=== PATIENT | female | born 1940 | race Caucasian/White ===

== ENCOUNTER 2022-04-12 12:00 | Outpatient (CLI) | payer MEDICARE, OTHER, SELFPAY ==
--- OUTSIDE RECORDS SUMMARY | 2022-04-12 08:11 | XMS_ITS | Encounter Summary ---
:1940 Author Care Team Providers Name Role Phone [facility] Primary Care Provider [phone] Reason for Visit None recorded. Assessment and Plan 1. Chronic interstitial cystitis Follow up on nurse schedule for pessary check and elmiron installations. Needs annual appt with MD ? urinalysis, dipstick Discussion Note: None recorded.Patient educational handouts: No information available. Plan of Care Reminders Provider Appointments Established 30 05/09/2022 9:30AM [facility] Lab Urinalysis, Dipstick 04/11/2022 [facility] Referral None recorded. ? ? Procedures None recorded. ? ? Surgeries None recorded. ? ? Imaging None recorded. ? ? Medications Name Start Date ? ? Advair Diskus 100 mcg-50 mcg/dose powder for inhalatio n ? Advair Diskus 250 mcg-50 mcg/dose powder for inhalatio n ? INHALE ONE PUFF BY MOUTH TWICE DAILY Advair Diskus 500 mcg-50 mcg/dose powder for inhalatio n ? INHALE ONE PUFF BY MOUTH TWICE DAILY albuterol sulfate HFA 90 mcg/actuation aerosol inhaler ? INHALE 2 PUFFS BY MOUTH EVERY 6 HOURS NEEDED FOR W HEEZING alendronate 70 mg tablet ? amoxicillin 875 mg tablet ? TAKE 1 TABLET BY MOUTH TWICE DAILY FOR 10 DAYS azelastine 0.05 % eye drops ? azelastine 137 mcg (0.1 %) nasal spray aerosol ? inhale 2 sprays into the nostril(s) twice daily celecoxib 100 mg capsule ? clotrimazole 10 mg devin ? TAKE 1 TABLET BY MOUTH 5 TIMES DAILY. coenzyme q10 100 mg cap mcke ? TAKE ONE CAPSULE BY MOUTH DAILY coenzyme Q10 100 mg capsule ? TAKE ONE CAPSULE BY MOUTH DAILY Elmiron 100 mg capsule ? Take 1 capsule 3 times a day by oral route. epinephrine 0.3 mg/0.3 mL injection, auto-injector ? INJECT 0.3 MILLILITERS INTRAMUSCULARLY NEEDED FOR ANAPHYLACTIC REACTION. escitalopram 10 mg tablet ? TAKE ONE TABLET BY MOUTH DAILY famotidine 20 mg tablet ? take 1 tablet by mouth daily Flowflex COVID-19 Antigen Home Test kit ? TEST gabapentin 100 mg capsule ? take 1-3 tablets by mouth at bedtime. Incruse Ellipta 62.5 mcg/actuation powder for inhalati on ? INHALE 1 PUFF BY MOUTH EVERY 24 HOURS lidocaine HCl 20 mg/mL (2 %) injection solution ? methylprednisolone 4 mg tablets in a dose pack ? follow package directions metoclopramide 10 mg tablet ? TAKE 1 TABLET BY MOUTH 3 TIMES DAILY NEEDED montelukast 10 mg tablet ? TAKE ONE TABLET BY MOUTH IN THE EVENING mupirocin 2 % topical ointment ? APPLY TO AFFECTED AREA(S) topically 3 times daily as needed nitroglycerin 0.4 mg sublingual tablet ? TAKE 1 TABLET SUBLINGUALLY EVERY 5 MINUTES NEEDED FOR CHEST PAIN. omeprazole 40 mg capsule,delayed release ? TAKE ONE CAPSULE BY MOUTH TWICE DAILY BEFORE MEALS pramipexole 0.125 mg tablet ? take 1-4 tablets by mouth at bedtime. s tart at 1 tablet and increase every 4 days by 0.125mg as needed up to max dose of 0.5mg pramipexole 0.25 mg tablet ? TAKE 2-3 TABLETS BY MOUTH EVERY NIGHT AT BEDTIME. pramipexole 0.5 mg tablet ? TAKE ONE TABLET BY MOUTH AT BEDTIME prednisone 20 mg tablet ? TAKE ONE TABLET BY MOUTH TWICE DAILY Prolia 60 mg/mL subcutaneous syringe ? INJECT 60 MG SUBCUTANEOUSLY EVERY 6 MONTHS. raloxifene 60 mg tablet ? TAKE ONE TABLET BY MOUTH DAILY Restasis 0.05 % eye drops in a dropperette ? Place 1 drop in both eyes twice a day rosuvastatin 5 mg tablet ? TAKE ONE TABLET BY MOUTH AT BEDTIME sodium bicarbonate 1 mEq/mL (8.4 %) intravenous soluti on ? sore throat 5-7.5mg xavier equa ? DISSOLVE 2 LOZENGES BY MOUTH EVERY 6 HOURS sucralfate 1 gram tablet ? Symbicort 80 mcg-4.5 mcg/actuation HFA aerosol inhaler ? terbinafine HCl 250 mg tablet ? TAKE ONE TABLET BY MOUTH DAILY trazodone 50 mg tablet ? TAKE 1/2 TABLET TO 1 TABLET BY MOUTH EVERY NIGHT AT B EDTIME NEEDED. Trelegy Ellipta 100 mcg-62.5 mcg-25 mcg powder for inh alation ? INHALE ONE PUFF BY MOUTH DAILY triamcinolone acetonide 0.1 % topical ointment ? verapamil ER (SR) 120 mg tablet,extended release ? TAKE 1 TABLET BY MOUTH DAILY Medications Administered None recorded. Vitals None recorded. Results Lab Results Date Name Specimen Result Interpretation Description Value Range Status Address ? 04/11/2022 Urinalysis, ? Color-Status Yellow ? ? [facility]: [address], [place] ? ? ? Clarity-Status Clear ? ? [facility]: [address], [place] ? ? ? Nitrates-Status negative ? ? [facility]: [address], [place] ? ? ? Blood-Status Negative ? ? [facility]: [address], [place] ? ? ? Leuko-Status Trace ? ? [facility]: [address], [place] Allergies Code Code System Name Reaction Severity Onset 92826 RxNorm Vancomycin ? ? 10/02/2011 Sulfa (Sulfonamide Antibiotics) ? ? ? Notes: Sulfa Antibiotics Problems Name Status Onset Date Source ? 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 Procedures Date Name Performed by ? ? Appendectomy Information not avai lable ? Insertion of Prosthesis for Breast Infor mation not available ? Laparoscopy Information not avai lable ? Discectomy of Spine Information not avai lable Vaccine List Vaccine Type pneumococcal polysaccharide PPV23 08/22/2015 Notes: Voided: PCV (Pneumovax 23) Social History Tobacco Smoking Status Former Smoker What was the date of your most recent tobacco screening? Marital status Unknown Family History Relation Problem Onset Age of Age Notes Mother Family history of cardiac (No Information) N/A (No Notes) disorder Father Family history of diabetes (No Information) N/A (No Notes) mellitus Father Malignant melanoma (No Information) N/A (No N otes) Functional Status Unknown. Past Encounters 04/11/2022 Chronic Interstitial Cystitis Lisandra Greer MD: [address], [place] [address], Ph. History of Present Illness Note: <p> Patient presents to clinic today for nurse visit. Today she received elmiron instillationand pessary cleaning</p><div>
</div><p>Followed for IC: S/p cysto and hydrodistention 08/2018 that helped a lot with her urgency/dysuria and frequency. She also did elmiron bladder installations once a month; been successful. </p><div>
</div><p>Her cysto was normal on 10/2020</p><div>
</div><div>Size 3 pessary was cleaned and replaced</div><div>
</div><div>Patient has noted increasing stress incontinence- now needs daily pads- RN advised that she will discuss with Dr Greer about treatment options</div> Review of Systems ? Comprehensive General Adult ROS Reported By: Patient Constitutional: Constitutional: no fever, no chills Eyes: Eyes: no dry eyes, no vision change, no irritation Endocrine: Endocrine: no fatigue, no in creased thirst Cardiovascular: Cardiovascular: no chest jose david n, no palpitations Integumentary: Skin: no rashes, no change i n skin color Respiratory: Respiratory: no wheezing, no cough, no shortness of breath Gastrointestinal: Gastrointestinal: no abdomin al pain, no nausea, no vomiting, no constipation, no GERD Musculoskeletal: Musculoskeletal: no neck jose david n, no back pain Neurologic: Neurologic: no tremor, no di zziness, no numbness, no headaches Genitourinary: Genitourinary: no difficulty urinating, urinary loss of control; stress incontinence ENMT: Ears: no ear pain. Mouth/Thr oat: no sore throat Allergic/Immunologic: Allergy/Immunologic: no itch ing, no hives Hematologic/Lymphatic: Hematologic/Lymphatic no swo llen glands, no excessive bleeding Psychiatric: Psych: no hallucinations, (n ormal) sleep disturbances: mismatch of sleep / wake christian edule with lifestyle needs Physical Exam None recorded.
--- OUTSIDE RECORDS SUMMARY | 2022-04-12 08:11 | XMS_ITS | Encounter Summary ---
:1940 Author Care Team Providers Name Role Phone [facility] [place] Primary Care Provider [phone] Reason for Visit Chronic interstitial cystitis; Prolapse of female genital organs Assessment and Plan 1. Chronic interstitial cystitis Follow up on nurse schedule for pessary check and elmiron installations. Needs annual appt with MD 2. Prolapse of female genital organs Return to clinic every 4-8 weeks for pe ssary cleaning with RN. Needs annual appointment with MD Discussion Note: None recorded.Patient educational handouts: No information available. Plan of Care Reminders Provider Appointments Established 30 05/09/2022 9:30AM [facility] Lab None recorded. ? ? Referral None recorded. ? ? Procedures None [...] recorded. Vitals None recorded. Results Lab Results None recorded. Allergies Code Code System Name Reaction Severity Onset 43669 RxNorm Vancomycin ? ? 10/02/2011 Sulfa (Sulfonamide [...] N otes) Functional Status Unknown. Past Encounters 03/07/2022 Chronic Interstitial Cystitis; Prolapse of Female Genital Organs Lisandra Greer MD: [address] [place] [address], Ph. 02/07/2022 Prolapse of Female Genital Organs Lisandra Greer MD: [address] [place] [address], Ph. History of Present Illness Note: <p> [...]
--- OUTSIDE RECORDS SUMMARY | 2022-04-12 08:11 | XMS_ITS ---
:1940 Author Care Team Providers Name Role Phone [facility] Primary Care Provider [phone] Allergies Code Code System Name Reaction Severity Status Onset 64360 RxNorm Vancomycin ? ? Active 2 Sulfa (Sulfonamide ? ? Active ? Antibiotics) Notes: Sulfa Antibiotics Medications Name Status Start Date Stop Date ? ? Advair Diskus 100 mcg-50 mcg/dose powder for inhalation Active ? Not available Advair Diskus 250 mcg-50 mcg/dose powder for inhalation Active ? Not available INHALE ONE PUFF BY MOUTH TWICE DAILY Advair Diskus 500 mcg-50 mcg/dose powder for inhalation Active ? Not available INHALE ONE PUFF BY MOUTH TWICE DAILY albuterol sulfate HFA 90 mcg/actuation aerosol inhaler Active ? Not available INHALE 2 PUFFS BY MOUTH EVERY 6 HOURS NEEDED FOR WHEEZING alendronate 70 mg tablet Active ? Not wily ilable amoxicillin 875 mg tablet Active ? Not av ailable TAKE 1 TABLET BY MOUTH TWICE DAILY FOR 10 DAYS azelastine 0.05 % eye drops Active ? Not available azelastine 137 mcg (0.1 %) nasal spray aerosol Active ? Not available inhale 2 sprays into the nostril(s) twice daily azithromycin 250 mg tablet Completed ? 09/26 TAKE 2 TABLETS BY MOUTH ON DAY 1, THEN TAKE 1 TABLET ONCE DAILY ON DAYS 2 THROUGH 5 celecoxib 100 mg capsule Active ? Not wily ilable cephalexin 500 mg capsule Completed ? 2021 TAKE ONE CAPSULE BY MOUTH THREE TIMES DAILY Cipro 500 mg tablet Completed ? 09/26/2021 Take 1 tablet every day by oral route for 1 day. clotrimazole 10 mg devin Active ? Not av ailable coenzyme q10 100 mg cap mcke Active ? Not available TAKE ONE CAPSULE BY MOUTH DAILY coenzyme Q10 100 mg capsule Active ? Not available TAKE ONE CAPSULE BY MOUTH DAILY Elmiron 100 mg capsule Active ? Not avail able Take 1 capsule 3 times a day by oral route. epinephrine 0.3 mg/0.3 mL injection, auto-injector Active ? Not available INJECT 0.3 MILLILITERS INTRAMUSCULARLY NEEDED FOR ANAPHYLACT IC REACTION. escitalopram 10 mg tablet Active ? Not av ailable TAKE ONE TABLET BY MOUTH DAILY famotidine 20 mg tablet Active ? Not avai lable take 1 tablet by mouth daily Flowflex COVID-19 Antigen Home Test kit Active ? Not available TEST gabapentin 100 mg capsule Active ? Not av ailable take 1-3 tablets by mouth at bedtime. Incruse Ellipta 62.5 mcg/actuation powder for inhalation Active ? Not available INHALE 1 PUFF BY MOUTH EVERY 24 HOURS lidocaine HCl 20 mg/mL (2 %) injection solution Active ? Not available methylprednisolone 4 mg tablets in a dose pack Active ? Not available follow package directions metoclopramide 10 mg tablet Active ? Not available TAKE 1 TABLET BY MOUTH 3 TIMES DAILY NEEDED montelukast 10 mg tablet Active ? Not wily ilable TAKE ONE TABLET BY MOUTH IN THE EVENING mupirocin 2 % topical ointment Active ? N ot available APPLY TO AFFECTED AREA(S) topically 3 times daily as needed nitroglycerin 0.4 mg sublingual tablet Active ? Not available TAKE 1 TABLET SUBLINGUALLY EVERY 5 MINUTES NEEDED FOR CHEST PAIN. omeprazole 20 mg capsule,delayed release Completed ? 09/26/2021 TAKE 1-2 CAPSULES BY MOUTH DAILY omeprazole 40 mg capsule,delayed release Active ? Not available TAKE ONE CAPSULE BY MOUTH TWICE DAILY BEFORE MEALS pramipexole 0.125 mg tablet Active ? Not available take 1-4 tablets by mouth at bedtime. s tart at 1 tablet and increase every 4 days by 0.125mg as needed up to max dose of 0.5mg pramipexole 0.25 mg tablet Active ? Not a vailable TAKE 2-3 TABLETS BY MOUTH EVERY NIGHT AT BEDTIME. pramipexole 0.5 mg tablet Active ? Not av ailable TAKE ONE TABLET BY MOUTH AT BEDTIME prednisone 20 mg tablet Active ? Not avai lable TAKE ONE TABLET BY MOUTH TWICE DAILY Prolia 60 mg/mL subcutaneous syringe Active ? Not available INJECT 60 MG SUBCUTANEOUSLY EVERY 6 MONTHS. raloxifene 60 mg tablet Active ? Not avai lable TAKE ONE TABLET BY MOUTH DAILY Restasis 0.05 % eye drops in a dropperette Active ? Not available Place 1 drop in both eyes twice a day rosuvastatin 5 mg tablet Active ? Not wily ilable TAKE ONE TABLET BY MOUTH AT BEDTIME sodium bicarbonate 1 mEq/mL (8.4 %) intravenous solution Active ? Not available sore throat 5-7.5mg xavier equa Active ? Not available DISSOLVE 2 LOZENGES BY MOUTH EVERY 6 HOURS sucralfate 1 gram tablet Active ? Not wily ilable Symbicort 80 mcg-4.5 mcg/actuation HFA aerosol inhaler Active ? Not available terbinafine HCl 250 mg tablet Active ? No t available TAKE ONE TABLET BY MOUTH DAILY trazodone 50 mg tablet Active ? Not avail able TAKE 1/2 TABLET TO 1 TABLET BY MOUTH EVERY NIGHT AT BEDTIME NEEDED. Trelegy Ellipta 100 mcg-62.5 mcg-25 mcg powder for inhalation Ac tive ? Not available INHALE ONE PUFF BY MOUTH DAILY triamcinolone acetonide 0.1 % topical ointment Active ? Not available verapamil ER (SR) 120 mg tablet,extended release Active ? Not available TAKE 1 TABLET BY MOUTH DAILY Problems Name Status Onset Date Source ? 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 Procedures Date Name Performed by ? ? Appendectomy Information not avai lable ? Insertion of Prosthesis for Breast Infor mation not available ? Laparoscopy Information not avai lable ? Discectomy of Spine Information not avai lable Results Lab Results Date Name Specimen Result Interpretation Description Value Range Status Address ? 04/11/2022 Urinalysis, ? Color-Status Yellow ? ? [facility] [address] ? ? ? Clarity-Status Clear ? ? [facility]: [address], [place] ? ? ? Nitrates-Statu negative ? ? [facility]: [address], [place] ? ? ? Blood-Status Negative ? ? [facility]: [address], [place] ? ? ? Leuko-Status Trace ? ? [facility] [address], [place] 04/11/2022 Urinalysis, ? No observation ? ? ? Dipstick recorded. 03/07/2022 Urinalysis, ? No observation ? ? ? Dipstick recorded. 02/07/2022 Urinalysis, ? Color-Status Yellow ? ? Dipstick ? ? ? Clarity-Status Clear ? Glucose-Status Negative ? Bilirubin-Stat Negative ? ? us ? ? ? Ketones-Status Negative ? Nitrates-Statu negative ? ? s ? ? ? Blood-Status Trace ? Leuko-Status Small ? Specimen Type Voided ? Performed by Yamilet ? ? Puneet ORELLANA ? ? ? Total Urine 20cc ? ? Volume 01/03/2022 Urinalysis, ? Color-Status Yellow ? ? Dipstick ? ? ? Clarity-Status Clear ? Glucose-Status Negative ? Bilirubin-Stat Negative ? ? us ? ? ? Ketones-Status Negative ? Sp 1.015 ? ? [place]-Status ? ? ? pH-Status 8.0 ? Urobilinogen-S 0.2 ? ? tatus ? ? ? Nitrates-Statu negative ? ? s ? ? ? Blood-Status Negative ? Leuko-Status Negative ? Specimen Type Voided ? Performed by yamilet ? ? puneet ORELLANA ? ? ? Total Urine 20cc ? ? Volume 01/03/2022 Urinalysis, ? No observation ? ? ? Dipstick recorded. 11/29/2021 Urinalysis, ? Color-Status Yellow ? ? Dipstick ? ? ? Clarity-Status Clear ? Glucose-Status Negative ? Bilirubin-Stat Negative ? ? us ? ? ? Ketones-Status Negative ? Sp 1.010 ? ? [place]-Status ? ? ? pH-Status 7.0 ? Urobilinogen-S 0.2 ? ? tatus ? ? ? Nitrates-Statu negative ? ? s ? ? ? Blood-Status Trace ? Leuko-Status Negative ? Specimen Type Voided ? Performed by yamilet ? ? puneet ORELLANA ? ? ? Total Urine 20cc ? ? Volume 11/01/2021 Urinalysis, Urine ? No observation ? ? ? Dipstick recorded. 11/01/2021 Urinalysis, ? Color-Status Yellow ? ? Dipstick ? ? ? Clarity-Status Clear ? Glucose-Status Negative ? Bilirubin-Stat Negative ? ? us ? ? ? Ketones-Status Negative ? Sp 1.010 ? ? [place]-Status ? ? ? pH-Status 7.0 ? Urobilinogen-S 0.2 ? ? tatus ? ? ? Nitrates-Statu negative ? ? s ? ? ? Blood-Status Negative ? Leuko-Status Trace ? Specimen Type Voided ? ? 10/04/2021 Urinalysis, ? Nitrates-Statu negative ? ? Dipstick s ? ? ? Blood-Status Negative ? Leuko-Status Negative ? ? 10/04/2021 Urinalysis, ? No observation ? ? ? Dipstick recorded. 09/26/2021 Bladder Scan ? Volume (in mL) 0ml ? ? (PROC) 09/26/2021 Urinalysis, ? pH-Status 5.5 ? ? Dipstick 09/26/2021 Urinalysis, ? No observation ? ? ? Dipstick recorded. 08/31/2021 Urinalysis, ? pH-Status 7.5 ? ? Dipstick ? ? ? Nitrates-Statu negative ? ? s ? ? ? Blood-Status Negative ? Leuko-Status Negative ? Specimen Type Voided ? ? 08/31/2021 Urinalysis, ? No observation ? ? ? Dipstick recorded. 08/03/2021 Urinalysis, ? Color-Status Yellow ? ? Dipstick ? ? ? Clarity-Status Clear ? Glucose-Status Negative ? Bilirubin-Stat Negative ? ? us ? ? ? Ketones-Status Negative ? Sp 1.015 ? ? [place]-Status ? ? ? pH-Status 7.5 ? Urobilinogen-S 0.2 ? ? tatus ? ? ? Nitrates-Statu negative ? ? s ? ? ? Blood-Status Negative ? Leuko-Status Negative ? Specimen Type Voided ? Performed by Yamilet ? ? Puneet RN ? ? ? Total Urine 20cc ? ? Volume 08/03/2021 Urinalysis, ? No observation ? ? ? Dipstick recorded. 07/03/2021 Urinalysis, ? Nitrates-Statu negative ? ? Dipstick s ? ? ? Blood-Status Negative ? Leuko-Status Negative ? ? 07/03/2021 Urinalysis, ? No observation ? ? ? Dipstick recorded. 05/31/2021 Urinalysis, ? No observation ? ? ? Dipstick recorded. 05/03/2021 Urinalysis, ? No observation ? ? ? Dipstick recorded. 04/05/2021 Urinalysis, ? No observation ? ? ? Dipstick recorded. 03/01/2021 Urinalysis, ? No observation ? ? ? Dipstick recorded. 02/02/2021 Urinalysis, ? pH-Status 8.5 ? ? Dipstick 02/02/2021 Urinalysis, ? No observation ? ? ? Dipstick recorded. 12/07/2020 Urinalysis, ? Color-Status Yellow ? ? Dipstick ? ? ? Clarity-Status Clear ? Nitrates-Statu negative ? ? s ? ? ? Specimen Type Voided ? Performed by Yamilet ORELLANA ? Total Urine 30CC ? ? Volume 12/07/2020 Urinalysis, Urine ? No observation ? ? ? Dipstick recorded. 11/09/2020 Urinalysis, Urine ? No observation ? ? ? Dipstick recorded. 10/26/2020 Urinalysis, Urine ? No observation ? ? ? Dipstick recorded. 10/04/2020 Urinalysis, Urine ? No observation ? ? ? Dipstick recorded. 08/25/2020 Urinalysis, Urine ? No observation ? ? ? Dipstick recorded. 07/27/2020 Urinalysis, ? No observation ? ? ? Dipstick recorded. 06/22/2020 Urinalysis, Urine ? No observation ? ? ? Dipstick recorded. 03/21/2020 Urinalysis, ? No observation ? ? ? Dipstick recorded. 02/22/2020 Urinalysis, ? Color-Status Yellow ? ? Dipstick ? ? ? Clarity-Status Clear ? pH-Status 8.5 ? Nitrates-Statu negative ? ? s ? ? ? Specimen Type Voided ? ? 02/22/2020 Urinalysis, Urine ? No observation ? ? ? Dipstick recorded. ? Urinalysis, ? pH-Status 7.5 ? ? Dipstick ? ? ? Nitrates-Statu negative ? ? s ? ? ? Blood-Status Negative ? Leuko-Status Negative ? ? ? Urinalysis, ? pH-Status 7.5 ? ? Dipstick ? ? ? Nitrates-Statu negative ? ? s ? ? ? Blood-Status Trace ? Leuko-Status Negative ? ? ? Urinalysis, ? pH-Status 7.0 ? ? Dipstick ? ? ? Nitrates-Statu negative ? ? s ? ? ? Blood-Status Negative ? Leuko-Status Negative ? ? ? Urinalysis, ? pH-Status 7.0 ? ? Dipstick ? Urinalysis, ? pH-Status 7.0 ? ? Dipstick ? Urinalysis, ? Color-Status Yellow ? ? Dipstick ? ? ? Clarity-Status Clear ? Nitrates-Statu negative ? ? s ? ? ? Specimen Type Voided ? Performed by yamilet ? ? puneet ? ? ? Total Urine 30cc ? ? Volume ? Urinalysis, ? Color-Status Yellow ? ? Dipstick ? ? ? Clarity-Status Clear ? Nitrates-Statu negative ? ? s ? ? ? Specimen Type Voided ? Performed by Yamilet ORELLANA ? Total Urine 30cc ? ? Volume ? Urinalysis, ? Color-Status Yellow ? ? Dipstick ? ? ? Clarity-Status Clear ? Nitrates-Statu negative ? ? s ? ? ? Specimen Type Voided ? Performed by Yamilet ORELLANA ? Total Urine 40cc ? ? Volume ? Urinalysis, ? Color-Status Yellow ? ? Dipstick ? ? ? Clarity-Status Clear ? Nitrates-Statu negative ? ? s ? Urinalysis, ? Color-Status Yellow ? ? Dipstick ? ? ? Clarity-Status Clear ? Nitrates-Statu negative ? ? s ? ? ? Specimen Type Voided ? Performed by yamilet REYNA ? Total Urine 30cc ? ? Volume ? Urinalysis, ? Color-Status Yellow ? ? Dipstick ? ? ? Clarity-Status Clear ? Nitrates-Statu negative ? ? s ? ? ? Blood-Status Negative ? Specimen Type Voided ? Performed by Yamilet ORELLANA ? Total Urine 50cc ? ? Volume ? Urinalysis, ? No observation ? ? ? Dipstick recorded. ? Urinalysis, ? pH-Status 8.5 ? ? Dipstick ? ? ? Nitrates-Statu negative ? ? s ? Urinalysis, ? Color-Status Yellow ? ? Dipstick ? ? ? Clarity-Status Clear ? Glucose-Status Negative ? Bilirubin-Stat Negative ? ? us ? ? ? Ketones-Status Negative ? Sp 1.015 ? ? [place]-Status ? ? ? pH-Status 8.5 ? Nitrates-Statu negative ? ? s ? ? ? Blood-Status Negative ? Leuko-Status Negative ? Specimen Type Voided ? Performed by donato ORELLANA ? ? ? Urinalysis, ? Color-Status Yellow ? ? Dipstick ? ? ? Clarity-Status Clear ? Glucose-Status Negative ? Bilirubin-Stat Negative ? ? us ? ? ? Ketones-Status Negative ? Sp 1.015 ? ? [place]-Status ? ? ? pH-Status 8.5 ? Urobilinogen-S 0.2 ? ? tatus ? ? ? Nitrates-Statu negative ? ? s ? ? ? Blood-Status Negative ? Leuko-Status Negative ? Specimen Type Voided ? Performed by Cruz Hitchcock ? ? RN Past Encounters 04/11/2022 Chronic Interstitial Cystitis Lisandra Greer MD: [address] [place] [address], Ph. 03/07/2022 Chronic Interstitial Cystitis; Prolapse of Female Genital Organs Lisandra Greer MD: [address], [place] [address], Ph. 02/07/2022 Prolapse of Female Genital Organs Lisandra Greer MD: [address], [place] [address], Ph. 01/03/2022 Prolapse of Female Genital Organs; Chron ic Interstitial Cystitis Lisandra Greer MD: [address], [place] [address], Ph. 11/29/2021 Chronic Interstitial Cystitis Lisandra Greer MD: [address], [place] [address], Ph. 11/01/2021 Chronic Interstitial Cystitis Lisandra Greer MD: [address], [place] [address], Ph. 10/04/2021 Chronic Interstitial Cystitis; Prolapse of Female Genital Organs Lisandra Greer MD: [address], [place] [address], Ph. 09/26/2021 Chronic Interstitial Cystitis; Prolapse of Female Genital Organs Lisandra Greer MD: [address], [place] [address], Ph. 08/31/2021 Chronic Interstitial Cystitis Lisandra Greer MD: [address], [place] [address], Ph. 08/03/2021 Chronic Interstitial Cystitis Lisandra Greer MD: [address], [place] [address], Ph. 07/03/2021 Overactive Bladder Lisandra Greer MD: [address], [place] [address], Ph. 05/31/2021 Chronic Interstitial Cystitis Lisandra Greer MD: [address], [place] [address], Ph. 05/03/2021 Chronic Interstitial Cystharry Greer MD: [address], [place] [address], Ph. 04/05/2021 Chronic Interstitial Cystitis Lisandra Greer MD: [address], [place] [address], Ph. 03/01/2021 Chronic Interstitial Cystitis Lisandra Greer MD: [address], [place] [address], Ph. 02/02/2021 Chronic Interstitial Cystitis Lisandra Greer MD: [address], [place] [address], Ph. 01/02/2021 Chronic Interstitial Cystitis Lisandra Greer MD: [address], [place] [address], Ph. 12/07/2020 Chronic Interstitial Cystitis Lisandra Greer MD: [address], [place] [address], Ph. 11/09/2020 Chronic Cystitis; Chronic Interstitial C ystitis Lisandra Greer MD: [address], [place] [address], Ph. 10/26/2020 Chronic Interstitial Cystitis Lisandra Greer MD: [address], [place] [address], Ph. Social History Tobacco Smoking Status Former Smoker Vaccine List Vaccine Type pneumococcal polysaccharide PPV23 08/22/2015 Notes: Voided: PCV (Pneumovax 23) Plan of Care Patient Instructions RTC in one month for next instillation, as well as a pessary check. RTC in one month for next instillation. RTC in one month for next instillation. RTC in one month for next bladder insti llation. RTC in one month for next instillation. Follow up with provider Last OV was over a year ago needs appoi ntment with physician before her next or during her next instillation. December,MA Reminders Provider Appointments None recorded. ? ? Lab None recorded. ? ? Referral None recorded. ? ? Procedures None recorded. ? ? Surgeries None recorded. ? ? Imaging None recorded. ? ? Vitals 02/07/2022 09:30AM ESTABLISHED 30 Height Weight BMI 5 ft 7 in 163 lbs 25.5 kg/m2 09/26/2021 04:00PM PROLAPSE CONSULT 30 Height Weight BMI 5 ft 7 in 163 lbs 25.5 kg/m2 02/02/2021 09:30AM ESTABLISHED 10 Height Weight BMI 5 ft 7 in 163 lbs 25.5 kg/m2 05/18/2020 11:00AM PROCEDURE 30 Height 5 ft 7 in 04/20/2020 11:00AM PROCEDURE 30 Height 5 ft 7 in 02/22/2020 10:00AM PROCEDURE 30 Height Weight BMI 5 ft 7 in 163 lbs 25.5 kg/m2
--- OUTSIDE RECORDS SUMMARY | 2022-04-12 08:11 | XMS_ITS | Encounter Summary ---
:1940 Author Care Team Providers Name Role Phone [facility] Primary Care Provider [phone] Reason for Visit Prolapse of female genital organs Assessment and Plan 1. Prolapse of female genital organs ? urinalysis, dipstick Discussion Note: None recorded.Patient educational handouts: No information available. Plan of Care Reminders Provider Appointments Established 05/09/2022 9:30AM [facility]nurse_clin ic Lab Urinalysis, Dipstick 02/07/2022 ? Referral None recorded. ? ? Procedures [...] MOUTH DAILY Medications Administered None recorded. Vitals Height Weight BMI 5 ft 7 in 163 lbs 25.5 kg/m2 Results Lab Results Date Name Specimen Result Interpretation Description Value Range Status Address ? 03/07/2022 Urinalysis, Dipstick ? No observation ? ? ? recorded. 02/07/2022 Urinalysis, Dipstick ? Color-Status Yellow ? Clarity-Status Clear ? Glucose-Status Negative ? Bilirubin-Status Negative ? Ketones-Status Negative ? Nitrates-Status negative ? Blood-Status Trace ? Leuko-Status Small ? Specimen Type Voided ? Performed by Sapna Teixeira RN ? Total Urine Volume 20cc ? ? Allergies Code Code System Name Reaction Severity Onset 94406 RxNorm Vancomycin ? ? 10/02/2011 Sulfa (Sulfonamide [...] N otes) Functional Status Unknown. Past Encounters 02/07/2022 Prolapse of Female Genital Organs Lisandra Greer MD: [address] [facility] [place] [address], Ph. History of Present Illness Note: <p> [...]
--- OUTSIDE RECORDS SUMMARY | 2022-04-12 08:11 | XMS_ITS | Continuity of Care Document ---
:1940 Author Organization [facility] Address [address] [address] [place] [address] Phone Care Team Providers Name Role Phone Forrest DAY, Arslan Unavailable Unavailable Allergies, Adverse Reactions, Alerts Substance Reaction Status Criticality vancomycin hives Active No Information Sulfa (Sulfonamide Antibiotics) hives Active No Information WARNIN allergy(ies) could not be collected because the type is not supported. [facility] further details. Medications Medication Instructions Dosage Effective Dates Status Comment s (start - stop) Zyrtec 10 mg capsule - Active Restasis 0.05 % eye instill 1 drop by 1.00 drop - Active drops in a ophthalmic route dropperette every 12 hours into affected eye(s) Flonase Allergy spray 1 - 2 spray by 50-100 MCG - Active Relief 50 intranasal route mcg/actuation nasal every day in each spray,suspension nostril as needed triamcinolone apply by topical Not Available - Active acetonide 0.1 % route every day a topical cream thin layer to the affected area(s) famotidine 20 mg take 1 tablet by 20 MG - Active tablet oral route 2 times every day mupirocin 2 % apply by topical 0.00 - Active topical ointment route 3 times every day a small amount to the affected area Motrin IB 200 mg take 2 tablet by 400 MG - Active tablet oral route every 6 hours as needed with food Sudafed PE 10 mg take 1 tablet by 1 tablet - Active tablet oral route every day omeprazole 40 mg take 1 capsule by 40 MG - Active capsule,delayed oral route 2 times release every day before a meal prednisone 20 mg take 2 by Oral route 2 - Active tablet 24, 12 and 1 hour before Remicade Co Q-10 100 mg take 1 tablet by 1 tablet - Active capsule oral route every day rosuvastatin 5 mg take 1 tablet by 5 MG - Active tablet oral route every day EpiPen 0.3 mg/0.3 mL inject 0.3 0.3 MG - Active injection, milliliter by auto-injector intramuscular route once as needed for anaphylaxis verapamil 120 mg take 1 tablet by 120 MG - Active tablet oral route 3 times every day albuterol sulfate inhale 2 puff by 2 puff - Active HFA 90 mcg/actuation inhalation route aerosol inhaler every 6 hours as needed Incruse Ellipta 62.5 inhale 1 puff by 62.5 MCG - Active mcg/actuation powder inhalation route for inhalation every day at the same time each day magnesium 400 mg (as take 1 tablet by 1 tablet - Active magnesium oxide) oral route 2 times capsule every day Multivitamin unknown - Active Oral azelastine 137 mcg spray 1 spray by 1 spray - Active (0.1 %) nasal spray intranasal route aerosol every 2 days in each nostril raloxifene 60 mg take 1 tablet by 60 MG - Active tablet oral route every day ADVAIR DISKUS inhale 1 puff by Not Available - Active (unknown strength) inhalation route 2 times every day in the morning and evening approximately 12 hours apart escitalopram 10 mg take 1 tablet by 10 MG - Active tablet oral route every day Vitamin D3 1,000 take 1 Tablet by 1 Tablet - Active unit tablet Oral route once Calcium 500 500 mg wash 1 capsule by 1 capsule - Active calcium (1,250 mg) oral route every day tablet trazodone 50 mg take 1 tablet by 50 MG - Active tablet oral route every day after meals ProAir HFA 90 inhale 2 puff by 2 puff - Active mcg/actuation inhalation route aerosol inhaler every 6 hours as needed Procedures Procedure Date Telephone E&M III 21-30 Min MD SHADI Ugi Endo; W/bx 1/mx Level Iv-surg Path Gross/micro Telephone E&M III 21-30 Min MD SHADI Colonoscopy Flex; W/bx 1/mx Level Iv-surg Path Gross/micro Offic/outpt E&m Estab Low-mod Stool Kits Given FilmArray GI Panel Offic/outpt E&m Estab Mod-hi 2 Routine Serum Collection Gg; Iga, Igd, Igg, Igm, Ea Colonoscopy Flex; W/remov Les- Ugi Endo; Dx W/wo Collec Specm Level Iv-surg Path Gross/micro Offic/outpt E&m Estab Low-mod Routine Serum Collection Iron Iron Binding Capacity Ferritin Cyanocobalamin Folic Acid; Serum Bld Ct; Hg & Platelet Ct Autom Colonoscopy Flex; W/remov Les- Level Iv-surg Path Gross/micro Offic/outpt E&m Estab Low-mod 1036F G8420 Ugi Endo; W/bx 1/mx Level Iv-surg Path Gross/micro Level Iv-surg Path Gross/micro Level Iv-surg Path Gross/micro Level Iv-surg Path Gross/micro Offic/outpt E&m New Mod-hi Routine Serum Collection 1036F G8420 G8553 Hepatitis C Antibody; Ag-immunoassay; Hep B Surface Hepatic Function Panel Creatinine; Bld Urea Nitro; Dain Advance Directives Directive Yes / No Effective Date File Name No Information Encounters Encounter Practice Location Reason(s) Diagnoses Date Provider Provide rs Description For Visit Copied on Encounter [facility] No Information Forrest DAY Digestive Ahmed. [address] [facility], [address] [place], [address], [address], [place], [place], [place], [place], [id number], [id number], [place]. tel: tel:[phone] Telephone [facility] GI CoughHeartburn Forrest DAY Referring E&M III Digestive Symptoms Upper Ahmed. 3001 Provider: 21-30 Min Health [facility], or abdominal 1 [place] Refer ral SHADI [address] [place]. [address], (chief nstipation, [address], [place] complaint) unspecified [place], [place], [place], constipation [place], [id number], type [id number], [place]. tel: tel:[phone] [facility] No Information Forrest DAY Digestive Ahmed. [address] [facility], [address] [place], [address], [address], [place], [place], [place], [place], [id number], [id number], [place]. tel: tel:[phone] [facility] Hiatal Forrest DAY Referring Digestive Endoscopy herniaGastropa - Ahmed. 3001 P rovider: Health [facility], Center thyUpper 1 [address] Referral [place]. [address], pain, [address], [place] unspecifiedHea [place], [place], [place], rtburnDiaphrag [place], [id number], matic hernia [id number], [place] without [place]. tel: obstruction or tel: [phone] gangrene [phone] Telephone [facility] GI HeartburnUpper Forrest DAY Referring E&M III Digestive Symptoms abdominal Ahmed. 3001 Provide r: 21-30 Min MD Sherri HILLS, or painBelching 1 [place] Ja ck SHADI [address], [place] [address], (chief [address] Cruz MD, [address] [place] complaint) [place], [address], [place], [place], [place], [id number], [id number], [place], [address]. tel: tel: tel: [phone] [facility] No Information Forrest DAY R eferring Digestive Ahmed. 3001 Provider: Health [facility], [address] [place] [address] [place]. [address], [address], [place], [place], [place], [place], [id number], [id number], [place]. tel: tel: [phone] [facility] No Information Rosalina DAY [facility] [place]. [employer] [facility], 0 [address] [address], [place] [address], [place], [place], [place], [id number], [place], [place] [id number], tel: [place]. [phone] tel: [phone] [facility] Colorectal Forrest ADY Referri ng Digestive Endoscopy polyp detected Ahmed. 3001 P rovider: [employer] [facility], Center on 0 [address] Referral [place] [address], britany history [address], [place] of colonic [place], , [place], [place]Di[place], [id number], ulosis of [id number], [place] colonInternal [place]. tel: hemorrhoidsEnc tel: [phone] [place] [phone] screening for malignant neoplasm of colonBenign neoplasm of ascending colonEncounter for screening for malignant neoplasm of colonDvrtclos of lg int w/o perforation or abscess w/o bleedingBenign neoplasm of ascending colonPersonal history of colonic polyps [facility] No Information Rosalina DAY Digestive [facility], Endoscopy [address] [address], [address], [place] [address], [place], [place], [place], [id number], [place], [place] [id number], tel: [place]. [phone] tel: [phone] Offic/outpt [facility] GI Diarrhea, Lathe [facility] PAC R eferring E&m Estab Digestive Symptoms unspecified Kalyani. 3001 Pr ovider: Low-mod Health [facility], or 9 [place] Referral [address] [place]. [address], (chief [address], [place] complaint) [place], [place], [place], [place], [id number], [id number], [place]. tel: tel: [phone] [facility] Diarrhea, Sep-0 Forrest DAY Referr ing Digestive unspecified Ahmed. 3001 Provid er: Health [facility], 9 [place]. [address], [address], [place], [place], [place], [id number], [id number], [place]. tel: tel: [phone] Offic/outpt [facility] GI Diarrhea, Sep-0 Forrest DAY Re ferring E&m Estab Digestive Symptoms unspecified Ahmed. 3001 Pro vider: Mod-hi 2 Health [facility], or typeNauseaDecr 9 [place] Ganesh PO [address], [place] [address], (chief appetiteAbdomi [address] Cruz MD, [address] [place] complaint) nal [place], [address] [place], [place], crampingGastro [place], [place], [id number], esophageal [id number], [place], [address] . tel: without tel: tel: [phone] esophagitis [phone] [facility] Hiatal Forrest DAY Referring Digestive Endoscopy herniaColorect Ahmed. 3001 P rovider: Health ID, Center al 9 [place] Jennie PO Box poly[address], [facility], [address], ulosis of [address], [address] [address] [place] colonInternal [place], [facility], , [place], hemorrhoidsMel [place], [place] , [id number], enaBenign [id number], [place], [address]. [place] neoplasm of [place]. tel:+ tel:+ cecumBenign tel: [phone] [place] [address] transverse colonDiaphragm atic hernia without obstruction or gangreneBenign neoplasm of transverse colonBenign neoplasm of cecum Offic/outpt [facility] GI Change in No Refer ring E&m Estab Digestive Symptoms stoolFatigue, Information P rovider: [facility], or unspecified 6 [address] Concerns type [facility], [address], (chief [address] [place] complaint) [facility], [place], [place], [id number], [place], [address]. [place] tel: tel:[phone] [facility] Landon [facility] Polyp-intes/re Nov- Forrest DAY Ref erring Digestive Endoscopy ct/stom-unc Ahmed. 3001 Prov ider: [facility], [place] BehHemorrhoids 4 [address] Rhond a [address], [facility], [address], Cancer [address], [address] [address] [place] ScreeningProct [facility], [place], osigmoiditis/m [facility] , [id number], [place]anosis [id number], [place], [address] . [place] ColiColon [place]. tel: tel:+ Cancer tel:[phone] ScreeningHemor [address] rhoids NosProctosigmo iditis/melanos is Coli Offic/outpt [facility] Flatul/eructat No Referring E&m Estab Digestive /gas Information Provider : Low[facility], PainFlatul/eru 4 [address] Box ctat/gas Pain Tomas [address] [place] [place], [address], [address] [place], [place], [place], [id number], [place], [address]. [place] tel: tel:[phone] [facility] Hiatal Forrest DAY Referring Digestive Endoscopy HerniaDysphagi 6-201 Ahmed. 3001 P rovider: Health [facility], Center a, [address]ie [address], Tomas [place] [place], [address], ominal Pain, [address], [address] [address] [facility] [place], [place], [place], [place], [place], [id number], UnspecifiedHia [id number], [place], [address]. [place] [facility] [place]. tel: tel: HerniaFlatul/e tel: [phone] ructat/gas 33[address] PainAbdominal Pain, Unspecified Offic/outpt [facility] Flatul/eructat Forrest DAY Referring E&m New Digestive /gas 0-201 Ahmed. 3001 Provider: [facility], PainEpigastric 3 [address] Rhond a [address], [place], [address], [address], [address] [address] [facility], , [place], [place], [place], [id number], [id number], [place], [address]. [place]. tel: tel: tel: [phone] Family History Family Member Type Diagnosis Age At Onset Brother Problem (finding) malignant neoplasm of skin Brother Problem (finding) alcoholism father Problem (finding) malignant melanoma Mother Problem (finding) Cancer, basal cell Daughter Problem (finding) Alive and well Son Problem (finding) Alive and well Immunizations Vaccine Date Status Comments SARS-COV-2 (COVID-19) vaccine, administered N ote: [facility] bi-directional mRNA, spike protein, LNP, interf néstor ; Source: Other preservative free, 30 mcg/0.3mL Registry dose SARS-COV-2 (COVID-19) vaccine, administered N ote: [facility] bi-directional mRNA, spike protein, LNP, interf néstor ; Source: Other preservative free, 30 mcg/0.3mL Registry dose influenza, high-dose seasonal, administered N ote: [facility]IC bi-directional quadrivalent, .7mL dose, interfa ce ; Source: Other preservative free Registry Seasonal, quadrivalent, administered Note: MS IC bi-directional recombinant, injectable interfac e ; Source: Other influenza vaccine, preservative Registry free Fluzone Quad 6mo or older administered Source : Other Provider zoster vaccine recombinant administered Sourc e: Other Provider influenza, high dose seasonal, administered N ote: [facility] bi-directional preservative-free interface ; So urce: Other Registry influenza, high dose seasonal, administered N ote: [facility] bi-directional preservative-free interface ; So urce: Other Registry Influenza, injectable, administered Source: O ther Provider quadrivalent, preservative free, 3 yrs or older influenza, high dose seasonal, administered N ote: [facility] bi-directional preservative-free interface ; So urce: Other Registry Prevnar administered Note: [facility] bi-di rectional interface ; Sour ce: Other Registry Pneumococcal conjugate PCV administered So urce: Other Provider influenza virus vaccine, administered Note: M IIC bi-directional unspecified formulation interfac e ; Source: Other Registry influenza, high dose seasonal, administered N ote: [facility] bi-directional preservative-free interface ; So urce: Other Registry Influenza, seasonal, injectable, administered Note: [facility]IC bi-directional preservative free interface ; So urce: Other Registry Influenza, seasonal, injectable, administered Note: MIIC bi-directional preservative free interface ; So urce: Other Registry tetanus toxoid, reduced administered Note: MS IC bi-directional diphtheria toxoid, and acellular interface ; Source: Other pertussis vaccine, adsorbed Melissa stry zoster vaccine, live administered Note: [facility] bi-directional interface ; Sour ce: Other Registry Zoster administered Source: Other Pr ovider Pneumovax 23 administered Note: [facility] bi-di rectional interface ; Sour ce: Other Registry Pneumo (2 yrs or older)(PPV) administered Adelita rce: Other Provider Payers Payer name Insurance type Covered green party ID Authorization(s ) Medicare RYANNE BOWER [id number] [employer] [id number] Social History Type Description Quantity Date Captured Comments Alcohol Use Details Unknown Caffeine Use Details Unknown Tobacco Use Status No Information Smoking Status No Information Sex Female Chief Complaint And Reason For Visit No Information Reason For Referral Reason For Referral No Information Plan Of Treatment Date Type Action Status Referral Ordered: ordered Video And Clinical Swallow With Speech Pathologist, Treatment As Indicated Appointment date/timeframe: 02/13/2021 Referral Ordered: ordered Hepatic Function Panel Appointment date/timeframe: 09/12/2020 Referral Ordered: ordered EGD Appointment date/timeframe: 09/07/2020 Referral Ordered: ordered CT Abdomen And Pelvis WITH Contr ast Appointment date/timeframe: 09/12/2020 Referral Ordered: ordered Lipase Appointment date/timeframe: 09/12/2020 Referral Ordered: ordered CT Enterography WITH Contrast Appointment date/timeframe: 05/15/2019 History Of Present Illness Encounter Date Complaint History Of Present I llness GI Symptoms or Concerns The patient is a 80-year-old female [facility] upper abdominal p ain and heartburn and belching. She was la st seen via a GI visit in August 2020. At her last ER visit, I increased her omepra zole to 40 mg twice daily. We also performed an upper endoscopy in August 2020 that sh owed a 2 cm hiatal hernia as well as some mild antral erythema. Gastric and duodenal biopsie s were unrevealing. She had a CT scan of the abdomen and pelvis in August 2020 as well . This was significant mainly for constipat ion. The patient reports that since increasin g her omeprazole to 40 mg twice daily, her upp er abdominal pain and heartburn are essent ially resolved. She reports some occasio nal gas pains, but she has not tried using Gas- X as I had recommended previously. She repo rts she uses MiraLax once every 3 days at a sm aller dose because any more MiraLax will ac tually cause more diarrhea. The patien t does report a new symptom of a cough, usually with m GI Symptoms or Concerns The patient is a 79-year-old female who [facility] of chest pain and he artburn, and upper abdominal pain. The patient was supposed to have a virtual visit , but due to some technical difficulti es this was switched to a telephone visit. Dex davis saw the patient in April 2019. She was subsequently seen by Kalyani Nelson in 2018. The patient reports that she was seen in the ER in March 2020 for chest pain and heartburn, upper abdominal pain. She had extensive evaluation at that time. Dex lockhart ewed the ER records from that ER visit. She h ad negative troponins and also a negative stre ss echocardiogram. She had a CBC and a BMP that were remarkable only for mildly low platelets . The patient reports that she has continued to have heartburn despite omeprazole 40 mg ronaldo ly as well in addition to Pepcid 20 mg daily. She also continues to have intermittent stabbin g upper abdominal pain across her entire up per abdomen as well as sometimes kate GI Symptoms or Concerns This patient is a 78-year-old female who presents in clinic f or followup of irregular bowel habits.She was last seen in clinic [address] Myles jorge for evaluation of abdominal cramping, bloating, and decreased appetite. Prior to t hat visit, she had experienced an episo de of fecal incontinence. She felt as though s he was passing gas, but actually passed very large amount of dark brown/green stool. S wayne then, there have been no recurrent episode s. CT scan was performed, which revealed a mod erate amount of stool in the colon, but was o therwise normal. Previous EGD in August 2018 revealed small hiatal hernia, but was othe rwise unrevealing. Colonoscopy that renetta e revealed 6 tubular adenomas that were r emoved, hemorrhoids, and diverticulosis. Lissa use she had a fair prep, she was advised to r epeat the procedure in August 2019.As ment mieshaed, there have been no repeat episodes of f ecal incontinence. The abdominal pain and b loating have significantly improved. She moves GI Symptoms or Concerns The patient is a 78-year-old female who was sent here in consult ation by Dr. Ganesh Sifuentes for evaluation of di arrhea and nausea and decreased appetite a nd abdominal cramping. The patient was last see n in GI Clinic in 2012 for gas and bloating and upper abdominal pain and constipation, which she had had for approximately 40 yea rs. The patient last had an upper endoscopy a nd colonoscopy in August 2018. The upper endo scopy revealed a small hiatal hernia. It wa s otherwise unrevealing. The colonoscopy reve aled 6 tubular adenomas that were removed, i nternal hemorrhoids, and sigmoid diverticulos is. She had a fair prep during the procedure and was told to repeat the colonoscopy in J an2019. The patient reports that she con tinues to have chronic intermittent abdomin al cramping. She also reports starting saman und April 02, she developed some low-g rade nausea and some bloating and some de creased appetite. She has had some intentional weight loss. She reports that she also then aaron lao GI Symptoms or Concerns Ms. Pollard is a very pleasant 75-year-old female who presents regarding a change in bowel habits.She rep orts that a few months ago, she noticed her stools becoming darker. She reports that the y are not black, but they are definitely a radha y dark brown. She denies any tarry, sticky, o r foul smelling stools. She was seen by her primary care provider recently and reports having further testing done, which sounds l kristy possibly infectious stool studies, which the patient reports were normal as well as oc cult blood testing in the stool and states enedina t that was positive. She does report that she started taking an iron supplement due to alford ving fatigue a few months ago. She last had en doscopic evaluation in 2013 when she underw ent a colonoscopy and EGD. The colonoscopy show ed one polyp, melanosis coli, and small exte rnal hemorrhoids. The pathology from the c olonoscopy polyp showed a lymphoid aggregate, but otherwise normal. The EGD in August 2013 showed a small hiatal hernia with Functional Status Date Functional Assessment No Information Instructions Date Instruction Additional Informati on -Continue miralax every 3 days for Relat ed to Constipation, unspecified treatment of constipation-Patient alliei pation type will follow-up with [facility] as needed -Gas-x as needed for gas pains Related t o Bloating -Video swallow with speech and Related t o Cough swallow therapist to check for oropharyngeal dysphagia and aspiration as possible cause of her coughing with meals -Continue omeprazole 40 mg twice Related to Heartburn daily as this seems to have resolved her upper abdominal pain and heartburn Hiatal Hernia Related to Hiatal he rnia -Increase omeprazole to 40 mg twice Rela alethea to Heartburn daily-Hold pepcid for now, but if nighttime heartburn persists, then can add pecid 20-40 mg at bedtime-Labs as ordered-EGD with gastric and duodenal biopsies-CT abdomen/pelvis-If above testing is unrevealing and if intermittent upper abdominal pain persists, then can consider a HIDAscan with GB EF to check for biliary dyskinesia/chronic meeszfvathkbc-Omc-j as needed for fyglpxhm-Apmuuw-zj with SHADI in 3 months Diverticulosis/Diverticulitis Related to Personal history of colonic polyps Colon Polyps Related to Personal history of colonic polyps Hemorrhoids Related to Personal history of colonic polyps High Fiber Diet Related to Personal history of colonic polyps -Continue omeprazole 40 mg daily - Relat ed to Gastroesophageal reflux take 30 minutes before breakfast on dise ase without esophagitis an empty stomach -TSH, celiac labs-Stool infectious Relat ed to Diarrhea, unspecified type studies-CT enterography to check for bowel inflammation, evidence of constipation-If above tests are unrevealing, and if diarrhea persists, then can consider moving up colonoscopy that is due in 08/2019 (due to fair prep in 08/2018) to take random colon biopsies to check for microscopic colitis-If above tests are unrevealing, and if chronic intermittent abdominal cramping persists, then can consider Levsin as needed for treatment of a possible functional bowel puqoybak-Apautf-ga in 6 weeks Diverticulosis/Diverticulitis Related to Colorectal polyps Colon Polyps Related to Colorecta l polyps Hemorrhoids Related to Colorecta l polyps High Fiber Diet Related to Colorecta l polyps Colon Cancer Prevention Related to Color ectal polyps Assessments Type Assessment Date No Information Patient Care Teams Name Effective Dates (start - stop) Status M embers No Information
[2022-04-12 13:33] LABS: Albumin* 3.9 g/dL (3.3-5.0); Chloride* 105 mmol/L (96-114)
[2022-04-12 13:34] LABS: Potassium* 4.3 mmol/L (3.6-5.1); Sodium* 140 mmol/L (135-149)
[2022-04-12 13:36] LABS: Alkaline Phosphatase* 57 U/L (40-150); Aspartate Amino Transferase* 28 U/L (12-35); Bilirubin Total* 0.6 mg/dL (0.1-1.5); Blood Urea Nitrogen* 12 mg/dL (7-30); Carbon Dioxide* 31 mmol/L (20-32); Cholesterol* 166 mg/dL (90-199); Creatinine* 0.8 mg/dL (0.5-1.5); Estimated Glomerular Filt Rate 74 ml/min; Glucose* 97 mg/dL (60-115); Total Protein* 6.2 g/dL (6.0-8.3); Triglycerides* 48 mg/dL (40-149)
[2022-04-12 13:37] LABS: Alanine Aminotransferase* 25 U/L (4-35); Calcium* 9.6 mg/dL (8.4-10.6); HDL Cholesterol* 80 mg/dL (>=50); LDL Cholesterol Calculated 76 mg/dL (<100)
== END 2022-04-12 12:01 | disposition home or self-care (01) ==
PROVIDERS: PCP Family Medicine; Visit Provider Family Medicine
DX: Z00.00 Encounter for general adult medical examination without abnormal findings (principal); B35.1 Tinea unguium; E78.5 Hyperlipidemia, unspecified; J44.9 Chronic obstructive pulmonary disease, unspecified
CPT/HCPCS: 80053; 80061

== ENCOUNTER 2022-05-08 08:34 | Outpatient (CLI) | payer MEDICARE, OTHER, SELFPAY ==
--- OUTSIDE RECORDS SUMMARY | 2022-05-08 08:38 | XMS_ITS | Clinical Summary ---
:1940 Author Organization [facility] [place] [address] Care Team Providers Name Role Phone TomasNayanJennie DECORATING CONSULTANT Primary Care Provider Allergies Active Allergy Reactions Severity Noted Date Comments Sulfa (Sulfonamide Hives 10/28/2010 Antibiotics) Vancomycin Hives 10/28/2010 Venom-Yellow Jacket Other - Describe In 07/04/2015 T hroat felt like it Comment Field was going to c lose Medications Medication Sig Dispensed Refills Start Date End Date Status omeprazole (PRILOSEC) Take 1 capsule by 0 10/28/2010 Active 40 mg capsule mouth once daily. alendronate (FOSAMAX) Take 1 tablet by 0 10/28/2010 Active 70 mg tablet mouth once a week in the morning. Take on empty stomach with full glass of water. Do not lie down for 1 hr. fluticasone, 50 mcg Inhale 1 Keystone into 1 Bottle 0 10/28/2010 Active per actuation, nasal both nostrils once (FLONASE) 50 daily. mcg/Actuation nasal spray fluticasone (FLOVENT Inhale 1 Puff by 0 10/28/2010 Active HFA) 110 mouth 2 times mcg/Actuation inhaler daily. benzonatate Take 200 mg by 0 04/16/2015 Ac tive (TESSALON) 200 mg mouth 3 times daily capsule if needed. SYMBICORT 80-4.5 Inhale 80 mcg by 0 05/29/2015 Active mcg/actuation (80-4.5 mouth 2 times mcg each actuation) daily. 2 puffs inhaler traZODone (DESYREL) Take 50 mg by mouth 0 05/29/2015 Active 50 mg tablet at bedtime. albuterol HFA Inhale 2 Puffs by 0 07/04/2015 Active (PRO-AIR,VENTOLIN,PRO mouth 4 times daily VENTIL) 90 if needed. mcg/actuation inhaler simvastatin (ZOCOR) 5 Take 5 mg by mouth 0 5 Active mg tablet at bedtime. multivitamin capsule Take 1 capsule by 0 07/04/2015 Active mouth once daily. azelastine 137 Keystone 1 spray each 1 Bottle 0 07/04/2015 Active mcg/actuation nostril daily (ASTELIN) nasal spray cholecalciferol Take 1 tablet by 0 07/04/2015 Active (VITAMIN D) 1,000 mouth once daily. unit tablet Calcium carbonate Takes 2 tablets 0 07/04/2015 Active (OYSTERSHELL CALCIUM) daily 500 mg tablet cetirizine (ZYRTEC) Take 1 tablet by 0 01/02/2016 Active 10 mg tablet mouth once daily. escitalopram oxalate Take 1 tablet by 0 12/24/2016 Active (LEXAPRO) 5 mg tablet mouth once daily. pentosan polysulfate Take 1 capsule by 0 12/24/2016 Active (ELMIRON) 100 mg mouth twice daily. capsule EPINEPHrine (EPIPEN) Inject 0.3 mg 2 Each 2 12/24/2016 Active 0.3 mg/0.3 mL intramuscular one injectionIndications: time if needed for Bee allergy status Allergic Reaction for up to 1 dose. EPINEPHrine (EPIPEN) Use as directed 2 Each 1 01/16/2018 Active 0.3 mg/0.3 mL injectionIndications: Bee sting allergy verapamil SR (CALAN Take 1 tablet by 0 01/16/2018 Active SR) 120 mg mouth once daily Sustained-Release with a meal. tablet Active Problems Not on file Social History Tobacco Use Types Packs/Day Years Used Date Former Smoker Cigarettes 0.1 10 Quit: 1971 Smokeless Tobacco: Never Used Tobacco Cessation: Counseling Given: Yes Sex Assigned at Date Recorded Not on file Obstetrics History Last Filed Vital Signs Vital Sign Reading Time Taken Comments Blood Pressure 115/70 12/23/2017 9:47 AM CDT tower Pulse 68 12/23/2017 9:47 AM CDT Temperature 36.7 ??C (98 ??F) 12/24/2016 11:29 AM CDT Respiratory Rate - - Oxygen Saturation 95% 12/23/2017 9:47 AM CDT Inhaled Oxygen Concentration - - Weight 74.2 kg (163 lb 8 oz) 12/23/2017 9:47 AM CDT Height 169.8 cm (5' 6.85) 12/24/2016 11:29 AM CDT Body Mass Index 25.72 12/24/2016 11:29 AM CDT Plan of Treatment Health Maintenance Due Date Last Done Comments Tdap 1952 Depression screening for age 12+ 1953 Tetanus booster 1961 Zoster (shingles) series for age 50+ 12/23/1991 (1 of 2) DEXA/DXA scan for age 65+ 2006 Pneumococcal series for age 65+ (1 - 2006 PCV) BMI (ht and wt on same day) for age 0512/24/2017 12/24/2016, 01/02/2016 18+ COVID-19 vaccine series (4 - Booster 09/19/2021 05/19/2021, 10/15/2020, for Pfizer series) 09/24/2020 Influenza for age 65+ 04/19/2022 Results Not on filefrom Last 3 Months Insurance Payer Benefit Plan / Subscriber ID Effective Phone Address T ype Group Dates MEDICARE PART A MEDICARE PART A [id number] 2006-Prese ATTN: CLAIMS - HB USE ONLY HB ONLY nt [address] [place] [address] MEDICARE PART B MEDICARE PART B [id number] 2007-Prese ATTN: CLAIMS - HB USE ONLY HB ONLY nt [address] [facility] [place] [address] MEDICARE - PB MEDICARE PB [id number] 2007-Prese ATTN: CLAIMS USE ONLY ONLY nt [address] [facility] [place] [address] COMMERCIAL COMMERCIAL [id number] 2007-Prese [phone] [address] [place] [address] Care Teams Skin Diver Relationship Specialty Start Date End Date Jennie Tomas NP PCP - General Nurse Practitioner 02/17/16
--- OUTSIDE RECORDS SUMMARY | 2022-05-08 08:39 | XMS_ITS ---
:1940 Author Care Team Providers Name Role Phone [facility] Primary Care Provider [phone] Allergies Code Code System Name Reaction Severity Status Onset 60408 RxNorm Vancomycin ? ? Active 2 Sulfa [...] Ketones-Status Negative ? Sp 1.015 ? ? [place]-Status ? ? ? pH-Status 8.0 ? Urobilinogen-S [...] Ketones-Status Negative ? Sp 1.010 ? ? [place]-Status ? ? ? pH-Status 7.0 ? Urobilinogen-S [...] Ketones-Status Negative ? Sp 1.010 ? ? [place]-Status ? ? ? pH-Status 7.0 ? Urobilinogen-S [...] Ketones-Status Negative ? Sp 1.015 ? ? [place]-Status ? ? ? pH-Status 7.5 ? Urobilinogen-S [...] ? Specimen Type Voided ? Performed by yaimlet REYNA ? Total Urine 30cc ? ? [...] Ketones-Status Negative ? Sp 1.015 ? ? [place]-Status ? ? ? pH-Status 8.5 ? Nitrates-Statu negative ? ? s ? ? ? Blood-Status Negative ? Leuko-Status Negative ? Specimen Type Voided ? Performed by donato ORELLANA ? ? ? Urinalysis, ? Color-Status Yellow ? ? Dipstick ? ? ? Clarity-Status Clear ? Glucose-Status Negative ? Bilirubin-Stat Negative ? ? us ? ? ? Ketones-Status Negative ? Sp 1.015 ? ? [place]-Status ? ? ? pH-Status 8.5 ? Urobilinogen-S 0.2 ? ? tatus ? ? ? Nitrates-Statu negative ? ? s ? ? ? Blood-Status Negative ? Leuko-Status Negative ? Specimen Type Voided ? Performed by Cruz Hitchcock ? ? RN Past Encounters 04/11/2022 Chronic Interstitial Cystitis Lisandra Greer MD: [address] [place] [address], Ph. 03/07/2022 Chronic Interstitial Cystitis; Prolapse of Female Genital Organs Lisandra Greer MD: [address], [place] [address], Ph. 02/07/2022 Prolapse of Female Genital Organs Lisandra Greer MD: [address], [place] [address], Ph. 01/03/2022 Prolapse of Female Genital Organs; Chron ic Interstitial Cystitis Lisandra Greer MD: [address], [place] [address], Ph. 11/29/2021 Chronic Interstitial Cystitis Lisandra Greer MD: [address], [place] [address], Ph. 11/01/2021 Chronic Interstitial Cystitis Lisandra Greer MD: [address], [place] [address], Ph. 10/04/2021 Chronic Interstitial Cystitis; Prolapse of Female Genital Organs Lisandra Greer MD: [address], [place] [address], Ph. 09/26/2021 Chronic Interstitial Cystitis; Prolapse of Female Genital Organs Lisandra Greer MD: [address], [place] [address], Ph. 08/31/2021 Chronic Interstitial Cystitis Lisandra Greer MD: [address], [place] [address], Ph. 08/03/2021 Chronic Interstitial Cystitis Lisandra Greer MD: [address], [place] [address], Ph. 07/03/2021 Overactive Bladder Lisandra Greer MD: [address], [place] [address], Ph. 05/31/2021 Chronic Interstitial Cystitis Lisandra Greer MD: [address], [place] [address], Ph. 05/03/2021 Chronic Interstitial Cystharry Greer MD: [address], [place] [address], Ph. 04/05/2021 Chronic Interstitial Cystitis Lisandra Greer MD: [address], [place] [address], Ph. 03/01/2021 Chronic Interstitial Cystitis Lisandra Greer MD: [address], [place] [address], Ph. 02/02/2021 Chronic Interstitial Cystitis Lisandra Greer MD: [address], [place] [address], Ph. 01/02/2021 Chronic Interstitial Cystitis Lisandra Greer MD: [address], [place] [address], Ph. 12/07/2020 Chronic Interstitial Cystitis Lisandra Greer MD: [address], [place] [address], Ph. 11/09/2020 Chronic Cystitis; Chronic Interstitial C ystitis Lisandra Greer MD: [address], [place] [address], Ph. Social History Tobacco Smoking Status Former [...]
--- OUTSIDE RECORDS SUMMARY | 2022-05-08 08:40 | XMS_ITS | Encounter Summary ---
:1940 Author Organization [facility] Address [address] [place] [address] Care Team Providers Name Role Phone Ganesh Sifuentes Primary Care Provider Reason for Referral Rehab Therapy Integrated Services (Routine) - Closed Specialty Diagnoses / Procedures Referred By Contact Refer red To Contact Diagnoses Cough Heartburn Upper abdominal pain Bloating Constipation, unspecified constipation type [facility] [address] [place], [place] [address] Phone: Fax: Referral ID Status Reason Start Date Expiration Date Visits Requ ested Visits Authorized [id number] Closed 02/15/2021 08/18/2021 365 365 Encounter Details Date Type Department Care Team Description 01/31/2021 Transcribe Orders GENERIC EXTERNAL Arslan Clayton (Primary Dx); DATA DEPARTMENT MD Ondina Heartburn; [place] Upper abdominal pain; GASTROENTEROLOG Bloating; Y Constipation, unspecified constipation t ype [address] [facility] [place] [address] Social History Tobacco Use Types Packs/Day Years Used Date Former Smoker Quit: 08/19/18 74 Smokeless Tobacco: Never Used Alcohol Use Standard Drinks/Week Comments Yes 0 (1 standard drink = 0.6 oz pure alcoho l) occasionally Alcohol Habits Answer Date Recorded How often do you have a drink containing alcohol? Not asked How many drinks containing alcohol do you have on a Not aske d typical day when you are drinking? How often do you have six or more drinks on one occasion? No t asked Comment: occasionally 06/20/2016 Sex Assigned at Date Recorded Not on file documented as of this encounter Plan of Treatment Scheduled Referrals Name Type Priority Associated Diagnoses Order S chedule SPEECH THERAPY Referral Routine Cough Ordered: 01/31/2021 REFERRAL Heartburn Upper abdominal pain Bloating Constipation, unspecified constipation type documented as of this encounter Visit Diagnoses Diagnosis Cough - Primary Heartburn Upper abdominal pain Abdominal pain, other specified site Bloating Flatulence, eructation, and gas pain Constipation, unspecified constipation t ype documented in this encounter Care Teams Punch Press Feeder Relationship Specialty Start Date End Date Ganesh Sifuentes PCP - General Family Practice 05/15/19 [facility] [address], [place] [address] documented as of this encounter
--- OUTSIDE RECORDS SUMMARY | 2022-05-08 08:40 | XMS_ITS | Encounter Summary ---
:1940 Author Organization [place] Address [facility] [address] Care Team Providers Name Role Phone Jennie Tomas Primary Care Provider Reason for Visit Rehab Therapy Integrated Services - Closed Specialty Diagnoses / Procedures Referred By Contact Refer red To Contact Diagnoses Cough R05 [facility] Procedures VIDEOSTROBOSCOPY [place] [id number] [facility] [place] [address] Phone: Fax: Referral ID Status Reason Start Date Expiration Date Visits Requ ested Visits Authorized [id number] Closed 11/26/2018 08/18/2019 365 365 Encounter Details Date Type Department Care Team Description 11/27/2018 [facility] Yu Castle MD ALLERGY AND ASTHMA SPEC [address] [facility] [address] [place], [place] [phone] Canceled (Weather) Encounter Rehabilitation Sulma Gudino, LCAC OPERATOR [facility] [address] [facility] [address] [place], [place] [address] [address] [place] [address] Social History Tobacco Use Types Packs/Day Years [...] on file documented as of this encounter Medications at Time of Discharge Medication Sig Dispensed Refills Start Date End Date albuterol (PROAIR Inhale 2 puffs into 0 HFA/PROVENTIL the lungs every 6 HFA/VENTOLIN HFA) 108 hours as needed (90 Base) MCG/ACT inhaler Calcium Citrate-Vitamin Take 2 tablets by 0 D (CALCIUM + D PO) mouth daily EPINEPHrine 0.3 Inject 0.3 mg into the 0 MG/0.3ML injection muscle as needed for 2-pack anaphylaxis escitalopram (LEXAPRO) Take 10 mg by mouth 0 10 MG tablet daily fluticasone (VERAMYST) [place] 2 sprays into 0 27.5 MCG/SPRAY nasal both nostrils daily. spray Multiple Take 1 tablet by mouth 0 Vitamins-Minerals daily (MULTIVITAMIN ADULT PO) omeprazole (PRILOSEC) Take 40 mg by mouth [address] capsule every morning traZODone (DESYREL) 50 Take 50 mg by mouth At 0 MG tablet Bedtime Vitamin D Take 1,000 Units by 0 (Cholecalciferol) 25 mouth daily MCG (1000 UT) TABS ALENDRONATE SODIUM PO Take 70 mg by mouth 0 04/08/2020 once a week ATORVASTATIN CALCIUM PO Take 5 mg by mouth At 0 04/08/2020 Bedtime azelastine (ASTELIN) [place] 1 spray into 0 04/08/2020 0.1 % nasal spray both nostrils daily budesonide-formoterol Inhale 2 puffs into 0 04/08/2020 (SYMBICORT) 80-4.5 the lungs daily MCG/ACT Inhaler pentosan polysulfate Take 100 mg by mouth 2 0 04/08/2020 (ELMIRON) 100 MG times daily capsule VERAPAMIL HCL PO Take 120 mg by mouth 0 04/08/2020 daily documented as of this encounter Plan of Treatment Not on filedocumented as of this encounter Visit Diagnoses Not on filedocumented in this encounter Care Teams Dance Director Relationship Specialty Start Date End Date Jennie Tomas PCP - General 09/01/12 05/14/19 [facility] [address] [place] [address] documented as of this encounter
--- OUTSIDE RECORDS SUMMARY | 2022-05-08 08:40 | XMS_ITS | Encounter Summary ---
:1940 Author Organization [facility] Address [address] [place] [address] Care Team Providers Name Role Phone Ganesh Sifuentes Primary Care Provider Encounter Details Date Type Department Care Team Description 05/15/2019 Travel Social History Tobacco Use Types Packs/Day Years [...] on filedocumented in this encounter Care Teams Pasting Machine Offbearer Relationship Specialty Start Date End Date Ganesh Sifuentes PCP - General Family Practice 05/15/19 [facility] [address] [place] [address] documented as of this encounter
--- OUTSIDE RECORDS SUMMARY | 2022-05-08 08:40 | XMS_ITS | Encounter Summary ---
:1940 Author Organization [facility] Address [address] [place] [address] Care Team Providers Name Role Phone Ganesh Sifuentes Primary Care Provider Reason for Visit Rehab Therapy Integrated Services (Routine) - Closed Specialty Diagnoses / Procedures Referred By Contact Refer red To Contact Diagnoses Cough Heartburn Upper abdominal pain Bloating Constipation, unspecified constipation type [facility] [address] [place], [place] [address] Phone: Fax: Referral ID Status Reason Start Date Expiration Date Visits Requ ested Visits Authorized [id number] Closed 02/15/2021 08/18/2021 365 365 Encounter Details Date Type Department Care Team Description 02/16/2021 Hospital Encounter [facility] Jhonatan Clayton MD [place] [facility] [address] [place] [address] Rehabilitation Services Lotus Romero, CIRCLE SHEAR OPERATOR [facility] [address] [place] [address] Social History Tobacco Use Types Packs/Day Years [...] Assigned at Date Recorded Not on file COVID-19 Exposure Response Date Recorded In the last month, have you been in contact with No / Unsure 02/16/2021 2:27 PM CDT someone who was confirmed or suspected to have Coronavirus / COVID-19? documented as of this encounter Medications at Time of Discharge Medication Sig Dispensed Refills Start Date End Date ADVAIR DISKUS 250-50 Inhale 1 puff into 0 020 MCG/DOSE inhaler the lungs 2 times daily albuterol (PROAIR Inhale 2 puffs into 0 HFA/PROVENTIL HFA/VENTOLIN the lungs every 6 HFA) 108 (90 Base) MCG/ACT hours as needed inhaler Calcium Citrate-Vitamin D Take 2 tablets by 0 (CALCIUM + D PO) mouth daily EPINEPHrine 0.3 MG/0.3ML Inject 0.3 mg into 0 injection 2-pack the muscle as needed for anaphylaxis escitalopram (LEXAPRO) 10 Take 10 mg by mouth 0 MG tablet daily famotidine (PEPCID) 20 MG Take 1 tablet (20 mg) 30 tablet 0 04/09/2020 tabletIndications: by mouth every Gastroesophageal reflux morning disease without esophagitis fluticasone (VERAMYST) [place] 2 sprays into 0 27.5 MCG/SPRAY nasal spray both nostrils daily. INCRUSE ELLIPTA 62.5 Inhale 1 puff into 0 020 MCG/INH Inhaler the lungs daily lidocaine 2 % injection Draw up 10mL of 0 020 LidoCANE 2% AND mix with 3mL of Sodium Bicarb. Put in sterile cup for bladder instillation. Multiple Vitamins-Minerals Take 1 tablet by 0 (MULTIVITAMIN ADULT PO) mouth daily omeprazole (PRILOSEC) 40 Take 40 mg by mouth [address] capsule every morning raloxifene (EVISTA) 60 MG Take 1 tablet by 0 08/2019 tablet mouth daily RESTASIS 0.05 % ophthalmic Place 1 drop into 0 emulsion both eyes 2 times daily rosuvastatin (CRESTOR) 5 Take 5 mg by mouth At 0 03/12/2020 MG tablet Bedtime sodium bicarbonate 8.4 % DRAW UP 3 ML, FOR USE 0 11/14/2019 injection IN HOME BLADDER INSTILLATIONS. sucralfate (CARAFATE) 1 GM Take 1 tablet (1 g) 60 tablet 0 04/09/2020 tabletIndications: by mouth 3 times Gastroesophageal reflux daily as needed for disease without nausea (reflux) esophagitis traZODone (DESYREL) 50 MG Take 50 mg by mouth 0 tablet At Bedtime verapamil ER (CALAN-SR) Take 120 mg by mouth 0 120 MG CR tablet daily Vitamin D Take 1,000 Units by 0 (Cholecalciferol) 25 MCG mouth daily (1000 UT) TABS documented as of this encounter Progress Notes Lotus Romero, CIRCLE SHEAR OPERATOR - 02/16/2021 3:09 PM CDT Video Fluoroscopic Swallow Study (VFSS) 02/16/21 5248 General Information Type Of Visit Initial Start Of Care Date 02/16/21 Referring Physician Arslan Clayton MD Orders Evaluate And Treat Medical Diagnosis dysphagia, unspecified type (R13.10) Onset Of Illness/injury Or Date Of Surgery 01/25/21 (date evaluation was ordered by provider) Pertinent History of Current Problem/OT: Additional Occupational Profile Info Referral from pt's GI MD for video fluoroscopic swallow study to assess oropharyngeal swallow function in the setting of chronic cough, which pt reports sometimes happens with eating/drinking. Her PMHxincludes COPD, sleep apnia, allergic rhinitis, asthma, GERD, hiatal hernia; she uses 3 different inhalers per her report. Pt was seen by CIRCLE SHEAR OPERATOR services for voice evaluation and tx in 11/2018 - at that time pt reported chroniccough for 20+ years, videostroboscopy revealed vocal fold bowing, supgraglottic hyperfunction and laryngeal irritation which resulted tight laryngeal musculature, poor respiratory and phonation coordination and mild-mod dysphonia (characterized by strained, rough, breathy vocal quality with low pitch and reduced pitch range). Abuse Screen (yes response referral indicated) Feels Unsafe at Home or Work/School no Feels Threatened by Someone no Does Anyone Try to Keep You From Having Contact with Others or Doing Things Outside Your Home? no Physical Signs of Abuse Present no VFSS Evaluation VFSS Additional Documentation Yes VFSS Eval: Radiology Radiologist Dr. Ko Views Taken left lateral;A/P Physical Location of Procedure [facility], Radiology Dept, Fluoroscopy Suite VFSS Eval: Thin Liquid Texture Trial Mode of Presentation, Thin Liquid cup;straw;self-fed Order of Presentation 1, 2, 3, 7 Preparatory Phase WFL Oral Phase, Thin Liquid Premature pharyngeal entry (to pyriform sinuses without significant delay) Pharyngeal Phase, Thin Liquid WFL Rosenbek's Penetration Aspiration Scale: Thin Liquid Trial Results 2 - contrast enters airway, remains above the vocal cords, no residue remains (penetration) VFSS Eval: Puree Solid Texture Trial Mode of Presentation, Puree spoon;self-fed Order of Presentation 4 Preparatory Phase WFL Oral Phase, Puree Premature pharyngeal entry (just over tip of epiglottis) Pharyngeal Phase, Puree WFL Rosenbek's Penetration Aspiration Scale: Puree Food Trial Results 1 - no aspiration, contrast does not enter airway VFSS Eval: Solid Food Texture Trial Mode of Presentation, Solid self-fed Order of Presentation 5. 6 Preparatory Phase WFL Oral Phase, Solid Premature pharyngeal entry (just over tip of epiglottis) Pharyngeal Phase, Solid WFL Rosenbek's Penetration Aspiration Scale: Solid Food Trial Results 1 - no aspiration, contrast does not enter airway Esophageal Phase of Swallow Patient reports or presents with symptoms of esophageal dysphagia Yes Esophageal sweep performed during today???s vidofluoroscopic exam Yes;Please refer to radiologist's report for details Esophageal comments Globus sensation at mid-pharyngeal level (with no pharyngeal residuals observed)with solids per pt report therefore A/P view with upper-mid esophageal sweep completed, with no overt deficits. Swallow Eval: Clinical Impressions Skilled Criteria for Therapy Intervention No problems identified which require skilled intervention Functional Assessment Scale (FAS) 6 Dysphagia Outcome Severity Scale (OLE) Level 6 - OLE Treatment Diagnosis functional oropharyngeal swallow Diet texture recommendations Regular diet;Thin liquids Anticipated Discharge Disposition home Clinical Impression Comments Pt presents with a functional oropharyngeal swallow on video fluoroscopic swallow study. Good oral control and manipulation, complete mastication and oral clearance, good base of tongue retraction, mild premature bolus spillage into the pharynx though without significant delay, functional hyolaryngeal elevation/excursion, complete epiglottic inversion, and functional upper esophageal sphincter relaxation during the swallow. Flash penetration with cued consecutive sips of thin (functional), no other laryngeal penertaion or aspiration noted. Of note, periodic throat clears and cough x1 noted across evaluation - seen to not be r/t aspiration. No significant oropharyngeal bolus retention. Globus sensation at mid-pharyngeal level with solids per pt report therefore A/P view with upper-mid esophageal sweep completed, with no overt deficits. Recommendations: continue regular solids, thin liquids with general safe swallow strategies. Total Session Time CIRCLE SHEAR OPERATOR Eval: VideoFluoroscopic Swallow function Minutes (58874) 15 Total Evaluation Time 15 documented in this encounter Plan of Treatment Scheduled Referrals Name Type Priority Associated Diagnoses Order S chedule SPEECH THERAPY Referral Routine Cough Ordered: 01/31/2021 REFERRAL Heartburn Upper abdominal pain Bloating Constipation, unspecified constipation type documented as of this encounter Visit Diagnoses Not on filedocumented in this encounter Care Teams Train Conductor Relationship Specialty Start Date End Date Ganesh Sifuentes PCP - General Family Practice 05/15/19 [facility] [address] [place] [address] documented as of this encounter
--- OUTSIDE RECORDS SUMMARY | 2022-05-08 08:40 | XMS_ITS | Encounter Summary ---
:1940 Author Care Team Providers Name Role Phone [facility] Primary Care Provider [phone] Reason for Visit Prolapse of female genital [...] Code Code System Name Reaction Severity Onset 40137 RxNorm Vancomycin ? ? 10/02/2011 Sulfa (Sulfonamide [...] Female Genital Organs Lisandra Greer MD: [address] [facility] [place] [address], Ph. History of Present Illness Note: <p> [...]
--- OUTSIDE RECORDS SUMMARY | 2022-05-08 08:40 | XMS_ITS | Encounter Summary ---
:1940 Author Organization [facility] Address [address] [place] [address]. [place] [address] Care Team Providers Name Role Phone Jennie Tomas Primary Care Provider Reason for Visit Rehab Therapy Integrated Services - Closed Specialty Diagnoses / Procedures Referred By Contact Refer red To Contact Diagnoses Cough R05 [facility] Procedures VIDEOSTROBOSCOPY [facility] [address] [place] [address] Phone: Fax: Referral ID Status Reason Start Date Expiration Date Visits Requ ested Visits Authorized [id number] Closed 11/26/2018 08/18/[phone] Encounter Details Date Type Department Care Team Description 01/14/2019 Hospital Encounter [facility] Yu Castle MD ALLERGY AND ASTHMA SPEC [address] [facility] [address] [place] [address] Rehabilitation Sulma Gudino, DIRECTOR REGULATORY AFFAIRS [address] [place], [place] [id number] [address] [place] [address] [address] [place] [address] Social History Tobacco Use Types Packs/Day [...] on file documented as of this encounter Discharge Instructions Discharge InstructionsSulma Whiting, DIRECTOR REGULATORY AFFAIRS - 01/14/2019 3:01 PM CDT Voice Therapy 01/14/2019 ??? Relaxed breathing o Three main patterns: - Even in and even out, slowing the rate of breathing - Prolonged exhalation, e.g. 2:5 (in on a count of 2, out on a count of 5) - Box breathing ??? Work on slowing your rate of breathing by doing box breathing ??? Breathe on equal count for all sides of the box (e.g. count of 4) documented in this encounter Medications at Time of Discharge [...] 0 10 MG tablet daily fluticasone (VERAMYST) Ismay 2 sprays into 0 27.5 MCG/SPRAY nasal [...] mouth At 0 04/08/2020 Bedtime azelastine (ASTELIN) Ismay 1 spray into 0 04/08/2020 0.1 % nasal spray both nostrils daily budesonide-formoterol Inhale 2 puffs into 0 04/08/2020 (SYMBICORT) 80-4.5 the lungs daily MCG/ACT Inhaler pentosan polysulfate Take 100 mg by mouth 2 0 04/08/2020 (ELMIRON) 100 MG times daily capsule VERAPAMIL HCL PO Take 120 mg by mouth 0 04/08/2020 daily documented as of this encounter Miscellaneous Notes Addendum Note - Sulma Whiting SLP - 01/14/2019 11:59 PM CDT Encounter addended by: Sulma Boo SLP on: 11/11/2019 2:23 PM Actions taken: Episode resolved documented in this encounter Plan of Treatment Not on filedocumented as of this encounter Visit Diagnoses Not on filedocumented in this encounter Care Teams Therapy Tech Relationship Specialty Start Date End Date Jennie Tomas PCP - General 09/01/12 05/14/19 [facility] [address] [place] [address] documented as of this encounter
--- OUTSIDE RECORDS SUMMARY | 2022-05-08 08:40 | XMS_ITS | Encounter Summary ---
:1940 Author Organization [facility] Address [address] [place] [address]. [place] [address] Care Team Providers Name Role Phone Jennie Tomas Primary Care Provider Reason for Visit Rehab Therapy Integrated Services - Closed Specialty Diagnoses / Procedures Referred By Contact Refer red To Contact Diagnoses Cough R05 [facility] Procedures VIDEOSTROBOSCOPY [facility] [address] [facility] [place] [address] Phone: Fax: Referral ID Status Reason Start Date Expiration Date Visits Requ ested Visits Authorized [id number] Closed 11/26/2018 08/18/[phone] Encounter Details Date Type Department Care Team Description 12/09/2018 Hospital Encounter [facility] Yu Castle MD ALLERGY AND ASTHMA SPEC [address] [facility] [address] [place] [address] Rehabilitation Sulma Gudino, LEASING COORDINATOR [address] [place], [place] [address] [address] [place] [address] [address] [place] [address] Social History Tobacco Use Types [...] 0 10 MG tablet daily fluticasone (VERAMYST) [place] 2 sprays into 0 27.5 MCG/SPRAY nasal [...] mouth At 0 04/08/2020 Bedtime azelastine (ASTELIN) [place] 1 spray into 0 04/08/2020 0.1 % nasal spray both nostrils daily budesonide-formoterol Inhale 2 puffs into 0 04/08/2020 (SYMBICORT) 80-4.5 the lungs daily MCG/ACT Inhaler pentosan polysulfate Take 100 mg by mouth 2 0 04/08/2020 (ELMIRON) 100 MG times daily capsule VERAPAMIL HCL PO Take 120 mg by mouth 0 04/08/2020 daily documented as of this encounter Progress Notes Sulma Whiting, LEASING COORDINATOR - 12/09/2018 11:59 PM CDT Images from the original note were not included. [facility] LEASING COORDINATOR Cough and Voice Evaluation with Videostroboscopy 12/09/18 9040 General Information Type Of Visit Initial Start Of Care Date 12/09/18 Referring Physician Yu Castle MD (Asthma/Allergy) Orders Evaluate And Treat;Other (Videostroboscopy) Medical Diagnosis Chronic cough Onset Of Illness/injury Or Date Of Surgery 11/05/18 (order date) Precautions/Limitations no known precautions/limitations Hearing WFL for 1:1 conversation in session Surgical/Medical history reviewed Yes Pertinent History Of Current Problem 77yo female with 20+year history of chronic cough. Pt reports that the cough has progressively worsened over time, and that it is currently as bad as it has ever been. Pt reports that she has allergic asthma, mild COPD, and GERD. She uses inhalers and reflux medications, but still has a significant cough. She also reports that her providers feel that the severity of her lung problems does not account for the severity of her cough. Snow mold and cold air are triggers for the cough. She notes that the cough is mostly productive, but is occasionally dry. Cough was at its worst in September 2018, with pt noting that while she is still coughing frequently, she has not had a violent coughing fit for the past few weeks. Pt does have some dysphonia, reporting mild hoarseness with voice use. Her throat has been sore and painful recently, especially with talking and singing. She is unable to sing because of her pain, and her voice is lower in pitch as well. She denies difficulties with breathing and swallowing. Please see chart for additional PMH. Prior Level of Functioning Same problem relapsing/remitting. Prior Level Of Function Comment Pt reports that she would always get a cough with illness prior to the onset of the chronic cough. 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 Patient/family Goals To reduce the cough as much as possible Evaluation Results Voice Observations COUGH/THROAT CLEAR: frequent coughing observed throughout the session, as well assome intermittent throat clearing. Cough is sometimes productive in sound. Locus of cough sounds consistent with a combination of upper and lower airway. Voice Profile during conversation, 1 min monologue and paragraph reading Voice Quality Raspy;Airy Voice quality comments SPEECH: Consistent mild-moderate strain, consistent mild breathiness, and frequent intermittent mild roughness. SINGING: Consistent mild- moderate breathiness and minimal roughness with strain that increases with pitch increase. Voice quality severity rating continuum (1=Severe, 7=WNL) 5 Breath control Tight Breath Control comments Excessive thoracic muscle use pattern on inspiration for speech. Inspirations are inadequate for speech in volume and frequency. Talks to past end of breath stream with poor respiratory/phonatory coordination. Breath control severity rating continuum (1=Severe, 7=WNL) 5 Voice Use / Effort Pinched / squeezed larynx;Throat push Voice use / Effort severity rating continuum (1=Severe, 7=WNL) 5 Fundamental frequency (Hz) (Centered around Eb3) Pitch /Frequency Description Too low Pitch / Frequency comments Low habitual pitch with reduced pitch range. Pitch / Frequency severity rating continuum (1=Severe, 7=WNL) 5 Comments Moderate chronic cough with mild-moderate dysphonia characterized by strain, roughness, breathiness, low habitual pitch with reduced pitch range, poor respiratory/phonatory coordination, and tight laryngeal musculature during phonation. Function of Lengtheners / Shorteners (CT and TA Muscles) Pitch glides Limited range;Upper pitches more dysphonic (Lowest: C3; Highest: B4) Videostroboscopy / Endoscopy Scope Serial Number Pentax [id number] Tissue description Red medial aspect of arytenoid cartilages;White vocal fold tissues;Other (Minimal clear secretions) Laryngeal movements Adduction / abduction full range of motion (ROM);Lengthening / shortening of true vocal folds (TFV) full ROM Vibratory characteristics Reduced vibrations right;Reduced vibrations left (Open phase predominant with some asymmetry) Vocal fold edges Smooth Glottal closure characteristics Spindle gap (Mild bowing, improves with probes) Supraglottic activity Medial-lateral compression;Anterior-posterior compression (Mild-moderate, improves with probes) Other observations Flexible laryngoscopy with videostroboscopy completed following application of topical anesthetic (3% Lidocaine HCL, 0.25% Phenylephrine HCL) and after obtaining informed verbal consent. Scope was inserted via the left nostril. Pt tolerated the procedure well. General Therapy Interventions Planned Therapy Interventions Voice Voice Throat clearing elimination plan;Relaxed breath sequence techniques;Breath flow to sound flow;Voice quality/pitch or volume tasks;Resonant voice techniques;No larynx effort practice Impressions and Recommendations Communication Diagnosis Chronic cough, Dysphonia Summary Ms. Pollard presents with moderate chronic cough with mild-moderate dysphonia characterized by strain, roughness, breathiness, low habitual pitch with reduced pitch range, poor respiratory/phonatory coordination, and tight laryngeal musculature during phonation. Based on today's evaluation and videostroboscopy, there is likely a component of irritable larynx syndrome contributing to her chronic cough. Dysphonia is accounted for by a combination of vocal fold bowing, supraglottic hyperfunction, and laryngeal irritation, and the supraglottic hyperfunction and laryngeal irritation are also likely contributing to the cough. Recommendations A course of skilled speech therapy is recommended in order to train strategies to reduce the cough, optimize vocal technique, improve voice quality, and promote reduced laryngeal discomfort, fatigue, and irritation in order to improve patient's overall quality of life. Frequency and Duration 1x/week for 6 weeks with 2-3 monthly follow-ups Prognosis Good with intervention Risks and Benefits of Treatment have been explained. Yes Patient & /or Caregiver in agreement with plan of care Yes Patient Education LEASING COORDINATOR provided education regarding videostroboscopy and evaluation findings, as wellas irritable larynx syndrome and vocal fold bowing causes, symptoms, and treatment options. Pt verbalized understanding. Educational Assessment Barriers to Learning No barriers Preferred Learning Style Listening;Reading;Demonstration;Pictures / Video Voice Goals Voice Goals 1;2;3 Voice Goal 1 Goal Identifier Cough Goal Description Patient will learn, demonstrate, and implement at least 3 cough/throat clear reduction strategies (i.e. alternative cough/throat clear techniques, breathing techniques to arrest cough,management of triggers) in order to report a week of typical activities in which the cough does not exceed a level of 3 out of 10, 80% of the time. Target Date 03/10/19 Voice Goal 2 Goal Identifier Hygiene Goal Description Patient will learn, demonstrate, and implement use of 2-3 vocal hygiene strategies (e.g. hydration, saline gargling, nasal lavage), to promote reduced laryngeal irritation. Target Date 03/10/19 Voice Goal 3 Goal Identifier Voice/Throat relaxation Goal Description Patient will learn, demonstrate, and implement use of 2-3 voice exercises (Semi-occluded vocal tract, resonant voice, circumlaryngeal massage), given min cues from LEASING COORDINATOR to promote reduced laryngeal tension and irritation. Target Date 03/10/19 Total Session Time Voice Minutes (60452) 30 Laryngoscopy W/Stroboscopy Minutes (84378) 30 Total Evaluation Time 60 Therapy Certification Certification date from 12/09/18 Certification date to 03/10/19 Medical Diagnosis Chronic cough, Dysphonia Thank you for the referral of this patient. Sulma Boo B.A., M.A. (music), [facility]-LEASING COORDINATOR Speech-Language Pathologist Certificate of Vocology [facility] [phone] Sulma Whiting SLP - 12/09/2018 11:59 PM CDT Images from the original note were not included. [facility] OUTPATIENT SPEECH LANGUAGE PATHOLOGY VOICE EVALUATION PLAN OF TREATMENT FOR OUTPATIENT REHABILITATION (COMPLETE FOR INITIAL CLAIMS ONLY) Patient's Last Name, First Name, M.I. Date of : 1940 Milla Pollard Provider???s Name: [facility] Onset Date: 11/05/2018 (order date) Start of Care Date: 12/09/2018 Type: ___PT __OT _X_SLP Medical Diagnosis: Chronic cough, Dysphonia Speech Language Pathology Diagnosis: Chronic cough, Dysphonia Visits from SOC: 1 _ Plan of Treatment/Functional Goals: Voice Goals 1. Goal Identifier: Cough Goal Description: Patient will learn, demonstrate, and implement at least 3 cough/throat clear reduction strategies (i.e. alternative cough/throat clear techniques, breathing techniques to arrest cough, management of triggers) in order to report a week of typical activities in which the cough does not exceed a level of 3 out of 10, 80% of the time. Target Date: 03/10/19 2. Goal Identifier: Hygiene Goal Description: Patient will learn, demonstrate, and implement use of 2-3 vocal hygiene strategies (e.g. hydration, saline gargling, nasal lavage), to promote reduced laryngeal irritation. Target Date: 03/10/19 3. Goal Identifier: Voice/Throat relaxation Goal Description: Patient will learn, demonstrate, and implement use of 2-3 voice exercises (Semi-occluded vocal tract, resonant voice, circumlaryngeal massage), given min cues from LEASING COORDINATOR to promote reduced laryngeal tension and irritation. Target Date: 03/10/19 Frequency and Duration: 1x/week for 6 weeks with 2-3 monthly follow-ups GUERLIEN Thomas I CERTIFY THE NEED FOR THESE SERVICES FURNISHED UNDER THIS PLAN OF TREATMENT AND WHILE UNDER MY CARE . Physician Signature Date X Certification Date From: 12/09/18 Certification Date To: 03/10/19 Referring Provider: Yu Castle MD Initial Assessment See Epic Evaluation Start of Care documented in this encounter Miscellaneous Notes Addendum Note - Sulma Whiting SLP - 12/09/2018 11:59 PM CDT Encounter addended by: Sulma Boo SLP on: 12/18/2018 9:14 AM Actions taken: Flowsheet accepted Addendum Note - Sulma Whiting SLP - 12/09/2018 11:59 PM CDT Encounter addended by: Sulma Boo SLP on: 2018 9:45 AM Actions taken: Jessy accepted, Sign clinical note documented in this encounter Plan of Treatment Not on filedocumented as of this encounter Visit Diagnoses Not on filedocumented in this encounter Care Teams Fire Dispatcher Relationship Specialty Start Date End Date Jennie Tomas PCP - General 09/01/12 05/14/19 [facility] [address] [place] [address] documented as of this encounter
--- OUTSIDE RECORDS SUMMARY | 2022-05-08 08:40 | XMS_ITS | Encounter Summary ---
:1940 Author Care Team Providers Name Role Phone [facility] Primary Care Provider [phone] Reason for Visit Chronic interstitial cystitis; Prolapse [...] Code Code System Name Reaction Severity Onset 96451 RxNorm Vancomycin ? ? 10/02/2011 Sulfa (Sulfonamide [...] Genital Organs Lisandra Greer MD: [address] [place] [address], Ph. 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 History of Present Illness Note: <p> [...]
--- OUTSIDE RECORDS SUMMARY | 2022-05-08 08:40 | XMS_ITS | Encounter Summary ---
:1940 Author Organization [facility] Address [address] [place] [address] Care Team Providers Name Role Phone Ganesh Sifuentes Primary Care Provider Reason for Referral Diagnostic Imaging XR (Routine) - Closed Specialty Diagnoses / Procedures Referred By Contact Refer red To Contact Diagnoses Cough Heartburn Upper abdominal pain Bloating Constipation, unspecified constipation type Arslan Clayton MD Procedures XR Video Swallow with CHECKERING MACHINE OPERATOR or OT [facility] [address] [place] [address] [place] [address] Referral ID Status Reason Start Date Expiration Date Visits Requ ested Visits Authorized [id number] Closed 01/30/2021 01/30/2022 1 1 Reason for Visit Diagnostic Imaging XR (Routine) - Closed Specialty Diagnoses / Procedures Referred By Contact Refer red To Contact Diagnoses Cough Heartburn Upper abdominal pain Bloating Constipation, unspecified constipation type Arslan Clayton MD Procedures XR Video Swallow with CHECKERING MACHINE OPERATOR or OT [facility] [address] [place] [address] [place] [address] Referral ID Status Reason Start Date Expiration Date Visits Requ ested Visits Authorized [id number] Closed 01/30/2021 01/30/2022 1 1 Encounter Details Date Type Department Care Team Description 02/16/2021 Hospital Encounter [facility] Arslan Clayton [facility]; [facility] Javier Nj MD Heartburn; [address] [facility] Upper abdomin al pain; [address] GASTROENTER[facility] Bloating; [place], [place] Constipation, unspecified constipation t [facility] [address] [place] [address] [facility] [place] [address] Social History Tobacco Use Types Packs/Day Years [...] in contact with No / Unsure 02/16/2021 2:24 PM CDT someone who was confirmed or suspected to have Coronavirus / COVID-19? 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 INCRUSE ELLIPTA 62.5 Inhale 1 puff into 0 02/02/ 020 MCG/INH Inhaler the lungs daily lidocaine [...] 60 MG Take 1 tablet by 0 07/08/2019 tablet mouth daily RESTASIS 0.05 % ophthalmic [...] UT) TABS documented as of this encounter Plan of Treatment Not on filedocumented as of this encounter Procedures Procedure Name Priority Date/Time Associated Diagnosis Comme nts XR VIDEO SWALLOW Routine 02/16/2021 2:56 PM Cough Results for this WITH CHECKERING MACHINE OPERATOR OR OT CDT Heartburn procedure are in Upper abdominal pain the results Bloating section. Constipation, unspecified constipation type documented in this encounter Results XR Video Swallow with CHECKERING MACHINE OPERATOR or OT (02/16/2021 2:56 PM CDT) Anatomical Region Laterality Modality Radio Fluoroscopy Specimen (Source) Anatomical Location Collection Method / Collectio n Time Received Time / Laterality Volume Impressions 02/16/2021 6:32 PM CDT IMPRESSION: 1. No penetration or aspiration with any consistency of barium. 2. Please refer to the speech pathology report for further details. This study includes only the cervical es ophagus. JOHANA BENOIT MD SYSTEM ID: ??[id number] Narrative 02/16/2021 6:32 PM CDT VIDEO SWALLOW WITH CHECKERING MACHINE OPERATOR OR OT ?? 02/16/2021 2:56 PM HISTORY: Video and clinical swallow with speech pathologist, treatment as indicated. Cough. Heartburn. Upper ab dominal pain. Bloating. Constipation, unspecified constipation t ype. COMPARISON: None available FINDINGS: ??A swallow study was performe d in coordination with a member from the speech pathology service. Total fluoroscopy time was 1 minutes. 7 spot fluoroscopic images, and /or cine clips were obtained. 1 view in lateral projection. Various co nsistencies of barium were given to the patient to swallow, and the swallowing mechanism was observed using fluoroscopy. No penetration or aspiration with any co nsistency of barium. Procedure Note Johana Benoit MD - 02/16/2021Forma tting of this note might be different from the original. VIDEO SWALLOW WITH CHECKERING MACHINE OPERATOR OR OT 02/16/2021 2: 56 PM HISTORY: Video and clinical swallow with speech pathologist, treatment as indicated. Cough. Heartburn. Upper ab dominal pain. Bloating. Constipation, unspecified constipation t ype. COMPARISON: None available FINDINGS: A swallow study was performed in coordination with a member from the speech pathology service. Total fluoroscopy time was 1 minutes. 7 spot fluoroscopic images, and /or cine clips were obtained. 1 view in lateral projection. Various co nsistencies of barium were given to the patient to swallow, and the swallowing mechanism was observed using fluoroscopy. No penetration or aspiration with any co nsistency of barium. IMPRESSION: 1. No penetration or aspiration with any consistency of barium. 2. Please refer to the speech pathology report for further details. This study includes only the cervical es ophagus. JOHANA BENOIT MD SYSTEM ID: [id number] Arslan Clayton MD IMG DIAGNOSTIC IMAGING ORDER TAMI documented in this encounter Visit Diagnoses Diagnosis Cough Heartburn Upper abdominal pain Abdominal pain, other specified site Bloating Flatulence, eructation, and gas pain Constipation, unspecified constipation t ype documented in this encounter Administered Medications Inactive Administered Medications - up to 3 most recent administrations Medication Order MAR Action Action Date Dose Rate Site barium sulfate (VARIBAR THIN Given by Other 02/16/2021 2:34 PM CDT 40 mLs Liquid) 40 % oral suspension 56 g 56 g (140 mL), Oral, ONCE, On Viola 02/16/21 at 1500, For 1 dose barium sulfate (VARIBAR) 40 % pudding/paste Given 02/16/2021 2:44 PM CDT 40 mLs 140 mL 140 mL, Oral, ONCE, On Viola 02/16/21 at 1500, For 1 dose documented in this encounter Care Teams Parts Department Supervisor Relationship Specialty Start Date End Date Ganesh Sifuentes PCP - General Family Practice 05/15/19 [facility] [address] [place] [address] documented as of this encounter
--- OUTSIDE RECORDS SUMMARY | 2022-05-08 08:40 | XMS_ITS | Encounter Summary ---
:1940 Author Organization [facility] Address [address] [place] [address] Care Team Providers Name Role Phone Jennie Tomas Primary Care Provider Encounter Details Date Type Department Care Team Description 09/17/2018 Travel Social History Tobacco Use Types Packs/Day [...] on filedocumented in this encounter Care Teams Photographic Printer Relationship Specialty Start Date End Date Jennie Tomas PCP - General 09/01/12 05/14/19 [facility] [address] [place] [address] documented as of this encounter
--- OUTSIDE RECORDS SUMMARY | 2022-05-08 08:40 | XMS_ITS | Clinical Summary ---
:1940 Author Organization [facility] Address [address] [place] [id number] Care Team Providers Name Role Phone Osmanbernardo Ganesh Primary Care Provider Allergies Active Allergy Reactions Severity Noted Date Comments Sulfa Drugs Hives 09/10/2012 Vancomycin Hives 09/11/2012 Venomil Honey Bee Anaphylaxis High 06/16/2016 Medications Medication Sig Dispensed Refills Start Date End Date Status fluticasone (VERAMYST) [place] 2 sprays 0 Active 27.5 MCG/SPRAY nasal into both spray nostrils daily. omeprazole (PRILOSEC) Take 40 mg by [address] capsule mouth every morning EPINEPHrine 0.3 Inject 0.3 mg 0 Active MG/0.3ML injection into the muscle 2-pack as needed for anaphylaxis traZODone (DESYREL) 50 Take 50 mg by 0 Active MG tablet mouth At Bedtime Calcium Citrate-Vitamin Take 2 tablets by 0 Active D (CALCIUM + D PO) mouth daily Vitamin D Take 1,000 Units 0 [place] (Cholecalciferol) 25 by mouth daily MCG (1000 UT) TABS Multiple Take 1 tablet by 0 Act [place] Vitamins-Minerals mouth daily (MULTIVITAMIN ADULT PO) albuterol (PROAIR Inhale 2 puffs 0 Active HFA/PROVENTIL into the lungs HFA/VENTOLIN HFA) 108 every 6 hours as (90 Base) MCG/ACT needed inhaler escitalopram (LEXAPRO) Take 10 mg by 0 Active 10 MG tablet mouth daily RESTASIS 0.05 % Place 1 drop into 0 01/26/2020 Active ophthalmic emulsion both eyes 2 times daily ADVAIR DISKUS 250-50 Inhale 1 puff 0 02/28/2020 Active MCG/DOSE inhaler into the lungs 2 times daily raloxifene (EVISTA) 60 Take 1 tablet by 0 02/17/2020 Active MG tablet mouth daily rosuvastatin (CRESTOR) Take 5 mg by 0 03/12/2020 Active 5 MG tablet mouth At Bedtime INCRUSE ELLIPTA 62.5 Inhale 1 puff 0 02/03/2020 Active MCG/INH Inhaler into the lungs daily verapamil ER (CALAN-SR) Take 120 mg by 0 01/08/2020 Active 120 MG CR tablet mouth daily sodium bicarbonate 8.4 DRAW UP 3 ML, FOR 0 0 Active % injection USE IN HOME BLADDER INSTILLATIONS. lidocaine 2 % injection Draw up 10mL of 0 01/26/2020 Active LidoCANE 2% AND mix with 3mL of Sodium Bicarb. Put in sterile cup for bladder instillation. famotidine (PEPCID) 20 Take 1 tablet (20 30 tablet 0 0 Active MG tabletIndications: mg) by mouth Gastroesophageal reflux every morning disease without esophagitis sucralfate (CARAFATE) 1 Take 1 tablet (1 60 tablet 0 0 Active GM tabletIndications: g) by mouth 3 Gastroesophageal reflux times daily as disease without needed for nausea esophagitis (reflux) Resolved Problems Problem Noted Date Resolved Date Advance care planning 09/18/2016 04/22/2020 Overview: Advance Care Planning 09/18/2016: Receipt of ACP document: Received: invalid HCD document dated 10/30/13. Document not previously scanned. Validation form completed indicating invalid document. Copy sent to client with information and facilitat ion resources. Validation form sent to be scanned as notation of invalid document received. Confirmed/documented designated decision maker(s). Added by Nia Murray Advance Care Planning Liaison Social History Tobacco Use Types Packs/Day Years [...] Assigned at Date Recorded Not on file Last Filed Vital Signs Vital Sign Reading Time Taken Comments Blood Pressure 122/53 04/09/2020 10:32 AM CDT Pulse 76 04/09/2020 10:32 AM CDT Temperature 36.2 ??C (97.1 ??F) 04/09/2020 10:32 AM CDT Respiratory Rate 18 04/09/2020 10:32 AM CDT Oxygen Saturation 94% 04/09/2020 10:32 AM CDT Inhaled Oxygen Concentration - - Weight 69.2 kg (152 lb 9.6 oz) 04/08/2020 3:40 PM CDT Height 170.2 cm (5' 7) 04/08/2020 3:40 PM CDT Body Mass Index 23.9 04/08/2020 3:40 PM CDT Plan of Treatment Health Maintenance Due Date Last Done Comments ANNUAL REVIEW OF HM ORDERS 1940 DEXA 1940 FALL RISK ASSESSMENT 2006 MEDICARE ANNUAL WELLNESS 2006 VISIT ZOSTER IMMUNIZATION (3 of 03/18/2019 01/21/2019, 05/19/2010 3) COVID-19 Vaccine (3 - 03/14/2021 10/15/2020, 09/24/2020 Booster for Pfizer series) DTAP/TDAP/TD IMMUNIZATION 05/19/2021 05/19/2011 (2 - Td or Tdap) PHQ-2 (once per calendar 08/19/2021 year) INFLUENZA VACCINE (#1) 2022 06/10/2020, 05/22/2019, 05/29/2018, Additional history exists LIPID 04/09/2025 04/09/2020 ADVANCE CARE PLANNING 04/22/2025 04/22/2020, 04/22/2020, 07/23/2018, Additional history exists Pneumococcal Vaccine: 65+ Completed 09/01/2015, 08/22/2015 , Years 05/19/2007 HEPATITIS B IMMUNIZATION Aged Out No long er eligible based on patient 's age to complete this topic IPV IMMUNIZATION Aged Out No longer eligi ble based on patient 's age to complete this topic MENINGITIS IMMUNIZATION Aged Out No longe r eligible based on patient 's age to complete this topic Insurance Payer Benefit Plan / Subscriber ID Effective Phone Address T ype Group Dates MEDICARE MEDICARE [id number] 2006-Pre [phone] ATTN CLAIMS Medicare sent [id number] [place] [address] COMMERCIAL [employer] AUT[employer] [id number] 2007-Pre [employer] sent [address] [place] [address] Advance Directives For more information, please contact: [phone] Documents on File Type Date 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 Advance Directives and 04/22/2020 2:29 PM Health C are Directive Living Will 10/18/2019 Latest Code Status on File Code Status Date Activated Date Inactivated Comments No CPR- Do NOT Intubate 04/09/2020 10:20 AM Advan nehemias Directive obtained and gyroscope repairer ies made Code status determined by: Discussion with patient/ legal de cision maker No CPR- Do NOT Intubate 04/08/2020 5:39 PM 04/09/2020 10:20 NO bas ic or advanced AM life-sustaining interventions ar e performed Code status determined by: Discussion with patient/ legal de cision maker Full Code 04/08/2020 3:40 PM 04/08/2020 5:39 PM All basic an d advanced life-sustaining interventions ar e performed as appropriate Code status determined by: Discussion with patient/ legal de cision maker Healthcare Agents on File Name Relationship Healthcare Agent Communication Relationship Tao Pollard Spouse Health Care Agent Concepción Barber Daughter First Alternate Health Care Agent Care Teams Crimper Operator Relationship Specialty Start Date End Date Ganesh Sifuentes PCP - General Family Practice 05/15/19 [facility] [address] [place] [address]
--- OUTSIDE RECORDS SUMMARY | 2022-05-08 08:40 | XMS_ITS | Encounter Summary ---
:1940 Author Organization [facility] Address [address] [place] [address] Care Team Providers Name Role Phone Ganesh Sifuentes Primary Care Provider Encounter Details Date Type Department Care Team Description 04/08/2020 Travel Social History Tobacco Use Types Packs/Day [...] been in contact with No / Unsure 04/08/2020 12:03 PM CDT someone who was confirmed or suspected to have Coronavirus / COVID-19? documented as of this encounter Plan of Treatment Not on filedocumented as of this encounter Visit Diagnoses Not on filedocumented in this encounter Care Teams Reset Merchandiser Relationship Specialty Start Date End Date Ganesh Sifuentes PCP - General Family Practice 05/15/19 [facility] [address] [place] [address] documented as of this encounter
--- OUTSIDE RECORDS SUMMARY | 2022-05-08 08:40 | XMS_ITS | Encounter Summary ---
:1940 Author Organization [facility] Address [address] [place] [id number] Care Team Providers Name Role Phone Gaviota Sifuentes Primary Care Provider Reason for Visit Reason Comments Chest Pain Encounter Details Date Type Department Care Team Description 04/08/2020 - Emergency [facility] Aydee Miguel PA-C [facility] [address] [place], [place] [id number] Gastroesophageal reflux disease without esophagitis (Primary Dx); 04/09/2020 [facility] Juaquin Veronica MD [address] [place] [address] Chest pain Dept [address] [place] [address] Social History Tobacco Use Types Packs/Day Years [...] / COVID-19? documented as of this encounter Last Filed Vital Signs Vital Sign Reading [...] Mass Index 23.9 04/08/2020 3:40 PM CDT documented in this encounter Discharge Summaries Alisha Rock PA-C - 04/09/2020 10:25 AM CDT [facility] Outpatient / Observation Unit Discharge Summary Bar Carrera Date of : 1940 Age: [age] year old Date of Admission: 04/08/2020 Date of Discharge: 04/09/2020 Admitting Physician: Juaquin Veronica MD Discharge Physician: Alisha Rock PA-C, LIZBET Discharging Service: Hospitalist Primary Provider: Gaviota Sifuentes Primary Care Physician Primary Discharge Diagnoses: Bar Carrera is a 79 year old female with a PMH significant for h/o SVT, asthma, COPD, interstitial cystitis, fibromyalgia, GERD, previous tobacco abuse, and HLD who was admitted to observation for chest pain on 04/08/20. ?? Work up in ED revealed: VSS, BMP unremarkable, negative troponin, glucose 112, platelet count of 116otherwise CBC WNL, chest x-ray shows no suspicious focal pulmonary opacities, pleural effusion, or pneumothorax, bilateral calcified breast implants, and EKG shows rate of 70 bpm and NSR with nonspecific ST abnormality. ?? Patient was registered to observation for further evaluation and to rule out possible ACS. ?? #Acute chest pain: serial troponins were negative. Telemetry overnight showed NSR with VR in the 70-80s. A stress ECHO was then done that was negative for inducible ischemia. - symptoms are most c/w GERD. - patient already takes Prilosec 40mg at night. Will add in Pepcid in the AM and Carafate 3-4 times a day as needed. ?? #h/o SVT: diagnosed in 1997, originally on beta joey but this was stopped in 2016 after receivingallergy shots following a severe allergic reaction to a yellow jacket sting. Previously evaluated byDr. Mitchell of cardiology at [facility] in [place]. - continue COUNTERINTELLIGENCE SPECIALIST Verapamil ?? #HLD: continue COUNTERINTELLIGENCE SPECIALIST Rosuvastatin, repeat lipid panel this AM looks good ?? #Asthma #COPD: no recent or current exacerbations but reports increased cough due to seasonal allergies thisseason. - continue COUNTERINTELLIGENCE SPECIALIST Advair and Incruse Ellipta inhalers ?? #Interstitial cystitis: follows with Dr. Greer of Urology for management ?? #Anxiety: resume COUNTERINTELLIGENCE SPECIALIST Lexapro and Trazodone for sleep ?? #Previous tobacco abuse: smoked about 3 cigarettes per day for 13 years, quit in 1972 Secondary Discharge Diagnoses: Past Medical History: Diagnosis Date ??? Allergic rhinitis due to allergen Dust, Ragweed ??? Arrhythmia tachyarrythmia ??? Arthritis ??? Asthma states coughs alot and has been told at one time had asthma and used inhaler ??? Bladder dysfunction ??? Bladder pain ??? Chronic interstitial cystitis ??? Colon polyps ??? COPD (chronic obstructive pulmonary disease) (H) mild ??? External hemorrhoids ??? Fibromyalgia ??? Gastro-oesophageal reflux disease ??? GERD (gastroesophageal reflux disease) ??? Hiatal hernia ??? Hiatal hernia ??? Lumbar radiculopathy, right ??? Multiple pulmonary nodules ??? Osteopenia ??? Pain ??? PONV (postoperative nausea and vomiting) ??? Ptosis ??? Pulmonary nodules ??? Sleep apnea ??? Tachycardia ??? Urticaria Code Status: DNR / DNI Brief Hospital Summary: Reason for your hospital stay You were registered to the observation unit for chest pain. Your initial evaluation, including labs and imaging, were normal. You were monitored on telemetry overnight (which showed sinus rhythm) and your heart enzymes were negative. A stress ECHO was also done which was negative. Your symptoms were thought to be related to GERD. Please refer to initial admission history and physical for further details. Briefly, Bar Carrera was admitted on 04/08/2020 for concerns of acute chest pain. Initial work up in the ED did not reveal evidence of STEMI or findings consistent with unstable angina or acute coronary ischemia. Pt was registered to the Observation Unit for further evaluation. Pt ruled out with serial troponins, underwent Stress Echo that did not show evidence of significant coronary ischemia. Labs were reviewed and significant results addressed. On the day of discharge, pt was pain free, with no complaints of pain. Medications were reviewed and adjustments made as necessary. Pt is instructed to follow up as below. Significant Lab During Hospitalization: No results for input(s): PH, PHV, PO2, PO2V, SAT, PCO2, PCO2V, HCO3, HCO3V in the last 168 hours. Recent Labs Lab 04/08/20 1230 WBC 5.8 HGB 13.1 HCT 40.2 MCV 100 PLT 116* Lab Results Component Value Date NA 140 04/08/2020 NA 138 03/09/2015 Lab Results Component Value Date CHLORIDE 109 04/08/2020 CHLORIDE 104 03/09/2015 Lab Results Component Value Date BUN 14 04/08/2020 BUN 8 03/09/2015 Lab Results Component Value Date POTASSIUM 3.8 04/08/2020 POTASSIUM 3.9 03/09/2015 Lab Results Component Value Date CO2 26 04/08/2020 CO2 28 03/09/2015 Lab Results Component Value Date CR 0.66 04/08/2020 CR 0.64 03/09/2015 No results for input(s): CULT in the last 168 hours. Recent Labs Lab 04/08/20 1230 NA 140 POTASSIUM 3.8 CHLORIDE 109 CO2 26 ANIONGAP 5 GLC 112* BUN 14 CR 0.66 GFRESTIMATED 84 GFRESTBLACK >90 CRISTINA 9.3 No results for input(s): SED, CRP in the last 168 hours. No results for input(s): INR in the last 168 hours. No results for input(s): LACT in the last 168 hours. No results for input(s): LIPASE in the last 168 hours. Recent Labs Lab 04/09/20 0521 CHOL 160 HDL 81 LDL 67 TRIG 59 No results for input(s): TSH in the last 168 hours. Recent Labs Lab 04/08/20 2358 04/08/20 1838 04/08/20 1230 TROPI <0.015 <0.015 <0.015 No results for input(s): COLOR, APPEARANCE, URINEGLC, URINEBILI, URINEKETONE, SG, UBLD, URINEPH, PROTEIN, UROBILINOGEN, NITRITE, LEUKEST, RBCU, WBCU in the last 168 hours. Significant Imaging During Hospitalization: Recent Results (from the past 48 hour(s)) Chest XR, PA & LAT Narrative CHEST TWO VIEWS 04/08/2020 1:07 PM HISTORY: Chest pain. COMPARISON: None available. Impression IMPRESSION: PA and lateral views of the chest were obtained. Cardiomediastinal silhouette is within normal limits. No suspicious focal pulmonary opacities. No significant pleural effusion or pneumothorax. Bilateral calcified breast implants. JOHANA GARDINER MD Echo Stress Echocardiogram Narrative [id number]^KRUPA^NIA^FABIEN [facility] Echocardiography Laboratory [address] [place] [id number] Name: BAR CARRERA : 1940 Study Date: 04/09/2020 07:27 AM Age: 79 yrs Gender: Female Patient Location: [facility] Reason For Study: Chest Pain History: HTN,High cholesterol Ordering Physician: NIA GENTILE Referring Physician: GAVIOTA SIFUENTES Performed By: Yoli Ruvalcaba BSA: 1.8 m2 Height: 67 in Weight: 152 lb HR: 72 BP: 110/60 mmHg Medications: Verapamil,Crestor __ Procedure Stress Echo Complete. __ Interpretation Summary The patient exercised 9:01 according to modified evin protocol. Patient had 1/10 chest pain that did not change with exercise. The stress EKG is non-diagnostic due to pre-existing EKG abnomalities. Left ventricular cavity size decreases with exercise. Global LV systolic function augments with exercise. Normal resting wall motion and no stress-induced wall motion abnormality. This was a normal stress echocardiogram with no evidence of stress-induced ischemia. __ Stress Pt had 1/10 chest discomfort at rest that did not resolve or worsen with exercise. RPP [id number]. There was a normal BP response to exercise. Exercise was stopped due to fatigue. A moderate workload was achieved. The patient exercised 9:01. Target Heart Rate was achieved. Arrhythmia noted in recovery: occasional PVC's. The stress EKG is non-diagnostic due to pre-existing EKG abnomalities. The visual ejection fraction is estimated at >70%. Left ventricular cavity size decreases with exercise. Global LV systolic function augments with exercise. Normal resting wall motion and no stress-induced wall motion abnormality. This was a normal stress echocardiogram with no evidence of stress-induced ischemia. Baseline sinus rhyth, with non specific ST-t changes. No regional wall motion abnormalities noted. The visual ejection fraction is estimated at 55-60%. Stress Results Protocol: MODIFIED EVIN Maximum Predicted HR: 142 bpm Target HR: 121 bpm % Maximum Predicted HR: 94 % Stage DurationHeart Rate BP Comment (mm:ss) (bpm) Stage 0 3:00 109 120/60 Stage 1 3:00 116 128/60 Stage 2 3:01 134 134/60RPP: [id number] RecoveryR 6:00 96 108/60 Stress Duration: 9:01 mm:ss * Recovery Time: 6:00 mm:ss Maximum Stress HR: 134 bpm * METS: 7 Left Ventricle Proximal septal thickening is noted. Left ventricular systolic function is normal. The visual ejection fraction is estimated at 55-60%. No regional wall motion abnormalities noted. Mitral Valve There is trace mitral regurgitation. Tricuspid Valve There is trace tricuspid regurgitation. Aortic Valve The aortic valve is trileaflet. There is trace aortic regurgitation. No aortic stenosis is present. Pulmonic Valve There is trace pulmonic valvular regurgitation. Vessels The ascending aorta is Mildly dilated. __ MMode/2D Measurements & Calculations asc Aorta Diam: 3.7 cm __ Report approved by: Apoorva Hansen 04/09/2020 09:04 AM Pending Results: Unresulted Labs Ordered in the Past 30 Days of this Admission Date and Time Order Name Status Description 04/08/2020 1438 Asymptomatic COVID-19 Virus (Coronavirus) by PCR In process Consultations This Hospital Stay: No consultations were requested during this admission Discharge Instructions and Follow-Up: Follow-up Appointments Follow-up and recommended labs and tests 1. Start taking Pepcid 20mg every morning on an empty stomach. - Continue taking Prilosec at night - Add in Carfate suspension 3-4 times a day if the above two medications do not control your GERD symptoms within the next 2 weeks. 2. Follow up with your family doctor within the next 2-4 weeks for recheck. Discharge Disposition: Discharged to home Discharge Medications: Current Discharge Medication List START taking these medications Details famotidine (PEPCID) 20 MG tablet Take 1 tablet (20 mg) by mouth every morning Qty: 30 tablet, Refills: 0 Associated Diagnoses: Gastroesophageal reflux disease without esophagitis sucralfate (CARAFATE) 1 GM/10ML suspension Take 10 mLs (1 g) by mouth 4 times daily (before meals and nightly) Qty: 420 mL, Refills: 0 Associated Diagnoses: Gastroesophageal reflux disease without esophagitis CONTINUE these medications which have NOT CHANGED Details ADVAIR DISKUS 250-50 MCG/DOSE inhaler Inhale 1 puff into the lungs 2 times daily albuterol (PROAIR HFA/PROVENTIL HFA/VENTOLIN HFA) 108 (90 Base) MCG/ACT inhaler Inhale 2 puffs into the lungs every 6 hours as needed Calcium Citrate-Vitamin D (CALCIUM + D PO) Take 2 tablets by mouth daily EPINEPHrine 0.3 MG/0.3ML injection 2-pack Inject 0.3 mg into the muscle as needed for anaphylaxis escitalopram (LEXAPRO) 10 MG tablet Take 10 mg by mouth daily fluticasone (VERAMYST) 27.5 MCG/SPRAY nasal spray [place] 2 sprays into both nostrils daily. INCRUSE ELLIPTA 62.5 MCG/INH Inhaler Inhale 1 puff into the lungs daily Multiple Vitamins-Minerals (MULTIVITAMIN ADULT PO) Take 1 tablet by mouth daily omeprazole (PRILOSEC) [address] capsule Take 40 mg by mouth every morning raloxifene (EVISTA) 60 MG tablet Take 1 tablet by mouth daily RESTASIS 0.05 % ophthalmic emulsion Place 1 drop into both eyes 2 times daily rosuvastatin (CRESTOR) 5 MG tablet Take 5 mg by mouth At Bedtime traZODone (DESYREL) 50 MG tablet Take 50 mg by mouth At Bedtime verapamil ER (CALAN-SR) 120 MG CR tablet Take 120 mg by mouth daily Vitamin D (Cholecalciferol) 25 MCG (1000 UT) TABS Take 1,000 Units by mouth daily lidocaine 2 % injection Draw up 10mL of LidoCANE 2% AND mix with 3mL of Sodium Bicarb. Put in sterile cup for bladder instillation. sodium bicarbonate 8.4 % injection DRAW UP 3 ML, FOR USE IN HOME BLADDER INSTILLATIONS. Allergies: Allergies Allergen Reactions ??? Yellow Jacket Venom [Venomil Honey Bee] Anaphylaxis ??? Sulfa Drugs Hives ??? Vancomycin Hives Condition and Physical on Discharge: Discharge condition: Stable Vitals: Blood pressure 122/64, pulse 81, temperature 96.8 ??F (36 ??C), temperature source Oral, resp. rate 18, height 1.702 m (5' 7), weight 69.2 kg (152 lb 9.6 oz), SpO2 95 %. 152 lbs 9.6 oz GENERAL: Comfortable. PSYCH: pleasant, oriented, No acute distress. HEENT: PERRLA. Normal conjunctiva, normal hearing, nasal mucosa and Oropharynx are normal. NECK: Supple, no neck vein distention, adenopathy or bruits, normal thyroid. HEART: Normal S1, S2 with no murmur, no pericardial rub, gallops or S3 or S4. LUNGS: Clear to auscultation, normal Respiratory effort. No wheezing, rales or ronchi. ABDOMEN: Soft, no hepatosplenomegaly, normal bowel sounds. Non-tender, non distended. EXTREMITIES: No pedal edema, +2 pulses bilateral and equal. SKIN: Dry to touch, No rash, wound or ulcerations. NEUROLOGIC: CN 2-12 intact, BL 5/5 symmetric upper and lower extremity strength, sensation is intactwith no focal deficits. Associated attestation - Juaquin Veronica MD - 04/09/2020 10:37 AM CDT Physician Attestation I, Juaquin Veronica MD,did not participate in a shared visit by interviewing or examining the patient and this should be billed as an advanced practice provider only discharge. Juaquin Veronica Date of Service (when I saw the patient): I did not personally see this patient . documented in this encounter Medications at Time [...] reflux morning disease without esophagitis fluticasone (VERAMYST) [place] 2 sprays into 0 27.5 MCG/SPRAY nasal [...] 60 MG Take 1 tablet by 0 /08/2019 tablet mouth daily RESTASIS 0.05 % ophthalmic [...] documented as of this encounter Progress Notes Rosemary Yoo RN - 04/09/2020 8:40 AM CDT PRIMARY DIAGNOSIS: CHEST PAIN OUTPATIENT/OBSERVATION GOALS TO BE MET BEFORE DISCHARGE: 1. Ruled out acute coronary syndrome (negative or stable Troponin): Yes 2. Pain Status: Pain free. 3. Appropriate provocative testing performed: Yes - Stress Test Procedure: Stress Echo - Interpretation of cardiac rhythm per chemical technician: SR HR 70's ?? 4. Cleared by Consultants (if applicable):No 5. Return to near baseline physical activity: Yes ?? Front Desk Coordinator Nurse Safe discharge environment identified: Yes Barriers to discharge: Yes Entered by: Rosemary Yoo 04/09/2020 0840 ?? Please review provider order for any additional goals. Nurse to notify provider when observation goals have been met and patient is ready for discharge. Patient is alert and oriented x4. VS WNL and documented on the FS. Lung sounds clear in all lobes and patient is on RA. Denies SOB. Active bowel sounds. Patient denies any pain, urgency, and frequency when voiding. Denies chest pain. SL. Regular diet. Tele in place and SR. Independent in room. Plan: Stress echo completed and plan to discharge today. BP 122/53 (BP Location: Right arm) Pulse 76 Temp 97.1 ??F (36.2 ??C) (Oral) Resp 18 Ht 1.702m (5' 7) Wt 69.2 kg (152 lb 9.6 oz) SpO2 94% BMI 23.90 kg/m? Bruna Bangura - 04/09/2020 7:55 AM CDT Stress echo completed. Rosemary Yoo RN - 04/08/2020 4:31 PM CDT PRIMARY DIAGNOSIS: CHEST PAIN OUTPATIENT/OBSERVATION GOALS TO BE MET BEFORE DISCHARGE: 1. Ruled out acute coronary syndrome (negative or stable Troponin): Yes 2. Pain Status: Pain free. 3. Appropriate provocative testing performed: Yes - Stress Test Procedure: Stress Echo - Interpretation of cardiac rhythm per chemical technician: SR HR 73 4. Cleared by Consultants (if applicable):No 5. Return to near baseline physical activity: Yes Front Desk Coordinator Nurse Safe discharge environment identified: Yes Barriers to discharge: Yes Entered by: Rosemary Yoo 04/08/2020 4:32 PM Please review provider order for any additional goals. Nurse to notify provider when observation goals have been met and patient is ready for discharge. Patient is alert and oriented x4. VS WNL and documented on the FS. Lung sounds clear in all lobes and patient is on RA. Denies SOB. Active bowel sounds. Patient denies any pain, urgency, and frequency when voiding. Denies chest pain. SL. Regular diet. Tele in place and SR. Patients brought hermedications in and patient was taking them without this technical proposal writer knowing. Patient refused Carafate andstated she all ready took her omeprazole. Educated patient that she can not take her own medicationsd/t policy. Patient then agreed to give this technical proposal writer her medications and took home. Independent in room. Plan: Tele, trops, stress echo, Morphine and nitroglycerin PRN. Regular diet with no caffe ine this even and then clears 4 hrs prior to stress test. BP 138/69 (BP Location: Right arm) Pulse 82 Temp 97.9 ??F (36.6 ??C) (Oral) Resp 18 Ht 1.702m (5' 7) Wt 69.2 kg (152 lb 9.6 oz) SpO2 97% BMI 23.90 kg/m?? documented in this encounter H&P Notes Nia Gentile PA-C - 04/08/2020 2:52 PM CDT [facility] Outpatient / Observation Unit History and Physical Exam Bar Carrera Date of : 1940 Age: [age] year old Date of Admission: 04/08/2020 Primary care provider: Gaviota Sifuentes Assessment: Bar Carrera is a 79 year old female with a PMH significant for h/o SVT, asthma, COPD, interstitial cystitis, fibromyalgia, GERD, previous tobacco abuse, and HLD who presents with chest pain. Work up in ED reveals: VSS, BMP unremarkable, negative troponin, glucose 112, platelet count of 116 otherwise CBC WNL, chest x-ray shows no suspicious focal pulmonary opacities, pleural effusion, or pneumothorax, bilateral calcified breast implants, and EKG shows rate of 70 bpm and NSR with nonspecific ST abnormality. Patient is being registered to observation for further evaluation and to rule out possible ACS. #Acute chest pain: suspect noncardiac etiology. Onset of central and left sided chest pain at rest with intermittent radiation into left neck and left lower shoulder blade without associated shortness of breath. Pain described as a dull ache and mild pressure. No increased pain with exertion. Pain improved with sublingual nitroglycerin at home and again in ED with return of mild discomfort. Pain seems different from GERD pain patient has previously experienced. Previous echocardiogram in 2018 showedEF of 60-65% and no significant valvular disease. She had a stress test many years ago but none recently. Risk factors include family history, previous tobacco abuse, and recently diagnosed HLD that she is on statin therapy for. Initial troponin negative and EKG with nonspecific ST changes but no ischemic changes. Plan for serial troponins and exercise stress test in AM, patient believes she would beable to walk on a treadmill. #h/o SVT: diagnosed in 1997, originally on beta joey but this was stopped in 2016 after receivingallergy shots following a severe allergic reaction to a yellow jacket sting. Previously evaluated byDr. Mitchell of cardiology at [facility] in [place]. - continue COUNTERINTELLIGENCE SPECIALIST Verapamil #HLD: continue COUNTERINTELLIGENCE SPECIALIST Rosuvastatin, no recent lipid panel in chart #GERD: severe per patient reports, could be having esophageal spasms as cause for presenting chest pain - continue COUNTERINTELLIGENCE SPECIALIST Omeprazole - trial Carafate with meals and at bedtime #Asthma #COPD: no recent or current exacerbations but reports increased cough due to seasonal allergies thisseason. - continue COUNTERINTELLIGENCE SPECIALIST Advair and Incruse Ellipta inhalers if brought in by patient - PRN albuterol neb #Interstitial cystitis: follows with Dr. Greer of Urology for management #Anxiety: resume COUNTERINTELLIGENCE SPECIALIST Lexapro and Trazodone for sleep #Previous tobacco abuse: smoked about 3 cigarettes per day for 13 years, quit in 1972 Plan: 1. [place] to Observation 2. Continue telemetry 3. Follow serial troponins, check fasting lipids 4. Stress testing with Stress Echo 5. Cont Aspirin EC 81 mg po daily 6. Blood pressure control 7. Morphine and nitroglycerine PRN for pain 8. Regular diet with no caffeine this evening, clear liquids four hours prior to stress test DVT prophylaxis: pt at low risk, encourage ambulation Code Status: DNI, confirmed with patient, she plans to have her bring in her advance care directive from home Dispo: likely discharge in 24-48 hours, will admit to observation unit Chief Complaint: Chest Pain History of Present Illness: Bar, a 79 year old female, presents to the ED with complaint of chest pain. The patient states that last night after 8 PM she had onset of central and left- sided chest pain she describes as a dull ache with mild pressure with intermittent radiation into her left neck and bottom of her left shoulderblade. This occurred while at rest while the patient was watching TV. Denies associated shortness ofbreath, diaphoresis, nausea, vomiting, palpitations, lightheadedness, or dizziness. The pain was mild enough that she was able to go to bed but when she woke up this morning she still had pain. The patient had previous supply of sublingual nitroglycerin, which she believes was for her acid reflux, andshe took one sublingual tablet this morning which improved her pain for a couple of hours. Patient was able to take her dog on a walk for half a mile this morning as she usually does without increased pain. She received a second sublingual nitroglycerin in the emergency room which improved her pain but she is now having recurrent mild chest pain without radiation. Denies associated burning sensation or abdominal pain. Denies any recent fever, chills, cough, or congestion. Denies any prior episodes similar to this. Denies any recent strenuous lifting or increased stress. The patient has had issues with severe acid reflux which is caused her significant discomfort but that her pain is different thantoday. Cardiac risk factors: positive for abnormal lipids, family history with mother having a ND at an older age, and previous tobacco abuse Past Medical History: Past Medical History: Diagnosis Date ??? Allergic rhinitis due to allergen Dust, Ragweed ??? Arrhythmia tachyarrythmia ??? Arthritis ??? Asthma states coughs alot and has been told at one time had asthma and used inhaler ??? Bladder dysfunction ??? Bladder pain ??? Chronic interstitial cystitis ??? Colon polyps ??? COPD (chronic obstructive pulmonary disease) (H) mild ??? External hemorrhoids ??? Fibromyalgia ??? Gastro-oesophageal reflux disease ??? GERD (gastroesophageal reflux disease) ??? Hiatal hernia ??? Hiatal hernia ??? Lumbar radiculopathy, right ??? Multiple pulmonary nodules ??? Osteopenia ??? Pain ??? PONV (postoperative nausea and vomiting) ??? Ptosis ??? Pulmonary nodules ??? Sleep apnea ??? Tachycardia ??? Urticaria Past Surgical History: Past Surgical History: Procedure Laterality Date ??? APPENDECTOMY ??? BACK SURGERY cervical discetomy ??? BREAST SURGERY ??? C DIAG IMP MAMMO DIG BILAT, INCL CAD WHEN PERF ??? COLONOSCOPY ??? COSMETIC SURGERY 1975 breast implants ??? CYSTOSCOPY ??? CYSTOSCOPY, BIOPSY BLADDER, COMBINED 09/11/2012 Procedure: COMBINED CYSTOSCOPY, BIOPSY BLADDER; cystoscopy, bladder biopsy and fulgaration; Surgeon: Lisandra Greer MD; Location: [facility] ??? CYSTOSCOPY, FULGURATE BLADDER TUMOR, COMBINED N/A 06/20/2016 Procedure: COMBINED CYSTOSCOPY, FULGURATE BLADDER TUMOR; Surgeon: Lisandra Greer MD; Location: [facility] ??? CYSTOSCOPY, FULGURATE BLADDER TUMOR, COMBINED N/A 09/17/2018 Procedure: COMBINED CYSTOSCOPY, BLADDER HYSRODISTENTION FULGURATION OF BLADDER ULCERS , BLADDER WAASHING, BLADDER BIOPSY; Surgeon: Lisandra Greer MD; Location: [facility] ??? CYSTOSCOPY, RETROGRADES, COMBINED 09/11/2012 Procedure: COMBINED CYSTOSCOPY, RETROGRADES; CYSTOSCOPY, BILATERAL RETROGRADES, BLADDER BIOPSY, FULGURATION ; Surgeon: Lisandra Greer MD; Location: [facility] ??? EYE SURGERY ??? REPAIR PTOSIS BILATERAL Bilateral 06/06/2018 Procedure: BILATERAL UPPER LID PTOSIS AND MECHANICAL PTOSIS REPAIRS; Surgeon: Jesus Hsu MD; Location: [facility] ? ? TONSILLECTOMY & ADENOIDECTOMY ??? TUBAL LIGATION Social History: Social History Socioeconomic History ??? Marital status: Spouse name: Not on file ??? Number of children: Not on file ??? Years of education: Not on file ??? Highest education level: Not on file Occupational History ??? Not on file Social Needs ??? Financial resource strain: Not on file ??? Food insecurity Worry: Not on file Inability: Not on file ??? Transportation needs Medical: Not on file Non-medical: Not on file Tobacco Use ??? Smoking status: Former Smoker Last attempt to quit: 08/19/1972 Years since quittin.6 ??? Smokeless tobacco: Never Used Substance and Sexual Activity ??? Alcohol use: Yes Comment: occasionally ??? Drug use: No ??? Sexual activity: Not on file Lifestyle ??? Physical activity Days per week: Not on file Minutes per session: Not on file ??? Stress: Not on file Relationships ??? Social connections Talks on phone: Not on file Gets together: Not on file Attends latter-day service: Not on file Active member of club or organization: Not on file Attends meetings of clubs or organizations: Not on file Relationship status: Not on file ??? Intimate partner violence Fear of current or ex partner: Not on file Emotionally abused: Not on file Physically abused: Not on file Forced sexual activity: Not on file Other Topics Concern ??? Parent/sibling w/ CABG, ND or angioplasty before 65F 55M? Not Asked Social History Narrative ??? Not on file Family History: Family history reviewed with patient and significant for mother with ND at older age. Allergies: Allergies Allergen Reactions ??? Yellow Jacket Venom [Venomil Honey Bee] Anaphylaxis ??? Sulfa Drugs Hives ??? Vancomycin Hives Medications: Prior to Admission medications Medication Sig Last Dose Taking? Auth Provider ADVAIR DISKUS 250-50 MCG/DOSE inhaler Inhale 1 puff into the lungs 2 times daily Unknown, Entered ByHistory albuterol (PROAIR HFA/PROVENTIL HFA/VENTOLIN HFA) 108 (90 Base) MCG/ACT inhaler Inhale 2 puffs into the lungs every 6 hours Reported, Patient azelastine (OPTIVAR) 0.05 % ophthalmic solution Place 1 drop into both eyes 2 times daily Unknown, Entered By History Calcium Citrate-Vitamin D (CALCIUM + D PO) Take 1 tablet by mouth daily Reported, Patient EPINEPHrine 0.3 MG/0.3ML injection 2-pack Inject 0.3 mg into the muscle as needed for anaphylaxis Reported, Patient escitalopram (LEXAPRO) 10 MG tablet Take 10 mg by mouth daily Reported, Patient fluticasone (VERAMYST) 27.5 MCG/SPRAY nasal spray [place] 2 sprays into both nostrils daily. Reported,Patient INCRUSE ELLIPTA 62.5 MCG/INH Inhaler Inhale 1 puff into the lungs daily Unknown, Entered By History lidocaine 2 % injection Draw up 10mL of LidoCANE 2% AND mix with 3mL of Sodium Bicarb. Put in sterile cup for bladder instillation. Unknown, Entered By History Multiple Vitamins-Minerals (MULTIVITAMIN ADULT PO) Take 1 tablet by mouth daily Reported, Patient omeprazole (PRILOSEC) [address] capsule Take 40 mg by mouth every morning Reported, Patient pentosan polysulfate (ELMIRON) 100 MG capsule Take 100 mg by mouth 2 times daily Reported, Patient raloxifene (EVISTA) 60 MG tablet Take 1 tablet by mouth daily Unknown, Entered By History RESTASIS 0.05 % ophthalmic emulsion Place 1 drop into both eyes 2 times daily Unknown, Entered By History rosuvastatin (CRESTOR) 5 MG tablet Take 5 mg by mouth At Bedtime Unknown, Entered By History sodium bicarbonate 8.4 % injection DRAW UP 3 ML, FOR USE IN HOME BLADDER INSTILLATIONS. Unknown, Entered By History traZODone (DESYREL) 50 MG tablet Take 50 mg by mouth At Bedtime Reported, Patient verapamil ER (CALAN-SR) 120 MG CR tablet Take 120 mg by mouth daily Unknown, Entered By History Vitamin D (Cholecalciferol) 25 MCG (1000 UT) TABS Take 1,000 Units by mouth daily Reported, Patient Review of Systems: A Comprehensive greater than 10 system review of systems was carried out. Pertinent positives and negatives are noted above. Otherwise negative for contributory information. Physical Exam: Blood pressure 121/65, pulse 77, temperature 98 ??F (36.7 ??C), temperature source Oral, resp. rate 19, height 1.702 m (5' 7), weight 71.7 kg (158 lb), SpO2 96 %. GENERAL: healthy, alert and no distress EYES: Eyes grossly normal to inspection, extraocular movements - intact, and PERRL HENT: ear canals- normal; TMs- normal; Nose- normal; Mouth- no ulcers, no lesions NECK: no tenderness, no adenopathy, no asymmetry, no masses, no stiffness; thyroid- normal to palpation RESP: lungs clear to auscultation - no rales, no rhonchi, no wheezes CV: regular rates and rhythm, normal S1 S2, no S3 or S4, no murmur, click or rub and peripheral pulses strong ABDOMEN: soft, no tenderness, no hepatosplenomegaly, no masses, normal bowel sounds MS: extremities- no gross deformities noted, no edema SKIN: no suspicious lesions, no rashes NEURO: strength and tone- normal, sensory exam- grossly normal, mentation- intact, speech- normal, reflexes- symmetric PSYCH: Alert and oriented times 3; coherent speech. Affect is normal. Data: EKG demonstrates: rate of 70 bpm and NSR with nonspecific ST abnormality. Results for orders placed or performed during the hospital encounter of 04/08/20 Chest XR, PA & LAT Status: None Narrative CHEST TWO VIEWS 04/08/2020 1:07 PM HISTORY: Chest pain. COMPARISON: None available. Impression IMPRESSION: PA and lateral views of the chest were obtained. Cardiomediastinal silhouette is within normal limits. No suspicious focal pulmonary opacities. No significant pleural effusion or pneumothorax. Bilateral calcified breast implants. JOHANA GARDINER MD CBC with platelets differential Status: Abnormal Result Value Ref Range WBC 5.8 4.0 - 11.0 10e9/L RBC Count 4.02 3.8 - 5.2 10e12/L Hemoglobin 13.1 11.7 - 15.7 g/dL Hematocrit 40.2 35.0 - 47.0 % MCV 100 78 - 100 fl MCH 32.6 26.5 - 33.0 pg MCHC 32.6 31.5 - 36.5 g/dL RDW 14.5 10.0 - 15.0 % Platelet Count 116 (L) 150 - 450 10e9/L Diff Method Automated Method % Neutrophils 65.9 % % Lymphocytes 26.0 % % Monocytes 5.9 % % Eosinophils 1.4 % % Basophils 0.3 % % Immature Granulocytes 0.5 % Nucleated RBCs 0 0 /100 Absolute Neutrophil 3.8 1.6 - 8.3 10e9/L Absolute Lymphocytes 1.5 0.8 - 5.3 10e9/L Absolute Monocytes 0.3 0.0 - 1.3 10e9/L Absolute Eosinophils 0.1 0.0 - 0.7 10e9/L Absolute Basophils 0.0 0.0 - 0.2 10e9/L Abs Immature Granulocytes 0.0 0 - 0.4 10e9/L Absolute Nucleated RBC 0.0 Basic metabolic panel Status: Abnormal Result Value Ref Range Sodium 140 133 - 144 mmol/L Potassium 3.8 3.4 - 5.3 mmol/L Chloride 109 94 - 109 mmol/L Carbon Dioxide 26 20 - 32 mmol/L Anion Gap 5 3 - 14 mmol/L Glucose 112 (H) 70 - 99 mg/dL Urea Nitrogen 14 7 - 30 mg/dL Creatinine 0.66 0.52 - 1.04 mg/dL GFR Estimate 84 >60 mL/min/[1.73_m2] GFR Estimate If Black >90 >60 mL/min/[1.73_m2] Calcium 9.3 8.5 - 10.1 mg/dL Troponin I (now) Status: None Result Value Ref Range Troponin I ES <0.015 0.000 - 0.045 ug/L Nia Gentile PA-C Associated attestation - Juaquin Veronica MD - 04/08/2020 6:04 PM CDT Physician Attestation I, Juaquin Veronica, not participate in a shared visit by interviewing or examining the patient and this should be billed as an advanced practice provider only visit. Juaquin Veronica Date of Service (when I saw the patient): I did not personally see this patient . documented in this encounter ED Notes Rosemary Yoo RN - 04/08/2020 2:33 PM CDT [facility] ED Nurse Handoff Report Bar Carrera is a 79 year old female ED Chief complaint: Chest Pain . ED Diagnosis: Final diagnoses: Chest pain Allergies: Allergies Allergen Reactions ??? Yellow Jacket Venom [Venomil Honey Bee] Anaphylaxis ??? Sulfa Drugs Hives ??? Vancomycin Hives Code Status: Full Code Activity level - Baseline/Home: Independent. Activity Level - Current: Independent. Lift room needed: No. Bariatric: No Environmental Compliance Inspector Needed: No Isolation: No. Infection: Not Applicable. Vital Signs: Vitals: 04/08/20 1205 04/08/20 1215 04/08/20 1230 04/08/20 1400 BP: 139/79 136/82 121/65 Pulse: 84 81 92 77 Resp: 16 12 13 19 Temp: 98 ??F (36.7 ??C) TempSrc: Oral SpO2: 96% 95% 96% 96% Weight: 71.7 kg (158 lb) Height: 1.702 m (5' 7) Cardiac Rhythm: , Cardiac Cardiac Rhythm: Normal sinus rhythm Pain level: 0-10 Pain Scale: 2(pain was 4/10 at initiation of nitro, 2/10 at present) Patient confused: No. Patient Falls Risk: No. Elimination Status: Has voided Patient Report - Initial Complaint: Pt having substernal chest pain since last night. Pt states thatit feels different than her heart burn. Pt reports taking 1 nitroglycerine at 730am with some reliefof pain. . Focused Assessment: chest pain Tests Performed: 04/08/2020 Labs Ordered and Resulted from Time of ED Arrival Up to the Time of Departure from the ED CBC WITH PLATELETS DIFFERENTIAL - Abnormal; Notable for the following components: Result Value Platelet Count 116 (*) All other components within normal limits BASIC METABOLIC PANEL - Abnormal; Notable for the following components: Glucose 112 (*) All other components within normal limits TROPONIN I . Abnormal Results: as noted. Treatments provided: nitroglycerin x1, aspirin Family Comments: n/a OBS brochure/video discussed/provided to patient: Yes ED Medications: Medications nitroGLYcerin (NITROSTAT) sublingual tablet 0.4 mg (0.4 mg Sublingual Given 04/08/20 1228) aspirin (ASA) chewable tablet 324 mg (324 mg Oral Given 04/08/20 1432) Drips infusing: No For the majority of the shift, the patient's behavior Green. Interventions performed were n/a. Sepsis treatment initiated: No ED Nurse Name/Phone Number: Leena Kumar RN, 2:33 PM RECEIVING UNIT ED HANDOFF REVIEW Above ED Nurse Handoff Report was reviewed: Yes Reviewed by: Rosemary Yoo, RN on April 08, 2020 at 3:11 PM Roxy Jesnen RN - 04/08/2020 12:04 PM CDT Pt having substernal chest pain since last night. Pt states that it feels different than her heart burn. Pt reports taking 1 nitroglycerine at 730am with some relief of pain. Li Laguna PA-C - 04/08/2020 11:58 AM CDT History Chief Complaint: Chest Pain HPI Bar Carrera is a 79 year old female who presents with chest pain. The patient developed mid chestpain last night while she was watching TV. She states that the chest pain radiated up to her neck and back. She denies having any sweating, nausea, or vomiting with the chest pain. The chest pain is not constant but returned this morning when she woke up. She took 1 nitroglycerin at 0730 which made her chest pain better but she would still like to be evaluated. She denies any shortness of breath. Shenotes having severe GERD but states that her chest pain feels different from her GERD. Cardiac/PE/DVT Risk Factors: History of hypertension - no History of hyperlipidemia - no History of diabetes - no History of smoking - yes Personal history of PE/DVT - no Family history of PE/DVT - no Family history of heart complications - no Recent travel - no Recent surgery - no Other immobilizations - no Cancer - no Allergies: Yellow Jacket Venom [Venomil Honey Bee] Sulfa Drugs Vancomycin Medications: Atorvastatin Alendronate escitalopram oxalate Omeprazole elmiron Trazodone Verapamil Past Medical History: Allergic rhinitis due to allergen Arrhythmia Arthritis Asthma Bladder dysfunction Bladder pain Chronic interstitial cystitis Colon polyps COPD (chronic obstructive pulmonary disease) (H) External hemorrhoids Fibromyalgia GERD (gastroesophageal reflux disease) Hiatal hernia Lumbar radiculopathy, right Multiple pulmonary nodules Osteopenia Ptosis Sleep apnea Tachycardia Urticaria Past Surgical History: Appendectomy Cervical discectomy Breast surgery Breast implants Ptosis repair bilateral T&A Tubal ligation Eye surgery Family History: Family history reviewed. No pertinent family history. Social History: Smoking Status: former Smokeless Tobacco: Never Used Alcohol Use: Yes Drug Use: No PCP: Gaviota Sifuentes Review of Systems Constitutional: Negative for diaphoresis. Respiratory: Negative for shortness of breath. Cardiovascular: Positive for chest pain. Gastrointestinal: Negative for nausea and vomiting. All other systems reviewed and are negative. Physical Exam Patient Vitals for the past 24 hrs: BP Temp Temp src Pulse Resp SpO2 Height Weight 04/08/20 1230 -- -- -- 92 13 96 % -- -- 04/08/20 1215 136/82 -- -- 81 12 95 % -- -- 04/08/20 1205 139/79 98 ??F (36.7 ??C) Oral 84 16 96 % 1.702 m (5' 7) 71.7 kg (158 lb) Physical Exam General: Well-nourished Speaking in full sentences Eyes: Conjunctiva without injection or scleral icterus PERRL ENT: Moist mucous membranes Posterior oropharynx clear without erythema or exudate Nares patent Pinnae normal Neck: Full ROM No stiffness appreciated Resp: Lungs CTAB No crackles, wheezing or audible rubs Good air movement CV: Normal rate, regular rhythm S1 and S2 present No murmur, gallop or rub GI: BS present Abdomen soft without distention Non-tender to light and deep palpation No guarding or rebound tenderness Skin: Warm, dry, well perfused No rashes or open wounds on exposed skin MSK: Moves all extremities No focal deformities or swelling Neuro: Alert Answers questions appropriately Moves all extremities equally Gait stable Psych: Normal affect, normal mood Emergency Department Course ECG: ECG taken at 1212 Normal sinus rhythm Nonspecific ST abnormality Abnormal ECG Rate 78 bpm. VA interval 188 ms. QRS duration 78 ms. QT/QTc 388/442 ms. P-R-T axes 66 46 62. Imaging: Radiology findings were communicated with the patient who voiced understanding of the findings. Chest XR, PA & LAT Preliminary Result IMPRESSION: PA and lateral views of the chest were obtained. Cardiomediastinal silhouette is within normal limits. No suspicious focal pulmonary opacities. No significant pleural effusion or pneumothorax. Bilateral calcified breast implants. Reading per radiology Laboratory: Laboratory findings were communicated with the patient who voiced understanding of the findings. CBC: WBC 5.8, HGB 13.1, PLT 116 (L), o/w WNL BMP: Glucose 112 (H), o/w WNL (Creatinine: 0.66) Troponin(1230): <0.015 Asymptomatic COVID-19 Virus (Coronavirus) by PCR Nasopharyngeal swab: pending Interventions: 1228 Nitrostat 0.4 mg sublingual Emergency Department Course: Past medical records, nursing notes, and vitals reviewed. 1212 I performed an exam of the patient as documented above. IV was inserted and blood was drawn for laboratory testing, results above. The patient was sent for imaging while in the emergency department, results above. 1311 Patient reports that the chest pain has completely resolved. 1350 Patient rechecked and updated. Discussed patient with Dr. Lopez who agreed to share service on the patient. He agrees with plan for admission. 1437 I spoke with Anita HILLS for Dr. Veronica of the Hospitalist service from [facility] regarding patient's presentation, findings, and plan of care. Findings and plan explained to the Patient who consents to admission. Discussed the patient with nAita HILLS for Dr. Veronica, who will admit the patient to a observation unit bed for further monitoring, evaluation, and treatment. Impression & Plan Covid-19 Bar Carrera was evaluated during a global COVID-19 pandemic, which necessitated consideration that the patient might be at risk for infection with the SARS-CoV-2 virus that causes COVID-19. Applicable protocols for evaluation were followed during the patient's care. COVID-19 was considered as part of the patient's evaluation. The plan for testing is: a test was obtained during this visit. Medical Decision Making: Bar Carrera is a 79 year old female with medical history including GERD who presents with chest pain. Vitals normal besides slight tachycardia. Patient well appearing. Differential of chest pain is broad and includes ACS, aortic dissection, PE, pneumonia, pleural effusion, pericarditis, pleuritis, anxiety, GERD, etc. There is no clinical, laboratory, or radiographic evidence of pulmonary embolism,AAA, aortic dissection, pneumonia or pneumothorax. EKG reveals nonspecific ST changed without evidence of acute ischemia. Initial troponin negative. Concern for anginal equivalent and plan for admission for further monitoring, serial troponins and provacative testing. The patient is pain free after nitroglycerin and aspirin. I will admit the patient to medicine service for further workup. Discussed plan with Anita HILLS who graciously accepted care of the patient. Patient agrees with the plan andall questions/concerns addressed prior to admission. Discharge Diagnosis: ICD-10-CM 1. Chest pain R07.9 Disposition: Admitted. Scribe Disclosure: Eligio Kowalski, am serving as a scribe at 12:12 PM on 04/08/2020 to document services personally performed by Li Laguna PA-C based on my observations and the provider's statements to me. 04/08/2020 Li Laguna PA-C Luell, Amy Jolene, PA-C 04/08/20 1640 Hu Lpoez MD - 04/08/2020 11:58 AM CDT Emergency Department Attending Supervision Note 04/08/2020 1:38 PM I evaluated this patient in conjunction with Li Laguna PA-C Briefly, the patient presented with left-sided chest pressure. She does have a history of GERD causing chest pain before this felt different. The pain was more intense and radiated up into her neck last night she said it reoccurred this morning and therefore she presented to the ER. Patient denies shortness of breath diaphoresis or palpitations. On my exam General: The patient is alert, in no respiratory distress. HENT: No neck tenderness Cardiovascular: Regular rate and rhythm. Good pulses in all four extremities. Normal capillary refill and skin turgor. Respiratory: Lungs are clear. No nasal flaring. No retractions. No wheezing, no crackles. Gastrointestinal: Abdomen soft. No guarding, no rebound. No palpable hernias. Musculoskeletal: No gross deformity. Skin: No rashes or petechiae. Neurologic: The patient is alert and intact Lymphatic: No cervical adenopathy. No lower extremity swelling. Psychiatric: The patient is non-tearful. Results: Chest XR, PA & LAT Preliminary Result IMPRESSION: PA and lateral views of the chest were obtained. Cardiomediastinal silhouette is within normal limits. No suspicious focal pulmonary opacities. No significant pleural effusion or pneumothorax. Bilateral calcified breast implants. Labs Ordered and Resulted from Time of ED Arrival Up to the Time of Departure from the ED CBC WITH PLATELETS DIFFERENTIAL - Abnormal; Notable for the following components: Result Value Platelet Count 116 (*) All other components within normal limits BASIC METABOLIC PANEL - Abnormal; Notable for the following components: Glucose 112 (*) All other components within normal limits TROPONIN I Troponin less than 0.[address] segment in V3 new compared from previous ED course: Patient is pain improved with nitroglycerin My impression is chest pain concerning for ACS. There is no current signs of STEMI. It is worrisome that she responded to nitroglycerin however esophageal spasm could improve with this as well. She will require admission for further work-up and risk stratification. There is no ongoing signs of ischemia. Diagnosis 1. Chest pain Hu Lopez MD Farnan, Christopher M, MD 04/08/20 1434 documented in this encounter Miscellaneous Notes Plan of Care - Rosemary Yoo RN - 04/09/2020 10:57 AM CDT Patient's After Visit Summary was reviewed with patient and/or spouse. Patient verbalized understanding of After Visit Summary, recommended follow up and was given an opportunity to ask questions. Discharge medications sent home with patient/family: Patient will pick scripts up from her pharmacy. Discharged with spouse and nurse with all belongings. Patient medically cleared to discharge. will transport home. Denies pain. BP 122/53 (BP Location: Right arm) Pulse 76 Temp 97.1 ??F (36.2 ??C) (Oral) Resp 18 Ht 1.702m (5' 7) Wt 69.2 kg (152 lb 9.6 oz) SpO2 94% BMI 23.90 kg/m?? OBSERVATION patient END time: 1058 Plan of Care - Orly Garland RN - 04/09/2020 4:58 AM CDT PRIMARY DIAGNOSIS: CHEST PAIN OUTPATIENT/OBSERVATION GOALS TO BE MET BEFORE DISCHARGE: 1. Ruled out acute coronary syndrome (negative or stable Troponin): Yes, trops neg x3 2. Pain Status: Pain free. 3. Appropriate provocative testing performed: Yes - Stress Test Procedure: Stress echo in the morning - Interpretation of cardiac rhythm per chemical technician: SR with hr 74 4. Cleared by Consultants (if applicable):N/A 5. Return to near baseline physical activity: Yes Front Desk Coordinator Nurse Safe discharge environment identified: Yes Barriers to discharge: Yes Entered by: Orly Garland 04/09/2020 4:58 AM Vitals are Temp: 96.2 ??F (35.7 ??C) Temp src: Oral BP: 120/54 Pulse: 74 Resp: 16 SpO2: 94 %. Patient is Alert and Oriented x4. They are independent with no assistive devices . Pt is a clears liquid diet with no caffiene. They are denying pain, chest pain, n/v, and numbness/tingling. Left lowerleg and ankle slightly edematous, baseline per pt statement. Patient is Saline locked. Will continueto monitor and provide cares. Please review provider order for any additional goals. Nurse to notify provider when observation goals have been met and patient is ready for discharge. Plan of Care - Orly Garland RN - 04/09/2020 12:33 AM CDT PRIMARY DIAGNOSIS: CHEST PAIN OUTPATIENT/OBSERVATION GOALS TO BE MET BEFORE DISCHARGE: 1. Ruled out acute coronary syndrome (negative or stable Troponin): Yes, trops neg x3 2. Pain Status: Pain free. 3. Appropriate provocative testing performed: Yes - Stress Test Procedure: Stress echo in the morning - Interpretation of cardiac rhythm per chemical technician: SR with hr 85 4. Cleared by Consultants (if applicable):N/A 5. Return to near baseline physical activity: Yes Front Desk Coordinator Nurse Safe discharge environment identified: Yes Barriers to discharge: Yes Entered by: Orly Garland 04/09/2020 12:33 AM Vitals are Temp: 97.6 ??F (36.4 ??C) Temp src: Oral BP: 105/55 Pulse: 85 Resp: 16 SpO2: 94 %. Patient is Alert and Oriented x4. They are independent with no assistive devices . Pt is a clears liquid diet with no caffiene. They are denying pain, chest pain, n/v, and numbness/tingling. Left lowerleg and ankle slightly edematous, baseline per pt statement. Patient is Saline locked. Will continueto monitor and provide cares. Please review provider order for any additional goals. Nurse to notify provider when observation goals have been met and patient is ready for discharge. Plan of Care - Orly Garland RN - 04/08/2020 8:03 PM CDT PRIMARY DIAGNOSIS: CHEST PAIN OUTPATIENT/OBSERVATION GOALS TO BE MET BEFORE DISCHARGE: 1. Ruled out acute coronary syndrome (negative or stable Troponin): Yes, trops neg x2 2. Pain Status: Pain free. 3. Appropriate provocative testing performed: Yes - Stress Test Procedure: Stress echo in the morning - Interpretation of cardiac rhythm per chemical technician: SR with hr in 70's 4. Cleared by Consultants (if applicable):N/A 5. Return to near baseline physical activity: Yes Front Desk Coordinator Nurse Safe discharge environment identified: Yes Barriers to discharge: Yes Entered by: Orly Garland 04/08/2020 8:03 PM Vitals are Temp: 97.1 ??F (36.2 ??C) Temp src: Oral BP: 119/67 Pulse: 65 Resp: 16 SpO2: 95 %. Patient is Alert and Oriented x4. They are independent with no assistive devices . Pt is a Regular diet with no caffiene. At midnight, pt will be clears with no caffiene. They are denying pain, chest pain, n/v, and numbness/tingling. Left lower leg and ankle slightly edematous, baseline per pt statement. Patient is Saline locked. Will continue to monitor and provide cares. Please review provider order for any additional goals. Nurse to notify provider when observation goals have been met and patient is ready for discharge. Pharmacy-Admission Medication History - Mckinley Carreon RPH - 04/08/2020 4:38 PM CDT Admission medication history interview status for this patient is complete. See [facility] admission navigator for allergy information, prior to admission medications and immunization status. 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 no (Y/N) For patients on insulin therapy: no (Y/N) Sliding scale Novolog: - Do you have a baseline novolog pre-meal dose: __ units with meals or __ units/carb unit with meals Do you eat three meals a day: - How many times do you check your blood glucose per day: - How many episodes of hypoglycemia do you have per week: - Do you have a Continuous glucose monitor (CGM) : - (remind pt that not approved for hospital use) Any specific barriers to therapy? - (cost, comfortable with injections, confident with current diabetes regimen?) Prior to Admission medications Medication Sig Last Dose Taking? Auth Provider ADVAIR DISKUS 250-50 MCG/DOSE inhaler Inhale 1 puff into the lungs 2 times daily 04/08/2020 at x1 YesUnknown, Entered By History albuterol (PROAIR HFA/PROVENTIL HFA/VENTOLIN HFA) 108 (90 Base) MCG/ACT inhaler Inhale 2 puffs into the lungs every 6 hours as needed Yes Reported, Patient Calcium Citrate-Vitamin D (CALCIUM + D PO) Take 2 tablets by mouth daily 04/07/2020 at Unknown time Yes Reported, Patient EPINEPHrine 0.3 MG/0.3ML injection 2-pack Inject 0.3 mg into the muscle as needed for anaphylaxis Yes Reported, Patient escitalopram (LEXAPRO) 10 MG tablet Take 10 mg by mouth daily 04/07/2020 at hs Yes Reported, Patient fluticasone (VERAMYST) 27.5 MCG/SPRAY nasal spray [place] 2 sprays into both nostrils daily. 04/08/2020at Unknown time Yes Reported, Patient INCRUSE ELLIPTA 62.5 MCG/INH Inhaler Inhale 1 puff into the lungs daily 04/08/2020 at Unknown time Yes Unknown, Entered By History Multiple Vitamins-Minerals (MULTIVITAMIN ADULT PO) Take 1 tablet by mouth daily 04/08/2020 at Unknowntime Yes Reported, Patient omeprazole (PRILOSEC) [address] capsule Take 40 mg by mouth every morning 04/08/2020 at Unknown time Yes Reported, Patient raloxifene (EVISTA) 60 MG tablet Take 1 tablet by mouth daily 04/08/2020 at Unknown time Yes Unknown,Entered By History RESTASIS 0.05 % ophthalmic emulsion Place 1 drop into both eyes 2 times daily 04/08/2020 at x1 Yes Unknown, Entered By History rosuvastatin (CRESTOR) 5 MG tablet Take 5 mg by mouth At Bedtime 04/07/2020 at Unknown time Yes Unknown, Entered By History traZODone (DESYREL) 50 MG tablet Take 50 mg by mouth At Bedtime 04/07/2020 at Unknown time Yes Reported, Patient verapamil ER (CALAN-SR) 120 MG CR tablet Take 120 mg by mouth daily 04/08/2020 at Unknown time Yes Unknown, Entered By History Vitamin D (Cholecalciferol) 25 MCG (1000 UT) TABS Take 1,000 Units by mouth daily 04/08/2020 at Unknown time Yes Reported, Patient lidocaine 2 % injection Draw up 10mL of LidoCANE 2% AND mix with 3mL of Sodium Bicarb. Put in sterile cup for bladder instillation. Unknown, Entered By History sodium bicarbonate 8.4 % injection DRAW UP 3 ML, FOR USE IN HOME BLADDER INSTILLATIONS. Unknown, Entered By History Plan of Care - Rosemary Yoo RN - 04/08/2020 4:15 PM CDT ROOM # 226 Living Situation (if not independent, order SW consult): Lives in a house with . Facility name: [employer]: [facility] () [phone] Activity level at baseline: Independent Activity level on admit: Independent Patient registered to observation; given Patient Bill of Rights; given the opportunity to ask questions about observation status and their plan of care. Patient has been oriented to the observation room, bathroom and call light is in place. Discussed discharge goals and expectations with patient/family. documented in this encounter Plan of Treatment Not on filedocumented as of this encounter Procedures Procedure Name Priority Date/Time Associated Comments Diagnosis ECHO EXERCISE STRESS Routine 04/09/2020 8:02 AM R esults for this TEST CDT procedure are i n the results section. LIPID REFLEX TO Routine 04/09/2020 5:21 AM Chest pain Result s for this DIRECT LDL PANEL CDT procedure a re in the results section. TROPONIN I Timed 04/08/2020 11:58 Chest pain Results for this PM CDT procedure are i n the results section. TROPONIN I STAT 04/08/2020 6:38 PM Chest pain Results f or this CDT procedure are i n the results section. COVID-19 VIRUS STAT 04/08/2020 2:52 PM Chest pain Results for this (CORONAVIRUS) BY PCR CDT procedu re are in the results section. XR CHEST 2 VIEWS STAT 04/08/2020 1:07 PM Resul ts for this CDT procedure are i n the results section. CBC WITH PLATELETS & STAT 04/08/2020 12:30 Res ults for this DIFFERENTIAL PM CDT procedure are i n the results section. TROPONIN I STAT 04/08/2020 12:30 Results for this PM CDT procedure are i n the results section. BASIC METABOLIC PANEL STAT 04/08/2020 12:30 Re sults for this PM CDT procedure are i n the results section. EKG 12-LEAD, TRACING STAT 04/08/2020 12:12 Res ults for this ONLY PM CDT procedure are i n the results section. documented in this encounter Results ECHO EXERCISE STRESS TEST (04/09/2020 8:02 AM CDT) Anatomical Region Laterality Modality Echocardiography Specimen (Source) Anatomical Collection Method Collection Time Re ceived Time Location / / Volume Laterality 04/09/2020 7:27 AM CDT Narrative 04/09/2020 9:04 AM CDT [id number]^KRUPA^NIA^FABIEN [facility] Echocardiography Laboratory [address] [place] [id number] Name: BAR CARRERA : 1940 Study Date: 04/09/2020 07:27 AM Age: 79 yrs Gender: Female Patient Location: [facility] Reason For Study: Chest Pain History: HTN,High cholesterol Ordering Physician: NIA GENTILE Referring Physician: GAVIOTA SIFUENTES Performed By: Yoli Ruvalcaba BSA: 1.8 m2 Height: 67 in Weight: 152 lb HR: 72 BP: 110/60 mmHg Medications: Verapamil,Crestor __ Procedure Stress Echo Complete. __ Interpretation Summary The patient exercised 9:01 according to modified evin protocol. Patient had 1/10 chest pain that did not change with exercise. The stress EKG is non-diagnostic due to pre-existing EKG abnomalities. Left ventricular cavity size decreases w ith exercise. Global LV systolic function augments wit h exercise. Normal resting wall motion and no stress -induced wall motion abnormality. This was a normal stress echocardiogram with no evidence of stress-induced ischemia. __ Stress Pt had 1/10 chest discomfort at rest enedina t did not resolve or worsen with exercise. RPP 61823. There was a normal BP response to exerci se. Exercise was stopped due to fatigue. A moderate workload was achieved. The patient exercised 9:01. Target Heart Rate was achieved. Arrhythmia noted in recovery: occasional PVC's. The stress EKG is non-diagnostic due to pre-existing EKG abnomalities. The visual ejection fraction is estimate d at >70%. Left ventricular cavity size decreases w ith exercise. Global LV systolic function augments wit h exercise. Normal resting wall motion and no stress -induced wall motion abnormality. This was a normal stress echocardiogram with no evidence of stress-induced ischemia. Baseline sinus rhyth, with non specific ST-t tran ges. No regional wall motion abnormalities no alethea. The visual ejection fraction is estimate d at 55-60%. Stress Results ? Protocol: ??MODIFIED EVIN ?Maximum Predicted HR: ?? 142 bpm ? Target HR: 121 bpm ? % Maximum Predicted HR: 94 % ? Stage ??Dura tionHeart Rate ??BP ?Comment ? (mm:ss) ?? (bpm) ?Stage 0 ?? 3: 00 ?109 ?? 120/60 ?Stage 1 ?? 3: 00 ?116 ?? 128/60 ?Stage 2 ?? 3: 01 ?134 ?? 134/60RPP: [id number] ? RecoveryR ??6:0 0 ?96 ?108/60 ? Stress Duration: ?? 9:01 mm:ss * ?Recovery Time: 6:00 mm:ss ? Maximum Stress HR: 134 bpm * ? METS: ?7 Left Ventricle Proximal septal thickening is noted. Lef t ventricular systolic function is normal. The visual ejection fraction is estimated at 55-60%. No regional wall motion abnormalities noted. Mitral Valve There is trace mitral regurgitation. Tricuspid Valve There is trace tricuspid regurgitation. Aortic Valve The aortic valve is trileaflet. There is trace aortic regurgitation. No aortic stenosis is present. Pulmonic Valve There is trace pulmonic valvular regurgi tation. Vessels The ascending aorta is Mildly dilated. __ MMode/2D Measurements & Calculations asc Aorta Diam: 3.7 cm __ Report approved by: Apoorva Hansen 04/09/2020 09:04 AM Procedure Note Chas George MD - 04/09/2020Formattin g of this note might be different from the original. [id number]^KRUPA^NIA^FABIEN [facility] Echocardiography Laboratory [address] [place] [address] Name: BAR CARRERA : 1940 Study Date: 04/09/2020 07:27 AM Age: 79 yrs Gender: Female Patient Location: [facility] Reason For Study: Chest Pain History: HTN,High cholesterol Ordering Physician: NIA GENTILE Referring Physician: GAVIOTA SIFUENTES Performed By: Yoli Ruvalcaba BSA: 1.8 m2 Height: 67 in Weight: 152 lb HR: 72 BP: 110/60 mmHg Medications: Verapamil,Crestor __ Procedure Stress Echo Complete. __ Interpretation Summary The patient exercised 9:01 according to modified evin protocol. Patient had 1/10 chest pain that did not change with exercise. The stress EKG is non-diagnostic due to pre-existing EKG abnomalities. Left ventricular cavity size decreases w ith exercise. Global LV systolic function augments wit h exercise. Normal resting wall motion and no stress -induced wall motion abnormality. This was a normal stress echocardiogram with no evidence of stress-induced ischemia. __ Stress Pt had 1/10 chest discomfort at rest enedina t did not resolve or worsen with exercise. RPP 28176. There was a normal BP response to exerci se. Exercise was stopped due to fatigue. A moderate workload was achieved. The patient exercised 9:01. Target Heart Rate was achieved. Arrhythmia noted in recovery: occasional PVC's. The stress EKG is non-diagnostic due to pre-existing EKG abnomalities. The visual ejection fraction is estimate d at >70%. Left ventricular cavity size decreases w ith exercise. Global LV systolic function augments wit h exercise. Normal resting wall motion and no stress -induced wall motion abnormality. This was a normal stress echocardiogram with no evidence of stress-induced ischemia. Baseline sinus rhyth, with non specific ST-t tran ges. No regional wall motion abnormalities no alethea. The visual ejection fraction is estimate d at 55-60%. Stress Results Protocol: MODIFIED EVIN Maximum Predic alethea HR: 142 bpm Target HR: 121 bpm % Maximum Predicted HR: 94 % Stage DurationHeart Rate BP Comment (mm:ss) (bpm) Stage 0 3:00 109 120/60 Stage 1 3:00 116 128/60 Stage 2 3:01 134 134/60RPP: [id number] RecoveryR 6:00 96 108/60 Stress Duration: 9:01 mm:ss * Recovery Time: 6:00 mm:ss Maximum Stress HR: 134 bpm * METS: 7 Left Ventricle Proximal septal thickening is noted. Lef t ventricular systolic function is normal. The visual ejection fraction is estimated at 55-60%. No regional wall motion abnormalities noted. Mitral Valve There is trace mitral regurgitation. Tricuspid Valve There is trace tricuspid regurgitation. Aortic Valve The aortic valve is trileaflet. There is trace aortic regurgitation. No aortic stenosis is present. Pulmonic Valve There is trace pulmonic valvular regurgi tation. Vessels The ascending aorta is Mildly dilated. __ MMode/2D Measurements & Calculations asc Aorta Diam: 3.7 cm __ Report approved by: Apoorva Hansen 04/09/2020 09:04 AM Nia Gentile PA-C CV ECHO ORDERABLES Lipid panel reflex to direct LDL (04/09/2020 5:21 AM CDT) Analysis Performed At Patho logist Time Signature Cholesterol 160 <200 mg/dL 04/09/2020 [facility] 5:58 AM [facility] Triglycerides 59 <150 mg/dL 04/09/2020 [facility] 5:58 AM [facility] HDL Cholesterol 81 >49 mg/dL 04/09/2020 [facility] 6:01 AM [facility] LDL Cholesterol 67 <100 mg/dL 04/09/2020 [facility] Calculated 6:01 AM [facility] Comment: Desirable: <100 mg/dl Non HDL Cholesterol 79 <130 mg/dL 04/09/2020 6:01 AM [facility] Specimen Anatomical Collection Method Collection Time Receive d Time (Source) Location / / Volume Laterality Blood specimen 04/09/2020 5:21 AM 020 5:22 (specimen) CDT AM CDT Nia Gentile PA-C LAB - BLOOD ORDERABLES Performing Organization Address City/State/ZIP Code Phon e Number [facility] [address], [place] [address] [facility] [address], [place] [address] [facility] [phone] Troponin I (04/08/2020 11:58 PM CDT) athologist Signature Troponin I ES <0.015 0.000 - 04/09/2020 [place] 0.045 ug/L 12:24 AM CDT [facility] Comment: The 99th percentile for upper reference range is 0.045 ug/L. ??Troponin values in the range of 0.045 - 0.120 ug/L may b e associated with risks of adverse clinical events. Specimen Anatomical Collection Method Collection Time Receive d Time (Source) Location / / Volume Laterality Blood specimen 04/08/2020 11:58 0 (specimen) PM CDT 12:02 AM CDT Nia Gentile PA-C LAB - BLOOD ORDERABLES Performing Organization Address City/State/[facility] Code Phon e Number M [facility] [address], [place] [address] [facility] [address], [place] [address] [facility] [phone] Troponin I (04/08/2020 6:38 PM CDT) athologist Signature Troponin I ES <0.015 0.000 - 04/08/2020 [place] 0.045 ug/L 7:33 PM CDT [facility] Comment: The 99th percentile for upper reference range is 0.045 ug/L. ??Troponin values in the range of 0.045 - 0.120 ug/L may b e associated with risks of adverse clinical events. Specimen Anatomical Collection Method Collection Time Receive d Time (Source) Location / / Volume Laterality Blood specimen 04/08/2020 6:38 PM 020 7:09 (specimen) CDT PM CDT Nia Gentile PA-C LAB - BLOOD ORDERABLES Performing Organization Address City/[facility]/ZIP Code Phon e Number M [facility] [address], [place] [address] [facility] [address] [place], [place] [address], [facility] [phone] Asymptomatic COVID-19 Virus (Coronavirus) by PCR (04/08/2020 2:52 PM CDT) [facility] Method Time Signature COVID-19 Nasopharyngeal 04/08/2020 [place] Virus PCR to 3:21 PM CDT [facility] Source COVID-19 Not Detected 04/09/2020 [facility] Virus PCR to 10:25 PM [facility] Comment: Collection of multiple specimens from th e same patient may be necessary to detect the virus. The possibility of a f alse negative should be considered if the patient's recent exposure or clinica l presentation suggests 2019 nCOV infection and diagnostic tests for other causes of illness are negative. Repeat testing may be considered in this setting. Viral RNA was extracted via a validated method and subsequently underwent single step reverse transcriptase-real t bisi polymerase chain reaction using primers to the CDC specified N1,N2 gene targets of CoV2 and human GLUE MACHINE OPERATOR as an internal control. A negative result does not rule out the presence of real-time PCR inhibitors in the specimen or COVID-19 RNA in poppy ntrations below the limit of detection of the assay. The possibility of a fals e negative should be considered if the patients recent exposure or clinical pr esentation suggests COVID-19. Additional testing or repeat testing req uires consultation with the laboratory. Nasopharyngeal specimen is the preferred choice for swab-based SARS CoV2 testing. When collection of a nasopharyn geal swab is not possible the following are acceptable alternatives: an oropharyngeal (OP) specimen collected by a healthcare professional, or a nasal mid-turbinate (NMT) swab collected by a healthcare professional or by onsite self-collection (using a flocked tapered swab), or an anterior nares specimen collected by a healthcare profe ssional or by onsite self-collection (using a round foam swab). (Centers for Disease Control) Testing performed by [facility], Room 1-210, [address] [place], [place] [id number]. T his test was developed and its performance characteristics determined b y [facility] [place]. It has not been cleared or appr sharyn by the FDA. The laboratory is regulated under the Cl inical Laboratory Improvement Amendments of 1988 (CLIA-88) as qualifie d to perform high-complexity testing. This test is used for clinical purposes. It should not be regarded as investigational or for research. Specimen (Source) Anatomical Collection Method Collection Time Re ceived Time Location / / Volume Laterality Specimen from 04/08/2020 2:52 04/08/2020 nasopharyngeal PM CDT 3:21 PM CDT structure (specimen) Li Miguel PA-C LAB - MICRO GENERAL ORDERAB LES Performing Organization Address City/State/ZIP Code Phon e Number [address] [address] [facility] Room: [address] [phone] Chest XR, PA & LAT (04/08/2020 1:07 PM CDT) Anatomical Region Laterality Modality Chest Digital Radiography Specimen (Source) Anatomical Location Collection Method / Collectio n Time Received Time / Laterality Volume Impressions 04/08/2020 2:21 PM CDT IMPRESSION: PA and lateral views of the chest were obtained. Cardiomediastinal silhouette is within n ormal limits. No suspicious focal pulmonary opacities. No significan t pleural effusion or pneumothorax. Bilateral calcified breast implants. JOHANA GARDINER MD Narrative 04/08/2020 2:21 PM CDT CHEST TWO VIEWS ?? 04/08/2020 1:07 PM HISTORY: Chest pain. COMPARISON: None available. Procedure Note Johana Gardiner MD - 04/08/2020Forma tting of this note might be different from the original. CHEST TWO VIEWS 04/08/2020 1:07 PM HISTORY: Chest pain. COMPARISON: None available. IMPRESSION: PA and lateral views of the chest were obtained. Cardiomediastinal silhouette is within n ormal limits. No suspicious focal pulmonary opacities. No significan t pleural effusion or pneumothorax. Bilateral calcified breast implants. JOHANA GARDINER MD Li Miguel PA-C [facility] Troponin I (now) (04/08/2020 12:30 PM CDT) athologist Signature Troponin I ES <0.015 0.000 - 04/08/2020 [place] 0.045 ug/L 1:26 PM T [facility] Comment: The 99th percentile for upper reference range is 0.045 ug/L. ??Troponin values in the range of 0.045 - 0.120 ug/L may b e associated with risks of adverse clinical events. Specimen Anatomical Collection Method Collection Time Receive d Time (Source) Location / / Volume Laterality Blood specimen 04/08/2020 12:30 0 (specimen) PM CDT 12:57 PM CDT Li Miguel PA-C LAB - BLOOD ORDERABLES Performing Organization Address City/State/ZIP Code Phon e Number M [facility] [address] [place] [address] [facility] [address] [address], [place] [phone] (ABNORMAL) Basic metabolic panel (04/08/2020 12:30 PM CDT) [facility] Sodium 140 133 - 144 04/08/2020 [place] mmol/L 1:15 PM [facility] Potassium 3.8 3.4 - 5.3 04/08/2020 [place] mmol/L 1:15 PM [facility] Chloride 109 94 - 109 04/08/2020 [place] mmol/L 1:15 PM [facility] Carbon Dioxide 26 20 - 32 04/08/2020 [place] mmol/L 1:26 PM [facility] Anion Gap 5 3 - 14 04/08/2020 [place] mmol/L 1:26 PM [facility] Glucose 112 (H) 70 - 99 04/08/2020 [place] mg/dL 1:26 PM [facility] Urea Nitrogen 14 7 - 30 04/08/2020 [place] mg/dL 1:26 PM [facility] Creatinine 0.66 0.52 - 04/08/2020 [facility] 1.04 mg/dL 1:26 PM [facility] GFR Estimate 84 >60 04/08/2020 [place] mL/min/{1. 1:26 PM [facility] 73_m2} HOSPITAL Comment: Non GFR Calc Starting 08/05/2018, serum creatinine ba sed estimated GFR (eGFR) will be calculated using the [facility] Kid[facility] Epidemiology Collaboration (CKD-EPI) equation. GFR Estimate If >90 >60 mL/min/{1.73_m2} 04/08/2020 1: 26 PM [facility] Comment: GFR Calc Starting 08/05/2018, serum creatinine ba sed estimated GFR (eGFR) will be calculated using the [facility] Kidney Dise [facility] Epidemiology Collaboration (CKD-EPI) equation. Calcium 9.3 8.5 - 10.1 mg/dL 04/08/2020 1:26 PM [facility] Specimen Anatomical Collection Method Collection Time Receive d Time (Source) Location / / Volume Laterality Blood specimen 04/08/2020 12:30 0 (specimen) PM CDT 12:57 PM CDT Li Miguel PA-C LAB - BLOOD ORDERABLES Performing Organization Address City/State/ZIP Code Phon e Number M [address] [address] [facility] [address] [place] [id number] [facility] [phone] [address], [facility] (ABNORMAL) CBC with platelets differential (04/08/2020 12:30 PM CDT) [facility] Method Time Signature WBC 5.8 4.0 - 04/08/2020 [facility] 11.0 1:12 PM [facility] 10e9/L HOSPITAL RBC Count 4.02 3.8 - 5.2 04/08/2020 [facility] 10e12/L 1:12 PM [facility] Hemoglobin 13.1 11.7 - 04/08/2020 [facility] 15.7 g/dL 1:12 PM [facility] Hematocrit 40.2 35.0 - 04/08/2020 [facility] 47.0 % 1:12 PM [facility] MCV 100 78 - 100 04/08/2020 [place] fl 1:12 PM [facility] MCH 32.6 26.5 - 04/08/2020 [facility] 33.0 pg 1:12 PM [facility] MCHC 32.6 31.5 - 04/08/2020 [facility] 36.5 g/dL 1:12 PM [facility] RDW 14.5 10.0 - 04/08/2020 [facility] 15.0 % 1:12 PM [facility] Platelet Count 116 (L) 150 - 450 04/08/2020 [facility] 10e9/L 1:12 PM [facility] Diff Method Automated 04/08/2020 [facility] Method 1:12 PM [facility] % Neutrophils 65.9 % 04/08/2020 [facility] 1:12 PM [facility] % Lymphocytes 26.0 % 04/08/2020 [facility] 1:12 PM [facility] % Monocytes 5.9 % 04/08/2020 [facility] 1:12 PM [facility] % Eosinophils 1.4 % 04/08/2020 [facility] 1:12 PM [facility] % Basophils 0.3 % 04/08/2020 [facility] 1:12 PM [facility] % Immature 0.5 % 04/08/2020 [facility] Granulocytes 1:12 PM [facility] Nucleated RBCs 0 0 /100 04/08/2020 [facility] 1:12 PM [facility] Absolute 3.8 1.6 - 8.3 04/08/2020 [facility] Neutrophil 10e9/L 1:12 [facility] Absolute 1.5 0.8 - 5.3 04/08/2020 [facility] Lymphocytes 10e9/L 1:12 PM [facility] Absolute 0.3 0.0 - 1.3 04/08/2020 [facility] Monocytes 10e9/L 1:12 PM [facility] Absolute 0.1 0.0 - 0.7 04/08/2020 [facility] Eosinophils 10e9/L 1:12 PM [facility] Absolute 0.0 0.0 - 0.2 04/08/2020 [facility] Basophils 10e9/L 1:12 PM [facility] Abs Immature 0.0 0 - 0.4 04/08/2020 [facility] Granulocytes 10e9/L 1:12 PM [facility] Absolute 0.0 04/08/2020 [facility] Nucleated RBC 1:12 PM CDT [facility] Specimen Anatomical Collection Method Collection Time Receive d Time (Source) Location / / Volume Laterality Blood specimen 04/08/2020 12:30 0 (specimen) PM CDT 12:57 PM CDT Li Miguel PA-C LAB - BLOOD ORDERABLES Performing Organization Address City/[facility]/ZIP Code Phon e Number [facility] [address], [place] [address] [facility] [address], [place] [address] [facility] [phone] EKG 12 lead (04/08/2020 12:12 PM CDT) [facility] gist Method Time Signature Interpretation ECG Click View RADIOLOGY Image link RESULTS to view waveform and result Specimen (Source) Anatomical Collection Method Collection Time Re ceived Time Location / / Volume Laterality 04/08/2020 12:12 PM CDT Hu Lopez MD ECG ORDERABLES Performing Organization Address City/State/ZIP Code Phon e Number RADIOLOGY RESULTS documented in this encounter Visit Diagnoses Diagnosis Gastroesophageal reflux disease without esophagitis - Primary Esophageal reflux Chest pain Chest pain, unspecified documented in this encounter Administered Medications Inactive Administered Medications - up to 3 most recent administrations Medication Order MAR Action Action Date Dose Rate Site albuterol (PROAIR HFA/PROVENTIL Given 04/09/2020 8:38 AM CDT 2 p uffs HFA/VENTOLIN HFA) 108 (90 Base) MCG/ACT inhaler 2 puff 2 puff, Inhalation, EVERY 6 HOURS PRN, shortness of breath / dyspnea, Starting on Sat04/08/20 at 1835, Use if patient has home inhaler aspirin (ASA) chewable tablet 324 mg Given 04/08/2020 2:32 PM CDT 324 mg 324 mg, Oral, ONCE, On Sat04/08/20 at 1345, For 1 dose aspirin EC tablet 81 mg Given 04/09/2020 8:36 AM CDT 81 mg 81 mg, Oral, DAILY, First dose on Sat04/09/20 at 0800, DO NOT CRUSH., Procedure Scheduling Request escitalopram (LEXAPRO) tablet 10 mg Given 04/08/2020 8:00 PM CDT 10 mg 10 mg, Oral, AT BEDTIME, First dose on Sat04/08/20 at 2000 fluticasone-salmeterol (ADVAIR) 250-50 Given 04/09/2020 8:38 AM CDT 1 puff MCG/DOSE diskus inhaler 1 puff 1 puff, Inhalation, 2 TIMES DAILY, First dose on Sat04/08/20 at 2000, *Do not use more frequently than twice daily.* Rinse mouth after use. Only give if patient has home inhaler Given 04/08/2020 7:51 PM CDT 1 puff nitroGLYcerin (NITROSTAT) 0.4 MG subling ual tablet Starting on Sat04/08/20 at 1219, For 1 d José robledo Sandra: cabinet override nitroGLYcerin (NITROSTAT) sublingual tablet Given 03/20 12:28 PM CDT 0.4 mg 0.4 mg 0.4 mg, Sublingual, EVERY 5 MIN PRN, chest pain, Starting on Sat04/08/20 at 1219, For 3 doses omeprazole (priLOSEC) CR capsule 40 mg Given 04/09/2020 8:36 AM CDT 40 mg 40 mg, Oral, EVERY MORNING, First dose on Sat04/09/20 at 0800 sodium chloride (PF) 0.9% PF flush 3 mL Given 04/09/2020 8:40 AM CDT 3 mLs 3 mL, Intracatheter, EVERY 8 HOURS, First dose on Sat04/08/20 at 1600, And Q1H PRN, to lock peripheral IV dormant line., Procedure Scheduling Request Given 04/09/2020 12:12 AM CDT 3 mLs Given 04/08/2020 4:28 PM CDT 3 mLs sucralfate (CARAFATE) suspension 1 g Given 04/09/2020 8:36 AM CDT 1 g 1 g, Oral, 4 TIMES DAILY BEFORE MEALS & NIGHTLY, First dose (after last modification) on Sat04/08/20 at 1800, Shake well. Recommended to take before meals. Positive 04/08/2020 8:00 PM CDT 1 g traZODone (DESYREL) tablet 50 mg Given 04/08/2020 8:00 PM CDT 50 mg 50 mg, Oral, AT BEDTIME, First dose on Sat04/08/20 at 1999 verapamil ER (CALAN-SR) CR tablet 120 mg Given 04/08/2020 8:00 PM CDT 120 mg 120 mg, Oral, DAILY, First dose on Sat04/08/20 at 1999, DO NOT CRUSH. documented in this encounter Active and Recently Administered Medications Times are shown in CDT. Scheduled Medication Order 04/07/2020 04/08/2020 04/09/2020 aspirin (ASA) chewable tablet 324 mg (COMPLETED) 1432 (Given - Provider: Leena Kumar, REYNA) 324 mg, Oral, ONCE, Sat04/08/20 at 1345, For 1 dose aspirin EC tablet 81 mg 08 (Gi el - Provider: Rosemary Yoo, REYNA) 81 mg, Oral, DAILY, First dose on Sat at 0800, DO NOT CRUSH., Procedure Scheduling Request escitalopram (LEXAPRO) tablet 10 mg 1999 (Given - Provider: Orly Garland, REYNA) 10 mg, Oral, AT BEDTIME, First dose on Sat04/08/20 at 1999 fluticasone-salmeterol (ADVAIR) 250-50 MCG/DOSE diskus inhal er 1 puff 1950 (Given - Provider: Orly Garland, REYNA) 0838 (Given - Provider: Rosemary Yoo, REYNA) 1 puff, Inhalation, 2 TIMES DAILY, First dose on Sat04/08/20 at 1999, *Do not use more frequently than twice daily.* Rinse mouth after use. Only give if patient has home inhaler omeprazole (priLOSEC) CR capsule 40 mg 835 (Given - Provider: Rosemary Yoo RN) 40 mg, Oral, EVERY MORNING, First dose on 04/09/20 at 0800 rosuvastatin (CRESTOR) tablet 5 mg 1951 (Not Given - Provider: Orly Garland, REYNA - Reason: Other - Comment: Pt stated she took it in the morning) 5 mg, Oral, AT BEDTIME, First dose on Sat04/08/20 at 1999 sodium chloride (PF) 0.9% PF flush 3 mL 1628 (Given - Provider: Rosemary Yoo, REYNA) 0012 (Given - Provider: Orly Garland, REYNA)08 40 (Given - Provider: Rosemary Yoo, REYNA) 3 mL, Intracatheter, EVERY 8 HOURS, Firs t dose on Sat04/08/20 at 1600, And Q1H PRN, to lock peripheral IV dormant line., Procedure Scheduling Request sucralfate (CARAFATE) suspension 1 g 181 4 (Not Given - Provider: Rosemary Yoo RN - Reason: Patient/family refused)1999 (Positive - Provider: Orly Garland RN - Comment: pt prefers to take at this time)2200 (Canceled Entry - Provider: Orly Garland RN) 0836 (Given - Provider: Rosemary Yoo RN)1 130 (Canceled Entry - Provider: Orders Generic Provider - Comment: Automatically canceled at discontinue of medication order) 1 g, Oral, 4 TIMES DAILY BEFORE MEALS & NIGHTLY, First dose (after last modification) on Sat04/08/20 at 1800, Shake well. Recommended to take before meals. traZODone (DESYREL) tablet 50 mg 1999 (Given - P rovider: Orly Garland RN) 50 mg, Oral, AT BEDTIME, First dose on Sat04/08/20 at 2000 umeclidinium (INCRUSE ELLIPTA) 62.5 MCG/INH inhaler 1 puff 0841 (Canceled Entry - Provider: Rosemary Yoo RN) 1 puff, Inhalation, DAILY, First dose on Sat04/09/20 at 0800, Only give if patient has home inhaler verapamil ER (CALAN-SR) CR tablet 120 mg 1999 (Given - Provider: Orly Garland RN) 120 mg, Oral, DAILY, First dose on Sat04/08/20 at 2000, DO NOT C SHOOK. PRN Medication Order 04/07/2020 04/08/2020 04/09/2020 acetaminophen (TYLENOL) Suppository 650 mg 650 mg, Rectal, EVERY 4 HOURS PRN, mild pain, Starting Sat04/08/20 at 1540, Alternate ibuprofen (if ordered) with acetaminophen. Maximum acetaminophen dose from all sources = 75 mg/kg/day not to exceed 4 grams/day., Procedure Scheduling Request acetaminophen (TYLENOL) tablet 650 mg 650 mg, Oral, EVERY 4 HOURS PRN, mild pa in, Starting Sat04/08/20 at 1540, Alternate ibuprofen (if ordered) with acetaminophen Maximum acetaminophen dose from all sources = 75 mg/kg/day not to exceed 4 grams/day., Procedure Scheduling Request albuterol (PROAIR HFA/PROVENTIL HFA/VENT JESSICA HFA) 108 (90 Base) MCG/ACT inhaler 2 puff 0838 (Given - Provid er: Rosemary Yoo RN) 2 puff, Inhalation, EVERY 6 HOURS PRN, s hortness of breath / dyspnea, Starting Sat04/08/20 at 1835, Use if patient has home inhaler alum & mag hydroxide-simethicone (MAALOX ES) suspension 30 mL 30 mL, Oral, EVERY 4 HOURS PRN, indigest ion, heartburn, Starting Sat04/08/20 at 1540, Shake well., Procedure Scheduling Request HOLD: Beta Blockers The evening before and the morning of proced ure Medication(s) to hold: Beta Blockers - A cebutolol, Atenolol, Betaxolol, Bisoprolol, Carteolol, Carvedilol, Esmolol, Labetalol, Metoprolol, Nadolol, Nebivolol, Penbutolol, Pindolol, Propranolol, Sotalol, Parameter for hold (doses,days,conditio ns) : Hold before Procedure or Test, Hours or days to hold med before/after procedure/surgery: The evening before and morning of procedure as directed by ordering physician, HOLD, Starting Sat04/08/20 a t 1540, Until 04/09/20 at 1320, For Exercise Stress Echocardiogram, Procedure Scheduling Request lidocaine (LMX4) cream Topical, EVERY 1 HOUR PRN, pain, with VA D insertion or accessing implanted port., Starting Sat04/08/20 at 1540, Do NOT give if patient has a history of allergy to any local anesthetic or any clara pro duct. Apply at least 30 minutes prior to VAD insertion or port access. In divided doses as needed for size of site for insertion with MAX Dose: 2.5 g (?? of 5 g tube), Procedure Scheduling Request lidocaine 1 % 0.1-1 mL 0.1-1 mL, Other, EVERY 1 HOUR PRN, mild pain with VAD insertion., Starting Sat04/08/20 at 1540, Do NOT give if patient has a history of allergy to any local anesthetic or any clara product. MAX dose 1 mL subcutaneous OR intradermal in divid ed doses as needed for VAD insertion., Procedure Scheduling Request morphine (PF) injection 1 mg 1 mg, Intravenous, EVERY 2 HOURS PRN, se asiya pain, breakthrough pain, IF unable to take PO.??, Starting Sat04/08/20 at 1540, If needing IV pain meds for 2 or more doses call provider to have oral medica tions adjusted to get pain controlled on oral regimen prior to discharge. For ordered IV doses 0.1-15 mg give IV Push undiluted over 4-5 minutes., Procedure Scheduling Request naloxone (NARCAN) injection 0.1-0.4 mg 0.1-0.4 mg, Intravenous, EVERY 2 MIN PRN , opioid reversal, Starting Sat04/08/20 at 1540, For respiratory rate LESS than or EQUAL to 8. Partial reversal dose: 0.1 mg titrated q 2 minutes for Analgesia Si de Effects Monitoring Sedation Level of 3 (frequently drowsy, arousable, drifts to sleep during conversation).Full reversal dose: 0.4 mg bolus for Analgesia Side Effects Monitoring Sedation Level of 4 ( somnolent, minimal or no response to sti mulation). For ordered IV doses 0.1-2mg give IVP. Give each 0.4mg over 15 seconds in emergency situations. For non- emergent situations further dilute in 9mL of NS to facilitate titration of response., Procedure Scheduling Requ est nitroGLYcerin (NITROSTAT) sublingual tablet 0.4 mg (CANCELED ) 1228 (Given - Provider: Leena Kumar, RN) 0.4 mg, Sublingual, EVERY 5 MIN PRN, alexandro st pain, Starting Sat04/08/20 at 1219, For 3 doses nitroGLYcerin (NITROSTAT) sublingual tablet 0.4 mg 0.4 mg, Sublingual, EVERY 5 MIN PRN, alexandro st pain, Starting Sat04/08/20 at 1540, Maximum 3 doses in 15 minutes. Notify provider if no relief after 3 doses. Do NOT give nitroGLYcerin SL if the patient has received sildenafil (VIAGRA/REVATIO), av anafil (STENDRA) or vardenafil (LEVITRA/STAXYN) within the last 24 hours, OR tadalafil (CIALIS/ADCIRCA) within the last 48 hours. Inform provider if patient has t aken one of those medications., Procedure Scheduling Request sodium chloride (PF) 0.9% PF flush 3 mL 3 mL, Intracatheter, EVERY 1 MIN PRN, radha acevedo flush, for peripheral IV flush post IV meds, Starting Sat04/08/20 at 1540, Procedure Scheduling Request documented in this encounter Care Teams Remelt Furnace Expediter Relationship Specialty Start Date End Date Gaviota Sifuentes PCP - General [facility] Practice 05/15/19 [facility] [address], [place] [address] documented as of this encounter
--- OUTSIDE RECORDS SUMMARY | 2022-05-08 08:40 | XMS_ITS | Encounter Summary ---
:1940 Author Organization [place] Address [address] [place] [address] Care Team Providers Name Role Phone Jennie Tomas Primary Care Provider Reason for Visit Auth/Cert Specialty Diagnoses / Procedures Referred By Contact Refer red To Contact Surgery Diagnoses CHRONIC ITERSTICHAL CYSTITIIS Sh Periop Services Procedures COMBINED CYSTOSCOPY, FULGURATE BLADDER TUMOR [address], [address] [place] [address] Phone: Referral ID Status Reason Start Date Expiration Date Visits Requ ested Visits Authorized [id number] 1 1 Encounter Details Date Type Department Care Team Description 09/17/2018 Anesthesia Event [facility] Myles Nye MD [facility] [id number] [place] PeriOP Michelle Darling, WAREHOUSE ADMINISTRATIVE ASSISTANT FOOD AND NUTRITION TEACHER [address] [id number] Services [address], [address] [place] [address] Anesthesia Record Procedure Summary Procedure Name Responsible Anesthesia Start Anesthesia Stop Anesthesiologist Time Time COMBINED ARI, Myles Nye MD 09/17/18 1024 0 09/17/18 1124 BLADDER HYSRODISTENTION FULGURATION OF BLADDER ULCERS , BLADDER WAASHING, BLADDER BIOPSY (N/A Urethra) Events Date Time Event Comment 09/17/2018 0949 1024 An Start 1024 An Start Data 1026 MD Present 1028 An Induction 1028 MD Present 1029 An Intubation 1039 AN INCISION 1105 MD Present 1108 MD Present 1115 AN Extubation 1115 an stop data 1124 An Stop Electronically s igned by Charisma Burton on September 17, 2018 11:24 AM Name Total ciprofloxacin (CIPRO) infusion 400 mg 400 mg dexamethasone 4mg/mL 4 mg lidocaine 2% 100 mg ondansetron 2mg/mL 4 mg phenylephrine (RANDA-SYNEPHRINE) injection 200 mcg propofol (DIPRIVAN) injection 10 mg/mL vial 300 mg propofol infusion (mcg/kg/min) 90.24 mg succinylcholine 20 mg/mL 80 mg fentaNYL (PF) (SUBLIMAZE) injection 50-100 mcg 100 mcg midazolam (VERSED) injection 1-2 mg 2 mg dexmedetomidine (PRECEDEX) 4 mcg/mL bolus 8 mcg LR 550 mL Agents Name NO HELIOX O2 N2O Air Exp Sevoflurane Exp Isoflurane Exp Desflurane Exp N2O Ins Sevoflurane Ins Isoflurane Ins Desflurane O2 Auxiliary Blood No blood administrations on file. Lines, Drains, and Airways Type Details Placement Removal Incision/Surgical 06/06/18; 1142; Face; 06/06/18 1142 by Site bilateral upper eyelids Raven Wing, RN RETIRED ETT Mask Ventilation: Easy; 09/17/18 1040 by 9 1115 by Ease of Intubation: Wes Darling Easy; Airway Size: 7; Marine Roth APRN Cuffed; Oral; Blade FOOD AND NUTRITION TEACHER Type: [place]; Blade Size: 2; Place by: ; Insertion Attempts: 1; Secured at (cm)to lip: 21 cm; Breath Sounds: Equal, clear and bilateral; End Tidal CO2: Present; Dentition: Intact; Grade View of Cords: 1 Peripheral IV 09/17/18; 0923; 20 G; 09/17/18 0923 by 09/17/18 1359 by Left; Hand; Kaylin Singh RN Kolstad, Leesa, RN Chlorhexidine documented in this encounter Social History Tobacco Use Types Packs/Day Years [...] on file documented as of this encounter OR Notes Anesthesia Postprocedure Evaluation - Myles Nye MD - 09/17/2018 2:17 PM CST Patient: Milla Pollard Procedure(s): COMBINED CYSTOSCOPY, BLADDER HYSRODISTENTION FULGURATION OF BLADDER ULCERS , BLADDER WAASHING, BLADDER BIOPSY Diagnosis:CHRONIC ITERSTICHAL CYSTITIIS Diagnosis Additional Information: No value filed. Anesthesia Type: General, ETT Note: Anesthesia Post Evaluation Patient location during evaluation: PACU Patient participation: Able to fully participate in evaluation Level of consciousness: awake and alert Pain management: adequate Airway patency: patent Cardiovascular status: acceptable Respiratory status: acceptable Hydration status: acceptable PONV: none Anesthetic complications: None Last vitals: Vitals: 09/17/18 1230 09/17/18 1245 09/17/18 1405 BP: 100/58 99/61 103/62 Pulse: 61 76 Resp: 10 19 14 Temp: 36.5 ??C (97.7 ??F) 36.6 ??C (97.9 ??F) SpO2: 94% 93% 97% Electronically Signed By: Myles Nye MD September 17, 2018 2:17 PM LITATIVE INTERVENTIONIST Anesthesia Preprocedure Evaluation - Myles Nye MD - 09/17/2018 9:17 AM CST Anesthesia Pre-Procedure Evaluation Patient: Milla Pollard : 1940 Preoperative Diagnosis: CHRONIC ITERSTICHAL CYSTITIIS Procedure(s): COMBINED CYSTOSCOPY, BLADDER HYSRODISTENTION FULGURATION OF BLADDER ULCERS Past Medical History: Diagnosis Date ??? Allergic [...] ??? Tachycardia ??? Urticaria Past Surgical History: Procedure Laterality Date ??? [...] ? TONSILLECTOMY & ADENOIDECTOMY ??? TUBAL LIGATION Anesthesia Evaluation . Pt has had prior anesthetic. History of anesthetic complications - PONV ROS/MED HX ENT/Pulmonary: (+)sleep apnea, Intermittent asthma Treatment: Inhaler prn, mild COPD, uses CPAP , . . (-) tobacco use Neurologic: Comment: Lumbar radiculopathy (-) seizures, CVA, TIA and migraines Cardiovascular: (-) hypertension and CAD METS/Exercise Tolerance: Hematologic: (+) Other Hematologic Disorder-thrombocytopenia Musculoskeletal: GI/Hepatic: (+) GERD Symptomatic, hiatal hernia, (-) liver disease Renal/Genitourinary: (+) Other Renal/ Genitourinary, interstitial cystitis and bladder ulcers (-) renal disease Endo: (-) Type I DM and Type II DM Psychiatric: Infectious Disease: Malignancy: Other: Physical Exam Normal systems: cardiovascular and pulmonary Airway Mallampati: I TM distance: >3 FB Neck ROM: full Dental (+) chipped Comment: Many cracked teeth, one capped Cardiovascular Pulmonary Lab Results Component Value Date WBC 4.8 03/09/2015 HGB 12.5 03/09/2015 HCT 37.0 03/09/2015 PLT 124 (L) 03/09/2015 NA 138 03/09/2015 POTASSIUM 3.9 03/09/2015 CHLORIDE 104 03/09/2015 CO2 28 03/09/2015 BUN 8 03/09/2015 CR 0.64 03/09/2015 GLC 102 (H) 03/09/2015 CRISTINA 9.3 03/09/2015 Preop Vitals BP Readings from Last 3 Encounters: 09/17/18 120/56 06/06/18 113/58 06/20/16 108/61 Pulse Readings from Last 3 Encounters: 03/09/15 66 Resp Readings from Last 3 Encounters: 09/17/18 16 06/06/18 16 06/20/16 12 SpO2 Readings from Last 3 Encounters: 09/17/18 94% 06/06/18 94% 06/20/16 96% Temp Readings from Last 1 Encounters: 09/17/18 35.8 ??C (96.4 ??F) (Oral) Ht Readings from Last 1 Encounters: 09/17/18 1.702 m (5' 7) Wt Readings from Last 1 Encounters: 09/17/18 75.2 kg (165 lb 11.2 oz) Estimated body mass index is 25.95 kg/m?? as calculated from the following: Height as of this encounter: 1.702 m (5' 7). Weight as of this encounter: 75.2 kg (165 lb 11.2 oz). Anesthesia Plan History & Physical Review History and physical reviewed and following examination; no interval change. ASA Status: 3 . NPO Status: > 8 hours Plan for General and ETT with Intravenous induction. Maintenance will be Balanced. PONV prophylaxis: Ondansetron (or other 5HT-3) and Dexamethasone or Solumedrol Postoperative Care Postoperative pain management: IV analgesics. Consents Anesthetic plan, risks, benefits and alternatives discussed with: Patient.. Myles Nye MD LITATIVE INTERVENTIONIST documented in this encounter Miscellaneous Notes Anesthesia Care Transfer Note - Charisma Burton APRN CRNA - 09/17/2018 11:23 AM CST Images from the original note were not included. Patient: Milla Pollard Procedure(s): COMBINED CYSTOSCOPY, BLADDER HYSRODISTENTION FULGURATION OF BLADDER ULCERS , BLADDER WAASHING, BLADDER BIOPSY Diagnosis: CHRONIC ITERSTICHAL CYSTITIIS Diagnosis Additional Information: No value filed. Anesthesia Type: General, ETT Note: Airway :Face Mask Patient transferred to:PACU Handoff Report: Identifed the Patient, Identified the Reponsible Provider, Reviewed the pertinent medical history, Discussed the surgical course, Reviewed Intra-OP anesthesia mangement and issues during anesthesia, Set expectations for post-procedure period and Allowed opportunity for questions and acknowledgement of understanding Vitals: (Last set prior to Anesthesia Care Transfer) LUZ VITALS 09/17/2018 1045 - 09/17/2018 1123 09/17/2018 NIBP: 139/75 Pulse: 94 NIBP Mean: 98 Ht Rate: 93 SpO2: 96 % Resp Rate (observed): 4 (Abnormal) Electronically Signed By: Charisma Burton APRN CRNA September 17, 2018 11:23 AM LITATIVE INTERVENTIONIST documented in this encounter Plan of Treatment Not on filedocumented as of this encounter Visit Diagnoses Not on filedocumented in this encounter Administered Medications Inactive Administered Medications - up to 3 most recent administrations Medication Order MAR Action Action Date Dose Rate Site ciprofloxacin (CIPRO) infusion Given 09/17/2018 10:32 AM HABILITATIVE INTERVENTIONIST 400 mg 400 mg Routine, 400 mg, Intravenous, PRE-OP/PRE-PROCEDURE, Starting on Sat09/17/18 at 0845, For 1 dose, Irritant., Indications: Perioperative Pharmacoprophylaxis, Pre-procedure dexamethasone (DECADRON) injection Given 09/17/2018 10:37 AM HABILITATIVE INTERVENTIONIST 4 mg PRN, Administer over 1 Minutes, Starting on Sat09/17/18 at 1037, Anesthesia Intra-op dexmedetomidine (PRECEDEX) 4 mcg/mL bolu s New Bag 09/17/2018 10:42 AM HABILITATIVE INTERVENTIONIST 8 mcg CONTINUOUS PRN, Starting on Sat09/17/18 at 1042, Anesthesia Intra-op fentaNYL (PF) (SUBLIMAZE) injection 50-100 Given 09/17 10:28 AM HABILITATIVE INTERVENTIONIST 100 mcg mcg 50-100 mcg, Intravenous, EVERY 1 MIN PRN, moderate to severe pain, pre regional anesthesia, Starting on Sat09/17/18 at 0920, For 2 doses, Give in pre-op, maximum 150 mcg For ordered IV doses 1-100 mcg give IV Push undiluted over a minimum of 3-5 minutes., Pre-procedure lactated ringers infusion New Bag 09/17/2018 10:26 AM HABILITATIVE INTERVENTIONIST Intravenous, CONTINUOUS PRN, Anesthesia Intra-op, Starting on Sat09/17/18 at 1026, Until Sat09/17/18 at 1124 lidocaine 2% injection (MDV) Given 09/17/2018 10:28 AM HABILITATIVE INTERVENTIONIST 100 mg PRN, Starting on Sat09/17/18 at 1028, Anesthesia Intra-op midazolam (VERSED) injection 1-2 mg Given 09/17/2018 10:28 AM HABILITATIVE INTERVENTIONIST 2 mg 1-2 mg, Intravenous, EVERY 1 MIN PRN, sedation, regional anesthesia, Starting on Sat09/17/18 at 0920, For 2 doses, In Pre Op for anxiety/sedation. IF patient receives midazolam (VERSED) place patient on continuous pulse oximetry PRE OP. For ordered IV doses 0.1-2.5 mg give IV Push slowly titrated over a minimum of 2 minutes. Dilute each 1mg in 4mL of NS., Pre-procedure ondansetron (ZOFRAN) injection Given 09/17/2018 10:37 AM HABILITATIVE INTERVENTIONIST 4 mg PRN, Administer over 2-5 Minutes, Starting on Sat09/17/18 at 1037, Anesthesia Intra-op phenylephrine (RANDA-SYNEPHRINE) injection Bolus 09/17/2018 10:59 AM HABILITATIVE INTERVENTIONIST 100 mcg CONTINUOUS PRN, Starting on Sat09/17/18 at 1052, Anesthesia Intra-op New Bag 09/17/2018 10:52 AM HABILITATIVE INTERVENTIONIST 100 mcg propofol (DIPRIVAN) infusion New Bag 09/17/2018 10:32 AM 50 mcg/kg/min 22.6 mL/hr Intravenous, CONTINUOUS PRN, HABILITATIVE INTERVENTIONIST Starting on Sat09/17/18 at 1032, Anesthesia Intra-op propofol (DIPRIVAN) injection 10 mg/mL v ial Given 09/17/2018 10:41 AM HABILITATIVE INTERVENTIONIST 60 mg PRN, Starting on Sat09/17/18 at 1028, Anesthesia Intra-op Given 09/17/2018 10:36 AM HABILITATIVE INTERVENTIONIST 40 mg Given 09/17/2018 10:35 AM HABILITATIVE INTERVENTIONIST 50 mg succinylcholine (ANECTINE) injection Given 09/17/2018 10:28 AM HABILITATIVE INTERVENTIONIST 80 mg PRN, Starting on Sat09/17/18 at 1028, Anesthesia Intra-op documented in this encounter Care Teams Plug Making Operator Relationship Specialty Start Date End Date Jennie Tomas PCP - General 09/01/12 05/14/19 [facility] [address] [address], [place] [address] documented as of this encounter
--- OUTSIDE RECORDS SUMMARY | 2022-05-08 08:40 | XMS_ITS | Encounter Summary ---
:1940 Author Organization [place] Address [address] [place] [address] Care Team Providers Name Role Phone Ganesh Sifuentes Primary Care Provider Encounter Details Date Type Department Care Team Description 02/16/2021 Travel Social History Tobacco Use Types Packs/Day [...] on filedocumented in this encounter Care Teams Workplace Relations Adviser Relationship Specialty Start Date End Date Ganesh Sifuentes PCP - General Family Practice 05/15/19 [facility] [address] [place] [address] documented as of this encounter
--- OUTSIDE RECORDS SUMMARY | 2022-05-08 08:40 | XMS_ITS | Encounter Summary ---
:1940 Author Care Team Providers Name Role Phone [facility] Primary Care Provider [phone] Reason for Visit None recorded. Assessment and [...] Code Code System Name Reaction Severity Onset 15928 RxNorm Vancomycin ? ? 10/02/2011 Sulfa (Sulfonamide [...] Greer MD: [address], [place] [address], Ph. History of Present Illness Note: <p> [...]
--- OUTSIDE RECORDS SUMMARY | 2022-05-08 08:40 | XMS_ITS | Encounter Summary ---
:1940 Author Organization [place] Address [address] [place] [address]. [place] [address] Care Team Providers Name Role Phone Jennie Tomsa Primary Care Provider Reason for Visit Rehab Therapy Integrated Services - Closed Specialty Diagnoses / Procedures Referred By Contact Refer red To Contact Diagnoses Cough R05 [facility] Procedures VIDEOSTROBOSCOPY [facility] [address] [facility] [place] [address] Phone: Fax: Referral ID Status Reason Start Date Expiration Date Visits Requ ested Visits Authorized [id number] Closed 11/26/2018 08/18/2019 365 365 Encounter Details Date Type Department Care Team Description 01/05/2019 Hospital Encounter [facility] Yu Castle MD ALLERGY AND ASTHMA SPEC [address] [facility] [address] [place] [address] Rehabilitation Sulma Gudino, BORING INSPECTOR [address] [place], [place] [address] [address] [place] [address] [address] [place] [address] Social History Tobacco Use Types [...] this encounter Discharge Instructions Discharge InstructionsSulma Whiting, GUERLINE - 01/05/2019 2:12 PM CDT Images from the original note were not included. Voice Therapy 01/05/2019 ??? Relaxed, belly/diaphragmatic breathing o Abdomen should inflate when you breathe in and deflate when you breathe out ??? Cup and bubbles exercise (tissue mobilization) o Put 1 in. of water in a cup o Start just blowing bubbles through the straw WITHOUT voice - It should feel easy in your throat o Add voice at a comfortable pitch, making sure that the bubbles stay continuous and your throat is still relaxed o Toggle between two pitches o Do gentle glides up and down in pitch o Do repeated accents, like you???re revving the engine of a car o Sing the tune of Happy Birthday or other songs o Changes in loudness on a single note - Pick a comfortable pitch - Start soft, gradually get louder, then get soft again - Repeat at a different pitch Practice these exercises several times every day, for 2-5 minutes at a time documented in this encounter Medications at Time [...] 0 10 MG tablet daily fluticasone (VERAMYST) Gy[place] 2 sprays into 0 27.5 MCG/SPRAY nasal [...] mouth At 0 04/08/2020 Bedtime azelastine (ASTELIN) Gypsum 1 spray into 0 04/08/2020 0.1 % [...] on filedocumented in this encounter Care Teams Progress Worker Relationship Specialty Start Date End Date Jennie Tomas PCP - General 09/01/12 05/14/19 [place] [address] [place] [address] documented as of this encounter
--- OUTSIDE RECORDS SUMMARY | 2022-05-08 08:40 | XMS_ITS | Encounter Summary ---
:1940 Author Organization [facility] Address [address] [place] [address]. [place] [address] Care Team Providers Name Role Phone Jennie Tomas Primary Care Provider Reason for Visit Rehab Therapy Integrated Services - Closed Specialty Diagnoses / Procedures Referred By Contact Refer red To Contact Diagnoses Cough R05 [facility] Procedures VIDEOSTROBOSCOPY [facility] [address] [facility] [place] [address] Phone: Fax: Referral ID Status Reason Start Date Expiration Date Visits Requ ested Visits Authorized [id number] Closed 11/26/2018 08/18/2019 365 365 Encounter Details Date Type Department Care Team Description 12/29/2018 Hospital Encounter [facility] Yu Castle MD ALLERGY AND ASTHMA SPEC [address] [facility] [address] [place] [address] Rehabilitation Sulma Gudino, ORCHID HAND [address] [place] [address] [address] [place] [address] [address] [place] [address] Social History Tobacco Use Types [...] 0 10 MG tablet daily fluticasone (VERAMYST) [place] 2 sprays into 0 27.5 MCG/SPRAY nasal [...] mouth At 0 04/08/2020 Bedtime azelastine (ASTELIN) [place] 1 spray into 0 04/08/2020 0.1 % [...] on filedocumented in this encounter Care Teams Employee Relations Manager Relationship Specialty Start Date End Date Jennie Tomas PCP - General 09/01/12 05/14/19 [facility] [address] [place] [address] documented as of this encounter
--- OUTSIDE RECORDS SUMMARY | 2022-05-08 08:40 | XMS_ITS | Encounter Summary ---
:1940 Author Organization [place] Address [address] [place] [address] Care Team Providers Name Role Phone Ganesh Sifuentes Primary Care Provider Reason for Referral Diagnostic Imaging CT Scan (Routine) - Closed Specialty Diagnoses / Procedures Referred By Contact Refer red To Contact Radiology. Diagnoses Diarrhea, unspecified Nausea Decreased appetite Abdominal cramping Arslan Clayton MD Ct Scan [facility] Procedures CT Enterography with Contrast MD GASTROENTEROLOGY [address] [place] [address] [address] [address] Phone: Fax: Referral ID Status Reason Start Date Expiration Date Visits Requ ested Visits Authorized [id number] Closed 04/24/2019 04/23/2020 1 1 Reason for Visit Diagnostic Imaging CT Scan (Routine) - Closed Specialty Diagnoses / Procedures Referred By Contact Refer red To Contact Radiology. Diagnoses Diarrhea, unspecified Nausea Decreased appetite Abdominal cramping Arslan Clayton MD Ct Scan [facility] Procedures CT Enterography with Contrast MD GASTROENTEROLOGY [address] [place] [address] [address] Phone: Fax: Referral ID Status Reason Start Date Expiration Date Visits Requ ested Visits Authorized [id number] Closed 04/24/2019 04/23/2020 1 1 Encounter Details Date Type Department Care Team Description 05/15/2019 Hospital Encounter [facility] MylesaniaJhonataneris Kim, unspecified; Keshav Nj MD Nausea; [id number] [facility] Decreas ed appetite; [address] GASTROENTEROLOG Abdominal cramping [facility] [id number] [place] [address] [place] [id number] Social History Tobacco Use Types Packs/Day Years [...] 0 10 MG tablet daily fluticasone (VERAMYST) [place] 2 sprays into 0 27.5 MCG/SPRAY nasal [...] mouth At 0 04/08/2020 Bedtime azelastine (ASTELIN) [place] 1 spray into 0 04/08/2020 0.1 % [...] Name Priority Date/Time Associated Diagnosis Comme nts CT ENTEROGRAPHY WITH Routine 05/15/2019 10:23 Diarrhea, Res ults for this CONTRAST AM CDT unspecified procedure are in Nausea the results Decreased appeti te section. Abdominal cramping ISTAT CREATININE POCT Routine 05/15/2019 9:25 AM Diarrhea, Results for this CDT unspecified procedure are i n the results section. documented in this encounter Results CT Enterography with Contrast (05/15/2019 10:23 AM CDT) Anatomical Region Laterality Modality Abdomen/Pelvis, SUBRAD CT BODY, UMP CT ABDOMEN PELVIS, Computed Tomography RAD CT Specimen (Source) Anatomical Location Collection Method / Collectio n Time Received Time / Laterality Volume Impressions 05/15/2019 11:14 AM CDT IMPRESSION: No acute process demonstrated within the abdomen and pelvis. PAM KNOX MD Narrative 05/15/2019 11:[address] ABDOMEN AND PELVIS WITH CONTRAST 05/15/2019 10:23 AM HISTORY: Diarrhea, unspecified. Nausea. Decreased appetite. Abdominal cramping. COMPARISON: None. TECHNIQUE: Volumetric helical acquisitio n of CT images from the lung bases through the symphysis pubis after the administration of 83mL Isovue-370 intravenous and negative oral contrast. Radiation dose for this scan was reduced using automated ex posure control, adjustment of the mA and/or kV according to patient si ze, or iterative reconstruction technique. FINDINGS: There are no dilated loops of small bowel or colon. No bowel wall thickening. No inflammation. ??No m ucosal hyperemia. Visualized fold pattern unremarkable. The liver, bi lateral kidneys and adrenal glands, pancreas, and spleen demonstrate no worrisome focal lesion. There are minimal atherosclerotic change s of the visualized aorta and its branches. There is no evidence of ao rtic dissection or aneurysm. No hydronephrosis. Moderate stool. Appen nevin not seen. Gallbladder unremarkable. There is no free fluid in the abdomen or pelvis. No free air in the abdomen. Bone windows reveal no suspicious lesions. There are no abdominal or pelvic lymph nodes t hat are abnormal by size criteria. The visualized lung bases are unremarkable. Procedure Note Pam Knox MD - 05/15/2019Fo rmatting of this note might be different from the original. CT ABDOMEN AND PELVIS WITH CONTRAST 05/15 10:23 AM HISTORY: Diarrhea, unspecified. Nausea. Decreased appetite. Abdominal cramping. COMPARISON: None. TECHNIQUE: Volumetric helical acquisitio n of CT images from the lung bases through the symphysis pubis after the administration of 83mL Isovue-370 intravenous and negative oral contrast. Radiation dose for this scan was reduced using automated ex posure control, adjustment of the mA and/or kV according to patient si ze, or iterative reconstruction technique. FINDINGS: There are no dilated loops of small bowel or colon. No bowel wall thickening. No inflammation. No muc osal hyperemia. Visualized fold pattern unremarkable. The liver, bi lateral kidneys and adrenal glands, pancreas, and spleen demonstrate no worrisome focal lesion. There are minimal atherosclerotic change s of the visualized aorta and its branches. There is no evidence of ao rtic dissection or aneurysm. No hydronephrosis. Moderate stool. Appen nevin not seen. Gallbladder unremarkable. There is no free fluid in the abdomen or pelvis. No free air in the abdomen. Bone windows reveal no suspicious lesions. There are no abdominal or pelvic lymph nodes t hat are abnormal by size criteria. The visualized lung bases are unremarkable. IMPRESSION: No acute process demonstrate d within the abdomen and pelvis. PAM KNOX MD Arslan Clayton MD IMG CT ORDERABLES Creatinine POCT (05/15/2019 9:25 AM CDT) P athologist Signature Creatinine 0.7 0.52 - 05/15/2019 POINT OF CARE 1.04 mg/dL 9:34 AM CDT TEST, HANDHELD METER GFR Estimate 81 >60 05/15/2019 POINT OF CARE mL/min/{1. 9:34 AM CDT TEST, HANDHELD 73_m2} METER GFR Estimate If >90 >60 05/15/2019 POINT OF CARE Black mL/min/{1. 9:34 AM CDT TEST, HANDHELD 73_m2} METER Specimen Anatomical Collection Method Collection Time Receive d Time (Source) Location / / Volume Laterality 05/15/2019 9:25 AM 9 9:34 CDT AM CDT Provider Unknown LAB - BEAKER POCT Performing Organization Address City/State/ZIP Code Phon e Number [facility] POINT OF CARE TEST, HANDHELD METER POINT OF CARE TEST, HANDHELD METER documented in this encounter Visit Diagnoses Diagnosis Diarrhea, unspecified Nausea Nausea alone Decreased appetite Anorexia Abdominal cramping Abdominal pain, unspecified site documented in this encounter Administered Medications Inactive Administered Medications - up to 3 most recent administrations Medication Order MAR Action Action Date Dose Rate Site CT Scan Flush Given 05/15/2019 10:19 AM CDT 51 mLs Intravenous, 100 mL, ONCE, On Sat05/15/19 at 1030, For 1 dose, This entry is for use by Radiology to intermittently used as a flush in patients receiving a CT scan. iopamidol (ISOVUE-370) solution 500 mL Given 05/15/2019 10:19 AM CDT 83 mLs 500 mL, Intravenous, ONCE, On Sat05/15/19 at 1030, For 1 dose documented in this encounter Care Teams Pants Cutter Relationship Specialty Start Date End Date Ganesh Sifuentes PCP - General Family Practice 05/15/19 [facility] [address] [place] [address] documented as of this encounter
--- OUTSIDE RECORDS SUMMARY | 2022-05-08 08:40 | XMS_ITS | Encounter Summary ---
:1940 Author Organization [facility] Address [address] [place] [address] Care Team Providers Name Role Phone Ganesh Sifuentes Primary Care Provider Reason for Visit Reason Comments acp Encounter Details Date Type Department Care Team Description 04/22/2020 Documentation Only [place] [facility] [address] [facility] [address] [place] [address] Social History Tobacco Use Types Packs/Day Years [...] on filedocumented in this encounter Care Teams Compliance Paralegal Relationship Specialty Start Date End Date Ganesh Sifuentes PCP - General Family Practice 05/15/19 [facility] [address] [place] [address] documented as of this encounter
--- OUTSIDE RECORDS SUMMARY | 2022-05-08 08:41 | XMS_ITS | Encounter Summary ---
:1940 Author Organization [place] Address [facility] [place] [address] Care Team Providers Name Role Phone TomasJennie Luzma Primary Care Provider Reason for Visit Auth/Cert Specialty Diagnoses / Procedures Referred By Contact Refer red To Contact Surgery Diagnoses CHRONIC ITERSTICHAL CYSTITIIS Sh Periop Services Procedures COMBINED CYSTOSCOPY, FULGURATE BLADDER TUMOR [address] [place] [address] Phone: Referral ID Status Reason Start Date Expiration Date Visits Requ ested Visits Authorized [id number] 1 1 Encounter Details Date Type Department Care Team Description 09/17/2018 Hospital Encounter [facility] Maxim Cannon miconstantino care Corina Fry MD planning (Primary PreOP/Phase II [place] Dx) [address] [place] [address] [facility] [phone] [place] [address] Social History Tobacco Use Types Packs/Day Years [...] on file documented as of this encounter Last Filed Vital Signs Vital Sign Reading Time Taken Comments Blood Pressure 103/62 09/17/2018 2:05 PM [facility] Pulse 76 09/17/2018 12:45 PM [facility] Temperature 36.6 ??C (97.9 ??F) 09/17/2018 12:45 PM [facility] Respiratory Rate 14 09/17/2018 2:05 PM [facility] Oxygen Saturation 97% 09/17/2018 2:05 PM [facility] Inhaled Oxygen Concentration - - Weight 75.2 kg (165 lb 11.2 oz) 09/17/2018 8:57 AM [facility] Height 170.2 cm (5' 7) 09/17/2018 8:57 AM [facility] Body Mass Index 25.95 09/17/2018 8:57 AM [facility] documented in this encounter Discharge Instructions Discharge InstructionsMarily Onofre RN - 09/17/2018 2:07 PM CST Same Day Surgery Discharge Instructions for Sedation and General Anesthesia ?? It's not unusual to feel dizzy, light-headed or faint for up to 24 hours after surgery or while taking pain medication. If you have these symptoms: sit for a few minutes before standing and have someone assist you when you get up to walk or use the bathroom. ?? You should rest and relax for the next 24 hours. We recommend you make arrangements to have an adult stay with you for at least 24 hours after your discharge. Avoid hazardous and strenuous activity. ?? DO NOT DRIVE any vehicle or operate mechanical equipment for 24 hours following the end of your surgery. Even though you may feel normal, your reactions may be affected by the medication you have received. ?? Do not drink alcoholic beverages for 24 hours following surgery. ?? Slowly progress to your regular diet as you feel able. It's not unusual to feel nauseated and/or vomit after receiving anesthesia. If you develop these symptoms, drink clear liquids (apple juice, nabila sol, broth, 7-up, etc. ) until you feel better. If your nausea and vomiting persists for 24 hours, please notify your surgeon. ?? All narcotic pain medications, along with inactivity and anesthesia, can cause constipation. Drinking plenty of liquids and increasing fiber intake will help. ?? For any questions of a medical nature, call your surgeon. ?? Do not make important decisions for 24 hours. ?? If you had general anesthesia, you may have a sore throat for a couple of days related to the breathing tube used during surgery. You may use Cepacol lozenges to help with this discomfort. If it worsens or if you develop a fever, contact your surgeon. ?? If you feel your pain is not well managed with the pain medications prescribed by your surgeon, please contact your surgeon's office to let them know so they can address your concerns. If you have questions or concerns about your procedure, call Dr. Cannon at [phone] Cystoscopy Discharge Instructions Diet: ??? Return to the diet that you were on before the procedure, unless you are given specific diet instructions. ??? It is important to drink 6-8 glasses of fluids per day at home - at least 3- 4 glasses should be water. Activity: ??? Walk short distances and increase as your strength allows. ??? You may climb stairs. ??? Do not do strenuous exercise or heavy lifting until approved by surgeon. ??? Do not drive while taking narcotic pain medications. Bathing: ??? You may take a shower. Call your physician if these signs/symptoms are present: ??? Pain that is not relieved by a short rest or ordered pain medications. ??? Temperature at or above 101.0??F or chills. ??? Inability or difficulty urinating. Excessive blood in urine. ??? Any questions or concerns. [facility] documented in this encounter Medications at Time [...] muscle as needed for anaphylaxis escitalopram (LEXAPRO) Take 10 mg by mouth 0 10 MG tablet daily fluticasone (VERAMYST) [place] 2 sprays into 0 27.5 MCG/SPRAY nasal both nostrils daily. spray Multiple Take 1 tablet by 0 Vitamins-Minerals mouth daily (MULTIVITAMIN ADULT PO) omeprazole (PRILOSEC) 40 Take 40 mg by mouth [address] capsule every morning traZODone (DESYREL) 50 Take 50 mg by mouth 0 MG tablet At Bedtime Vitamin D Take 1,000 Units by 0 (Cholecalciferol) 25 MCG mouth daily (1000 UT) TABS aspirin 81 MG EC Take 1 tablet (81 mg) 30 tablet 0 09/22/19 19 10/22/2018 tabletIndications: by mouth daily Advance care planning ciprofloxacin (CIPRO) Take 1 tablet (500 6 tablet 0 201809/20/2018 500 MG mg) by mouth 2 times tabletIndications: daily for 6 doses Advance care planning HYDROcodone-acetaminophe Take 1 tablet by 18 tablet 0 09/1710/05/2018 n (NORCO) 5-325 MG mouth every 6 hours tabletIndications: as needed for pain Advance care planning ALENDRONATE SODIUM PO Take 70 mg by mouth 0 04/08/2020 once a week ATORVASTATIN CALCIUM PO Take 5 mg by mouth At 0 04/08/2020 Bedtime azelastine (ASTELIN) 0.1 [place] 1 spray into 0 04/08/2020 % nasal spray both nostrils daily budesonide-formoterol Inhale 2 puffs into 0 04/08/2020 (SYMBICORT) 80-4.5 the lungs daily MCG/ACT Inhaler pentosan polysulfate Take 100 mg by mouth 0 04/08/2020 (ELMIRON) 100 MG capsule 2 times daily VERAPAMIL HCL PO Take 120 mg by mouth 0 04/08/2020 daily documented as of this encounter Miscellaneous Notes Op Note - Lisandra Cannon MD - 09/17/2018 11:47 AM CST Procedure Date: 09/17/2018 PREOPERATIVE DIAGNOSIS: History of interstitial cystitis, poorly controlled with medical management. POSTOPERATIVE DIAGNOSIS: History of interstitial cystitis, poorly controlled with medical management. PROCEDURE: Cystoscopy, hydrodistention, and fulguration of the bladder with biopsy of the bladder. SPECIMENS: Bladder biopsy and urine for cytology. ESTIMATED BLOOD LOSS: Minimal. COMPLICATIONS: None. INDICATIONS FOR PROCEDURE: Ada is a 77-year-old female with worsening of interstitial cystitis symptoms who also underwent fulguration of the ulcer a couple of years ago. At this time, she presents with worsening of her IC and poor control with medical management. She would like to proceed with hydro distention of her bladder and fulguration as needed. She understands the risks of the procedure including bleeding, infection, worsening of her symptoms, especially initially, bleeding, infection, needfor additional procedures. She would like to proceed. DETAILS OF THE PROCEDURE: Bar was brought to the operating room, placed in supine position. Afterexcellent induction of general anesthesia, her perineum was prepped and draped in the regular fashion. A 22-Moldovan cystoscope was placed per urethra. Evaluation of the bladder did demonstrate 1 cm ulcer at the posterior dome of the bladder. I gently hydrodistended the patient's bladder with the pressure 120 cm above the bladder. She was able to accommodate 700 mL as of the largest bladder capacity. She developed terminal hematuria with bleeding primarily around the ulcer site. I took a cold cut biopsy of that ulcer and thoroughly fulgurated the edges of the biopsy. That achieved excellent hemostasis. The bladder was drained and the patient was transferred to the recovery area in stable condition. Of note, I also performed a bladder washings prior to the biopsy, and the urine from that was sent for cytology. The plan as of now is to see Bar in a 1 or 2 month interval to check on her symptoms and follow up on her pathology results in 1-week interval. LISANDRA CANNON MD MT: WT Name: BAR POLLARD MRN: [id number] Account: [id number] : 1940 Procedure Date: 09/17/2018 Document: [id number] cc: Lisandra Cannon MD [facility] Brief Op Note - Lisandra Cannon MD - 09/17/2018 11:08 AM CST [facility] Brief Operative Note Pre-operative diagnosis: CHRONIC ITERSTICHAL CYSTITIIS Post-operative diagnosis Same Procedure: Procedure(s): COMBINED CYSTOSCOPY, BLADDER HYSRODISTENTION FULGURATION OF BLADDER ULCERS , BLADDER WAASHING, BLADDER BIOPSY Surgeon: Lisandra Cannon MD Assistants(s): none Estimated blood loss: Minimal Specimens: 1. Bladder washings 2. Bladder biopsy Findings: 1 cm ulcer at the posterior bladder dome; 700 ml bladder capacity [facility] documented in this encounter Plan of Treatment Not on filedocumented as of this encounter Procedures Procedure Name Priority Date/Time Associated Diagnosis Comme nts SURGICAL PATHOLOGY Routine 09/17/2018 10:40 Resul ts for this EXAM AM [facility] procedure are i n the results section. CYTOLOGY NON PIANO PROFESSOR Routine 09/17/2018 10:40 Results for this AM [facility] procedure are i n the results section. CYSTOSCOPY, WITH 09/17/2018 10:14 CHRONIC ITERSTICHAL BLADDER NEOPLASM AM [facility] CYSTITIIS FULGURATION LAB RESULT - HIM 08/21/2018 12:00 SCAN AM [facility] EKG CARDIAC - HIM 08/21/2018 12:00 SCAN AM [facility] documented in this encounter Results Surgical pathology exam (09/17/2018 10:40 AM [facility]) Component Value Ref Test Analysis Performed At [facility] Range Method Time Signature Copath Report Patient Name: BAR POLLARD MR#: [id number] Specimen #: [id number] Collected: 09/17/2018 Received: 09/17/2018 Reported: 09/18/2018 13:44 Ordering Phy(s): LISANDRA CANNON For improved result formatting, select 'View Enhanced Report Format' under Linked Documents section. SPECIMEN(S): Bladder, biopsy FINAL DIAGNOSIS: Urinary bladder, biopsy: 1. Negative for malignancy. 2. Chronic inflammation. 3. Muscularis propria is present. Electronically signed out by: Cody Godinez M.D. GROSS: The specimen is received in formalin with proper patient zandra ntification labeled bladder biopsy. ??The specimen consists of red rubbery tissue fragment measuring up to 0.5 cm. ?? The specimen is entirely submitted in one cassette. (Dictated by: Sandip Alaniz 09/17/2018 02:0 5 PM) MICROSCOPIC: Noted is the previous bladder biopsy (date collected, 1/24/2 013; ) which reported chronic cystitis with no evidence of dysplasia or malignancy. Deeper levels are obtained for additional visualization. ??S ections demonstrate predominantly submucosal tissue with areas of chronic inflammation and prominent vessels. ?? The overlying urothelium is largely denuded. ??There is no malignancy. ??Muscularis propria is present. The technical component of this testing was completed at the [facility], with the professional compo nent performed at the [facility], [address] [place] [address] ??[phone] ([phone]) CPT Codes: A: 07175-AE2 COLLECTION SITE: Client: [facility] Location: SHOR (S) Specimen (Source) Anatomical Collection Method Collection Time Re ceived Time Location / / Volume Laterality Tissue specimen URINARY BLADDER 09/17/2018 10:47 (specimen) STRUCTURE / AM [facility] Unknown Lisandra MENDOZA Performing Organization Address City/State/ZIP Code Phon e Number ISABEL Cytology non special education associate (09/17/2018 10:40 AM [facility]) Component Value Ref Test Analysis Performed At [facility] gist Range Method Time Signature Copath Report Patient Name: BAR POLLARD MR#: [id number] Specimen #: [id number] Collected: 09/17/2018 Received: 09/18/2018 Reported: 09/19/2018 08:18 Ordering Phy(s): LISANDRA CANNON For improved result formatting, select 'View Enhanced Report Format' under Linked Documents section. SPECIMEN/STAIN PROCESS: Urinary tract, bladder washing ? Pap-Cyto x 1 ---- CYTOLOGIC INTERPRETATION: Urinary tract, bladder washing: ?? Negative for High-Grade Urothelial Carcinoma Specimen Adequacy: Satisfactory for evaluation. I have personally reviewed all specimens and/or slides, incl uding the listed special stains, and used them with my medical judgement to determine or confirm the final diagnosis. Electronically signed out by: Cody Godinez M.D. Processed and screened at [facility] CLINICAL HISTORY: Chronic interstitial cystitis , GROSS: Urinary tract, bladder washing: ??Received 90 ml of clear, y ellow fluid, processed as 1 Pap stained Autocyte.. MICROSCOPIC: A microscopic examination is performed. CPT Codes: A: 20425-[id number] TESTING LAB LOCATION: [facility] [phone] COLLECTION SITE: Client: ??[facility] Location: ??SHOR (S) Specimen (Source) Anatomical Collection Method Collection Time Re ceived Time Location / / Volume Laterality Specimen obtained URINARY BLADDER 09/17/2018 10:40 by lavage STRUCTURE / AM [facility] (specimen) Unknown Lisandra Cannon MD LAB - OPTIME CLINICAL SPECIM EN Performing Organization Address City/State/ZIP Code Phon e Number COPATH LAB RESULT - HIM SCAN (08/21/2018 12:00 AM [facility]) Specimen (Source) Anatomical Location Collection Method / Collectio n Time Received Time / Laterality Volume 08/21/2018 Narrative This result has an attachment that is no t available. Provider Outside NON-BEAKER LAB TESTING EKG CARDIAC - HIM SCAN (08/21/2018 12:00 AM [facility]) Specimen (Source) Anatomical Location Collection Method / Collectio n Time Received Time / Laterality Volume 08/21/2018 Narrative This result has an attachment that is no t available. Provider Outside ECG ORDERABLES documented in this encounter Visit Diagnoses Diagnosis Advance care planning - Primary Other specified counseling documented in this encounter Administered Medications Inactive Administered Medications - up to 3 most recent administrations Medication Order MAR Action Action Date Dose Rate Site HYDROcodone-acetaminophen Given 09/17/2018 12:45 PM [facility] 1 tablet (NORCO) 5-325 MG per tablet 1 tablet 1 tablet, Oral, ONCE, On Sat09/17/18 at 1245, For 1 dose, Maximum acetaminophen dose from all sources= 75 mg/kg/day not to exceed 4 grams, PACU lactated ringers infusion New Bag 09/17/2018 12:13 PM [facility] 100 mL/hr at 100 mL/hr, Intravenous, CONTINUOUS, Continue until IV catheter is weaned, PACU/Phase II, Starting on Sat09/17/18 at 1145, Until Sat09/17/18 at 1301 documented in this encounter Active and Recently Administered Medications Times are shown in [facility]. Scheduled Medication Order 09/15/2018 09/16/2018 09/17/2018 ciprofloxacin (CIPRO) infusion 400 mg (COMPLETED) 1032 (Given - Provider: Michelle Darling APRN CRNA) 400 mg, Intravenous, PRE-OP/PRE-PROCEDUR E, Starting Sat09/17/18 at 0845, For 1 dose, Irritant., Indications: Perioperative Pharmacoprophylaxis, Pre-procedure HYDROcodone-acetaminophen (NORCO) 5-325 MG per tablet 1 tablet ( COMPLETED) 1245 (Given - Provider: Destiney Jim, REYNA) 1 tablet, Oral, ONCE, Sat09/17/18 at 124 5, For 1 dose, Maximum acetaminophen dose from all sources= 75 mg/kg/day not to exceed 4 grams, PACU HYDROcodone-acetaminophen (NORCO) 5-325 MG per tablet 2 tablet 1145 (Canceled Entry - Provider: Orders Generic Provider - Comment: Automatically canceled at discontinue of medication order) 2 tablet, Oral, ONCE, Sat09/17/18 at 114 5, For 1 dose, May administer ONCE as needed for pain control or improvement in physical function.??Notify provider to assess for uncontrolled pain or?? analgesic side effects. Maximum acetaminophen dos e from all sources= 75 mg/kg/day not to exceed 4 grams, Post-procedure Continuous Medication Order 09/15/2018 09/16/2018 09/17/2018 lactated ringers infusion (CANCELED) 1213 (New Bag - Provider: Destiney Jim RN) at 100 mL/hr, Intravenous, CONTINUOUS, C ontinue until IV catheter is weaned, PACU/Phase II, Starting Sat09/17/18 at 1145, Until Sat09/17/18 at 1301 PRN Medication Order 09/15/2018 09/16/2018 09/17/2018 fentaNYL (PF) (SUBLIMAZE) injection 50-100 mcg (CANCELED) 1028 (Given - Provider: Myles Nye MD) 50-100 mcg, Intravenous, EVERY 1 MIN PRN , Starting Sat09/17/18 at 0920, For 2 doses, moderate to severe pain, pre regional anesthesia, Give in pre-op, maximum 150 mcg For ordered IV doses 1-100 mcg give IV Push undiluted over a minimum of 3-5 minutes., Pre-procedure midazolam (VERSED) injection 1-2 mg (CANCELED) 1028 (Given - Provider: Myles Nye MD) 1-2 mg, Intravenous, EVERY 1 MIN PRN, St arting 09/17/18 at 0920, For 2 doses, sedation, regional anesthesia, In Pre Op for anxiety/sedation. IF patient receives midazolam (VERSED) place patient on co ntinuous pulse oximetry PRE OP. For orde red IV doses 0.1-2.5 mg give IV Push slowly titrated over a minimum of 2 minutes. Dilute each 1mg in 4mL of NS., Pre-procedure opium-belladonna (B&O SUPPRETTES) 30-16.2 MG per suppository (CA NCELED) 1056 (Given - Provider: Lisandra Cannon MD - Comment: RECTAL) PRN, Starting Sat09/17/18 at 1056, Intra-procedure sterile water (bottle) irrigation (CANCELED) 1043 (Given - Provider: Lisandra Cannon MD)1054 (Given - Provider: Lisandra Cannon MD) PRN, Intra-procedure, Starting Sat09/17/18 at 1043, Until Sat at 1301 documented in this encounter Care Teams Machine Rug Cleaner Relationship Specialty Start Date End Date Jennie Tomas PCP - General 09/01/12 05/14/19 [facility] [address] [place] [address] documented as of this encounter
--- OUTSIDE RECORDS SUMMARY | 2022-05-08 08:41 | XMS_ITS | Encounter Summary ---
:1940 Author Organization [facility] Address [address] [place] [address] Care Team Providers Name Role Phone Jennie Tomas Luzma Primary Care Provider Reason for Visit Auth/Cert Specialty Diagnoses / Procedures Referred By Contact Refer red To Contact Surgery Diagnoses INTERSTITIAL CYSTITIS Sh Periop Services Procedures COMBINED CYSTOSCOPY, BIOPSY BLADDER [address] [place] [address] Phone: Referral ID Status Reason Start Date Expiration Date Visits Requ ested Visits Authorized [id number] 1 1 Encounter Details Date Type Department Care Team Description 06/20/2016 Surgery [facility] CYSTOSCOPY , FULGURATION, [place] PeriOP MD [place] HYDRODISTENTION Services [facility] [address] [place] [address] [place] [address] [phone] Surgery Details Date/Time Status Location OR Service Patient Case Class Case Tr auma Class Type Case? 06/20/16 1:45 Posted OR OR [facility] Urology Same Day PM Surgery Panel 1 Procedure LRB Anes Op Region Wound Class Commen ts CYSTOSCOPY, N/A General Urethra II-Clean CYSTOSCOPY, FULGURATION, Contaminated FULGURATIO N, HYDRODISTENTION HYDRODIST ENTION Surgeon Surgeon Role Service Panel Lico Cannon MD Primary Urology 1 documented in this encounter Social History Tobacco Use Types Packs/Day Years Used Date Former Smoker Quit: 08/19/18 74 Alcohol Use Standard Drinks/Week Comments Yes 0 [...] Sign Reading Time Taken Comments Blood Pressure 113/59 06/20/2016 2:30 PM CDT Pulse - - Temperature 36.6 ??C (97.8 ??F) 06/20/2016 2:30 PM CDT Respiratory Rate 16 06/20/2016 2:30 PM CDT Oxygen Saturation 100% 06/20/2016 2:30 PM CDT Inhaled Oxygen Concentration - - Weight 69.9 kg (154 lb 3.2 oz) 06/20/2016 12:15 PM CDT Height 168.5 cm (5' 6.34) 06/20/2016 12:15 PM CDT Body Mass Index 24.63 06/20/2016 12:15 PM CDT documented in this encounter Discharge Instructions Discharge InstructionsKarolina Urrutia RN - 06/20/2016 2:55 PM CDT Same Day Surgery Discharge Instructions for Sedation [...] know so they can address your concerns. Cystoscopy Discharge Instructions Diet: ??? Return to [...] in urine. ??? Any questions or concerns. documented in this encounter Medications at Time of Discharge Medication Sig Dispensed Refills Start Date End Date Calcium Citrate-Vitamin Take 2 tablets by 0 D (CALCIUM + D PO) mouth daily EPINEPHrine 0.3 MG/0.3ML Inject 0.3 mg into 0 injection 2-pack the muscle as needed for anaphylaxis fluticasone (VERAMYST) [place] 2 sprays into 0 27.5 MCG/SPRAY nasal [...] 25 MCG mouth daily (1000 UT) TABS ciprofloxacin (CIPRO) Take 1 tablet (500 6 tablet 0 201506/23/2016 500 MG tablet mg) by mouth 2 times daily for 3 days ALENDRONATE SODIUM PO Take 70 mg by mouth 0 04/08/2020 once a week AMITRIPTYLINE HCL PO Take 10 mg by mouth 0 06/05/2018 At Bedtime budesonide-formoterol Inhale 2 puffs into 0 06/05/2018 (SYMBICORT) 80-4.5 the lungs daily MCG/ACT inhaler estradiol (VAGIFEM) 10 Place 10 mcg 0 06/05/2018 MCG TABS vaginally twice a week HYDROcodone-acetaminophe Take 1 tablet by 25 tablet 0 06/2006/05/2018 n (NORCO) 5-325 MG per mouth every 6 hours tablet as needed pentosan polysulfate Take 100 mg by mouth 0 04/08/2020 (ELMIRON) 100 MG capsule 2 times daily documented as of this encounter Progress Notes Roosevelt Tristan RN - 06/20/2016 4:25 PM CDT Printed and verbal instructions given to patient and assigned rn patient care. Patient and synthetic department supervisor verbalized understanding instructions. No knowledge deficit noted. Prescribed medications ( including narcotic medication [place]) given to the rn patient care. Belongings returned to patient and rn patient care. Patient assisted to wheel chair, wheeled to the hospital entrance door accompanied by volunteer service, and was discharged to home. documented in this encounter Nursing Notes Karolina Urrutia RN - 06/20/2016 3:51 PM CDT PNDS met, po per I&O sheet. Pt dressed, up in recliner and transported to Phase 2. documented in this encounter Miscellaneous Notes Op Note - Lico Cannon MD - 06/20/2016 2:48 PM CDT DATE OF PROCEDURE: 06/20/2016 PREOPERATIVE DIAGNOSIS: Interstitial cystitis, pelvic pain syndrome. POSTOPERATIVE DIAGNOSIS: Interstitial cystitis, pelvic pain syndrome. PROCEDURE: 1. Cystoscopy. 2. Bladder hydrodistention and fulguration of the Hunner's ulcers. ESTIMATED BLOOD LOSS: Minimal. COMPLICATIONS: None. ANTIBIOTICS: Preoperatively she received antibiotics. FINDINGS: 1. Initial bladder capacity under 200 with hydrodistention capacity improved to 650. 2. Glomerulations and Hunner's ulcers x3 over the dome of the bladder upon hydrodistention. INDICATIONS FOR THE PROCEDURE: Bar Pollard is a 75-year-old female with a longstanding history ofinterstitial cystitis who has been managed medically in the past 4 years. She underwent bladder distention hydrodistention 4 years ago that significantly improved her symptoms and this time since her symptoms got worse in spite of the medical management she would like to proceed with the hydrodistention and fulguration of ulcers again. She understands risks of the procedure including bleeding, infection, injury to the surrounding organs, worsening of her pain, bladder perforation additional surgery.She would like to proceed. DETAILS OF THE PROCEDURE: The patient was brought to the operating room, placed in supine position. After excellent induction of general anesthesia via LMA, her perineum was prepped and draped in the regular fashion. A 22-Ukrainian cystoscope was placed per urethra. Evaluation of the bladder did demonstrate no bladder pathology initially with a couple of scars at the dome of the bladder. Initially her bladder capacity was only 200 mL, however, once I started stretching her bladder with a pressure of 60cm above the bladder I was able to stretch it out to the 650 mL bladder capacity. At the completion of the stretcher she did experience terminal hematuria as well she developed active bleeding ulcers x3 at the dome of the bladder. I used a Bugbee and fulgurated those ulcers to achieve excellent hemostasis. The rest of her bladder appeared to be quite normal. I drained her bladder. 2% lidocaine jelly was applied for postoperative pain control and she was wakened up transferred to the stretcher to therecovery room in stable condition. The plan as of now is to continue on the medical management for her interstitial cystitis and see meback as needed on an annual basis. LICO CANNON MD MT: [id number] Name: BAR POLLARD MRN: [id number] Account: [id number] : 1940 Procedure Date: 06/20/2016 Document: [id number] cc: Lico Cannon MD TANK TENDER Brief Op Note - Lico Cannon MD - 06/20/2016 2:42 PM CDT [facility] Brief Operative Note Pre-operative diagnosis: IC Post-operative diagnosis: Same Procedure: Procedure(s): CYSTOSCOPY, FULGURATION, HYDRODISTENTION - Wound Class: II-Clean Contaminated Surgeon: Surgeon(s): Lico Cannon MD Sld Educational Aide(s): None Anesthesia: General mask Estimated blood loss: None Drains: None Specimens: None Implants: None Findings: A couple of ulcers (hunner's ulcers) started to bleed upon distention; bladder capacity =650 cc Complications: None Condition: Stable documented in this encounter Plan of Treatment Not on filedocumented as of this encounter Procedures Procedure Name Priority Date/Time Associated Diagnosis Comme nts CYSTOSCOPY, WITH 06/20/2016 1:51 PM INTERSTITIAL CYSTITIS BLADDER NEOPLASM CDT FULGURATION LAB RESULT - HIM SCAN 05/22/2016 12:00 AM CDT EKG CARDIAC - HIM SCAN 02/21/2016 12:00 AM CDT documented in this encounter Results LAB RESULT - HIM SCAN (05/22/2016 12:00 AM CDT) Specimen (Source) Anatomical Location Collection Method / Collectio n Time Received Time / Laterality Volume 05/22/2016 Narrative This result has an attachment that is no t available. Provider Outside NON-BEAKER LAB TESTING EKG CARDIAC - HIM SCAN (02/21/2016 12:00 AM CDT) Specimen (Source) Anatomical Location Collection Method / Collectio n Time Received Time / Laterality Volume 02/21/2016 Narrative This result has an attachment that is no t available. Provider Outside ECG ORDERABLES documented in this encounter Visit Diagnoses Not on filedocumented in this encounter Administered Medications Inactive Administered Medications - up to 3 most recent administrations Medication Order MAR Action Action Date Dose Rate Site fentaNYL Citrate (PF) (SUBLIMAZE) Given 06/20/2016 2:52 PM CDT 5 0 mcg injection 25-50 mcg 25-50 mcg, Intravenous, EVERY 2 MIN PRN, other, acute pain while in PACU., Starting on Sat06/20/16 at 1449, MAX cumulative dose = 250 mcg. Use Fentanyl initially, as a short acting agent for acute pain control. If insufficient, or a longer acting agent is needed, begin Morphine or Hydromorphone if ordered., PACU HYDROcodone-acetaminophen (NORCO) 5-325 MG Given 06/20 3:25 PM CDT 1 tablet per tablet 1 tablet 1 tablet, Oral, ONCE, On Sat06/20/16 at 1530, For 1 dose, Maximum acetaminophen dose from all sources= 75 mg/kg/day not to exceed 4 grams, PACU sterile water (bottle) Given 06/20/2016 1:59 PM 1,000 mLs Operative irrigation CDT Site/Surgical S ite PRN, Intra-procedure, Starting on Sat06/20/16 at 1359, Until Sat06/20/16 at 1552 sterile water irrigation Given 06/20/2016 1:59 PM 3,000 mLs Operative (bag) CDT Site/Surgical S ite PRN, Intra-procedure, Starting on Sat06/20/16 at 1359, Until Sat06/20/16 at 1552 documented in this encounter Active and Recently Administered Medications Times are shown in CDT. Scheduled Medication Order 06/18/2016 06/19/2016 06/20/2016 ciprofloxacin (CIPRO) intermittent infusion 400 mg (COMPLETED) 1404 (Given - Provider: Kalyani Coffey APRN [employer]) 400 mg, Intravenous, PRE-OP/PRE-PROCEDUR E, Starting Sat06/20/16 at 1400, For 1 dose, Indications: Surgical Prophylaxis, Pre-procedure HYDROcodone-acetaminophen (NORCO) 5-325 MG per tablet 1 tablet ( COMPLETED) 1525 (Given - Provider: Karolina Urrutia, RN) 1 tablet, Oral, ONCE, On Sat06/20/16 at 1530, For 1 dose, Maximum acetaminophen dose from all sources= 75 mg/kg/day not to exceed 4 grams, PACU PRN Medication Order 06/18/2016 06/19/2016 06/20/2016 fentaNYL Citrate (PF) (SUBLIMAZE) injection 25-50 mcg (CANCELED) 1452 (Given - Provider: Karolina Urrutia, RN) 25-50 mcg, Intravenous, EVERY 2 MIN PRN, Starting Sat06/20/16 at 1449, other, acute pain while in PACU., MAX cumulative dose = 250 mcg. Use Fentanyl initially, as a short acting agent for acute pain con trol. If insufficient, or a longer actin g agent is needed, begin Morphine or Hydromorphone if ordered., PACU sterile water (bottle) irrigation (CANCELED) 1359 (Given - Provider: Lico Cannon MD - Comment: PRN) PRN, Intra-procedure, Starting Sat06/20/16 at 1359, Until Sat at 1552 sterile water irrigation (bag) (CANCELED) 1359 (Given - Provider: Lico Cannon MD - Comment: PRN) PRN, Intra-procedure, Starting Sat06/20/16 at 1359, Until Sat at 1552 documented in this encounter Care Teams Principal Biostatistician Relationship Specialty Start Date End Date Jennie Tomas PCP - General 09/01/12 05/14/19 [facility] [address] [place] [address] documented as of this encounter
--- OUTSIDE RECORDS SUMMARY | 2022-05-08 08:41 | XMS_ITS | Encounter Summary ---
:1940 Author Organization [place] Address [facility] [facility] [place] [address] Care Team Providers Name Role Phone Jennie Tomas Primary Care Provider Reason for Visit Auth/Cert Specialty Diagnoses / Procedures Referred By Contact Refer red To Contact Surgery Diagnoses INTERSTITIAL CYSTITIS Sh Periop Services Procedures COMBINED CYSTOSCOPY, BIOPSY BLADDER [address] [place] [address] Phone: Referral ID Status Reason Start Date Expiration Date Visits Requ ested Visits Authorized [id number] 1 1 Encounter Details Date Type Department Care Team Description 06/20/2016 Anesthesia Event [facility] Caridad Marrero MD [facility] PeriOP Ser [facility] [address] ANESTHES IOLOGY [address] [place] [address] [place] [address] [phone] (Wo rk) Anesthesia Record Procedure Summary Procedure Name Responsible Anesthesia Start Anesthesia Stop Anesthesiologist Time Time CYSTOSCOPY, FULGURATION, Amanda Marrero MD 06/20/16 1351 1441 HYDRODISTENTION (N/A Urethra) Events Date Time Event Comment 06/20/2016 1349 1351 An Start 1351 An Start Data 1351 MD Present 1357 An Induction 1358 An LMA 1412 AN INCISION 1433 Present 1435 LMA Removed 1436 an stop data 1441 An Stop Electronically s igned by Aldair Mcgill on June 20, 2016 2:41 PM Name Total dexamethasone 4mg/mL 4 mg fentaNYL (SUBLIMAZE) injection 100 mcg lidocaine 2% 60 mg midazolam 1mg/mL 2 mg ondansetron 2mg/mL 4 mg propofol (DIPRIVAN) injection 10 mg/mL vial 250 mg propofol infusion (mcg/kg/min) 373.27 mg ciprofloxacin (CIPRO) intermittent infusion 400 mg 400 mg LR 800 mL Agents Name O2 N2O O2 Delivery Device O2 Auxiliary Blood No blood administrations on file. Lines, Drains, and Airways Type Details Placement Removal Peripheral IV 03/09/15; 1214; 18 G; 03/09/15 1214 by 09/17/18 0000 by Left; Median cubital Gullickson, Thierno G, Hodgkin s, Michelle vein (antecubital RN Marine Roth, AP RN fossa) VEHICLE SERVICE AGENT Retired Non-Surgical 06/20/16; 1358; 06/20/16 1358 by 06/20/16 1 435 by Airway laryngeal mask airway; Aldair Mcgill Hruby, J odine M, center of mouth; VEHICLE SERVICE AGENT; COIN MACHINE SUPERVISOR VEHICLE SERVICE AGENT COIN MACHINE SUPERVISOR VEHICLE SERVICE AGENT ai; Spontaneous ventilation, Adequate tidal volume, Head lift adequate, Supervisor Multifocal Lens strength adequate, Follows commands, Transported with oxygen, Purposeful movement documented in this encounter Social History Tobacco [...] encounter OR Notes Anesthesia Postprocedure Evaluation - Amanda Marrero MD - 06/20/2016 3:53 PM CDT Patient: Milla Pollard COMBINED CYSTOSCOPY, FULGURATE BLADDER TUMOR (N/A Urethra) Additional InformationProcedure(s): CYSTOSCOPY, FULGURATION, HYDRODISTENTION - Wound Class: II-Clean Contaminated Diagnosis:INTERSTITIAL CYSTITIS Diagnosis Additional Information: No value filed. Anesthesia Type: General, LMA Note: Anesthesia Post Evaluation Patient location during evaluation: PACU Patient participation: Able to fully participate in evaluation Level of consciousness: awake and alert Pain management: adequate Airway patency: patent Cardiovascular status: acceptable and hemodynamically stable Respiratory status: acceptable Hydration status: acceptable PONV: none Anesthetic complications: None Last vitals: Filed Vitals: 06/20/16 1515 06/20/16 1530 06/20/16 1545 BP: 99/53 112/63 105/55 Temp: 36.6 ??C (97.8 ??F) Resp: 05 28 11 SpO2: 96% 96% 96% Electronically Signed By: Amanda Marrero MD June 20, 2016 3:53 PM Anesthesia Preprocedure Evaluation - Amanda Marrero MD - 06/20/2016 12:47 PM CDT Procedure: Procedure(s): COMBINED CYSTOSCOPY, BIOPSY BLADDER COMBINED CYSTOSCOPY, FULGURATE BLADDER TUMOR Preop diagnosis: INTERSTITIAL CYSTITIS Allergies Allergen Reactions ??? [place] Venom [Venomil Honey Bee] Anaphylaxis ??? Sulfa Drugs Hives ??? Vancomycin Hives Past Medical History Diagnosis Date ??? PONV (postoperative nausea and vomiting) ??? Allergic rhinitis due to allergen ??? Asthma states coughs alot and has been told at one time had asthma and used inhaler ??? Gastro-oesophageal reflux disease ??? Arthritis ??? Fibromyalgia ??? Hiatal hernia ??? Bladder dysfunction ??? Bladder pain ??? Osteopenia ??? Urticaria ??? External hemorrhoids ??? Pulmonary nodules ??? Arrhythmia tachyarrythmia ??? Hiatal hernia ??? Lumbar radiculopathy, right ??? Multiple pulmonary nodules ??? Pain ??? Urticaria ??? COPD (chronic obstructive pulmonary disease) (H) mild Past Surgical History Procedure Laterality Date ? ? Tonsillectomy & adenoidectomy ??? Tubal ligation ??? C diag imp mammo dig bilat ??? Cystoscopy ??? Colonoscopy ??? Appendectomy ??? Cystoscopy, retrogrades, combined 09/11/2012 Procedure: COMBINED CYSTOSCOPY, RETROGRADES; CYSTOSCOPY, BILATERAL RETROGRADES, BLADDER BIOPSY, FULGURATION ; Surgeon: Lisandra Greer MD; Location: OR ??? Cystoscopy, biopsy bladder, combined 09/11/2012 Procedure: COMBINED CYSTOSCOPY, BIOPSY BLADDER; cystoscopy, bladder biopsy and fulgaration; Surgeon: Lisandra Greer MD; Location: OR ??? Breast surgery ??? Cosmetic surgery 1975 breast implants ??? Back surgery cervical discetomy Prior to Admission medications Medication Sig Start Date End Date Taking? Authorizing Provider ALENDRONATE SODIUM PO Take 70 mg by mouth once a week Yes Reported, Patient AMITRIPTYLINE HCL PO Take 10 mg by mouth At Bedtime Yes Reported, Patient EPINEPHrine 0.3 MG/0.3ML injection 2-pack Inject 0.3 mg into the muscle as needed for anaphylaxis Yes Reported, Patient estradiol (VAGIFEM) [address] 10 mcg vaginally twice a week Yes Reported, Patient TRAZODONE HCL PO Take 50 mg by mouth At Bedtime Yes Reported, Patient budesonide-formoterol (SYMBICORT) 80-4.5 MCG/ACT inhaler Inhale 2 puffs into the lungs daily Yes Reported, Patient Calcium Citrate-Vitamin D (CALCIUM + D PO) Take 1 tablet by mouth daily Yes Reported, Patient VITAMIN D, CHOLECALCIFEROL, PO Take 1,000 Units by mouth daily Yes Reported, Patient Multiple Vitamins-Minerals (MULTIVITAMIN ADULT PO) Take 1 tablet by mouth daily Yes Reported, Patient fluticasone (VERAMYST) 27.5 MCG/SPRAY nasal spray Rush 2 sprays into both nostrils daily. Yes Reported, Patient OMEPRAZOLE PO Take 20 mg by mouth every morning. Yes Reported, Patient pentosan polysulfate (ELMIRON) 100 MG capsule Take 100 mg by mouth 2 times daily Yes Reported, Patient Current Facility-Administered Medications Ordered in [facility] Medication Dose Route Frequency Last Rate Last Dose ??? No Pre Procedure Antibiotic Needed 1 each As instructed Continuous ??? ciprofloxacin (CIPRO) intermittent infusion 400 mg 400 mg Intravenous Pre-Op/Pre-procedure x 1 dose No current [facility]-ordered outpatient prescriptions on file. Wt Readings from Last 1 Encounters: 06/20/16 69.945 kg (154 lb 3.2 oz) Temp Readings from Last 1 Encounters: 06/20/16 36.2 ??C (97.2 ??F) Oral BP Readings from Last 6 Encounters: 06/20/16 127/57 03/09/15 119/71 09/11/12 91/54 Pulse Readings from Last 4 Encounters: 03/09/15 66 Resp Readings from Last 1 Encounters: 06/20/16 16 SpO2 Readings from Last 1 Encounters: 06/20/16 95% Recent Labs Lab Test 03/09/15 1250 NA 138 POTASSIUM 3.9 CHLORIDE 104 CO2 28 ANIONGAP 6 GLC 102* BUN 8 CR 0.64 CRISTINA 9.3 Recent Labs Lab Test 03/09/15 1250 WBC 4.8 HGB 12.5 PLT 124* RECENT LABS: ECG: ECHO: CXR: Anesthesia Evaluation . ROS/MED HX ENT/Pulmonary: (+)asthma Treatment: Inhaler daily and Inhaled steroids, COPD, , . . (-) tobacco use and sleep apnea Neurologic: (-) seizures, CVA and migraines Cardiovascular: (+) Dyslipidemia, ----. : . . . :. . (-) hypertension, arrhythmias and stent METS/Exercise Tolerance: Hematologic: (-) history of blood clots and anemia Musculoskeletal: (-) arthritis GI/Hepatic: (+) GERD Asymptomatic on medication, hiatal hernia, Renal/Genitourinary: (+) Other Renal/ Genitourinary, bladder pain (-) renal disease Endo: (-) Type I DM, Type II DM and thyroid disease Psychiatric: Infectious Disease: (-) Recent Fever Malignancy: Other: Physical Exam Normal systems: cardiovascular and pulmonary Airway Mallampati: II TM distance: >3 FB Neck ROM: full Dental Comment: Denies loose, damaged or chipped teeth Cardiovascular Rhythm and rate: regular and normal Pulmonary Anesthesia Plan History & Physical Review ASA Status: 2 . NPO Status: > 8 hours Plan for General and LMA with Propofol induction. Maintenance will be Balanced. PONV prophylaxis: Ondansetron and Dexamethasone Postoperative Care Postoperative pain management: IV analgesics and Oral pain medications. Consents Anesthetic plan, risks, benefits and alternatives discussed with: Patient.. . documented in this encounter Miscellaneous Notes Anesthesia Care Transfer Note - Hruby, Jodine M, COIN MACHINE SUPERVISOR VEHICLE SERVICE AGENT - 06/20/2016 2:40 PM CDT Patient: Milla Pollard COMBINED CYSTOSCOPY, FULGURATE BLADDER TUMOR (N/A Urethra) Additional InformationProcedure(s): CYSTOSCOPY, FULGURATION, HYDRODISTENTION - Wound Class: II-Clean Contaminated Diagnosis: INTERSTITIAL CYSTITIS Diagnosis Additional Information: No value filed. Anesthesia Type: General, LMA Note: Airway :Face Mask Patient transferred to:PACU Vitals: (Last set prior to Anesthesia Care Transfer) Electronically Signed By: Aldair Mcgill APRN CRNA June 20, 2016 2:40 PM documented in this encounter Plan of Treatment Not on filedocumented as of this encounter Visit Diagnoses Not on filedocumented in this encounter Administered Medications Inactive Administered Medications - up to 3 most recent administrations Medication Order MAR Action Action Date Dose Rate Site ciprofloxacin (CIPRO) intermittent Given 06/20/2016 2:04 PM CDT 400 mg infusion 400 mg Routine, 400 mg, Intravenous, PRE-OP/PRE-PROCEDURE, Starting on Sat06/20/16 at 1400, For 1 dose, Indications: Perioperative Pharmacoprophylaxis, Pre-procedure dexamethasone (DECADRON) injection Given 06/20/2016 2:09 PM CDT 4 mg PRN, Administer over 1-4 Minutes, Starting on Sat06/20/16 at 1409, Anesthesia Intra-op fentaNYL Citrate (PF) (SUBLIMAZE) inject ion Given 06/20/2016 2:18 PM CDT 50 mcg PRN, moderate to severe pain, Starting on Sat06/20/16 at 1357, Anesthesia Intra-op Given 06/20/2016 1:57 PM CDT 50 mcg lactated ringers infusion New Bag 06/20/2016 1:51 PM CDT Intravenous, CONTINUOUS PRN, Anesthesia Intra-op, Starting on Sat06/20/16 at 1351, Until Sat06/20/16 at 1441 lidocaine injection 2% (MDV) Given 06/20/2016 1:57 PM CDT 60 mg PRN, Starting on Sat06/20/16 at 1357, Anesthesia Intra-op midazolam (VERSED) injection Given 06/20/2016 2:18 PM CDT 1 mg PRN, anxiety, Starting on Sat06/20/16 at 1357, Anesthesia Intra-op Given 06/20/2016 1:57 PM CDT 1 mg ondansetron (ZOFRAN) injection Given 06/20/2016 2:09 PM CDT 4 mg PRN, nausea, vomiting, Administer over 2-5 Minutes, Starting on Sat06/20/16 at 1409, Anesthesia Intra-op propofol (DIPRIVAN) infusion Rate/Dose 06/20/2016 2:22 180 mcg/kg/min 75.5 mL/hr Intravenous, CONTINUOUS PRN, Change PM CDT Starting on Sat06/20/16 at 1358, Anesthesia Intra-op New Bag 06/20/2016 1:58 PM CDT 200 mcg/kg/min 83.9 mL/hr propofol (DIPRIVAN) injection 10 mg/mL v ial Given 06/20/2016 2:09 PM CDT 50 mg PRN, Starting on Sat06/20/16 at 1357, Anesthesia Intra-op Given 06/20/2016 2:06 PM CDT 80 mg Given 06/20/2016 1:57 PM CDT 120 mg documented in this encounter Care Teams [employer] Relationship Specialty Start Date End Date Jennie Tomas PCP - General 09/01/12 05/14/19 [facility] [address] [place] [address] documented as of this encounter
--- OUTSIDE RECORDS SUMMARY | 2022-05-08 08:41 | XMS_ITS | Encounter Summary ---
:1940 Author Organization [place] Address [address] [place] [address] Care Team Providers Name Role Phone Jennie Tomas Primary Care Provider Reason for Visit Auth/Cert Specialty Diagnoses / Procedures Referred By Contact Refer red To Contact Surgery Diagnoses BILATERAL UPPER LID HERMATOCHALASIS AND MECHANICAL PTOSIS REPAIR Periop Services Procedures REPAIR PTOSIS BILATERAL [address] [place] [address] Phone: Referral ID Status Reason Start Date Expiration Date Visits Requ ested Visits Authorized [id number] 1 1 Encounter Details Date Type Department Care Team Description 06/06/2018 Anesthesia Event [facility] Sandip Maza MD [facility] [address] [place] [address] [place] [address] [phone] Anesthesia Record Procedure Summary Procedure Name Responsible Anesthesia Start Anesthesia Stop Anesthesiologist Time Time BILATERAL UPPER LID Sandip Maza, 06/06/18 1043 1207 PTOSIS AND MD MECHANICAL PTOSIS REPAIRS (Bilateral Eye) Events Date Time Event Comment 06/06/2018 0907 1041 Quick Note Patient self adm inistered 1 puff of albuterol (home prescription) 1043 An Start 1043 An Start Data 1058 AN INCISION 1102 Quick Note O2 off for caute ry 1203 an stop data 1207 An Stop Electronically s igned by Anum Hitchcock CRNA on June 06, 2018 12:07 PM Name Total fentaNYL (SUBLIMAZE) injection 75 mcg lidocaine 2% 80 mg midazolam 1mg/mL 2 mg ondansetron 2mg/mL 4 mg propofol (DIPRIVAN) injection 10 mg/mL vial 60 mg dexmedetomidine (PRECEDEX) 4 mcg/mL bolus 16 mcg lactated ringers infusion 400 mL Agents Name NO HELIOX O2 N2O Air Exp Sevoflurane Exp Isoflurane Exp Desflurane Exp N2O O2 Delivery Device Ins Sevoflurane Ins Isoflurane Ins Desflurane O2 Auxiliary Blood No blood administrations on file. Lines, Drains, and Airways Type Details Placement Removal Incision/Surgical Site 06/06/18; 1142; Face; 06/06/18 1142 by bilateral upper MeccaRaven reinoso, RN eyelids Peripheral IV 03/09/15; 1214; 18 G; 03/09/15 1214 by 09/17/18 0000 by Left; Median cubital GullThierno baker, Alvina sMichelle vein (antecubital RN Marine Roth, AP RN fossa) COMPANY CONTROLLER Peripheral IV 06/06/18; 0938; 20 G; 06/06/18 0938 by 09/17/18 0000 by Left; Lower forearm; Jaja Hitchcock, RN Alvinas Michelle Chlorhexidine; aMrine Roth APRN Injectable COMPANY CONTROLLER documented in this encounter Social History Tobacco [...] encounter OR Notes Anesthesia Postprocedure Evaluation - Sandip Maza MD - 06/06/2018 12:15 PM CDT Patient: Milla Pollard Procedure(s): BILATERAL UPPER LID PTOSIS AND MECHANICAL PTOSIS REPAIRS Diagnosis:BILATERAL UPPER LID HERMATOCHALASIS AND MECHANICAL PTOSIS REPAIR Diagnosis Additional Information: No value filed. Anesthesia Type: MAC Note: Anesthesia Post Evaluation Patient location during evaluation: PACU Patient participation: Able to fully participate in evaluation Level of consciousness: awake Pain management: adequate Airway patency: patent Cardiovascular status: acceptable Respiratory status: acceptable Hydration status: acceptable PONV: none Last vitals: Vitals: 06/06/18 0839 06/06/18 0840 06/06/18 1206 BP: 110/54 93/49 Resp: 16 16 Temp: 36.1 ??C (97 ??F) SpO2: 95% 93% Electronically Signed By: Sandip Maza MD June 06, 2018 12:15 PM Anesthesia Preprocedure Evaluation - Sandip Maza MD - 06/06/2018 8:47 AM CDT Procedure: Procedure(s): BILATERAL UPPER LID PTOSIS AND MECHANICAL PTOSIS REPAIRS Preop diagnosis: BILATERAL UPPER LID HERMATOCHALASIS AND MECHANICAL PTOSIS REPAIR Allergies Allergen Reactions ??? [place] Venom [Venomil Honey Bee] Anaphylaxis ??? Sulfa Drugs Hives ??? Vancomycin Hives Past Medical History: Diagnosis Date ??? Allergic rhinitis due to allergen ??? Arrhythmia tachyarrythmia ??? Arthritis ??? Asthma states coughs alot and has been told at one time had asthma and used inhaler ??? Bladder dysfunction ??? Bladder pain ??? COPD (chronic obstructive pulmonary disease) (H) mild ??? External hemorrhoids ??? Fibromyalgia ??? Gastro-oesophageal reflux disease ??? Hiatal hernia ??? Hiatal hernia ??? Lumbar radiculopathy, right ??? Multiple pulmonary nodules ??? Osteopenia ??? Pain ??? PONV (postoperative nausea and vomiting) ??? Ptosis ??? Pulmonary nodules ??? Urticaria ??? Urticaria Past Surgical History: Procedure Laterality [...] MD; Location: [facility] OR ??? EYE SURGERY ? ? TONSILLECTOMY & ADENOIDECTOMY ??? TUBAL LIGATION Social History Substance Use Topics ??? Smoking status: Former Smoker Quit date: 08/19/1972 ??? Smokeless tobacco: Never Used ??? Alcohol use Yes Comment: occasionally Prior to Admission medications Medication Sig Start Date End Date Taking? Authorizing Provider albuterol (PROAIR HFA/PROVENTIL HFA/VENTOLIN HFA) 108 (90 Base) MCG/ACT inhaler Inhale 2 puffs into the lungs every 6 hours Yes Reported, Patient ASPIRIN PO Take 81 mg by mouth daily Yes Reported, Patient ATORVASTATIN CALCIUM PO Take 5 mg by mouth At Bedtime Yes Reported, Patient budesonide-formoterol (SYMBICORT) 80-4.5 MCG/ACT Inhaler Inhale 2 puffs into the lungs daily Yes Reported, Patient ESCITALOPRAM OXALATE PO Take 10 mg by mouth daily Yes Reported, Patient VERAPAMIL HCL PO Take 120 mg by mouth daily Yes Reported, Patient ALENDRONATE SODIUM PO Take 70 mg by mouth once a week Reported, Patient Calcium Citrate-Vitamin D (CALCIUM + D PO) Take 1 tablet by mouth daily Reported, Patient EPINEPHrine 0.3 MG/0.3ML injection 2-pack Inject 0.3 mg into the muscle as needed for anaphylaxis Reported, Patient fluticasone (VERAMYST) 27.5 MCG/SPRAY nasal spray [place] 2 sprays into both nostrils daily. Reported,Patient Multiple Vitamins-Minerals (MULTIVITAMIN ADULT PO) Take 1 tablet by mouth daily Reported, Patient OMEPRAZOLE PO Take 20 mg by mouth every morning. Reported, Patient pentosan polysulfate (ELMIRON) 100 MG capsule Take 100 mg by mouth 2 times daily Reported, Patient TRAZODONE HCL PO Take 50 mg by mouth At Bedtime Reported, Patient VITAMIN D, CHOLECALCIFEROL, PO Take 1,000 Units by mouth daily Reported, Patient No current [facility]-ordered facility-administered medications on file. No current [facility]-ordered outpatient prescriptions on file. Wt Readings from Last 1 Encounters: 06/06/18 74.4 kg (164 lb) Temp Readings from Last 1 Encounters: 06/06/18 36.1 ??C (97 ??F) (Oral) BP Readings from Last 6 Encounters: 06/06/18 110/54 06/20/16 108/61 03/09/15 119/71 09/11/12 91/54 Pulse Readings from Last 4 Encounters: 03/09/15 66 Resp Readings from Last 1 Encounters: 06/06/18 16 SpO2 Readings from Last 1 Encounters: 06/06/18 95% Recent Labs Lab Test 03/09/15 1250 NA 138 POTASSIUM 3.9 CHLORIDE 104 CO2 28 ANIONGAP 6 GLC 102* BUN 8 CR 0.64 CRISTINA 9.3 No results for input(s): AST, ALT, ALKPHOS, BILITOTAL, LIPASE in the last 54576 hours. Recent Labs Lab Test 03/09/15 1250 WBC 4.8 HGB 12.5 PLT 124* No results for input(s): ABO, RH in the last 86949 hours. No results for input(s): INR, PTT in the last 68459 hours. No results for input(s): TROPI in the last 01641 hours. No results for input(s): PH, PCO2, PO2, HCO3 in the last 29197 hours. No results for input(s): HCG in the last 47398 hours. No results found for this or any previous visit (from the past 744 hour(s)). Anesthesia Evaluation . Pt has had prior anesthetic. History of anesthetic complications - PONV ROS/MED HX ENT/Pulmonary: (+)allergic rhinitis, tobacco use, Past use asthma Treatment: Inhaler daily and Inhaled steroids, COPD, , . . (-) sleep apnea Neurologic: (-) seizures, CVA and migraines Cardiovascular: (+) Dyslipidemia, ----. : . . . :. Irregular Heartbeat/Palpitations (Paroxysmal SVT vs a-fib per pt description; episodes of tachy to the 160's; happens approx 1x per year; controlled with verapamil), . (-) hypertension and stent METS/Exercise Tolerance: >4 METS Hematologic: (-) history of blood clots and anemia Musculoskeletal: (-) arthritis GI/Hepatic: (+) GERD Asymptomatic on medication, hiatal hernia, hepatitis (In early adulthood; resolved with no issues) type Other, Renal/Genitourinary: (+) Other Renal/ Genitourinary, bladder pain [...] Pulmonary Anesthesia Plan History & Physical Review History and physical reviewed and following examination; no interval change. ASA Status: 2 . NPO Status: > 8 hours Plan for MAC Reason for MAC: Deep or markedly invasive procedure (G8) PONV prophylaxis: Ondansetron (or other 5HT-3) Postoperative Care Postoperative pain management: IV analgesics and Oral pain medications. Consents Anesthetic plan, risks, benefits and alternatives discussed with: Patient.. . documented in this encounter Miscellaneous Notes Anesthesia Care Transfer Note - Anum Hitchcock APRN CRNA - 06/06/2018 12:07 PM CDT Patient: Milla Pollard Procedure(s): BILATERAL UPPER LID PTOSIS AND MECHANICAL PTOSIS REPAIRS Diagnosis: BILATERAL UPPER LID HERMATOCHALASIS AND MECHANICAL PTOSIS REPAIR Diagnosis Additional Information: No value filed. Anesthesia Type: MAC Note: Airway :Room Air Patient transferred to:PACU Comments: Pt to PACU. VSS. Report complete to RNHandoff Report: Identifed the Patient, Identified the Reponsible Provider, Reviewed the pertinent medical history, Discussed the surgical course, Reviewed Intra-OP anesthesia mangement and issues during anesthesia, Set expectations for post-procedure period and Allowed opportunity for questions and acknowledgement of understanding Vitals: (Last set prior to Anesthesia Care Transfer) COMPANY CONTROLLER VITALS 06/06/2018 1133 - 06/06/2018 1207 06/06/2018 Resp Rate (set): 10 Electronically Signed By: Anum Hitchcock CRNA, APRN COMPANY CONTROLLER June 06, 2018 12:07 PM documented in this encounter Plan of Treatment Not on filedocumented as of this encounter Visit Diagnoses Not on filedocumented in this encounter Administered Medications Inactive Administered Medications - up to 3 most recent administrations Medication Order MAR Action Action Date Dose Rate Site dexmedetomidine (PRECEDEX) 4 Bolus 06/06/2018 11:08 AM CDT 8 mcg mcg/mL bolus 200 mcg, CONTINUOUS PRN, Starting on Sat06/06/18 at 1058, Anesthesia Intra-op New Bag 06/06/2018 10:58 AM CDT 8 mcg fentaNYL (PF) (SUBLIMAZE) injection Given 06/06/2018 11:41 AM CDT 25 mcg PRN, moderate to severe pain, Administer over 3-5 Minutes, Starting on Sat06/06/18 at 1046, Anesthesia Intra-op Given 06/06/2018 10:46 AM CDT 50 mcg lactated ringers infusion New Bag 06/06/2018 10:45 AM CDT at 25 mL/hr, Intravenous, CONTINUOUS, IF patient NOT on dialysis., Pre-procedure, Starting on Sat06/06/18 at 0945, Until Sat06/06/18 at 1205 lidocaine 2% injection (MDV) Given 06/06/2018 10:48 AM CDT 80 mg PRN, Starting on Sat06/06/18 at 1048, Anesthesia Intra-op midazolam (VERSED) injection Given 06/06/2018 10:51 AM CDT 1 mg Administer over 2 Minutes, PRN, anxiety, Starting on Sat06/06/18 at 1045, Anesthesia Intra-op Given 06/06/2018 10:45 AM CDT 1 mg ondansetron (ZOFRAN) injection Given 06/06/2018 10:59 AM CDT 4 mg PRN, nausea, vomiting, Administer over 2-5 Minutes, Starting on Sat06/06/18 at 1059, Anesthesia Intra-op propofol (DIPRIVAN) injection 10 mg/mL v ial Given 06/06/2018 10:51 AM CDT 10 mg PRN, Starting on Sat06/06/18 at 1048, Anesthesia Intra-op Given 06/06/2018 10:50 AM CDT 10 mg Given 06/06/2018 10:49 AM CDT 10 mg documented in this encounter Care Teams Peoplesoft Programmer Relationship Specialty Start Date End Date Jennie Tomas PCP - General 09/01/12 05/14/19 [facility] [address] [place] [address] documented as of this encounter
--- OUTSIDE RECORDS SUMMARY | 2022-05-08 08:41 | XMS_ITS | Encounter Summary ---
:1940 Author Organization [place] Address [address] [place] [address] Care Team Providers Name Role Phone Jennie Tomas Luzma Primary Care Provider Reason for Visit Auth/Cert Specialty Diagnoses / Procedures Referred By Contact Refer red To Contact Surgery Diagnoses INTERSTITIAL CYSTITIS Sh Periop Services Procedures COMBINED CYSTOSCOPY, BIOPSY BLADDER [address], [address] [place] [address] Phone: Referral ID Status Reason Start Date Expiration Date Visits Requ ested Visits Authorized [id number] 1 1 Encounter Details Date Type Department Care Team Description 06/20/2016 Hospital Encounter [facility] Corina Cannon PreOP/Phas e II MD [place] [address], [address] [place] [address] [place] [address] [facility] [phone] [place] [address] (Wo rk) Social History Tobacco Use Types Packs/Day Years [...] Sign Reading Time Taken Comments Blood Pressure 108/61 06/20/2016 4:25 PM CDT Pulse - - Temperature 36.6 ??C (97.8 ??F) 06/20/2016 3:45 PM CDT Respiratory Rate 12 06/20/2016 4:25 PM CDT Oxygen Saturation 96% 06/20/2016 4:25 PM CDT Inhaled Oxygen Concentration - - [...] muscle as needed for anaphylaxis fluticasone (VERAMYST) [place] 2 sprays into 0 27.5 MCG/SPRAY nasal [...] verbal instructions given to patient and assigned manager respiratory care. Patient and manager regional sales verbalized understanding instructions. No knowledge deficit noted. Prescribed medications ( including narcotic medication Lucan) given to the manager respiratory care. Belongings returned to patient and manager respiratory care. Patient assisted to wheel chair, wheeled [...] and draped in the regular fashion. A 22-Divehi cystoscope was placed per urethra. Evaluation of [...] EM#[id number] Name: BAR POLLARD MRN: [id number] Account: [id number] : 1940 Procedure Date: 06/20/2016 Document: [id number] cc: Lico Cannon MD SALTER Brief Op Note - Lico Cannon MD - 06/20/2016 2:42 PM CDT [facility] Urology Brief Operative Note Pre-operative diagnosis: IC Post-operative diagnosis: Same Procedure: Procedure(s): CYSTOSCOPY, FULGURATION, HYDRODISTENTION - Wound Class: II-Clean Contaminated Surgeon: Surgeon(s): Lico Cannon MD Crack Off Person(s): None Anesthesia: General mask Estimated blood loss: [...] mg/kg/day not to exceed 4 grams, PACU documented in this encounter Active and Recently Administered Medications Times are shown in CDT. Scheduled Medication Order 06/18/2016 06/19/2016 06/20/2016 ciprofloxacin (CIPRO) intermittent infusion 400 mg (COMPLETED) 1404 (Given - Provider: Kalyani Coffey APRN KIER BOILER) 400 mg, Intravenous, PRE-OP/PRE-PROCEDUR E, Starting Sat06/20/16 [...] 1552 documented in this encounter Care Teams Executive Asst Relationship Specialty Start Date End Date Jennie Tomas PCP - General 09/01/12 05/14/[address] [address] documented as of this encounter
--- OUTSIDE RECORDS SUMMARY | 2022-05-08 08:41 | XMS_ITS | Encounter Summary ---
:1940 Author Organization [place] Address [address] [facility] [place] [address] Care Team Providers Name Role Phone Jennie Tomas Primary Care Provider Reason for Visit Auth/Cert Specialty Diagnoses / Procedures Referred By Contact Refer red To Contact Surgery Diagnoses CHRONIC ITERSTICHAL CYSTITIIS Sh Periop Services Procedures COMBINED CYSTOSCOPY, FULGURATE BLADDER TUMOR [address] [place] [address] Phone: Referral ID Status Reason Start Date Expiration Date Visits Requ ested Visits Authorized [id number] 1 1 Encounter Details Date Type Department Care Team Description 09/17/2018 Surgery [facility], [facility] C YSTOSCOPY, [place] PeriOP MD Lisandra BLADDER HYSRODISTENTION Services [place] [facility] FULGURATION OF BLADDER [address] [place] , [address] [place], [address] [place] [address] [place], [place] [address] Surgery Details Date/Time Status Location OR Service Patient Case Class Case Tr auma Class Type Case? 09/17/18 10:05 Posted OR OR [facility] Urology Same Day AM Surgery Panel 1 Procedure LRB Anes Op Region Wound Class Commen ts COMBINED CYSTOSCOPY, BLADDER N/A General Urethra II-Dee n Contaminated HYSRODISTENTION FULGURATION OF BLADDER ULCERS , BLADDER WAASHING, BLADDER BIOPSY Surgeon Surgeon Role Service Panel Lisandra Cannon MD Primary Urology 1 documented in [...] Sign Reading Time Taken Comments Blood Pressure 120/56 09/17/2018 8:57 AM SENIOR TECHNICAL ANALYST Pulse - - Temperature 35.8 ??C (96.4 ??F) 09/17/2018 8:57 AM SENIOR TECHNICAL ANALYST Respiratory Rate 16 09/17/2018 8:57 AM SENIOR TECHNICAL ANALYST Oxygen Saturation 94% 09/17/2018 8:57 AM SENIOR TECHNICAL ANALYST Inhaled Oxygen Concentration - - Weight 75.2 kg (165 lb 11.2 oz) 09/17/2018 8:57 AM SENIOR TECHNICAL ANALYST Height 170.2 cm (5' 7) 09/17/2018 8:57 AM SENIOR TECHNICAL ANALYST Body Mass Index 25.95 09/17/2018 8:57 AM SENIOR TECHNICAL ANALYST documented in this encounter Discharge Instructions Discharge [...] about your procedure, call Dr. Cannon at [phone] Cystoscopy Discharge Instructions Diet: ??? Return to [...] in urine. ??? Any questions or concerns. OR TECHNICAL ANALYST documented in this encounter Medications at Time [...] 0 10 MG tablet daily fluticasone (VERAMYST) [place] 2 sprays into 0 27.5 MCG/SPRAY nasal [...] At 0 04/08/2020 Bedtime azelastine (ASTELIN) 0.1 [place] 1 spray into 0 04/08/2020 % nasal [...] and draped in the regular fashion. A 22-Lithuanian cystoscope was placed per urethra. Evaluation of [...] WT Name: BAR POLLARD MRN: [id number] Account: [id number] : 1940 Procedure Date: 09/17/2018 Document: [id number] cc: Lisandra Cannon MD OR TECHNICAL ANALYST Brief Op Note - Lisandra Cannon MD - 09/17/2018 11:08 AM C[facility] Brief Operative Note Pre-operative diagnosis: CHRONIC ITERSTICHAL CYSTITIIS Post-operative diagnosis Same Procedure: Procedure(s): COMBINED CYSTOSCOPY, BLADDER HYSRODISTENTION FULGURATION OF BLADDER ULCERS , BLADDER WAASHING, BLADDER BIOPSY Surgeon: Lisandra Cannon MD Assistants(s): none Estimated blood loss: Minimal Specimens: 1. Bladder washings 2. Bladder biopsy Findings: 1 cm ulcer at the posterior bladder dome; 700 ml bladder capacity OR TECHNICAL ANALYST documented in this encounter Plan of Treatment Not on filedocumented as of this encounter Procedures Procedure Name Priority Date/Time Associated Diagnosis Comme nts SURGICAL PATHOLOGY Routine 09/17/2018 10:40 Resul ts for this EXAM AM SENIOR TECHNICAL ANALYST procedure are i n the results section. CYTOLOGY NON VAT PACKER Routine 09/17/2018 10:40 Results for this AM SENIOR TECHNICAL ANALYST procedure are i n the results section. CYSTOSCOPY, WITH 09/17/2018 10:14 CHRONIC ITERSTICHAL BLADDER NEOPLASM AM SENIOR TECHNICAL ANALYST CYSTITIIS FULGURATION LAB RESULT - HIM 08/21/2018 12:00 SCAN AM SENIOR TECHNICAL ANALYST EKG CARDIAC - HIM 08/21/2018 12:00 SCAN AM SENIOR TECHNICAL ANALYST documented in this encounter Results Surgical pathology exam (09/17/2018 10:40 AM SENIOR TECHNICAL ANALYST) Component Value Ref Test Analysis Performed At [facility] Range Method Time Signature Copath Report Patient Name: BAR POLLARD MR#: [id number] Specimen #: [id number] Collected: 09/17/2018 Received: 09/17/2018 Reported: 09/18/2018 13:44 [...] is the previous bladder biopsy (date collected, 013; ) which reported chronic cystitis with no evidence of dysplasia or malignancy. Deeper levels are obtained for additional visualization. ??S ections demonstrate predominantly submucosal tissue with areas of chronic inflammation and prominent vessels. ?? The overlying urothelium is largely denuded. ??There is no malignancy. ??Muscularis propria is present. The technical component of this testing was completed at the [facility], with the professional compo nent performed at the [facility], [address] [place] [address] ??[phone] ([phone]) CPT Codes: A: 76453-VM3 COLLECTION SITE: Client: [facility] Location: [facility] (S) Specimen (Source) Anatomical Collection Method Collection Time Re ceived Time Location / / Volume Laterality Tissue specimen URINARY BLADDER 09/17/2018 10:47 (specimen) STRUCTURE / AM SENIOR TECHNICAL ANALYST Unknown Lisandra LEMUS Performing Organization Address City/State/ZIP Code Phon e Number COPATH Cytology non ob/gyn (09/17/2018 10:40 AM SENIOR TECHNICAL ANALYST) Component Value Ref Test Analysis Performed At [facility] Range Method Time Signature Copath Report Patient Name: BAR POLLARD MR#: [id number] Specimen #: [id number] Collected: 09/17/2018 Received: 09/18/2018 Reported: 09/19/2018 08:18 [...] Cody Godinez M.D. Processed and screened at [facility] CLINICAL HISTORY: Chronic interstitial cystitis , GROSS: Urinary tract, bladder washing: ??Received 90 ml of clear, y ellow fluid, processed as 1 Pap stained Autocyte.. MICROSCOPIC: A microscopic examination is performed. CPT Codes: A: 93363-ZSCQDKR TESTING LAB LOCATION: [facility] [phone] COLLECTION SITE: Client: ??[facility] Location: ??SHOR (S) Specimen (Source) Anatomical Collection Method Collection Time Re ceived Time Location / / Volume Laterality Specimen obtained URINARY BLADDER 09/17/2018 10:40 by lavage STRUCTURE / AM SENIOR TECHNICAL ANALYST (specimen) Unknown Lisandra Cannon MD LAB - [facility] CLINICAL SPECIM EN Performing Organization Address City/State/ZIP Code Phon e Number COPATH LAB RESULT - HIM SCAN (08/21/2018 12:00 AM SENIOR TECHNICAL ANALYST) Specimen (Source) Anatomical Location Collection Method / Collectio n Time Received Time / Laterality Volume 08/21/2018 Narrative This result has an attachment that is no t available. Provider Outside NON-BEAKER LAB TESTING EKG CARDIAC - HIM SCAN (08/21/2018 12:00 AM SENIOR TECHNICAL ANALYST) Specimen (Source) Anatomical Location Collection Method / [...] Rate Site HYDROcodone-acetaminophen Given 09/17/2018 12:45 PM SENIOR TECHNICAL ANALYST 1 tablet (NORCO) 5-325 MG per tablet 1 tablet 1 tablet, Oral, ONCE, On Sat09/17/18 at 1245, For 1 dose, Maximum acetaminophen dose from all sources= 75 mg/kg/day not to exceed 4 grams, PACU lactated ringers infusion New Bag 09/17/2018 12:13 PM SENIOR TECHNICAL ANALYST 100 mL/hr at 100 mL/hr, Intravenous, CONTINUOUS, Continue until IV catheter is weaned, PACU/Phase II, Starting on Sat09/17/18 at 1145, Until Sat09/17/18 at 1301 opium-belladonna (B&O Given 09/17/2018 10:56 AM 30 mg Other (see comments) SUPPRETTES) 30-16.2 MG per SENIOR TECHNICAL ANALYST suppository PRN, Starting on Sat09/17/18 at 1056, Intra-procedure sterile water (bottle) Given 09/17/2018 10:54 AM 3,000 mLs Operative irrigation SENIOR TECHNICAL ANALYST Site/Surgical S ite PRN, Intra-procedure, Starting on Sat09/17/18 at 1043, Until Sat09/17/18 at 1301 Given 09/17/2018 10:43 AM SENIOR TECHNICAL ANALYST 3,000 mLs Oper ative Site/Surgical Site documented in this encounter Active and Recently Administered Medications Times are shown in SENIOR TECHNICAL ANALYST. Scheduled Medication Order 09/15/2018 09/16/2018 09/17/2018 ciprofloxacin (CIPRO) infusion 400 mg (COMPLETED) 1032 (Given - Provider: Michelle Darling APRN BILL BOARD POSTER) 400 mg, Intravenous, PRE-OP/PRE-PROCEDUR E, Starting Sat09/17/18 at 0845, For 1 dose, Irritant., Indications: Perioperative Pharmacoprophylaxis, Pre-procedure HYDROcodone-acetaminophen (NORCO) 5-325 MG per tablet 1 tablet ( COMPLETED) 1245 (Given - Provider: Destiney Jim RN) 1 tablet, Oral, ONCE, Sat09/17/18 at 124 [...] Intravenous, EVERY 1 MIN PRN, St arting Sat09/17/18 at 0920, For 2 doses, sedation, regional [...] Provider: Lisandra Cannon MD) PRN, Intra-procedure, Starting 09/17/18 at 1043, Until Sat at 1301 documented in this encounter Care Teams Computer Numerical Control Grinder Relationship Specialty Start Date End Date Jennie Tomas PCP - General 09/01/12 05/14/[address] [address] documented as of this encounter
--- OUTSIDE RECORDS SUMMARY | 2022-05-08 08:41 | XMS_ITS | Encounter Summary ---
:1940 Author Organization [place] Address [facility] [address] Care Team Providers Name Role Phone Jennie Tomas Primary Care Provider Encounter Details Date Type Department Care Team Description 09/11/2012 Anesthesia Event [facility] Sunil Titus [facility] Peri Eren valverde MD [address] [place] [address] ANESTHESIOLOGY [place] [id number] [phone] [place] [id number] (Wo rk) Anesthesia Record Procedure Summary Procedure Name Responsible Anesthesia Start Anesthesia Stop Anesthesiologist Time Time CYSTOSCOPY, BILATERAL 09/11/12 0722 09/11/12 0 814 RETROGRADES, BLADDER BIOPSY, FULGURATION (Bilateral Urethra) Events Date Time Event Comment 09/11/2012 0633 0722 An Start 0722 Quick Note Patient identifi ed, chart reviewed. Airway assessed. Questions answer ed. To OR. Patient moved self to OR table. PIV started, pat ent. Monitors on, alarms active. Patient positioned to co mfort. Pre O2 via face mask. 07 Quick Note Atraumatic, smoo th IV induction. Smooth LMA 4 placement. Cords open and c lear, dentation unchanged. Bilateral breath sounds ve rified, VSS. 0806 Quick Note Patient exhibiti ng spontaneous respirations, exchanging well through LMA . Follows commands. Suctioned. LMA pulled without incident . Oxygen via face mask at 8 LPM, continues to exchange well . Dentation unchanged. 0814 An Stop Name Total ciprofloxacin (CIPRO) 400 mg in dextrose 5% 200 mL IVP B 400 mg Agents No agents on file. Blood No blood administrations on file. Lines, Drains, and Airways Type Details Placement Removal Peripheral IV 09/11/12; 0723; 20 G; 09/11/12 0723 by 09/11/12 1115 by Left; Hand; Alcohol; Damari Messer, Rachelle K, Injectable; Tolerated RACHELE Hawthorne CRNA RN well Retired Non-Surgical 09/11/12; 0727; 4; 09/11/12 0727 by [id number] by Airway laryngeal mask Damari Messer Miche lle airway; Equal, clear RACHELE Hawthorne CRNA, APR N CRNA and bilateral; M Gui ESCOBAR; End of therapy documented in this encounter Social History Tobacco Use Types Packs/Day Years Used Date Former Smoker Sex Assigned at Date Recorded Not on file documented as of this encounter OR Notes Anesthesia Postprocedure Evaluation - Sunil Titus MD - 09/11/2012 9:55 AM CST Anesthesia Post-Evaluation Note Patient: Milla Pollard Patient location: PACU Procedure(s) Performed: Procedure(s) with comments: COMBINED CYSTOSCOPY, RETROGRADES - CYSTOSCOPY, BILATERAL RETROGRADES, BLADDER BIOPSY, FULGURATION COMBINED CYSTOSCOPY, BIOPSY BLADDER - cystoscopy, bladder biopsy and fulgaration Anesthesia type: General Patient Condition Respiratory Function (RR / SpO2 / Airway Patency): Satisfactory Cardiac Function (HR / Rhythm / BP): Satisfactory Mental Status: Satisfactory Temperature: Satisfactory Pain Control: Satisfactory PONV: None Beta-Zelalem Therapy: None indicated Hydration Status: Satisfactory Last Vitals: Filed Vitals: 09/11/12 0925 09/11/12 0930 09/11/12 0940 BP: 83/51 89/53 86/56 Temp: Resp: 16 16 16 SpO2: 93% 99% 96% Additional Comments: [employer] Anesthesia Preprocedure Evaluation - Sunil Titus MD - 09/11/2012 6:32 AM CST Anesthesia Evaluation . Pt has had prior anesthetic. History of anesthetic complications PONV ROS/MED HX Pulmonary: (+) asthma (-) sleep apnea Neurologic: Cardiovascular: (+) hypertension . . METS/Exercise Tolerance: Hematologic: Musculoskeletal: GI/Hepatic: (+) GERD Asymptomatic on medication, Renal: Endo: Psychiatric: (+) psychiatric history Depression and Anxiety Infectious Disease: Other: Physical Exam Normal systems: cardiovascular, pulmonary and dental Airway Mallampati: II TM distance: >3 FB Neck ROM: full Dental Cardiovascular Pulmonary Anesthesia Plan ASA Score 2 . Plan for General and LMA with Intravenous induction. Maintenance will be TIVA. Routine analgesia and antiemetics to be used for post-operative care. Anesthetic plan, risks, benefits and alternatives discussed with: patient or business process representative. TIVA History & Physical Review History and physical reviewed; no interval change. . [employer] documented in this encounter Miscellaneous Notes Anesthesia Care Transfer Note - Damari Messer APRN CRNA - 09/11/2012 8:09 AM CST Anesthesia Care Transfer Note Patient: Milla Pollard Transferred to: PACU Patient vital signs: stable Airway: none Patient to PACU with oxygen via face mask at 8 LPM. Patient appears comfortable. PACU monitors applied, alarms active. Report to RN, questions answered. Patient stable upon transfer of care to [employer] ADMINISTRATOR. [employer] documented in this encounter Plan of Treatment Not on filedocumented as of this encounter Visit Diagnoses Not on filedocumented in this encounter Administered Medications Inactive Administered Medications - up to 3 most recent administrations Medication Order MAR Action Action Date Dose Rate Site ciprofloxacin (CIPRO) 400 mg in Given 09/11/2012 7:31 AM [employer] 400 mg dextrose 5% 200 mL IVPB Routine, 400 mg, Intravenous, PRE-OP/PRE-PROCEDURE, Starting on Viola 09/11/12 at 0730, For 1 dose, Pre-procedure documented in this encounter Care Teams Delinquent Tax Collector Assistant Relationship Specialty Start Date End Date Jennie Tomas PCP - General 09/01/12 05/14/19 [facility] [address] [place] [address] documented as of this encounter
--- OUTSIDE RECORDS SUMMARY | 2022-05-08 08:41 | XMS_ITS | Encounter Summary ---
:1940 Author Organization [place] Address [address] [facility] 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 REPAIR Sh Periop Services Procedures REPAIR PTOSIS BILATERAL [address] [place] [address] Phone: Referral ID Status Reason Start Date Expiration Date Visits Requ ested Visits Authorized [id number] 1 1 Encounter Details Date Type Department Care Team Description 06/06/2018 Hospital Encounter [facility] Jesus Hsu [place] Phase II [address] [place] OPHTHALMIC PLAST [place] [id number] SURG [phone] [address] [place] [address] (Wo rk) Social History Tobacco Use Types [...] Sign Reading Time Taken Comments Blood Pressure 113/58 06/06/2018 1:40 PM CDT Pulse - - Temperature 36.1 ??C (97 ??F) 06/06/2018 8:39 AM CDT Respiratory Rate 16 06/06/2018 1:40 PM CDT Oxygen Saturation 94% 06/06/2018 1:40 PM CDT Inhaled Oxygen Concentration - - Weight 74.4 kg (164 lb) 06/06/2018 8:39 AM CDT Height 170.2 cm (5' 7) 06/06/2018 8:39 AM CDT Body Mass Index 25.69 06/06/2018 8:39 AM CDT documented in this encounter Discharge Instructions Discharge InstructionsBere Barbosa RN - 06/06/2018 12:37 PM CDT Same Day Surgery Discharge Instructions [...] know so they can address your concerns. [facility] Eyelid/Orbital Surgery Discharge Instructions Jesus Hsu M.D.. ICE COMPRESSES Immediately following surgery, you should begin to apply ice compresses. Apply a cold gel pack or wrap a clean washcloth around a cup of crushed ice in a plastic bag (a bag of frozen peas also works well) and hold the cold compresses directly against the closed eyelid (s).Apply cold pack for a minimumof six times daily for no longer than 15 minutes at a time. Continue cold compresses every day untilthe bruising and swelling begin to subside. This can vary for each patient, but three 3 days may be common. HOT COMPRESSES After your swelling and bruising have begun to subside, hot compresses should be applied. Take a clean washcloth and wring it out in hot water (as warm as you can tolerate comfortably). Hold this warm compress against the closed eyelid(s) at least six times per day for 15 minutes. This should be continued for about two weeks. OINTMENT You may be given some ointment when you leave the hospital. Apply this ointment to the suture line(s) twice a day, 1/4 inch into the eye at bedtime for 7 days. Expect some blurring of vision from the ointment. ACTIVITY Avoid heavy lifting or vigorous exercise for one week after surgery. You may resume regular activities as tolerated. You may shower and wash your hair on the day after surgery; be careful to avoid getting shampoo in your eyes. While your eyes are still swelling, it is recommended you sleep on your back and elevate your head with 2-3 pillows. MEDICATION If the doctor has given you some medications to take after surgery, please take these according to the instructions on the bottle. Pain medications may make you drowsy so do not drive, operate heavy machinery, or use alcohol while taking it. When you feel that you do not need the prescription pain medication, you may substitute Extra Strength Tylenol for mild pain by also following the directions on the bottle. If you were taking Coumadin (warfarin) prior to your surgery, you may resume this medication with your next scheduled dose. WHAT TO EXPECT You should expect some slight oozing of blood from the incision site over the first two to three days after surgery. Swelling and bruising will occur for one to two weeks or longer. You may also experience itching and tearing during the first several weeks after surgery. This is part of the normal healing process QUESTIONS Please feel free to contact the office, should you have any questions that are not answered above. The phone number is . Please call immediately if you are unable to establish vision in the operative eye, you are experiencing heavy bleeding that will not stop with gentle pressure or you have any signs of an infection (greenish/yellow discharge or progressive redness). [facility] [place] [address] [place], [place] [address] Dr. Hsu has prescribed [place]/Vicodin for pain for you. It's a combination medication of Tylenol 325 mg and Hydrocodone 5 mg. There is a limit of 4000 mg of Tylenol per 24 hours. You also were prescribed Erythromycin ointment. Apply per pharmacy label instructions. documented in this encounter Medications at Time [...] 0 10 MG tablet daily fluticasone (VERAMYST) [place] 2 sprays into 0 27.5 MCG/SPRAY nasal [...] mg by mouth At 0 04/08/2020 Bedtime budesonide-formoterol Inhale 2 puffs into 0 04/08/2020 (SYMBICORT) 80-4.5 the lungs daily MCG/ACT Inhaler pentosan polysulfate Take 100 mg by mouth 2 0 04/08/2020 (ELMIRON) 100 MG times daily capsule VERAPAMIL HCL PO Take 120 mg by mouth 0 04/08/2020 daily documented as of this encounter Nursing Notes Bere Barbosa RN - 06/06/2018 12:53 PM CDT PNDS met, po per I&O sheet. Pt dressed, up in recliner and transported to [facility] 2. 1300 Awaiting scripts that were given to Dr. Hsu to fill out for pain meds and EES ointment at home. Patient states she will have them filled at her own pharmacy. 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 Patient also has excessive skin overhanging the upper eyelids contributing the visual obstruction. Procedure: The patient was taken to the operating room and the upper eyelid creases were marked witha marking pen. The upper eyelids were injected with 2% Lidocaine along both upper eyelid creases. The patient was prepped and draped in the usual sterile fashion. The planned skin incision was outlinedwith a fine tipped marking pen. The incision was then made along the previously marked area. A moderate amount of skin was excised taking care to allow adequate closure and avoid lagophthalmos. Lauren scissors were then used to develop a plane over the septum. The septum was opened and a small amount of orbital fat was removed. Lev ator aponeurosis was then disinserted from the tarsus and a plane was developed between th aponeurosis and the underlying tarsus and jernigan's muscle. A 5-0 M[place] suture was then passed through thetarsus in a lamellar fashion and externalized through the levator aponeurosis. This was tied off in a temporary fashion and the patient was asked to sit up and the eyelids height and contour evaluated.This was repeated until a satisfactory height and contour were obtained,and two additional sutures were placed lateral to the initial suture.This resulted in a normal contour and height to the upper eyelids. Attempted overcorrection of 0.5mm was obtained. The redundant levator aponeurosis was then excised and the skin was then closed with running 6-0 fast absorbing suture. The patient left the operating room in stable condition. documented in this encounter Plan of Treatment Not on filedocumented as of this encounter Procedures Procedure Name Priority Date/Time Associated Diagnosis Comme nts REPAIR, PTOSIS, 06/06/2018 10:38 AM BILATERAL UPPER LI D BILATERAL CDT HERMATOCHALASIS AND MECHANICAL PTOSIS REPAIR LAB RESULT - HIM SCAN 05/29/2018 12:00 AM CDT EKG CARDIAC - HIM 05/29/2018 12:00 AM SCAN CDT documented in this encounter Results LAB RESULT - HIM SCAN (05/29/2018 12:00 AM CDT) Specimen (Source) Anatomical Location Collection Method / Collectio n Time Received Time / Laterality Volume 05/29/2018 Narrative This result has an attachment that is no t available. Provider Outside NON-BEAKER LAB TESTING EKG CARDIAC - HIM SCAN (05/29/2018 12:00 AM CDT) Specimen (Source) Anatomical Location Collection Method / Collectio n Time Received Time / Laterality Volume 05/29/2018 Narrative This result has an attachment that is no t available. Provider Outside ECG ORDERABLES documented in this encounter Visit Diagnoses Not on filedocumented in this encounter Administered Medications Inactive Administered Medications - up to 3 most recent administrations Medication Order MAR Action Action Date Dose Rate Site fentaNYL (PF) (SUBLIMAZE) Given 06/06/2018 12:10 PM CDT 50 mcg injection 25-50 mcg 25-50 mcg, Intravenous, EVERY 2 MIN PRN, other, acute pain, Starting on Sat06/06/18 at 1153, MAX cumulative dose = 250 mcg. Use fentaNYL (SUBLIMAZE) initially, as a short acting agent for acute pain control. If insufficient, or a longer acting agent is needed, begin morphine or HYDROmorphone (DILAUDID) if ordered. For ordered IV doses 1-100 mcg give IV Push undiluted over a minimum of 3-5 minutes., PACU HYDROcodone-acetaminophen (NORCO) 5-325 MG Given 06/06 1:51 PM CDT 1 tablet per tablet 1 tablet 1 tablet, Oral, ONCE, On Sat06/06/18 at 1400, For 1 dose, Maximum acetaminophen dose from all sources= 75 mg/kg/day not to exceed 4 grams, PACU HYDROmorphone (PF) (DILAUDID) injection 0.3-0.5 mg 0.3-0.5 mg, Intravenous, EVERY 5 MIN PRN , other, acute pain. ??May administer if Respiratory Rate is greater than 10, Starting on Sat at 1153, Max cumulative dose = 2 mg If fentaNYL (SUBL IMAZE) is also ordered, use HYDROmorphone (DILAUDID) if pain control insufficient with fentaNYL (SUBLIMAZE) or a longer acting agent is needed. For ordered IV doses 0.1-4 mg give IV Push undiluted. Administer each 2mg over 2-5 minutes., PACU lactated ringers infusion at 100 mL/hr, Intravenous, CONTINUOUS, C ontinue until IV catheter is weaned, PACU, Starting on Sat06/06/18 at 1200, Until Sat06/06/18 a t 1553 lidocaine 1 % 1 mL Given 06/06/2018 9:38 AM CDT 1 mL 1 mL, Other, EVERY 1 HOUR PRN, mild pain with VAD insertion or accessing implanted port, Starting on Sat06/06/18 at 0937, Do NOT give if patient has a history of allergy to any local anesthetic or any clara product. MAX dose 1 mL subcutaneous OR intradermal in divided doses., Pre-procedure naloxone (NARCAN) injection 0.1-0.4 mg 0.1-0.4 mg, Intravenous, EVERY 2 MIN PRN , opioid reversal, Starting on Sat06/06/18 at 1153, For 24 hours, For apnea or imminent respirato ry arrest: give 0.4 mg IV undiluted Q 2 minutes PRN until desired degree of reversal is obtained, stop opioid and notify provider. Continue monitoring until dischar ge criteria are met for a minimum of 2 hours. For severe sedation, decrease in respiratory depth, quality or respiratory rate less than 8: give 0.1 m g IV Q 2 minutes x 3 doses, stop opioid and notify provider. Try to minimize reversa l of analgesia especially in end-of-life patients For ordered IV doses 0.1-2mg gi ve IVP. Give each 0.4mg over 15 seconds in emergency situations. For non-emergent s ituations further dilute in 9mL of NS to facilitate titration of response., Post-procedure ondansetron (ZOFRAN) injection 4 mg 4 mg, Intravenous, EVERY 30 MIN PRN, oswald sea, Administer over 2-5 Minutes, Starting on Sat06/06/18 at 1153, For 2 doses, MA X total dose = 8 mg, including OR dosing. If not resolved in 15 minutes, then go t o step 2 [prochlorperazine (COMPAZINE), if ordered]. Irritant. For ordered IV doses 0.1-4 mg, give IV Push undiluted over 2-5 minutes., PACU ondansetron (ZOFRAN-ODT) ODT tab 4 mg 4 mg, Oral, EVERY 30 MIN PRN, nausea, Starting on Sat06/06/18 at 1153, For 2 doses, MAX total dose = 8 mg, including OR dosing. If not resolved in 15 minutes, then go to step 2 [prochlorperazine (COM PAZINE), if ordered]. With dry hands, peel back foil backing and gently remove tabl et; do not push oral disintegrating tablet through foil backing; administer immediately on tongue and oral disintegrating tablet dissolves in seconds; then swallo w with saliva; liquid not required., PACU prochlorperazine (COMPAZINE) injection 5 mg 5 mg, Intravenous, EVERY 6 HOURS PRN, nausea, vomiting , Administer over 1-2 Minutes, Starting on Sat06/06/18 at 1153, This is Zacarias p 2 of the nausea and vomiting protocol. If nausea not resolved in 15 minute s, give metoclopramide (REGLAN) if ordered (step 3 of nausea an d vomiting protocol) For ordered IV doses 0.1-10 mg, give IV Push undiluted. Each 5mg over 1 min lea., PACU documented in this encounter Active and Recently Administered Medications Times are shown in CDT. Scheduled Medication Order 06/04/2018 06/05/2018 06/06/2018 HYDROcodone-acetaminophen (NORCO) 5-325 MG per tablet 1 tablet ( COMPLETED) 1351 (Given - Provider: Jaja Kim RN) 1 tablet, Oral, ONCE, On Sat06/06/18 at 1400, For 1 dose, Maximum acetaminophen dose from all sources= 75 mg/kg/day not to exceed 4 grams, PACU Continuous Medication Order 06/04/2018 06/05/2018 06/06/2018 lactated ringers infusion 1200 ( Canceled Entry - Provider: Orders Generic Provider - Comment: Automatically canceled at discontinue of medication order) at 100 mL/hr, Intravenous, CONTINUOUS, C ontinue until IV catheter is weaned, PACU, Starting Sat06/06/18 at 1200, Until Sat06/06/18 at 1553 lactated ringers infusion (CANCELED) 1045 (New Bag - Provider: Consuelo Mejias APRN LUBE WORKER)1206 (Anesthesia Volume Adjustment - Provider: Anum Hitchcock APRN LUBE WORKER) at 25 mL/hr, Intravenous, CONTINUOUS, IF patient NOT on dialysis., Pre- procedure, Starting Sat06/06/18 at 0945, Until Sat06/06/18 at 1205 PRN Medication Order 06/04/2018 06/05/2018 06/06/2018 erythromycin (ROMYCIN) ophthalmic ointment (CANCELED) 1100 (Given - Provider: Jesus Hsu MD) PRN, Starting Sat06/06/18 at 1100, Intra-procedure fentaNYL (PF) (SUBLIMAZE) injection 25-50 mcg 1210 (Given - Provider: Antoinette Cortes RN) 25-50 mcg, Intravenous, EVERY 2 MIN PRN, Starting Sat06/06/18 at 1153, other, acute pain, MAX cumulative dose = 250 mcg. Use fentaNYL (SUBLIMAZE) initially, as a short acting agent for acute pain contr ol. If insufficient, or a longer acting agent is needed, begin morphine or HYDROmorphone (DILAUDID) if ordered. For ordered IV doses 1-100 mcg give IV Push undiluted over a minimum of 3-5 minutes., PACU HYDROmorphone (PF) (DILAUDID) injection 0.3-0.5 mg 0.3-0.5 mg, Intravenous, EVERY 5 MIN PRN , Starting Sat06/06/18 at 1153, Until Sat06/06/18 at 1553, other, acute pain. ??May administer if Respiratory Rate is greater than 10, PACU, Max cumulative dose = 2 mg If fentaNYL (SUBLIMAZE) is also ordered, use HYDROmorphone (DILAUDID) if pain control insufficient with fentaNYL (SUBLIMAZE) or a longer acting agent is needed. For ordered IV doses 0.1-4 mg giv e IV Push undiluted. Administer each 2mg over 2-5 minutes. lidocaine 1 % 1 mL (CANCELED) 09 38 (Given - Provider: Jaja Hitchcock RN) 1 mL, Other, EVERY 1 HOUR PRN, mild pain with VAD insertion or accessing implanted port, Starting Sat06/06/18 at 0937, Do NOT give if patient has a history of allergy to any local anesthetic or any ca ine product. MAX dose 1 mL subcutaneous OR intradermal in divided doses., Pre-procedure lidocaine 2%-EPINEPHrine 1:200,000 injection (CANCELED) 1100 (Given - Provider: Jesus Hsu MD)1101 (Given - Provider: Jesus Hus MD - Comment: injection) PRN, Starting Sat06/06/18 at 1100, Intra-procedure naloxone (NARCAN) injection 0.1-0.4 mg 0.1-0.4 mg, Intravenous, EVERY 2 MIN PRN , opioid reversal, Starting Sat06/06/18 at 1153, For 24 hours, For apnea or imminent respiratory arrest: give 0.4 mg IV undiluted Q 2 minutes PRN until desired d egree of reversal is obtained, stop opio id and notify provider. Continue monitoring until discharge criteria are met for a minimum of 2 hours. For severe sedation, decrease in respiratory depth, quality or respiratory rate less than 8: give 0 .1 mg IV Q 2 minutes x 3 doses, stop opioid and notify provider. Try to minimize reversal of analgesia especially in end-of-life patients For ordered IV doses 0.1 -2mg give IVP. Give each 0.4mg over 15 s econds in emergency situations. For non- emergent situations further dilute in 9mL of NS to facilitate titration of response., Post-procedure ondansetron (ZOFRAN) injection 4 mg(Linked Group 1) 4 mg, Intravenous, EVERY 30 MIN PRN, oswald sea, Administer over 2-5 Minutes, Starting Sat06/06/18 at 1153, For 2 doses, MAX total dose = 8 mg, including OR dosing. If not resolved in 15 minutes, then go t o step 2 [prochlorperazine (COMPAZINE), if ordered]. Irritant. For ordered IV doses 0.1-4 mg, give IV Push undiluted over 2-5 minutes., PACU ondansetron (ZOFRAN-ODT) ODT tab 4 mg(Linked Group 1) 4 mg, Oral, EVERY 30 MIN PRN, nausea, St arting Sat06/06/18 at 1153, For 2 doses, MAX total dose = 8 mg, including OR dosing. If not resolved in 15 minutes, then go to step 2 [prochlorperazine (COMPAZIN E), if ordered]. With dry hands, peel ba ck foil backing and gently remove tablet; do not push oral disintegrating tablet through foil backing; administer immediately on tongue and oral disintegrating ta blet dissolves in seconds; then swallow with saliva; l iquid not required., PACU prochlorperazine (COMPAZINE) injection 5 mg 5 mg, Intravenous, EVERY 6 HOURS PRN, na usea, vomiting, Administer over 1-2 Minutes, Starting Sat06/06/18 at 1153, This is Step 2 of the nausea and vomiting protocol. If nausea not resolved in 15 minut es, give metoclopramide (REGLAN) if orde red (step 3 of nausea and vomiting protocol) For ordered IV doses 0.1-10 mg, give IV Push undiluted. Each 5mg over 1 minute., PACU Linked Groups Order Group 1: ondansetron (ZOFRAN-ODT) ODT tab 4 mgJump to med 4 mg, Oral, EVERY 30 MIN PRN, nausea, St arting 06/06/18 at 1153, For 2 doses
MAX total dose = 8 mg, including OR dosing. If not resolved in 15 minutes, then go to step 2 [prochlorperazine ( COMPAZINE), if ordered]. With dry h ands, peel back foil backing and gently remove tablet; do not push oral disintegrating tablet through foil backing; administer immediately on tongue and oral disintegrating tablet dissolves in secon ds; then swallow with saliva; liquid not required.
PACU Or ondansetron (ZOFRAN) injection 4 mgJump to med 4 mg, Intravenous, EVERY 30 MIN PRN, oswald sea, Administer over 2-5 Minutes, Starting 06/06/18 at 1153, For 2 doses
MAX total dose = 8 mg, including OR dosing. If not resolved in 15 minutes, t hen go to step 2 [prochlorperazine (COMP AZINE), if ordered]. Irritant. For ordered IV doses 0.1-4 mg, give IV Push undiluted over 2-5 minutes.
PACU documented in this encounter Care Teams Gerentological Physiotherapist Relationship Specialty Start Date End Date Jennie Tomas PCP - General 09/01/12 05/14/19 [facility] [address] [place] [address] documented as of this encounter
--- OUTSIDE RECORDS SUMMARY | 2022-05-08 08:41 | XMS_ITS | Encounter Summary ---
:1940 Author Organization [facility] Address [address] [place] [id number] Care Team Providers Name Role Phone Jennie Tomas Primary Care Provider Encounter Details Date Type Department Care Team Description 09/06/[address] [facility] Nurse Codey Baumann, RN [facility] [address] [email or web address] [phone] Social History Tobacco Use Types Packs/Day Years [...] on file documented as of this encounter Miscellaneous Notes Telephone Encounter - Yasmine Baumann, RN - 09/06/2016 7:56 PM CST Call Type: Triage Call Presenting Problem: I am having a fast heart rate . For the past 20 minutes it's running 145-148. BP 122/68. I recently had a work up with a warehouse sorter because I had an abnormal EKG prior to a pre op. But he said everything was fine .But it's beating irregular and fast right now. Patient denies other sx at this time. Triaged and advised ER. Patient agrees. Triage Note: Guideline Title: Irregular Heartbeat Recommended Disposition: See ED Immediately Original Inclination: Wanted to speak with a nurse Override Disposition: Intended Action: Follow advice given Physician Contacted: No New onset of rapid pulse (greater than 120 beats/minute at rest) OR slow pulse (less than 50 beats per minute at rest) ? YES Loss of consciousness for any period of time ? NO New or worsening signs and symptoms that may indicate shock ? NO Signs of dehydration and pulse rate at rest greater than 100 beats/minute ? NO Currently having palpitations/irregular heartbeats AND severe breathing problems ? NO Has a pacemaker AND new symptoms of decreased cardiac output (episode of feeling faint, dizzy or fatigue, sudden slowing of pulse, or shortness of breath) ? NO Any other cardiac signs/symptoms for more than 5 minutes, now or within last hour. Pain is NOT associated with taking a deep breath or a productive cough, movement, or touch to a localized area on the chest or upper body. ? NO Sudden onset of rapid pulse (greater than 120 beats/minute at rest) OR slow pulse (less than 50 beats per minute at rest) with heat exposure (high temperature, high humidity, strenuous exercise) ? NO Physician Instructions: Care Advice: Another adult should drive. 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
--- OUTSIDE RECORDS SUMMARY | 2022-05-08 08:41 | XMS_ITS | Encounter Summary ---
:1940 Author Organization [place] Address [facility] [place] [address] Care Team Providers Name Role Phone Jennie Tomas Primary Care Provider Reason for Visit Auth/Cert - Closed Specialty Diagnoses / Procedures Referred By Contact Refer red To Contact Surgery Diagnoses interstitial cystitis, chronic Sh Periop Services Procedures COMBINED CYSTOSCOPY, RETROGRADES COMBINED CYSTOSCOPY, BIOPSY BLADDER COMBINED CYSTOSCOPY, FULGURATE BLEEDERS, EVACUATE CLOT(S) [address] [place] [address] Phone: Referral ID Status Reason Start Date Expiration Date Visits Requ ested Visits Authorized [id number] Closed 1 1 Encounter Details Date Type Department Care Team Description 09/11/2012 Surgery [facility], CYSTOSCOPY , BILATERAL [place] PeriOP MD Lisandra RETROGRADES, BLADDER Services [facility], FULGURATION [address] [place] [address] [place] [address] [phone] (Wo rk) Surgery Details Date/Time Status Location OR Service Patient Case Class Case Tr auma Class Type Case? 09/11/12 7:30 Posted OR OR [facility] Same Day AM Surgery Panel 1 Procedure LRB Anes Op Region Wound Class Commen ts CYSTOSCOPY, Bilateral General Urethra II-Clean CYSTOSCOPY, BILATERAL Contaminated BILATERAL RETROGRADES, RETROGRADES, BLADDER BIOPSY, BLADDER B IOPSY, FULGURATION FULGURATION cystoscopy, bladder Bilateral General Urethra II-Clean cysto scopy, biopsy and Contaminated bladder biop sy and fulgaration fulgaration Surgeon Surgeon Role Service Panel Lisandra Cannon MD Primary Urology 1 documented in this encounter Social History Tobacco Use Types Packs/Day Years Used Date Former Smoker Sex Assigned at Date Recorded Not on file documented as of this encounter Last Filed Vital Signs Vital Sign Reading Time Taken Comments Blood Pressure 91/54 09/11/2012 10:15 AM MACHINE BINDER STRIPPER Pulse - - Temperature 37.1 ??C (98.8 ??F) 09/11/2012 10:15 AM MACHINE BINDER STRIPPER Respiratory Rate 16 09/11/2012 10:15 AM MACHINE BINDER STRIPPER Oxygen Saturation 95% 09/11/2012 10:15 AM MACHINE BINDER STRIPPER Inhaled Oxygen Concentration - - Weight 76.2 kg (168 lb) 09/11/2012 6:36 AM MACHINE BINDER STRIPPER Height 170.2 cm (5' 7) 09/11/2012 6:36 AM MACHINE BINDER STRIPPER Body Mass Index 26.31 09/11/2012 6:36 AM MACHINE BINDER STRIPPER documented in this encounter Discharge Instructions Discharge InstructionsIsabela Pablo RN - 09/11/2012 8:17 AM CST Same Day Surgery Discharge Instructions For Sedation and General Anesthesia 1. It is not unusual to feel light-headed or faint, up to 24 hours after surgery or while taking pain medication. If you have these symptoms; sit for a few minutes before standing and have someone assist you when you get up to walk or use bathroom. 2. You should rest and relax for the next 24 hours and must make arrangements to have someone stay with you for at least 24 hours after your discharge. Avoid hazardous and strenuous activities. 3. DO NOT DRIVE any vehicle or operate mechanical equipment for 24 hours following the end of your surgery. Even though you feel normal, your reactions may be affected by the medication you have received. 4. Do not drink alcoholic beverages for 24 hours following your surgery. 5. Drink clear liquids (apple juice, nabila sol, broth, 7-up etc.) Progresses to your regular diet as you feel able. 6. Any questions of a medical nature, call your physician. 7. Do not make important decisions for 24 hours. Cystoscopy Discharge Instructions Diet: Return to the diet that you were on before the procedure, unless you are given specific diet instructions. It is important to drink 6-8 glasses of fluids per day at home - at least 3-4 glasses should be water. Activity: Walk short distances and increase as your strength allows. You may climb stairs. Do not do strenuous exercise or heavy lifting until approved by surgeon. Do not drive while taking narcotic pain medications. Bathing: You may take a shower. Call your physician at if these signs/symptoms are present: Pain that is not relieved by a short rest or ordered pain medications. Temperature at or above 101.0??F or chills. Inability or difficulty urinating. Excessive blood in urine. Any questions or concerns. Your follow up appointment is Nurse signature Date/Time Patient signature INE BINDER STRIPPER documented in this encounter Medications at Time of Discharge Medication Sig Dispensed Refills Start Date End Date fluticasone (VERAMYST) [place] 2 sprays into 0 27.5 MCG/SPRAY nasal both nostrils daily. spray omeprazole (PRILOSEC) 40 Take 40 mg by mouth [address] capsule every morning AMITRIPTYLINE HCL PO Take 10 mg by mouth 0 03/09/2015 At Bedtime. ciprofloxacin (CIPRO) 500 Take 1 tablet by 6 tablet 0 08/2003/09/2015 MG tabletIndications: IC mouth 2 times daily. (interstitial cystitis) CITALOPRAM HYDROBROMIDE Take 5 mg by mouth. 0 06/20/2016 PO HYDROcodone-acetaminophen Take 1 tablet by 20 tablet 0 08/2003/09/2015 5-325 MG per mouth every 6 hours tabletIndications: IC as needed for pain. (interstitial cystitis) Nebivolol HCl (BYSTOLIC Take 5 mg by mouth 0 06/20/2016 PO) daily. pentosan polysulfate Take 100 mg by mouth 0 04/08/2020 (ELMIRON) 100 MG capsule 2 times daily documented as of this encounter Progress Notes Lisandra Cannon MD - 09/16/2012 12:49 PM CST INE BINDER STRIPPER documented in this encounter H&P Notes Lisandra Cannon MD - 09/09/2012 11:57 AM CST INE BINDER STRIPPER documented in this encounter Nursing Notes Cheryl Mena RN - 09/11/2012 9:53 AM CST Blood pressure drop while on bedpan. Stayed in the 80/50s for several checks. Placed in flat position. IV rate increased. O2 on patient. Pt appears asymptomatic, as pulse and LOC remain stable. MDA notified. To give entire second liter of IVF before discharge. Patient tolerated juice and crackers. BP s tabilized. Will move to phase II. INE BINDER STRIPPER documented in this encounter OR Notes OR Anesthesia - Lisandra Cannon MD - 09/16/2012 10:14 AM CST INE BINDER STRIPPER documented in this encounter Miscellaneous Notes Brief Op Note - Lisandra Cannon MD - 09/11/2012 8:18 AM CST UROLOGY OPERATIVE REPORT PREOP DIAGNOSIS IC (interstitial cystitis) (primary encounter diagnosis) hematuria POSTOP DIAGNOSIS Same ANESTHESIA General PROCEDURE Procedure(s): COMBINED CYSTOSCOPY, RETROGRADES Bladder biopsy and fulguration hysdrodistention STAFF Nany Felix, REYNA - Interactive Project Manager Odalys Murillo - Scrub Person Dolores Field RN - Interactive Project Manager SURGEON Surgeon(s): Lisandra Cannon MD FINDINGS Enlarged blood vessels EBLmin Specimen: bladder lesions PLAN F/u in the office in 2-3 weeks Lisandra Cannon MD INE BINDER STRIPPER Op Note - Lisandra Cannon MD - 09/11/2012 8:17 AM CST PREOPERATIVE DIAGNOSIS: Interstitial cystitis, microscopic hematuria, pyuria. POSTOPERATIVE DIAGNOSIS: Interstitial cystitis, microscopic hematuria, pyuria. PROCEDURE: Cystoscopy, bilateral retrogrades, bladder biopsy and fulguration and hydrodistention. ANESTHESIA: General. ANTIBIOTICS: Preoperatively she received antibiotics. INDICATIONS FOR PROCEDURE: Bar Pollard is a 71-year-old female with a history of interstitial cystitis who has been taking Elmiron for that as well as bladder instillation. She presented to the clinic with a cystoscopy, suggestive of some ulcers in her bladder and I consented her for biopsy to ruleout CIS. She understands risks of the procedure including bleeding, infection, injury to surroundingorgans. Given her history of pyuria and microscopic hematuria also consented her for bilateral retrogrades at the same time. DETAILS OF THE PROCEDURE: Bar was brought to the operating room, placed in supine position. Afterexcellent induction of general anesthesia, her perineum was prepped and draped in the regular fashion. A 22-Ukrainian cystoscope was placed per urethra. Evaluation of the bladder demonstrated a significant amount of vascularity with very protruding enlarged vessels and conglomerate of vessels. There wereno obvious Hunner's ulcers identified. Initially upon stretching this, she did start having crackingof her bladder mucosa. Bilateral retrogrades were done that demonstrated no filling defect, no hydronephrosis, no hydroureters bilaterally. Some of the areas of conglomeration of the blood vessels appeared to be quite extreme and there was some erythema of the mucosal urothelium around those spots. I did a biopsy of those areas and sent it for pathology. I thoroughly fulgurated the site of the biopsy. Given her high vascularity, I do worry about bleeding 5-7 days after postop and the scab comes off.So I spent a lot of time fulgurating two sites of my biopsy. I also was able to visualize the prior sites of biopsy which were numerous throughout the bladder. At the completion, I measured bladder capacity which appears to be 650 cc upon gentle hydrodistention to 120 cm of pressure above her bladder.Her bladder was drained. 2% lidocaine jelly was introduced into the bladder after good hemostasis was achieved. She was wakened up, transported to the stretcher to the recovery room in stable condition. SPECIMENS: Bladder biopsy. LISANDRA CANNON MD MT: [id number] Name: BAR POLLARD Account: [id number] : 1940 Procedure Date: 09/11/2012 Document: [id number] INE BINDER STRIPPER documented in this encounter Plan of Treatment Not on filedocumented as of this encounter Procedures Procedure Name Priority Date/Time Associated Diagnosis Comme nts SURGICAL PATHOLOGY Routine 09/11/2012 7:51 AM Res ults for this EXAM MACHINE BINDER STRIPPER procedure are i n the results section. XR PYELOGRAM RETRO Routine 09/11/2012 7:50 AM Res ults for this SURGERY G/E 1 FILMS MACHINE BINDER STRIPPER procedur e are in the results section. CYSTOSCOPY, WITH 09/11/2012 7:22 AM interstitial BLADDER BIOPSY MACHINE BINDER STRIPPER cystitis, chronic CYSTOSCOPY, WITH 09/11/2012 7:22 AM interstitial RETROGRADE MACHINE BINDER STRIPPER cystitis, chronic PYELOGRAM documented in this encounter Results Surgical pathology exam (09/11/2012 7:51 AM MACHINE BINDER STRIPPER) Component Value Ref Test Analysis Performed At [facility] Range Method Time Signature Copath Report Patient Name: BAR POLLARD MR#: [id number] Specimen #: [id number] Collected: 09/11/2012 Received: 09/11/2012 Reported: 09/12/2012 15:49 Ordering Phy(s): LISANDRA CANNON SPECIMEN(S): Bladder lesion FINAL DIAGNOSIS: Bladder, lesion, biopsy showing - ?1. ??Chronic cystitis. ?2. ??No evidence of dysplasia or malignancy. Electronically signed out by: Jomar Mcgowan M.D. CLINICAL HISTORY: Interstitial cystitis, chronic. GROSS: The specimen is labeled bladder lesion. ??The specimen con sists of 2 pink-red tissue fragments ranging from 0.2 cm up to 0.4 cm. ??The specimen is entirely submitted in 1 cassette. ??SI ??TRS/luz MICROSCOPIC: The sections show benign urothelial mucosa with edema of the lamina propria and aggregates of lymphocytes in the deep aspect of the lamina propria. ??The deep aspect of the specimen shows a few fiber s of benign smooth muscle. ??One of the fragments shows absence of the s urface epithelium with the underlying stroma showing moderate numbe rs of scattered chronic inflammatory cells. DGB/tw 09/12/2012 TESTING LAB LOCATION: [address] ??[id number] COLLECTION SITE: Client: [facility] Location: [facility] (S) Specimen Anatomical Collection Method Collection Time Receive d Time (Source) Location / / Volume Laterality 09/11/2012 7:51 AM 3 9:10 MACHINE BINDER STRIPPER AM MACHINE BINDER STRIPPER Lisandra Cannon MD [facility] Organization Address City/State/ZIP Code Phon e Number COPATH X-ray Surgery retro pylogram G/E 1 films (09/11/2012 7:50 AM MACHINE BINDER STRIPPER) Anatomical Region Laterality Modality Abdomen/Pelvis Computed Radiography Specimen (Source) Anatomical Collection Method Collection Time Re ceived Time Location / / Volume Laterality 09/11/2012 7:50 AM MACHINE BINDER STRIPPER Narrative 09/11/2012 4:26 PM MACHINE BINDER STRIPPER SURGERY RETROGRADE PYELOGRAM ONE OR MORE FILMS September 11, 2012 7:50 AM HISTORY: Chronic interstitial cystitis. OR 18, Fluoro time 19 seconds. COMPARISON: None. FINDINGS: Five AP spot views of the abdo men from the cystoscopy suite are presented. The first three films william w retrograde contrast injection of the left ureter with normal -appearing ureter and left renal collecting system. No filling defe cts or obstruction. Final two films show retrograde injection of the r ight ureter with no filling defects or evidence for obstruction. ARUN PEOPLES MD Procedure Note Arun Peoples MD - 09/11/2012Fo rmatting of this note might be different from the original. SURGERY RETROGRADE PYELOGRAM ONE OR MORE FILMS September 11, 2012 7:50 AM HISTORY: Chronic interstitial cystitis. OR 18, Fluoro time 19 seconds. COMPARISON: None. FINDINGS: Five AP spot views of the abdo men from the cystoscopy suite are presented. The first three films william w retrograde contrast injection of the left ureter with normal -appearing ureter and left renal collecting system. No filling defe cts or obstruction. Final two films show retrograde injection of the r ight ureter with no filling defects or evidence for obstruction. ARUN PEOPLES MD Lisandra Cannon MD IMG DIAGNOSTIC IMAGING ORDER TAMI documented in this encounter Visit Diagnoses Not on filedocumented in this encounter Administered Medications Inactive Administered Medications - up to 3 most recent administrations Medication Order MAR Action Action Date Dose Rate Site acetaminophen (OFIRMEV) 10 Given 09/11/2012 8:25 AM 1,000 mg 4 00 mL/hr mg/mL infusion 1,000 mg MACHINE BINDER STRIPPER 1,000 mg, Intravenous, at 400 mL/hr, ONCE, Administer over 15 Minutes, On Viola 09/11/12 at 0830, For 1 dose, Maximum dose of acetaminophen is 4000 mg from all sources., Post-procedure fentaNYL (SUBLIMAZE) injection 25-50 mcg Given 09/11/2012 9:59 AM MACHINE BINDER STRIPPER 25 mcg 25-50 mcg, Intravenous, EVERY 2 MIN PRN, other, acute pain while in PACU., Starting on Viola 09/11/12 at 0813, MAX cumulative dose = 250 mcg. Use Fentanyl initially, as a short acting agent for acute pain control. If insufficient, or a longer acting agent is needed, begin Morphine or Hydromorphone if ordered., PACU Given 09/11/2012 9:09 AM MACHINE BINDER STRIPPER 25 mcg Given 09/11/2012 8:23 AM MACHINE BINDER STRIPPER 50 mcg HYDROcodone-acetaminophen 5-325 MG per Given 09/11/2012 9:51 AM MACHINE BINDER STRIPPER 1 tablet tablet 1 tablet 1 tablet, Oral, ONCE, On Viola 09/11/12 at 1000, For 1 dose, PACU iopamidol (ISOVUE-300) IV Given 09/11/2012 7:45 AM 12 mLs Operative Site/Surgical solution 61% MACHINE BINDER STRIPPER Site PRN, Starting on Viola 09/11/12 at 0745, Supplied and administered by Radiology., Intra-procedure lactated ringers infusion New Bag 09/11/2012 9:33 AM MACHINE BINDER STRIPPER 1,000 mLs 100 mL/hr at 100 mL/hr, Intravenous, CONTINUOUS, Continue until IV catheter is weaned, PACU/Phase II, Starting on Viola 09/11/12 at 0815, Until Viola 09/11/12 at 1043 lidocaine 2 % (Uro-Jet) Given 09/11/2012 8:02 AM 10 mLs Operative Site/Surgical jelly MACHINE BINDER STRIPPER Site PRN, Starting on Viola 09/11/12 at 0802, Intra-procedure sterile water irrigation Given 09/11/2012 7:54 AM 3,000 mLs Operative (bag) MACHINE BINDER STRIPPER Site/Surgical S ite PRN, Intra-procedure, Starting on Viola 09/11/12 at 0745, Until Viola 09/11/12 at 1043 Given 09/11/2012 7:45 AM MACHINE BINDER STRIPPER 3,000 mLs Opera tive Site/Surgical Site documented in this encounter Active and Recently Administered Medications Times are shown in MACHINE BINDER STRIPPER. Scheduled Medication Order 09/09/2012 09/10/2012 09/11/2012 acetaminophen (OFIRMEV) 10 mg/mL infusion 1,000 mg (COMPLETED) 08 (Given - Provider: Isabela Pablo, RN) 1,000 mg, Intravenous, at 400 mL/hr, ONC E, Administer over 15 Minutes, On Viola 09/11/12 at 0830, For 1 dose, Maximum dose of acetaminophen is 4000 mg from all sources., Post-procedure ciprofloxacin (CIPRO) 400 mg in dextrose 5% 200 mL IVPB (COMPLET ED) 0730 (Due)0731 (Given - Provider: Damari Messer, VICTORIAN LITERATURE PROFESSOR LEATHER WORKER) 400 mg, Intravenous, PRE-OP/PRE-PROCEDUR E, First dose on Viola 09/11/12 at 0730, For 1 dose, Pre-procedure HYDROcodone-acetaminophen 5-325 MG per tablet 1 tablet (COMPLETE D) 0951 (Given - Provider: Cheryl Mena, RN) 1 tablet, Oral, ONCE, On Viola 09/11/12 at 1000, For 1 dose, PACU Continuous Medication Order 09/09/2012 09/10/2012 09/11/2012 lactated ringers infusion (CANCELED) 0933 (New Bag - Provider: Yuly Flores, REYNA) at 100 mL/hr, Intravenous, CONTINUOUS, C ontinue until IV catheter is weaned, PACU/Phase II PRN Medication Order 09/09/2012 09/10/2012 09/11/2012 fentaNYL (SUBLIMAZE) injection 25-50 mcg (CANCELED) 0823 (Given - Provider: Isabela Pablo, REYNA)0909 (Given - Provider: Cheryl Mena, REYNA)0959 (Given - Provider: Cheryl Mena RN) 25-50 mcg, Intravenous, EVERY 2 MIN PRN, Starting Viola 09/11/12 at 0813, other, acute pain while in PACU., MAX cumulative dose = 250 mcg. Use Fentanyl initially, as a short acting agent for acute pain con trol. If insufficient, or a longer actin g agent is needed, begin Morphine or Hydromorphone if ordered., PACU iopamidol (ISOVUE-300) IV solution 61% (CANCELED) 0745 (Given - Provider: Lisandra Cannon MD) PRN, Starting Viola 09/11/12 at 0745, Suppl ied and administered by Radiology., Intra-procedure lidocaine 2 % (Uro-Jet) jelly (CANCELED) 0802 (Given - Provider: Nany Felix RN) PRN, Starting Viola 09/11/12 at 0802, Intra-procedure sterile water irrigation (bag) (CANCELED) 0745 (Given - Provider: Lisandra Cannon MD)0754 (Given - Provider: Lisandra Cannon MD) PRN, Intra-procedure documented in this encounter Care Teams Tax Intern Relationship Specialty Start Date End Date Jennie Tomas PCP - General 09/01/12 05/14/19 [place] [address] [address], [place] [address] documented as of this encounter
--- OUTSIDE RECORDS SUMMARY | 2022-05-08 08:41 | XMS_ITS | Encounter Summary ---
:1940 Author Organization [place] Address [address] [place] [address] Care Team Providers Name Role Phone Jennie Tomas Primary Care Provider Reason for Visit Reason Comments Other Encounter Details Date Type Department Care Team Description 09/18/2016 Documentation Only Hon[facility] Nia Fajardo [address] [facility] [address] [address] Social History Tobacco Use Types Packs/Day [...] filedocumented as of this encounter Visit Diagnoses Diagnosis Advance care planning - Primary Other specified counseling documented in this encounter Care Teams Carbon Paper Coating Machine Setter Relationship Specialty Start Date End Date Jennie Tomas PCP - General 09/01/12 05/14/19 [facility] [address] [place] [address] documented as of this encounter
--- OUTSIDE RECORDS SUMMARY | 2022-05-08 08:41 | XMS_ITS | Encounter Summary ---
:1940 Author Organization [place] Address Formerly [facility] [place] [address] Care Team Providers Name Role Phone Jennie Tomas Primary Care Provider Reason for Visit Auth/Cert - Closed Specialty Diagnoses / Procedures Referred By Contact Refer red To Contact Surgery Diagnoses interstitial cystitis, chronic Sh Periop Services Procedures COMBINED CYSTOSCOPY, RETROGRADES COMBINED CYSTOSCOPY, BIOPSY BLADDER COMBINED CYSTOSCOPY, FULGURATE BLEEDERS, EVACUATE CLOT(S) [address] [place] [address] Phone: Referral ID Status Reason Start Date Expiration Date Visits Requ ested Visits Authorized [id number] Closed 1 1 Encounter Details Date Type Department Care Team Description 09/11/2012 Hospital Encounter [facility] INDERJIT Greer ( interstitial Corina Fry MD cystitis) (Primary PreOP/Phase II [place] Dx) [address], UROLOGY [address] [place] [address] [facility] [phone] [place] [address] Social History Tobacco Use Types Packs/Day Years Used Date Former Smoker Sex Assigned at Date Recorded Not on file documented as of this encounter Last Filed Vital Signs Vital Sign Reading Time Taken Comments Blood Pressure 91/54 09/11/2012 10:15 AM [facility] Pulse - - Temperature 37.1 ??C (98.8 ??F) 09/11/2012 10:15 AM [facility] [employer] Respiratory Rate 16 09/11/2012 10:15 AM [facility] [employer] Oxygen Saturation 95% 09/11/2012 10:15 AM [facility] [employer] Inhaled Oxygen Concentration - - Weight 76.2 kg (168 lb) 09/11/2012 6:36 AM [facility] [employer] Height 170.2 cm (5' 7) 09/11/2012 6:36 AM [facility] Body Mass Index 26.31 09/11/2012 6:36 AM [facility] [employer] documented in this encounter Discharge Instructions Discharge [...] appointment is Nurse signature Date/Time Patient signature [employer] [employer] documented in this encounter Medications at Time of Discharge Medication Sig Dispensed Refills Start Date End Date fluticasone (VERAMYST) [place] 2 sprays into 0 27.5 MCG/SPRAY nasal [...] as of this encounter Progress Notes Lisandra Greer MD - 09/16/2012 12:49 PM CST [employer] [employer] documented in this encounter H&P Notes Lisandra Greer MD - 09/09/2012 11:57 AM CST [employer] documented in this encounter Nursing Notes Cheryl [...] s tabilized. Will move to phase II. [employer] documented in this encounter OR Notes OR Anesthesia - Lisandra Greer MD - 09/16/2012 10:14 AM CST [employer] documented in this encounter Miscellaneous Notes Brief Op Note - Lisandra Greer MD - 09/11/2012 8:18 AM CST UROLOGY OPERATIVE REPORT PREOP DIAGNOSIS IC (interstitial cystitis) (primary encounter diagnosis) hematuria POSTOP DIAGNOSIS Same ANESTHESIA General PROCEDURE Procedure(s): COMBINED CYSTOSCOPY, RETROGRADES Bladder biopsy and fulguration hysdrodistention STAFF Nany Felix RN - Commercial Hvac Service Technician Odalys Murillo - Scrub Person Dolores Field RN - Commercial Hvac Service Technician SURGEON Surgeon(s): Lisandra Greer MD FINDINGS Enlarged blood vessels EBLmin Specimen: bladder lesions PLAN F/u in the office in 2-3 weeks Lisandra Greer MD [employer] [employer] Op Note - Lisandra Greer MD - 09/11/2012 8:17 AM CST PREOPERATIVE DIAGNOSIS: Interstitial cystitis, microscopic hematuria, pyuria. POSTOPERATIVE DIAGNOSIS: Interstitial cystitis, microscopic hematuria, pyuria. PROCEDURE: Cystoscopy, bilateral retrogrades, bladder biopsy and fulguration and hydrodistention. ANESTHESIA: General. ANTIBIOTICS: Preoperatively she received antibiotics. INDICATIONS FOR PROCEDURE: Bar Carrera is a 71-year-old female with a history [...] and draped in the regular fashion. A 22-[place] Zealander cystoscope was placed per urethra. Evaluation of [...] in stable condition. SPECIMENS: Bladder biopsy. LISANDRA GREER MD MT: [id number] Name: BAR CARRERA MRN: [id number] Account: [id number] : 1940 Procedure Date: 09/11/2012 Document: [id number] [employer] documented in this encounter Plan of Treatment Not on filedocumented as of this encounter Procedures Procedure Name Priority Date/Time Associated Diagnosis Comme nts SURGICAL PATHOLOGY Routine 09/11/2012 7:51 AM Res ults for this EXAM [facility] [employer] procedure are i n the results section. XR PYELOGRAM RETRO Routine 09/11/2012 7:50 AM Res ults for this SURGERY G/E 1 FILMS [facility] [employer] procedur e are in the results section. CYSTOSCOPY, WITH 09/11/2012 7:22 AM interstitial BLADDER BIOPSY [facility] [employer] cystitis, chronic CYSTOSCOPY, WITH 09/11/2012 7:22 AM interstitial RETROGRADE [facility] [employer] cystitis, chronic PYELOGRAM documented in this encounter Results Surgical pathology exam (09/11/2012 7:51 AM [employer] [employer]) Component Value Ref Test Analysis Performed At [facility] Method Time Signature Copath Report Patient Name: BAR CARRERA MR#: [id number] Specimen #: [id number] Collected: 09/11/2012 Received: 09/11/2012 Reported: 09/12/2012 15:49 Ordering Phy(s): LISANDRA GREER SPECIMEN(S): Bladder lesion FINAL DIAGNOSIS: Bladder, lesion, [...] inflammatory cells. DGB/tw 09/12/2012 TESTING LAB LOCATION: [address] ??[address] COLLECTION SITE: Client: [facility] Location: [facility] (S) Specimen Anatomical Collection Method Collection Time Receive d Time (Source) Location / / Volume Laterality 09/11/2012 7:51 AM 3 9:10 [facility] AM [facility] Performing Organization Address City/State/ZIP Code Phon e Number COPATH X-ray Surgery retro pylogram G/E 1 films (09/11/2012 7:50 AM [facility] [employer]) Anatomical Region Laterality Modality Abdomen/Pelvis Computed Radiography Specimen (Source) Anatomical Collection Method Collection Time Re ceived Time Location / / Volume Laterality 09/11/2012 7:50 AM [facility] [employer] Narrative 09/11/2012 4:26 PM [facility] [employer] SURGERY RETROGRADE PYELOGRAM ONE OR MORE FILMS [...] evidence for obstruction. ARUN PEOPLES MD Lisandra Greer MD IMG DIAGNOSTIC IMAGING ORDER TAMI documented in this encounter Visit Diagnoses Diagnosis IC (interstitial cystitis) - Primary Chronic interstitial cystitis documented in this encounter Administered Medications Inactive Administered Medications - up to 3 most recent administrations Medication Order MAR Action Action Date Dose Rate Site acetaminophen (OFIRMEV) 10 Given 09/11/2012 8:25 AM 1,000 mg 4 00 mL/hr mg/mL infusion 1,000 mg [facility] [employer] 1,000 mg, Intravenous, at 400 mL/hr, ONCE, Administer over 15 Minutes, On Viola 09/11/12 at 0830, For 1 dose, Maximum dose of acetaminophen is 4000 mg from all sources., Post-procedure fentaNYL (SUBLIMAZE) injection 25-50 mcg Given 09/11/2012 9:59 AM [facility] [employer] 25 mcg 25-50 mcg, Intravenous, EVERY 2 MIN PRN, other, acute pain while in PACU., Starting on Viola 09/11/12 at 0813, MAX cumulative dose = 250 mcg. Use Fentanyl initially, as a short acting agent for acute pain control. If insufficient, or a longer acting agent is needed, begin Morphine or Hydromorphone if ordered., PACU Given 09/11/2012 9:09 AM [facility] [employer] 25 mcg Given 09/11/2012 8:23 AM [facility] [employer] 50 mcg HYDROcodone-acetaminophen 5-325 MG per Given 09/11/2012 9:51 AM [employer] [employer] 1 tablet tablet 1 tablet 1 tablet, Oral, ONCE, On Viola 09/11/12 at 1000, For 1 dose, PACU lactated ringers infusion New Bag 09/11/2012 9:33 AM [facility] [employer] 1,000 mLs 100 mL/hr at 100 mL/hr, Intravenous, CONTINUOUS, Continue until IV catheter is weaned, PACU/Phase II, Starting on Viola 09/11/12 at 0815, Until Viola 09/11/12 at 1043 documented in this encounter Active and Recently Administered Medications Times are shown in [facility] [employer]. Scheduled Medication Order 09/09/2012 09/10/2012 09/11/2012 acetaminophen (OFIRMEV) 10 mg/mL infusion 1,000 mg (COMPLETED) 08 (Given - Provider: Isabela Pablo RN) 1,000 mg, Intravenous, at 400 mL/hr, ONC E, Administer over 15 Minutes, On Viola 09/11/12 at 0830, For 1 dose, Maximum dose of acetaminophen is 4000 mg from all sources., Post-procedure ciprofloxacin (CIPRO) 400 mg in dextrose 5% 200 mL IVPB (COMPLET ED) 0730 (Due)0731 (Given - Provider: Damari Messer APRN CRNA) 400 mg, Intravenous, PRE-OP/PRE-PROCEDUR E, First dose on Viola 09/11/12 at 0730, For 1 dose, Pre-procedure HYDROcodone-acetaminophen 5-325 MG per tablet 1 tablet (COMPLETE D) 0951 (Given - Provider: Cheryl Mena, ERYNA) 1 tablet, Oral, ONCE, On Viola 09/11/12 at 1000, For 1 dose, PACU Continuous Medication Order 09/09/2012 09/10/2012 09/11/2012 lactated ringers infusion (CANCELED) 0933 (New Bag - Provider: Yuly Flores RN) at 100 mL/hr, Intravenous, CONTINUOUS, C ontinue until IV catheter is weaned, PACU/Phase II PRN Medication Order 09/09/2012 09/10/2012 09/11/2012 fentaNYL (SUBLIMAZE) injection 25-50 mcg (CANCELED) 0823 (Given - Provider: Isabela Pablo RN)0909 (Given - Provider: Cheryl Mena, REYNA)0959 (Given [...] 61% (CANCELED) 0745 (Given - Provider: Lisandra Greer MD) PRN, Starting Viola 09/11/12 at 0745, Suppl ied and administered by Radiology., Intra-procedure lidocaine 2 % (Uro-Jet) jelly (CANCELED) 0802 (Given - Provider: Nany Felix RN) PRN, Starting Viola 09/11/12 at 0802, Intra-procedure sterile water irrigation (bag) (CANCELED) 3128 (Given - Provider: Lisandra Greer MD)1203 (Given - Provider: Lisandra Greer MD) PRN, Intra-procedure documented in this encounter Care Teams Registration Clerk Relationship Specialty Start Date End Date Jennie Tomas PCP - General 09/01/12 05/14/19 [address] [address] [address] [address] documented as of this encounter
--- OUTSIDE RECORDS SUMMARY | 2022-05-08 08:41 | XMS_ITS | Encounter Summary ---
:1940 Author Organization [facility] Address [address] [place] [address] Care Team Providers Name Role Phone Jennie Tomas Luzma Primary Care Provider Reason for Visit Reason Comments Dizziness Encounter Details Date Type Department Care Team Description 03/09/2015 Emergency [facility] Sandip Hitchcock, BPP V (benign [facility] MD paroxysmal positional Dept [facility] vertigo) [address] [place] [address] [place] [id number] [address] [place] [address] (Wo rk) Social History Tobacco Use Types Packs/Day Years Used Date Former Smoker Sex Assigned at Date Recorded Not on file documented as of this encounter Last Filed Vital Signs Vital Sign Reading Time Taken Comments Blood Pressure 119/71 03/09/2015 1:00 PM CDT Pulse 66 03/09/2015 12:14 PM CDT Temperature 36.7 ??C (98 ??F) 03/09/2015 12:14 PM CDT Respiratory Rate 18 03/09/2015 1:00 PM CDT Oxygen Saturation 95% 03/09/2015 1:15 PM CDT Inhaled Oxygen Concentration - - Weight - - Height - - Body Mass Index - - documented in this encounter Discharge Instructions Discharge InstructionsTrinidad Mckenzie - 03/09/2015 1:40 PM CDT Images from the original note were not included. Benign Positional Vertigo The inner ear is located behind the middle ear. It is a part of the balance center of the body. It contains small calcium particles within fluid filled canals (semi-circular canals). These particles can move out of position as a result of aging, head trauma or disease of the inner ear. Once that happens, movement of the head into certain positions may cause the particles to stimulate the inner ear and create the feeling of vertigo. Vertigo is a false feeling of motion (as if you or the room is spinning). A vertigo attack may causesudden nausea, vomiting and heavy sweating. Severe vertigo causes a loss of balance and may result in falling. During an attack of vertigo, head movement and body position changes will worsen symptoms. An episode of vertigo may last seconds, minutes or hours. Once you are over the first episode of vertigo, it may never return. Sometimes symptoms recur off and on over several weeks or longer. Home Care: ?? If symptoms are severe, rest quietly in bed. Change positions slowly. There is usually one position that will feel best, such as lying on one side or lying on your back with your head slightly raised on pillows. ?? Do not drive or work with dangerous machinery for one week after symptoms disappear, in case of asudden return of symptoms. ?? Take medicine as prescribed to relieve your symptoms. Unless another medicine was prescribed for nausea, vomiting and vertigo, you may use oout-umk-anmecjs motion sickness pills, such as meclizine (Bonine, Bonamine, Antivert) or dimenhydrinate (Dramamine). Follow Up with your doctor or as directed by our staff. Report any persistent ringing in the ear or hearing loss to your doctor. [NOTE: If you had a CT or MRI scan, it will be reviewed by a specialist. You will be notified of anynew findings that may affect your care.] Get Prompt Medical Attention if any of the following occur: ?? Worsening of vertigo not controlled by the medicine prescribed ?? Repeated vomiting not controlled by the medicine prescribed ?? Increased weakness or fainting ?? Severe headache or unusual drowsiness or confusion ?? Weakness of an arm or leg or one side of the face ?? Difficulty with speech or vision ?? Seizure ?? [id number] [employer]. [address] [place] [address], [place] [address]. All rights reserved. This information is not intended as a substitute for professional medical care. Always follow your healthcare professional's instructions. Your blood pressure was checked while you were in the emergency department today. The last reading we obtained was 119/71. Please read the guidelines below about what these numbers mean and what you should do about them. If your systolic blood pressure (the top number) is less than 120 and your diastolic blood pressure (the bottom number) is less than 80, then your blood pressure is normal. There is nothing more that you need to do about it. If your systolic blood pressure (the top number) is 120-139 or your diastolic blood pressure (the bottom number) is 80-89, your blood pressure may be higher than it should be. You should have your blood pressure rechecked within a year by a primary care provider. If your systolic blood pressure (the top number) is 140 or greater or your diastolic blood pressure (the bottom number) is 90 or greater, you may have high blood pressure. High blood pressure is treatable, but if left untreated over time it can put you at risk for heart attack, stroke, or kidney failure. You should have your blood pressure rechecked by a primary care provider within the next 4 weeks. If your provider in the emergency department today gave you specific instructions to follow-up with your doctor or provider even sooner than that, you should follow that instruction and not wait for upto 4 weeks for your follow-up visit. documented in this encounter Medications at Time of Discharge Medication Sig Dispensed Refills Start Date End Date fluticasone (VERAMYST) [place] 2 sprays into 0 27.5 MCG/SPRAY nasal both nostrils daily. spray omeprazole (PRILOSEC) 40 Take 40 mg by mouth [address] capsule every morning CITALOPRAM HYDROBROMIDE Take 5 mg by mouth. 0 06/20/2016 PO Nebivolol HCl (BYSTOLIC Take 5 mg by mouth 0 06/20/2016 PO) daily. pentosan polysulfate Take 100 mg by mouth 0 04/08/2020 (ELMIRON) 100 MG capsule 2 times daily documented as of this encounter ED Notes Thierno Campbell RN - 03/09/2015 12:30 PM CDT Shopping at [employer] - became dizzy - lowered self to ground EMS > oxygen - perked up At present I feel fine Sandip Hitchcock MD - 03/09/2015 12:16 PM CDT History Chief Complaint: Dizziness HPI Milla Pollard is a 74 year old female who presents to the ED with dizziness. The patient reports that she was at [facility] today walking down an isle when she suddenly had a shocking instant dizziness and fell to the side. The patient subsequently caught herself and decided to sit down to alleviate her symptoms. She then noticed her left zoroastrian was numb and still didn't feel right, prompting EMS to be called. While waiting for EMS the patient checked for stroke symptoms by lifting her arms up and smiling. Here in the ED the patient says that her dizziness has subsided, but is still experiencingsome numbness on the left side of her head, specifically in her left ear. She describes her dizziness as a spinning where everything around her is moving. Her notes that last night she was complaining of a sore throat briefly after spraying herbicides on plants outside. Later in the evening after she had gone to sleep the patient reports that she woke up with severe nasal congestion and was unable to breath out of her nose. She denies any fever, chills, nausea, vomiting, diarrhea, syncope, headache, weakness, and visual disturbance. Allergies: Sulfa drugs- hives Vancomycin- hives Medications: Amitriptyline Citalopram hydrobromide po Fluticasone Nebivolol Omeprazole po Hydrocodone-acetaminophen Ciprofloxacin Past Medical History: Arrhythmia Allergic rhinitis due to allergen Asthma GERD Arthritis Past Surgical History: Tonsillectomy & adenoidectomy Tubal ligation Diag imp mammo dig bilat Colonoscopy Appendectomy Cystoscopy, biopsy bladder Social History: Marital Status: [2] Smoking status: former smoker Review of Systems Constitutional: Negative for fever and chills. HENT: Positive for congestion. Eyes: Negative for visual disturbance. Gastrointestinal: Negative for nausea, vomiting and diarrhea. Neurological: Positive for dizziness and numbness (left zoroastrian and left ear). Negative for syncope, weakness and headaches. Physical Exam Patient Vitals for the past 24 hrs: BP Temp Temp src Pulse Resp SpO2 03/09/15 1214 133/72 mmHg 98 ??F (36.7 ??C) Oral 66 18 97 % Physical Exam CONSTITUTIONAL: EYES: No scleral icterus, no conjunctival injection. No nystagmus. EOM's full. Visual turcios full toconfrontation. EENT: Oral mucous membranes moist. Both TM's have a slightly blunted cone of light from serous otitis RESP: Normal effort. Auscultation reveals normal breath sounds. CV: Rate is normal . Rhythm is regular . Murmur is absent. MSK: Spine is non-tender. Left upper extremity: grossly normal. Right upper extremity: grossly normal. Left lower extremity: grossly normal. Right lower extremity: grossly normal. Neuro: GCS 15. No facial droop with mimetic muscle testing. No focal extremity paresis. Romberg negative. FNF normal. 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 Gait: normal Emergency Department Course Laboratory: CBC: WNL (WBC 4.8, HGB 12.5, PLT 124 (L)) BMP: glucose 102 (H), WNL (Creatinine 0.64) Emergency Department Course: The patient arrived in the emergency department via EMS. Past medical records, nursing notes, and vitals reviewed. (1216) I performed an exam of the patient as documented above. IV inserted and blood drawn. I personally reviewed the laboratory results with the Patient and answered all related questions prior to discharge. Findings and plan explained to the Patient. Patient discharged home with instructions regarding supportive care, medications, and reasons to return. The importance of close follow-up was reviewed. Impression & Plan Medical Decision Making: This 74 year old female had an episode of severe vertigo that lasted only a few minutes before spontaneously resolving. Her neurological exam is negative for any signs of stroke. She shows no signs of nystagmus. She has minimal to no symptoms of vertigo at this time and has a stable and normal gait. Her laboratory studies are normal. My sense is that this episode of transient vertigo was BPPV. The patient describes having had severe nasal congestion last night which leads credence to the idea that this is a peripheral rather than a central vertigo issue. She was discharged home and was given instructions as to things to watch out for in terms of things that could represent stroke, otherwise she may follow up with primary care tomorrow. Plan: Discharge to home. Primary care follow up tomorrow as needed. Diagnosis: ICD-10-CM ICD-9-CM 1. BPPV (benign paroxysmal positional vertigo) H81.10 386.11 Trinidad Mckenzie 03/09/2015 EMERGENCY DEPARTMENT I, Trinidad Mckenzie, am serving as a scribe at 12:37 PM on 03/09/2015 to document services personally performed by Sandip Hitchcock MD based on my observations and the provider's statements to me. Sandip Hitchcock MD 03/09/15 2201 Thierno Campbell, REYNA - 03/09/2015 12:08 PM CDT Bed: ED29 Expected date: Expected time: Means of arrival: Comments: 594 to room 29--weakness documented in this encounter Plan of Treatment Not on filedocumented as of this encounter Procedures Procedure Name Priority Date/Time Associated Comments Diagnosis CBC WITH PLATELETS & STAT 03/09/2015 12:50 Res ults for this DIFFERENTIAL PM CDT procedure are i n the results section. BASIC METABOLIC PANEL STAT 03/09/2015 12:50 Re sults for this PM CDT procedure are i n the results section. documented in this encounter Results (ABNORMAL) Basic metabolic panel (03/09/2015 12:50 PM CDT) [facility] Method Time Signature Sodium 138 133 - 144 [place] mmol/L [facility] Potassium 3.9 3.4 - 5.3 [place] mmol/L [facility] Chloride 104 94 - 109 [place] mmol/L [facility] Carbon Dioxide 28 20 - 32 [place] mmol/L [facility] Anion Gap 6 3 - 14 [place] mmol/L [facility] Glucose 102 (H) 70 - 99 [place] mg/dL [facility] Urea Nitrogen 8 7 - 30 [place] mg/dL [facility] Creatinine 0.64 0.52 - [place] 1.04 [facility] mg/dL [facility] GFR Estimate >90 >60 [place] Non GFR Calc mL/min/1. [address] GFR Estimate >90 >60 [place] If Black GFR Calc mL/min/1. [place] [id number] [facility] Calcium 9.3 8.5 - [place] 10.1 [facility] mg/dL HOSPITAL Specimen Anatomical Collection Method Collection Time Receive d Time (Source) Location / / Volume Laterality Blood specimen 03/09/2015 12:50 5 (specimen) PM CDT 12:51 PM CDT Sandip Hitchcock MD LAB - BLOOD ORDERABLES Performing Organization Address City/State/ZIP Code Phon e Number M [facility] [address] [place] [address] [facility] [address] [address], [place] [phone] (ABNORMAL) CBC with platelets + differential (03/09/2015 12:50 PM CDT) [facility] gist Method Time Signature WBC 4.8 4.0 - [place] 11.0 [facility] 10e9/L [facility] RBC Count 3.89 3.8 - 5.2 [place] 10e12/L [facility] Hemoglobin 12.5 11.7 - [place] 15.7 g/dL [facility] Hematocrit 37.0 35.0 - [place] 47.0 % [facility] MCV 95 78 - 100 [facility] MCH 32.1 26.5 - [place] 33.0 pg [facility] MCHC 33.8 31.5 - [place] 36.5 g/dL [facility] RDW 13.9 10.0 - [place] 15.0 % [facility] Platelet Count 124 (L) 150 - 450 [place] 10e9/L [facility] Diff Method Automated [place] Method [facility] % Neutrophils 53.2 % [facility] % Lymphocytes 36.4 % [facility] % Monocytes 8.1 % [facility] % Eosinophils 1.7 % [facility] % Basophils 0.4 % [facility] % Immature 0.2 % [place] Granulocytes [facility] Absolute 2.6 1.6 - 8.3 [place] Neutrophil 10e9/L [facility] Absolute 1.8 0.8 - 5.3 [place] Lymphocytes 10e9/L [facility] Absolute 0.4 0.0 - 1.3 [place] Monocytes 10e9/L [facility] Absolute 0.1 0.0 - 0.7 [place] Eosinophils 10e9/L [facility] Absolute 0.0 0.0 - 0.2 [place] Basophils 10e9/L [facility] Abs Immature 0.0 0 - 0.4 [place] Granulocytes 10e9/[facility] Specimen Anatomical Collection Method Collection Time Receive d Time (Source) Location / / Volume Laterality Blood specimen 03/09/2015 12:50 5 (specimen) PM CDT 12:51 PM CDT Sandip Hitchcock MD LAB - BLOOD ORDERABLES Performing Organization Address City/State/ZIP Code Phon e Number M [facility] [address] [place] [address] [phone] [facility] [address] [address], [facility] [phone] documented in this encounter Visit Diagnoses Diagnosis BPPV (benign paroxysmal positional verti go) Benign paroxysmal positional vertigo documented in this encounter Care Teams Toll Gate Keeper Relationship Specialty Start Date End Date Jennie Tomas PCP - General 09/01/12 05/14/19 [facility] [address] [place] [address] documented as of this encounter
--- OUTSIDE RECORDS SUMMARY | 2022-05-08 08:41 | XMS_ITS | Encounter Summary ---
:1940 Author Organization [place] Address [address] 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 Sh Periop Services Procedures REPAIR PTOSIS BILATERAL [address] [place] [address] Phone: Referral ID Status Reason Start Date Expiration Date Visits Requ ested Visits Authorized [id number] 1 1 Encounter Details Date Type Department Care Team Description 06/06/2018 Surgery [facility] Jesus Hsu B ILATERAL UPPER LID [place] [facility]ANICAL [facility] [place] OPHTHALMIC PLAST PTOSIS REPAIRS [address] [place] [address] [address] [place] [address] (Wo rk) Surgery Details Date/Time Status Location OR Service Patient Case Case Traum a Class Class Type Case? 06/06/18 9:45 Posted Z SH SD SD 22 Ophthalmology Same Day AM Surgery Panel 1 Procedure LRB Anes Op Region Wound Class Commen ts BILATERAL UPPER LID Bilateral MAC Eye I-Clean BILAT ERAL UPPER LID PTOSIS AND MECHANICAL PTO SIS AND MECHANICAL PTOSIS REPAIRS PTOSIS REP AIRS Surgeon Surgeon Role Service Panel Jesus Hsu MD Primary Ophthalmology 1 documented in this encounter Social History [...] know so they can address your concerns. [facility] Eyelid/Orbital Surgery Discharge Instructions Jesus [...] an infection (greenish/yellow discharge or progressive redness). [facility] [place] [address] [place], [place] [address] Dr. Hsu has prescribed [place]/Vicodin for pain for you. It's a combination [...] 0 10 MG tablet daily fluticasone (VERAMYST) [place] 2 sprays into 0 27.5 MCG/SPRAY nasal [...] dressed, up in recliner and transported to [facility] 2. 1300 Awaiting scripts that were given [...] MAR Action Action Date Dose Rate Site erythromycin (ROMYCIN) Given 06/06/2018 11:00 2 g Operative ophthalmic ointment AM CDT Site/Surgical S ite PRN, Starting on Sat06/06/18 at 1100, Intra-procedure fentaNYL (PF) (SUBLIMAZE) injection 25-50 Given 06/06/2018 12:10 PM CDT 50 mcg mcg 25-50 mcg, Intravenous, EVERY 2 MIN [...] intradermal in divided doses., Pre-procedure lidocaine 2%-EPINEPHrine Given 06/06/2018 11:01 AM 5 mLs Operative Site/Surgical 1:200,000 injection CDT Site PRN, Starting on Sat06/06/18 at 1100, Intra-procedure Given 06/06/2018 11:00 AM CDT 5 mLs Oper ative Site/Surgical Site naloxone (NARCAN) injection 0.1-0.4 mg 0.1-0.4 mg, [...] (New Bag - Provider: Consuelo Mejias APRN MAINTENANCE OPERATOR)1206 (Anesthesia Volume Adjustment - Provider: Anum Hitchcock APRN MAINTENANCE OPERATOR) at 25 mL/hr, Intravenous, CONTINUOUS, IF patient [...] mL (CANCELED) 09 38 (Given - Provider: Jjaa Hitchcock RN) 1 mL, Other, EVERY 1 [...] Jesus Hsu MD)1101 (Given - Provider: Jesus Hsu MD - Comment: injection) PRN, Starting Sat06/06/18 [...] St arting 06/06/18 at 1153, For 2 doses, MAX total [...] usea, vomiting, Administer over 1-2 Minutes, Starting 06/06/18 at 1153, This is Step 2 of [...] Minutes, Starting Sat06/06/18 at 1153, For 2 doses
MAX total dose = 8 mg, including OR dosing. If not resolved in 15 minutes, t hen go to step 2 [prochlorperazine (COMP AZINE), if ordered]. Irritant. For ordered IV doses 0.1-4 mg, give IV Push undiluted over 2-5 minutes.
PACU documented in this encounter Care Teams Manager Adobe Relationship Specialty Start Date End Date Jennie Tomas PCP - General 09/01/12 05/14/19 [facility] [address] [place] [address] documented as of this encounter
[2022-05-08 14:05] LABS: Albumin* 4.4 g/dL (3.3-5.0)
[2022-05-08 14:06] LABS: Chloride* 100 mmol/L (96-114); Potassium* 4.2 mmol/L (3.6-5.1); Sodium* 137 mmol/L (135-149)
[2022-05-08 14:08] LABS: Bilirubin Total* 0.4 mg/dL (0.1-1.5); Carbon Dioxide* 32 mmol/L (20-32); Cholesterol* 200 mg/dL (90-199); Creatinine* 0.7 mg/dL (0.5-1.5); Estimated Glomerular Filt Rate 87 ml/min; Total Protein* 6.5 g/dL (6.0-8.3)
[2022-05-08 14:09] LABS: Alanine Aminotransferase* 22 U/L (4-35); Alkaline Phosphatase* 57 U/L (40-150); Aspartate Amino Transferase* 25 U/L (12-35); Blood Urea Nitrogen* 9 mg/dL (7-30); Calcium* 9.6 mg/dL (8.4-10.6); Glucose* 105 mg/dL (60-115); HDL Cholesterol* 86 mg/dL (>=50); LDL Cholesterol Calculated 86 mg/dL (<100); Triglycerides* 138 mg/dL (40-149)
== END 2022-05-08 08:35 | disposition home or self-care (01) ==
PROVIDERS: PCP Family Medicine; Visit Provider Family Medicine
DX: Z00.00 Encounter for general adult medical examination without abnormal findings (principal); D69.6 Thrombocytopenia, unspecified; E78.5 Hyperlipidemia, unspecified; J44.9 Chronic obstructive pulmonary disease, unspecified; Z79.899 Other long term (current) drug therapy
CPT/HCPCS: 80053; 80061

== ENCOUNTER 2022-11-13 10:20 | Outpatient (CLI) | payer MEDICARE, OTHER, SELFPAY | END 2022-11-13 10:21 | disposition home or self-care (01) | PROVIDERS: PCP Family Medicine; Visit Provider Family Medicine | DX: Z01.818 Encounter for other preprocedural examination (principal); I47.1 Supraventricular tachycardia; M81.0 Age-related osteoporosis without current pathological fracture; Z79.899 Other long term (current) drug therapy | CPT/HCPCS: 80048; 83735; 84100 ==

== ENCOUNTER 2023-05-23 12:27 | Outpatient (CLI) | payer MEDICARE, OTHER, SELFPAY ==
--- NOTE | 2023-05-23 13:00 | CRLHL7_ITS ---
For Patients: As a result of the Century Cures Act, medical imaging exams and procedure reports are released immediately into your electronic medical record. You may view this report before your referring provider. If you have questions, please contact your health care provider. BILATERAL SCREENING MAMMOGRAM WITH COMPUTER-AIDED DETECTION AND TOMOSYNTHESIS TECHNIQUE: CC, MLO and Implant displaced views were obtained. These mammographic images have been obtained using full-field digital technique. These mammographic images were interpreted with the benefit of computer-aided detection. Breast Tomosynthesis was used in this interpretation. COMPARISON FILM: 03/01/21, 09/21/19, 04/03/18. FINDINGS: There are scattered areas of fibroglandular density IMPRESSION: There is no radiographic evidence for malignancy. ASSESSMENT: BI-RADS Category 2: Benign RECOMMENDATION: Routine screening mammogram in 1 year. A lay language report of this examination will be provided to the patient. Yao Vega M.D. Diagnostic Radiologist [email or web address] [place]RRAEL/Dictated by: Yao Vega MD @ 05/24/2023 11:42:00 AM (Electronically Signed)
--- NOTE | 2023-05-23 13:30 | CRLHL7_ITS ---
For Patients: As a result of the Century Cures Act, medical imaging exams and procedure reports are released immediately into your electronic medical record. You may view this report before your referring provider. If you have questions, please contact your health care provider. DXA BONE MINERAL DENSITY STUDY Reason for exam: Osteoporosis. Current height (in): 66.5. Weight (lb): 140.0. Menopause age: 56. Ethnicity: White. 1. Have you had a previous hip or vertebral fracture? No. 2. Have you had any fractures during your adult life which did not result from significant trauma (e.g., auto accident)? No. 3. Did either of your parents have a hip fracture? No. 4. Do you smoke? No. 5. Have you ever taken Glucocorticoids? No. 6. Do you have rheumatoid arthritis? No. 7. Do you have secondary osteoporosis? No. 8. Do you drink 3 or more alcoholic drinks per day? No. 9. Are you being treated for osteoporosis? No. 10. Have you ever taken any of the following medications: Actonel, Evista, Fosamax, Miacalcin, Reclast, Boniva, Forteo, HRT (i.e. estrogen/hormone therapy), Protelos, Prolia, Vitamin D, Calcium, other ??? please specify. ANSWER: Yes, Fosamax, vitamin D, Prolia, calcium. 11. Do you have any of the following medical conditions: Anorexia or bulimia, asthma or emphysema, end stage renal disease, hyperparathyroidism, any seizure disorders, cancer, inflammatory bowel diseases, hysterectomy, other ??? please specify. ANSWER: Yes, asthma, emphysema. 12. What was your maximum height (inches)? 66.5. 13. Do you perform weight bearing exercise regularly? Yes. 14. Do you regularly consume dairy products? Yes. 15. Do you drink caffeinated beverages? Yes. 16. At what age did your period start? 15. 17. Are you premenopausal? No. 18. How many full term pregnancies have you had? 2. 19. Have you ever missed your period for more than 6 months in a row (not including or menopause)? No. TECHNIQUE: Bone mineral density study was performed using the [employer]. FINDINGS: The results of the study expressed as bone mineral density (BMD) are as follows: Lumbar spine L1 to L4 (L3): BMD: 0.936 g/cm2. T-score: -0.9. Z-score: 1.8. Neck Left: BMD: 0.621 g/cm2. T-score: -2.1. Z-score: 0.3. Right: BMD: 0.605 g/cm2. T-score: -2.2. Z-score: 0.2. Total Left: BMD: 0.798 g/cm2. T-score: -1.2. Z-score: 1.0. Right: BMD: 0.782 g/cm2. T-score: -1.3. Z-score: 0.8. IMPRESSION: Osteopenia. *Comparison exams done prior to 01/2020 were performed on different unit, [employer]. COMPARISON: Compared with scan of 2020, the bone mineral density has increased by 7.3 percent at the spine and increased by 11.3 percent at the hip. Compared with scan of 2019, the bone mineral density has increased by 1.2 percent at the spine decreased by 2.4 percent at the hip. Yao Vega M.D. Diagnostic Radiologist [email or web address] RICK/jaydon / be/Dictated by: Yao Vega MD @ 05/24/2023 10:50:00 AM (Electronically Signed)
== END 2023-05-23 12:28 | disposition home or self-care (01) ==
LOC: MAMMO 12:28
PROVIDERS: PCP Family Medicine; Visit Provider Family Medicine
DX: Z12.31 Encounter for screening mammogram for malignant neoplasm of breast (principal); M81.0 Age-related osteoporosis without current pathological fracture; M85.89 Other specified disorders of bone density and structure, multiple sites
CPT/HCPCS: 77063; 77067; 77080

== ENCOUNTER 2023-05-24 09:07 | Outpatient (CLI) | payer MEDICARE, OTHER, SELFPAY ==
[2023-05-24 15:29] LABS: Lab Add On Test New Spec Needed
== END 2023-05-24 09:08 | disposition home or self-care (01) ==
PROVIDERS: PCP Family Medicine; Referring Provider Family Medicine; Visit Provider Family Medicine
DX: Z00.00 Encounter for general adult medical examination without abnormal findings (principal); E78.00 Pure hypercholesterolemia, unspecified; K21.9 Gastro-esophageal reflux disease without esophagitis; M81.0 Age-related osteoporosis without current pathological fracture; N30.10 Interstitial cystitis (chronic) without hematuria; Z79.899 Other long term (current) drug therapy
CPT/HCPCS: 80053; 80061; 84100

== ENCOUNTER 2023-07-02 12:20 | Outpatient (CLI) | payer MEDICARE, OTHER, SELFPAY | END 2023-07-02 12:21 | disposition home or self-care (01) | PROVIDERS: PCP Family Medicine; Visit Provider Family Medicine | DX: E78.00 Pure hypercholesterolemia, unspecified (principal); D69.6 Thrombocytopenia, unspecified; M81.0 Age-related osteoporosis without current pathological fracture; F32.A Depression, unspecified; G25.81 Restless legs syndrome; Z79.899 Other long term (current) drug therapy | CPT/HCPCS: 82306; 84443; 85651 ==

== ENCOUNTER 2023-07-30 12:43 | Outpatient (CLI) | payer MEDICARE, OTHER, SELFPAY | END 2023-07-30 12:44 | disposition home or self-care (01) | LOC: LKVREF 12:45 | PROVIDERS: PCP Family Medicine; Visit Provider Family Medicine | DX: R10.9 Unspecified abdominal pain (principal); R05.9 Cough, unspecified | CPT/HCPCS: 80053 ==

== ENCOUNTER 2023-12-23 09:43 | Outpatient (CLI) | payer MEDICARE, OTHER, SELFPAY ==
--- OUTSIDE RECORDS SUMMARY | 2023-12-25 09:28 | XMS_ITS | Clinical Summary ---
Author Name Unknown Organization [facility] Address [place], [place] [address] Care Team Providers Care Scow Hand Name Role Phone Jennie Tomas RENNY Primary Care Provider [phone] Allergies Active Allergy Reactions Criticality Noted Date Comments Sulfa (Sulfonamide Antibiotics) Hives 10/28/2010 Vancomycin Hives 10/28/2010 Venom-Yellow Jacket Other - Describe In Comment Field 07/04/2015 Throat felt like it was going to close Medications Medication Sig Dispensed Refills Start Date End Date Status omeprazole (PRILOSEC) 40 mg capsule Take 1 capsule by mouth once daily. 0 10/28/2010 Active alendronate (FOSAMAX) 70 mg tablet Take 1 tablet by mouth once a week in the morning. Take on empty stomach with full glass of water. Do not lie down for 1 hr. 0 10/28/2010 Active fluticasone, 50 mcg per actuation, nasal (FLONASE) 50 mcg/Actuation nasal spray Inhale 1 [place] into both nostrils once daily. 1 Bottle 0 10/28/2010 Active fluticasone (FLOVENT HFA) 110 mcg/Actuation inhaler Inhale 1 Puff by mouth 2 times daily. 0 10/28/2010 Active benzonatate (TESSALON) 200 mg capsule Take 200 mg by mouth 3 times daily if needed. 04/16/2015 Active SYMBICORT 80-4.5 mcg/actuation (80-4.5 mcg each actuation) inhaler Inhale 80 mcg by mouth 2 times daily. 2 puffs 05/29/2015 Active traZODone (DESYREL) 50 mg tablet Take 50 mg by mouth at bedtime. 05/29/2015 Active albuterol HFA (PRO-AIR,VENTOLIN,P ROVENTIL) 90 mcg/actuation inhaler Inhale 2 Puffs by mouth 4 times daily if needed. 0 07/04/2015 Active simvastatin (ZOCOR) 5 mg tablet Take 5 mg by mouth at bedtime. 04/18/2015 Active multivitamin capsule Take 1 capsule by mouth once daily. 0 07/04/2015 Active azelastine 137 mcg/actuation (ASTELIN) nasal spray [place] 1 spray each nostril daily 1 Bottle 0 07/04/2015 Active cholecalciferol (VITAMIN D) 1,000 unit tablet Take 1 tablet by mouth once daily. 0 07/04/2015 Active Calcium carbonate (OYST[place]HELL CALCIUM) 500 mg tablet Takes 2 tablets daily 0 07/04/2015 Active cetirizine (ZYRTEC) 10 mg tablet Take 1 tablet by mouth once daily. 0 01/02/2016 Active escitalopram oxalate (LEXAPRO) 5 mg tablet Take 1 tablet by mouth once daily. 0 12/24/2016 Active pentosan polysulfate (ELMIRON) 100 mg capsule Take 1 capsule by mouth twice daily. 0 12/24/2016 Active EPINEPHrine (EPIPEN) 0.3 mg/0.3 mL injectionIndication s:Bee allergy status Inject 0.3 mg intramuscular one time if needed for Allergic Reaction for up to 1 dose. 2 Each 2 12/24/2016 Active EPINEPHrine (EPIPEN) 0.3 mg/0.3 mL injectionIndication s:Bee sting allergy Use as directed 2 Each 1 01/16/2018 Active verapamil SR (CALAN SR) 120 mg Sustained-Release tablet Take 1 tablet by mouth once daily with a meal. 0 01/16/2018 Active Social History Tobacco Use Types Packs/Day Years Used Date Smoking Tobacco: Former Cigarettes 0.1 10 1 962 - 1971 Smokeless Tobacco: Never Tobacco Cessation:Counseling Given: Yes Sex and Gender Information Value Date Recorded Sex Assigned at Not on file Gender Identity Not on file Sexual Orientation Not on file Obstetrics History Last Filed Vital Signs Vital Sign Reading Time Taken Comments Blood Pressure 115/70 12/23/2017 9:47 AM CDT tow er Pulse 68 12/23/2017 9:47 AM CDT Temperature 36.7 ??C (98 ??F) 12/24/2016 11:29 AM CDT Respiratory Rate - - Oxygen Saturation 95% 12/23/2017 9:47 AM CDT Inhaled Oxygen Concentration - - Weight 74.2 kg (163 lb 8 oz) 12/23/2017 9:47 AM CDT Height 169.8 cm (5' 6.85) 12/24/2016 11:29 AM C DT Body Mass Index 25.72 12/24/2016 11:29 AM CDT Plan of Treatment Health Maintenance Due Date Last Done Comments Tdap 1952 Depression screening for age 12+ 1953 Tetanus booster 1961 Zoster (shingles) series for age 50+ (1 of 2) 12/23/1991 DEXA/DXA scan for age 65+ 2006 Pneumococcal series for age 65+ (1 of 1 - PCV) 2006 BMI (ht and wt on same day) for age 18+ 12/24/2017 12/24/2016, 01/02/2016 COVID-19 vaccine series (2022-24 season) 2023 01/23/2023, 05/18/2022, 01/12/2022, Additional history exists Influenza for age 65+ 04/19/2024 Care Teams Scow Hand Relationship Specialty Start Date End Date Jennie Tomas NP PCP - General Nurse Practitioner 02/17/16
--- OUTSIDE RECORDS SUMMARY | 2023-12-25 09:29 | XMS_ITS | Clinical Summary ---
Author Name Unknown Organization [facility] Address [address] [place] [address] Care Team Providers Care Salvage Machine Operator Name Role Phone Ganesh Sifuentes MD Primary Care Provider [phone] Allergies Active Allergy Reactions Criticality Noted Date Comments Sulfa Antibiotics Hives 09/10/2012 Vancomycin Hives 09/11/2012 Honey Bee Venom Anaphylaxis High 06/16/2016 Medications Medication Sig Dispensed Refills Start Date End Date Status fluticasone (VERAMYST) 27.5 MCG/SPRAY nasal spray [place] 2 sprays into both nostrils daily. Active omeprazole (PRILOSEC) [address] capsule Take 40 mg by mouth every morning Active EPINEPHrine 0.3 MG/0.3ML injection 2-pack Inject 0.3 mg into the muscle as needed for anaphylaxis Active traZODone (DESYREL) 50 MG tablet Take 50 mg by mouth At Bedtime Active Calcium Citrate-Vitamin D (CALCIUM + D PO) Take 2 tablets by mouth daily Active Vitamin D (Cholecalciferol) 25 MCG (1000 UT) TABS Take 1,000 Units by mouth daily Active Multiple Vitamins-Minerals (MULTIVITAMIN ADULT PO) Take 1 tablet by mouth daily Active albuterol (PROAIR HFA/PROVENTIL HFA/VENTOLIN HFA) 108 (90 Base) MCG/ACT inhaler Inhale 2 puffs into the lungs every 6 hours as needed Active escitalopram (LEXAPRO) 10 MG tablet Take 10 mg by mouth daily Active RESTASIS 0.05 % ophthalmic emulsion Place 1 drop into both eyes 2 times daily 01/26/2020 Active ADVAIR DISKUS 250-50 MCG/DOSE inhaler Inhale 1 puff into the lungs 2 times daily 02/28/2020 Active raloxifene (EVISTA) 60 MG tablet Take 1 tablet by mouth daily 02/17/2020 Active rosuvastatin (CRESTOR) 5 MG tablet Take 5 mg by mouth At Bedtime 03/12/2020 Active INCRUSE ELLIPTA 62.5 MCG/INH Inhaler Inhale 1 puff into the lungs daily 02/03/2020 Active verapamil ER (CALAN-SR) 120 MG CR tablet Take 120 mg by mouth daily 01/08/2020 Active sodium bicarbonate 8.4 % injection DRAW UP 3 ML, FOR USE IN HOME BLADDER INSTILLATIONS. 11/14/2019 Active lidocaine 2 % injection Draw up 10mL of LidoCANE 2% AND mix with 3mL of Sodium Bicarb. Put in sterile cup for bladder instillation. 01/26/2020 Active famotidine (PEPCID) 20 MG tabletIndications:G astroesophageal reflux disease without esophagitis Take 1 tablet (20 mg) by mouth every morning 30 tablet 04/09/2020 Active sucralfate (CARAFATE) 1 GM tabletIndications:G astroesophageal reflux disease without esophagitis Take 1 tablet (1 g) by mouth 3 times daily as needed for nausea (reflux) 60 tablet 04/09/2020 Active Resolved Problems Problem Noted Date Diagnosed Date Resolved Date Advance care planning 09/18/20162019 Overview: Advance Care Planning 09/18/2016: Receipt of ACP document: Received: invalid HCD document dated 10/30/13. Document not previously scanned. Validation form completed indicating invalid document. Copy sent to client with information and facilitation resources. Validation form sent to be scanned as notation of invalid document received. Confirmed/documented designated decision maker(s). Added by Nia Murray Advance Care Planning Liaison Social History Tobacco Use Types Packs/Day Years Used Date Smoking Tobacco: Former Cigarettes Q uit: 08/19/1972 Smokeless Tobacco: Never Alcohol Use Standard Drinks/Week Comments Yes 0 (1 standard drink = 0.6 oz pur e alcohol) occasionally Adolescent Education Answer Date Record ed Getting School Help Needed Not on file 05/10 Sex and Gender Information Value Date Recorded Sex Assigned at Not on file Gender Identity Not on file Sexual Orientation Not on file Last Filed Vital Signs Vital Sign Reading Time Taken Comments Blood Pressure 122/53 04/09/2020 10:32 AM CDT Pulse 76 04/09/2020 10:32 AM CDT Temperature 36.2 ??C (97.1 ??F) 04/09/2020 10:32 AM C DT Respiratory Rate 18 04/09/2020 10:32 AM CDT Oxygen Saturation 94% 04/09/2020 10:32 AM CDT Inhaled Oxygen Concentration - - Weight 69.2 kg (152 lb 9.6 oz) 04/08/2020 3:40 P M CDT Height 170.2 cm (5' 7) 04/08/2020 3:40 PM CDT Body Mass Index 23.9 04/08/2020 3:40 PM CDT Plan of Treatment Health Maintenance Due Date Last Done Comments ANNUAL REVIEW OF HM ORDERS 1941 DEXA 1941 RSV VACCINE ( & 60+) (1 - 1-dose 60+ series) 2001 FALL RISK ASSESSMENT 2006 MEDICARE ANNUAL WELLNESS VISIT 2006 ZOSTER IMMUNIZATION (3 of 3) 03/18/2019 01/21/2019, 05/19/2010 LIPID 04/09/2021 04/09/2020 PHQ-2 (once per calendar year) 2023 COVID-19 Vaccine (2022- season) 2023 05/24/2023, 01/23/2023, 05/18/2022, Additional history exists ADVANCE CARE PLANNING 04/22/2025 04/22/2020 , 04/22/2020, 07/23/2018, Additional history exists DTAP/TDAP/TD IMMUNIZATION (3 - Td or Tdap) 02/02/2031 02/02/2021, 05/19/2011 INFLUENZA VACCINE Completed 05/24/2023, , 06/13/2021, Additional history exists Pneumococcal Vaccine: 65+ Years Completed 07/02/2023, 09/01/2015, 08/22/2015, Additional history exists HPV IMMUNIZATION Aged Out No longer e ligible based on patient's age to complete this topic IPV IMMUNIZATION Aged Out No longer e ligible based on patient's age to complete this topic MENINGITIS IMMUNIZATION Aged Out No l onger eligible based on patient's age to complete this topic RSV MONOCLONAL ANTIBODY Aged Out No l onger eligible based on patient's age to complete this topic Procedures Procedure Name Priority Date/Time Associated Diagnosis Comments LIPID REFLEX TO DIRECT LDL PANEL Routine 04/09/2020 5:21 AM CDT Chest pain from Last 3 Months or Most Recently Relevant to Health Maintenance Results * Lipid panel reflex to direct LDL (04/09/2020 5:21 AM CDT) Cholesterol 160 <200 mg/dL 04/09/2020 5:[address] [facility] Triglycerides 59 <150 mg/dL 04/09/2020 5:[address] [facility] HDL Cholesterol 81 >49 mg/dL 0 6:[address] [facility] LDL Cholesterol Calculated 67 <100 mg/dL 04/09/2020 6:[address] [facility] Comment:Desirable: <100 mg/d l Non HDL Cholesterol 79 <130 mg/dL 04/09/2020 6:[address] [facility] Blood specimen (specimen) 04/09/2020 5:21 AM CDT 04/09/2020 5:22 AM CDT Nia Jimenez PA-C LAB - BLOOD MAN [facility] [address] [place] [id number] [phone] from Last 3 Months or Most Recently Relevant to Health Maintenance Advance Directives For more information, please contact: [phone] Documents on File Type Date Recorded Patient Photonics Engineering Technologist Expl anation Advance Directives and Living Will 04/22/2020 2:29 PM Health Care Directiv e 10/18/2019 * No CPR- Do NOT Intubate (Latest Code Status on File) Date Activated Date Inactivated Comments 04/09/2020 10:20 AM Advanced Dire ctive obtained and copies made Question Answer Comments Code status determined by: Discussion with patie nt/ legal decision maker * No CPR- Do NOT Intubate Date Activated Date Inactivated Comments 04/08/2020 5:39 PM 04/09/2020 10:20 AM NO basic or advanced life-sustaining interventions are performed Question Answer Comments Code status determined by: Discussion with micheale nt/ legal decision maker * Full Code Date Activated Date Inactivated Comments 04/08/2020 3:40 PM 04/08/2020 5:39 PM All basic an d advanced life-sustaining interventions are performed as appropriate Question Answer Comments Code status determined by: Discussion with micheale nt/ legal decision maker Healthcare Agents on File Name Relationship Healthcare Agent Relationship Communication Tao Pollard Spouse Health Care Agent Concepción Barber Daughter First Alternate Health Care Agent Care Teams Salvage Machine Operator Relationship Specialty Start Date End Date Ganesh Sifuentes MD PCP - General Family Practice 05/15/19
--- OUTSIDE RECORDS SUMMARY | 2023-12-25 09:30 | XMS_ITS | Referral Summary ---
Author Name Unknown Organization [facility] Address [address] [place] [address] Care Team Providers Care Four Roll Calender Operator Name Role Phone Ganesh Sifuentes MD Primary Care Provider [phone] Allergies Active Allergy Reactions Criticality Noted Date Comments Sulfa Antibiotics Hives 09/10/2012 Vancomycin Hives 09/11/2012 Honey Bee Venom Anaphylaxis High 06/16/2016 Medications Medication Sig Dispensed Refills Start Date End Date Status fluticasone (VERAMYST) 27.5 MCG/SPRAY nasal spray [place] 2 sprays into both nostrils daily. Active [...] 04/08/2020 3:40 PM CDT Plan of Treatment Not on file Procedures Procedure Name Priority Date/Time Associated Diagnosis Comments LIPID REFLEX TO DIRECT LDL PANEL Routine 04/09/2020 5:21 AM CDT Chest pain from Last 3 Months or Most Recently Relevant to Health Maintenance Results * Lipid panel reflex to direct LDL (04/09/2020 5:21 AM CDT) Cholesterol 160 <200 mg/dL 04/09/2020 5:58 AM CDT [facility] Triglycerides 59 <150 mg/dL 04/09/2020 5:58 AM CDT [facility] HDL Cholesterol 81 >49 mg/dL 0 6:01 AM T [facility] LDL Cholesterol Calculated 67 <100 mg/dL 04/09/2020 6:01 AM T [facility] Comment:Desirable: <100 mg/d l Non HDL Cholesterol 79 <130 mg/dL 04/09/2020 6:01 AM CDT [facility] Blood specimen (specimen) 04/09/2020 5:21 AM CDT 04/09/2020 5:22 AM CDT Nia Jimenez PA-C LAB - BLOOD MAN [facility] [address] [place] [id number], [facility] [phone] from Last 3 Months or Most Recently Relevant to Health Maintenance Advance Directives For more information, please contact: [phone] Documents on File Type Date Recorded 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 Field 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 anation Advance Directives and Living Will [...] with patie nt/ legal decision maker * Full Code Date Activated Date Inactivated Comments 04/08/2020 3:40 PM 04/08/2020 5:39 PM All basic an d advanced life-sustaining interventions are performed as appropriate Question Answer Comments Code status determined by: Discussion with patie nt/ legal decision maker Healthcare Agents on File Name Relationship Healthcare Agent Relationship Communication Tao Pollard Spouse Health Care Agent Concepción Barber Daughter First Alternate Health Care Agent Care Teams Four Roll Calender Operator Relationship Specialty Start Date End Date Ganesh Sifuentes MD PCP - General Family Practice 05/15/19
== END 2023-12-23 09:44 | disposition home or self-care (01) ==
LOC: NFLDREF 12-25 09:26
PROVIDERS: PCP Family Medicine; Referring Provider Family Medicine; Visit Provider Family Medicine
DX: M81.0 Age-related osteoporosis without current pathological fracture (principal); N39.0 Urinary tract infection, site not specified; B96.20 Unspecified Escherichia coli [E. coli] as the cause of diseases classified elsewhere
CPT/HCPCS: 80048; 83735; 84100; 87086; 87186

== ENCOUNTER 2024-04-27 08:16 | Outpatient (CLI) | payer MEDICARE, OTHER, SELFPAY ==
--- OUTSIDE RECORDS SUMMARY | 2024-05-04 00:13 | XMS_ITS | Clinical Summary ---
Author Organization [facility] Address [place], [place] [address] Care Team Providers Care Character Artist Name Role Phone TomasNayanJennie RENNY Primary Care Provider [phone] Allergies Active Allergy Reactions Criticality Noted Date [...] (FLONASE) 50 mcg/Actuation nasal spray Inhale 1 [place] into both nostrils once daily. 1 Bottle [...] Active azelastine 137 mcg/actuation (ASTELIN) nasal spray [place] 1 spray each nostril daily 1 Bottle [...] for age 50+ (1 of 2) 12/23/1991 RSV vaccine for adults or (1 - 1-dose 60+ series) 2001 DEXA/DXA scan for age 65+ 2006 Pneumococcal series for age 65+ (1 of 1 - PCV) 2006 BMI (ht and wt on same day) for age 18+ 12/24/2017 12/24/2016, 01/02/2016 COVID-19 vaccine series (2022-24 season) 2024 01/23/2023, 05/18/2022, 01/12/2022, Additional history exists Influenza for age 65+ 04/19/2024 Care Teams Character Artist Relationship Specialty Start Date End Date Jennie Tomas NP PCP - General Nurse Practitioner 02/17/16
--- OUTSIDE RECORDS SUMMARY | 2024-05-04 00:14 | XMS_ITS | Data Portability ---
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 Plan of Treatment Reminders Order Date Submit Date Provider Last Modified By Organization Details Last Modified Time Details Appointments ESTABLISH ED 30 2023 01:30P M Not available Not available Not available Lab urinalysi s, dipstick 2023 024 [facility], [address], [place], [address], 11/22/2023 13:32:33 urinalysi s, dipstick 2023 024 [email or web address] [facility], [address], [place], [address], 01/03/2024 11:52:55 urinalysi s, dipstick 2023 024 [email or web address] [facility], [address], [place], [address], 01/17/2024 14:14:31 urinalysi s, dipstick 2023 024 [email or web address] [facility], [address], [place], [address], 02/28/2024 11:47:12 urinalysi s, dipstick 2023 08 024 [email or web address] [facility], [address], [place], [address], 04/03/2024 11:04:59 Referral None recorded. Procedures None recorded. Surgeries None recorded. Imaging None recorded. Medication Orders None recorded. Patient TargetsNo targets recorded. Patient InstructionsNo instructions recorded. Reason for Referral None Reported. Results Created Date Observation Date Name Description Value Unit Range Abnormal Flag Note LastModifiedBy Organization Detail LastModifiedTime 11/22/19 24 11/22/2023 urina lysis , dipst ick Color-Status Yellow Not Available [facility] [address], [place], [address], 11/22/2023 13:31:47 11/22/19 24 11/22/2023 urina lysis , dipst ick Clarity-Stat us Clear Not Available [facility] [address], [place], [address], 11/22/2023 13:31:47 11/22/19 24 11/22/2023 urina lysis , dipst ick Glucose-Stat us Negati ve Not Available [facility] [address], [place], [address], 11/22/2023 13:31:47 11/22/19 24 11/22/2023 urina lysis , dipst ick Bilirubin-St atus Negati ve Not Available [facility] [address], [place], [address], 11/22/2023 13:31:47 11/22/19 24 11/22/2023 urina lysis , dipst ick Ketones-Stat us Negati ve Not Available [facility] [address], [place], [address], 11/22/2023 13:31:47 11/22/19 24 11/22/2023 urina lysis , dipst ick Sp [place]-Stat us 1.015 Not Available [facility] [address], [place], [address], 11/22/2023 13:31:47 11/22/19 24 11/22/2023 urina lysis , dipst ick pH-Status 7.5 Not Available [facility] [address], [place], [address], 11/22/2023 13:31:47 11/22/19 24 11/22/2023 urina lysis , dipst ick Urobilinogen -Status 0.2 Not Available [facility] [address], [place], [address], 11/22/2023 13:31:47 11/22/19 24 11/22/2023 urina lysis , dipst ick Nitrates-Sta tus negati ve Not Available [facility] [address], [place], [address], 11/22/2023 13:31:47 11/22/19 24 11/22/2023 urina lysis , dipst ick Blood-Status Negati ve Not Available [facility] [address], [place], [address], 11/22/2023 13:31:47 11/22/19 24 11/22/2023 urina lysis , dipst ick Leuko-Status Negati ve Not Available [facility] [address], [place], [address], 11/22/2023 13:31:47 11/22/19 24 11/22/2023 urina lysis , dipst ick Specimen Type Voided Not Available [facility] [address], [place], [address], 11/22/2023 13:31:47 01/03/20 24 01/03/2024 urina lysis , dipst ick BLOOD Negati ve Not Available [facility] [address], [place], [address], 01/03/2024 11:52:05 01/03/20 24 01/03/2024 urina lysis , dipst ick BILIRUBIN Negati ve Not Available [facility] [address], [place], [address], 01/03/2024 11:52:05 01/03/20 24 01/03/2024 urina lysis , dipst ick UROBILINOGEN 0.2 mg/dL (Norm) Not Available [facility] [address], [place], [address], 01/03/2024 11:52:05 01/03/20 24 01/03/2024 urina lysis , dipst ick KETONES Negati ve Not Available [facility] [address], [place], [address], 01/03/2024 11:52:05 01/03/20 24 01/03/2024 urina lysis , dipst ick PROTEIN Negati ve Not Available [facility] [address], [place], [address], 01/03/2024 11:52:05 01/03/20 24 01/03/2024 urina lysis , dipst ick NITRITES Negati ve Not Available [facility] [address], [place], [address], 01/03/2024 11:52:05 01/03/20 24 01/03/2024 urina lysis , dipst ick GLUCOSE Negati ve Not Available [facility] [address], [place], [address], 01/03/2024 11:52:05 01/03/20 24 01/03/2024 urina lysis , dipst ick p.H. 8.0 Not Available [facility] [address], [place], [address], 01/03/2024 11:52:05 01/03/20 24 01/03/2024 urina lysis , dipst ick S.G. (Specific [place]) <1.005 Not Available [facility] [address], [place], [address], 01/03/2024 11:52:05 01/03/20 24 01/03/2024 urina lysis , dipst ick LEUKOCYTES Small (25 WBC/uL ) Not Available [facility] [address], [place], [address], 01/03/2024 11:52:05 01/16/20 24 01/16/2024 urina lysis , dipst ick BLOOD Small (10 RBC/uL ) Not Available [facility] [address], [place], [address], 01/16/2024 12:55:06 01/16/20 24 01/16/2024 urina lysis , dipst ick BILIRUBIN Negati ve Not Available [facility] [address], [place], [address], 01/16/2024 12:55:06 01/16/20 24 01/16/2024 urina lysis , dipst ick UROBILINOGEN 0.2 mg/dL (Norm) Not Available [facility] [address], [place], [address], 01/16/2024 12:55:06 01/16/20 24 01/16/2024 urina lysis , dipst ick KETONES Negati ve Not Available [facility] [address], [place], [address], 01/16/2024 12:55:06 01/16/20 24 01/16/2024 urina lysis , dipst ick PROTEIN Trace (10 mg/dL) Not Available [facility] [address], [place], [address], 01/16/2024 12:55:06 01/16/20 24 01/16/2024 urina lysis , dipst ick NITRITES Negati ve Not Available [facility] [address], [place], [address], 01/16/2024 12:55:06 01/16/20 24 01/16/2024 urina lysis , dipst ick GLUCOSE Negati ve Not Available [facility] [address], [place], [address], 01/16/2024 12:55:06 01/16/20 24 01/16/2024 urina lysis , dipst ick p.H. 8.0 Not Available [facility] [address], [place], [address], 01/16/2024 12:55:06 01/16/20 24 01/16/2024 urina lysis , dipst ick S.G. (Specific [place]) 1.010 Not Available [facility] [address], [place], [address], 01/16/2024 12:55:06 01/16/20 24 01/16/2024 urina lysis , dipst ick LEUKOCYTES Negati ve Not Available [facility] [address], [place], [address], 01/16/2024 12:55:06 02/28/20 24 02/28/2024 urina lysis , dipst ick BLOOD Negati ve Not Available [facility] [address], [place], [address], 02/28/2024 11:42:58 02/28/20 24 02/28/2024 urina lysis , dipst ick BILIRUBIN Negati ve Not Available [facility] [address], [place], [address], 02/28/2024 11:42:58 02/28/20 24 02/28/2024 urina lysis , dipst ick UROBILINOGEN 0.2 mg/dL (Norm) Not Available [facility] [address], [place], [address], 02/28/2024 11:42:58 02/28/20 24 02/28/2024 urina lysis , dipst ick KETONES Negati ve Not Available [facility] [address], [place], [address], 02/28/2024 11:42:58 02/28/20 24 02/28/2024 urina lysis , dipst ick PROTEIN Negati ve Not Available [facility] [address], [place], [address], 02/28/2024 11:42:58 02/28/20 24 02/28/2024 urina lysis , dipst ick NITRITES Negati ve Not Available [facility] [address], [place], [address], 02/28/2024 11:42:58 02/28/20 24 02/28/2024 urina lysis , dipst ick GLUCOSE Negati ve Not Available [facility] [address], [place], [address], 02/28/2024 11:42:58 02/28/20 24 02/28/2024 urina lysis , dipst ick p.H. 7.5 Not Available [facility] [address], [place], [address], 02/28/2024 11:42:58 02/28/20 24 02/28/2024 urina lysis , dipst ick S.G. (Specific [place]) <1.005 Not Available [facility] [address], [place], [address], 02/28/2024 11:42:58 02/28/20 24 02/28/2024 urina lysis , dipst ick LEUKOCYTES Negati ve Not Available [facility] [address], [place], [address], 02/28/2024 11:42:58 04/03/20 24 04/03/2024 urina lysis , dipst ick BLOOD Negati ve Not Available [facility] [address], [place], [address], 04/03/2024 11:04:07 04/03/20 24 04/03/2024 urina lysis , dipst ick BILIRUBIN Negati ve Not Available [facility] [address], [place], [address], 04/03/2024 11:04:07 04/03/20 24 04/03/2024 urina lysis , dipst ick UROBILINOGEN 0.2 mg/dL (Norm) Not Available [facility] [address], [place], [address], 04/03/2024 11:04:07 04/03/20 24 04/03/2024 urina lysis , dipst ick KETONES Negati ve Not Available [facility] [address], [place], [address], 04/03/2024 11:04:07 04/03/20 24 04/03/2024 urina lysis , dipst ick PROTEIN Negati ve Not Available [facility] [address], [place], [address], 04/03/2024 11:04:07 04/03/20 24 04/03/2024 urina lysis , dipst ick NITRITES Negati ve Not Available [facility] [address], [place], [address], 04/03/2024 11:04:07 04/03/20 24 04/03/2024 urina lysis , dipst ick GLUCOSE Negati ve Not Available [facility] [address], [place], [address], 04/03/2024 11:04:07 04/03/20 24 04/03/2024 urina lysis , dipst ick p.H. 8.5 Not Available [facility] [address], [place], [address], 04/03/2024 11:04:07 04/03/20 24 04/03/2024 urina lysis , dipst ick S.G. (Specific [place]) <1.005 Not Available [facility] [address], [place], [address], 04/03/2024 11:04:07 04/03/20 24 04/03/2024 urina lysis , dipst ick LEUKOCYTES Negati ve Not Available [facility] [address], [place], [address], 04/03/2024 11:04:07 Result Notes None recorded. 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 Procedures Surgical History Date Name Laterality Status Provider Name and Address Organization Details Recorded Time 024 Pessary Cleaning completed Sapna Teixeira null, [facility] 04/03/2024 11:06:44 024 [place] Instillation completed Sapna Teixeira null, [facility] 04/03/2024 10:42:11 024 [place] Instillation completed Sapna Teixeira null, [facility] 02/28/2024 11:49:21 024 Pessary Cleaning completed Hanh Sanchez PA-C [address], [place], [address], [facility] 01/17/2024 14:13:51 024 Bladder Scan completed Yas Mathew null, [facility] 01/16/2024 12:59:55 024 Pessary Cleaning completed Sapna Teixeira null, [facility] 01/03/2024 11:49:51 024 [place] Instillation completed Sapna Teixeira null, [facility] 01/03/2024 11:50:26 024 Pessary Cleaning completed Sapna Teixeira null, [facility] 11/22/2023 13:33:31 024 [place] Instillation completed Sapna Teixeira null, [facility] 11/22/2023 13:34:09 024 Pessary Cleaning completed Sapna Teixeira null, [facility] 10/11/2023 11:53:41 024 [place] Instillation completed Sapna Teixeira null, [facility] 10/11/2023 11:53:37 024 Pessary Cleaning completed Hanh Sanchez PA-C [address], [place], [address], [place] [facility] 09/17/2023 11:35:32 024 CystoscopyFemale completed Hanh Sanchez PA-C [address], [place], [address], [place] [facility] 09/17/2023 11:39:23 024 Bladder Scan completed Brissa Fuller null, [facility] 09/17/2023 11:10:06 024 [place] Instillation completed Sapna Teixeira null, [facility] 08/30/2023 12:22:44 023 Pessary Cleaning completed Sapna Teixeira null, [facility] 08/09/2023 12:52:07 023 Pessary Cleaning completed Sapna Teixeira null, [facility] 07/26/2023 15:28:03 023 [place] Instillation completed Sapna Teixeira null, [facility] 07/26/2023 15:30:03 023 Pessary Cleaning completed Sapna Teixeira null, [facility] 06/21/2023 12:41:32 023 [place] Instillation completed Sapna Teixeira null, [facility] 06/21/2023 12:41:02 023 Urinalysis completed Roxy Broussard null, [facility] 05/17/2023 11:58:32 023 [place] Instillation completed Roxy Broussard null, [facility] 05/17/2023 11:57:24 023 Pessary Cleaning completed Sapna Teixeira null, [facility] 04/12/2023 10:26:26 023 [place] Instillation completed Sapna Teixeira null, [facility] 04/12/2023 10:28:33 023 [place] Instillation completed Sapna Teixeira null, [facility] 02/22/2023 10:53:05 023 Pessary Cleaning completed Lisandra Greer MD [address] [address], [place], [address], [facility] 02/05/2023 10:02:06 023 Bladder Scan completed Hayley Byers null, [facility] 02/05/2023 09:53:16 023 Pessary Cleaning completed Sapna Teixeira null, [facility] 01/18/2023 17:07:44 023 [place] Instillation completed Sapna Teixeira null, [facility] 01/18/2023 16:59:42 023 Periurethral Coaptite Injection completed Sapna Teixeira null, [facility] 01/08/2023 10:09:14 023 Pessary Cleaning completed Sapna Teixeira null, [facility] 12/14/2022 11:37:53 023 [place] Instillation completed Sapna Teixeira null, [facility] 12/14/2022 11:40:01 023 [place] Instillation completed Sapna Teixeira null, [facility] 10/05/2022 13:36:49 023 Pessary Cleaning completed Hanh Sanchez PA-C [address], [place], [address], [facility] 10/02/2022 13:40:56 023 CystoscopyFemale completed Hanh Sanchez PA-C [address], [place], [address], [place] [facility] 10/02/2022 13:38:50 023 Bladder Scan completed Roxy Morton null, [facility] 10/02/2022 11:47:46 023 Pessary Cleaning completed Sapna Teixeira null, [facility] 08/24/2022 11:54:16 023 [place] Instillation completed Sapna Tiexeira null, [facility] 08/24/2022 11:53:10 022 Pessary Cleaning completed Sapna Teixeira null, [facility] 07/18/2022 10:29:37 022 [place] Instillation completed Sapna Teixeira null, [facility] 07/18/2022 10:29:24 022 Pessary Cleaning completed Sapna Teixeira null, [facility] 06/13/2022 10:46:49 022 [place] Instillation completed Sapna Teixeira null, [facility] 06/13/2022 10:47:23 022 Pessary Cleaning completed Sapna Puneet null, [facility] 04/11/2022 12:18:36 022 [place] Instillation completed Sapna Puneet null, [facility] 04/11/2022 12:19:18 022 Pessary Cleaning completed Sapna Puneet null, [facility] 03/07/2022 10:57:32 022 [place] Instillation completed Sapna Puneet null, [facility] 03/07/2022 10:58:34 022 Pessary Cleaning completed Sapna Puneet null, [facility] 02/07/2022 10:46:42 022 [place] Instillation completed Sapna Puneet null, [facility] 02/07/2022 10:46:32 022 Pessary Cleaning completed Sapna Puneet null, [facility] 01/03/2022 11:42:03 022 [place] Instillation completed Sapna Puneet null, [facility] 01/03/2022 11:42:43 022 Pessary Cleaning completed Sapna Puneet null, [facility] 11/29/2021 10:19:11 022 [place] Instillation completed Sapna Puneet null, [facility] 11/29/2021 10:16:17 022 Pessary Cleaning completed Sapna Puneet null, [facility] 11/01/2021 11:25:09 022 Bladder Scan completed Sapna Puneet null, [facility] 11/01/2021 11:24:09 022 [place] Instillation completed Sapna Puneet null, [facility] 11/01/2021 11:24:22 022 Pessary Cleaning completed Sapna Puneet null, [facility] 10/04/2021 11:51:33 022 [place] Instillation completed Sapna Puneet null, [facility] 10/04/2021 11:51:15 022 Pessary Insertion completed Lisandra Greer MD [address] [address] [address], [place], [address], [place] [facility] 10/04/2021 15:03:13 022 Bladder Scan completed Lisandra Greer MD [address] [facility] [address] [address], [place], [address], [place] [facility] 09/26/2021 17:12:26 022 [place] Instillation completed Dana Asher null, [facility] 08/31/2021 11:32:26 021 [place] Instillation completed Sapna Teixeira null, [facility] 08/03/2021 11:35:49 021 [place] Instillation completed Stacy Pitera null, [facility] 07/03/2021 10:39:03 021 [place] Instillation completed Stacy Pitera null, [facility] 05/31/2021 11:48:55 021 [place] Instillation completed Stacy Pitera null, [facility] 05/03/2021 11:11:30 021 [place] Instillation completed Stacy Pitera null, [facility] 04/05/2021 10:53:18 021 [place] Instillation completed Royal Dietrich null, [facility] 03/01/2021 12:34:33 021 CystoscopyFemale completed Lisandra Greer MD [address] [place] [address],[address], [place], [address], [facility] 02/02/2021 11:18:02 021 [place] Instillation completed Abigail Jimenez null, [facility] 02/02/2021 11:08:07 021 [place] Instillation completed Mayharveya Karlo null, [facility] 01/02/2021 11:57:31 021 [place] Instillation completed Ledy King null, [facility] 12/07/2020 12:33:01 021 [place] Instillation completed Sapna Teixeira null, [facility] 11/09/2020 12:07:24 021 [place] Instillation completed Sapna Teixeira null, [facility] 10/26/2020 10:50:18 021 [place] Instillation completed Sapna Teixeira null, [facility] 10/04/2020 12:23:58 021 [place] Instillation completed Sapna Teixeira null, [facility] 08/25/2020 14:15:22 020 [place] Instillation completed Sapna Teixeira null, [facility] 07/27/2020 11:21:17 020 [place] Instillation completed Sapna Teixeira null, [facility] 06/22/2020 10:22:28 020 [place] Instillation completed Jatin Silva null, [facility] 05/18/2020 12:07:15 020 [place] Instillation completed Concepción Hitchcock null, [facility] 04/20/2020 14:22:27 020 [place] Instillation completed Concepción Hitchcock null, [facility] 03/21/2020 13:09:02 020 [place] Instillation completed Jatin Silva null, [facility] 02/22/2020 11:33:42 discectomy of spine completed Sheila Greer MD [address] [place] [address],[address], [place], [address], [facility] 09/26/2021 17:10:22 laparoscopy completed Lisandra Greer MD [address] [place] [address],[address], [place], [address], [facility] 09/26/2021 17:10:47 insertion of prosthesis for breast completed Lisandra Greer MD [address] [place] [address],[address], [place], [address], [facility] 09/26/2021 17:11:07 Appendectomy completed Lisandra Greer MD [address] [place] [address],[address], [place], [address], [facility] 09/26/2021 17:11:20 Imaging Results None recorded. Procedure Notes None recorded. Medical Equipment None Reported. Allergies Allergen ID Allergen Name Allergen Category Reaction Reaction Severity Criticality Documentation Date Start Date Code Code System Note Provider Name and Address Organization Details Recorded Time 449040 vancomyci n medicatio n Not available Not available Not available 02/04/20202011 57216 RxNorm Not Available [facility] 00:48:49 702622 Substance with sulfonami de structure and antibacte rial mechanism of action (substanc e) medicatio n Not available Not available Not available 04/11/2022 03715 8003 [facility]ED [facility] 2 12:15:21 Medications Name Sig Start Date Stop Date Status Note LastModified by Organization Details LastModified Time coenzyme q10 100 mg cap mcke TAKE ONE CAPSULE BY MOUTH DAILY active Not Available Not Available No t Available sore throat 5-7.5mg xavier equa DISSOLVE 2 LOZENGES BY MOUTH EVERY 6 HOURS 10/02 completed Not Available Not Available Not Available verapamil ER (SR) 120 mg tablet,exte nded release TAKE 1 TABLET BY MOUTH DAILY active Not Available Not Available No t Available amoxicillin 500 mg capsule TAKE 1 CAPSULE BY MOUTH 3 TIMES A DAY UNTIL GONE* 02/05 completed Not Available Not Available Not Available fluconazole 100 mg tablet TAKE ONE TABLET BY MOUTH DAILY for 7 days* active Not Available Not Available No t Available clotrimazol e 10 mg devin TAKE 1 TABLET BY MOUTH 5 TIMES DAILY. 10/02 completed Not Available Not Available Not Available bupropion HCl SR 150 mg tablet,12 hr sustained-r elease TAKE ONE TABLET BY MOUTH TWICE DAILY* active Not Available Not Available No t Available fluticasone 250 mcg-salmete rol 50 mcg/dose blistr powdr for inhalation INHALE ONE PUFF BY MOUTH TWICE DAILY active Not Available Not Available No t Available azelastine 0.05 % eye drops 10/02 completed Not Available Not Available Not Available nystatin 100,000 unit/mL oral suspension Shake well and take 5 mls by mouth 2 times daily for 5-7 days, then keep remaining for future use. 10/02 completed Not Available Not Available Not Available trazodone 50 mg tablet take 0.5-1 tablet by mouth every evening* active Not Available Not Available No t Available azithromyci n 250 mg tablet TAKE 2 TABLETS BY MOUTH ON DAY 1, THEN TAKE 1 TABLET ONCE DAILY ON DAYS 2 THROUGH 5 09/26 completed Not Available Not Available Not Available benzonatate 200 mg capsule take 1 capsule by mouth 3 times every day as needed active Not Available Not Available No t Available sucralfate 1 gram tablet active Not Available Not Available Not Available famotidine 40 mg tablet take 1 tablet by mouth every day at bedtime* active Not Available Not Available No t Available prednisone 20 mg tablet TAKE 1 TABLET BY MOUTH TWICE DAILY FOR 7 DAYS active Not Available Not Available No t Available alendronate 70 mg tablet 10/02 completed Not Available Not Available Not Available methylpredn isolone 4 mg tablet TAKE 4 TABLETS BY MOUTH DAILY FOR 2 DAYS, THEN DECREASE BY ONE TABLET EVERY 3RD DAY UNTIL OFF. 10/02 completed Not Available Not Available Not Available Elmiron 100 mg capsule TAKE ONE CAPSULE BY MOUTH DAILY* active Not Available Not Available No t Available Advair Diskus 100 mcg-50 mcg/dose powder for inhalation 10/02 completed Not Available Not Available Not Available ciprofloxac in 250 mg tablet Take 1 tablet by mouth twice a day for 5 days* active Not Available Not Available No t Available trimethopri m 100 mg tablet TAKE 1 TABLET BY MOUTH DAILY* active Not Available Not Available No t Available ciprofloxac in 500 mg tablet Take 1 tablet every 12 hours by oral route for 3 days.* 02/05 completed Not Available Not Available Not Available omeprazole 40 mg capsule,del ayed release take 1 capsule by mouth 2 times every day 30 min before breakfast and 30 minutes before dinner* active Not Available Not Available No t Available pantoprazol e 20 mg tablet,tia yed release TAKE ONE TABLET BY MOUTH TWICE DAILY active Not Available Not Available No t Available sodium bicarbonate 1 mEq/mL (8.4 %) intravenous solution 10/02 completed Not Available Not Available Not Available pramipexole 0.5 mg tablet TAKE ONE TABLET BY MOUTH ONE TIME DAILY IN THE EVENING.* active Not Available Not Available No t Available terbinafine HCl 250 mg tablet TAKE ONE TABLET BY MOUTH DAILY 10/02 completed Not Available Not Available Not Available amoxicillin 875 mg tablet TAKE 1 TABLET BY MOUTH TWICE DAILY FOR 10 DAYS 10/02 completed Not Available Not Available Not Available famotidine 20 mg tablet TAKE ONE TABLET BY MOUTH DAILY* active Not Available Not Available No t Available cephalexin 500 mg capsule Take 1 capsule by mouth every 8 hours with meals for 3 days for UTI.* active Not Available Not Available No t Available esomeprazol e magnesium 40 mg capsule,del ayed release TAKE 1 CAPSULE BY MOUTH TWO TIMES EVERY DAY 30 MINUTES BEFORE BREAKFAST AND 30 MINUTES BEFORE DINNER* active Not Available Not Available No t Available triamcinolo ne acetonide 0.1 % topical ointment 10/02 completed Not Available Not Available Not Available fluticasone 500 mcg-salmete rol 50 mcg/dose blistr powdr for inhalation inhale 1 puff 2 times daily* active Not Available Not Available No t Available pramipexole 0.125 mg tablet take 1-4 tablets by mouth at bedtime. start at 1 tablet and increase every 4 days by 0.125mg as needed up to max dose of 0.5mg 10/02 completed Not Available Not Available Not Available nitroglycer in 0.4 mg sublingual tablet TAKE 1 TABLET SUBLINGUA LLY EVERY 5 MINUTES NEEDED FOR CHEST PAIN. 10/02 completed Not Available Not Available Not Available pramipexole 0.25 mg tablet TAKE 2-3 TABLETS BY MOUTH EVERY NIGHT AT BEDTIME. 10/02 completed Not Available Not Available Not Available omeprazole 20 mg capsule,del ayed release Take 1-2 capsules by oral route every day active Not Available Not Available No t Available raloxifene 60 mg tablet TAKE ONE TABLET BY MOUTH DAILY active Not Available Not Available No t Available montelukast 10 mg tablet take 1 tablet by oral route every day in the evening* active Not Available Not Available No t Available mupirocin 2 % topical ointment APPLY TO AFFECTED AREA(S) topically 3 times daily as needed 10/02 completed Not Available Not Available Not Available lidocaine HCl 20 mg/mL (2 %) injection solution 10/02 completed Not Available Not Available Not Available gabapentin 100 mg capsule TAKE 1 - 3 CAPSULES BY MOUTH EVERY EVENING* active Not Available Not Available No t Available azelastine 137 mcg (0.1 %) nasal spray instill 1 spray in each nostril 2 times daily* active Not Available Not Available No t Available epinephrine 0.3 mg/0.3 mL injection, auto-inject or INJECT 0.3 MILLILITE RS INTRAMUSC ULARLY NEEDED FOR ANAPHYLAC TIC REACTION. * active Not Available Not Available No t Available ibuprofen 600 mg tablet TAKE 1 TABLET BY MOUTH EVERY 6 HOURS NEEDED FOR PAIN* active Not Available Not Available No t Available estradiol 0.01% (0.1 mg/gram) vaginal cream Insert pea size amount (approxim ately 1 gm) intravagi pawel 2 times per week active Not Available Not Available No t Available methylpredn isolone 4 mg tablets in a dose pack follow package direction s 10/02 completed Not Available Not Available Not Available albuterol sulfate HFA 90 mcg/actuati on aerosol inhaler INHALE TWO PUFFS BY MOUTH EVERY FOUR HOURS* active Not Available Not Available No t Available celecoxib 100 mg capsule 10/02 completed Not Available Not Available Not Available metoclopram zandra 10 mg tablet TAKE 1 TABLET BY MOUTH 3 TIMES DAILY NEEDED 10/02 completed Not Available Not Available Not Available verapamil ER 120 mg 24 hr capsule,ext ended release TAKE 1 CAPSULE BY MOUTH DAILY* active Not Available Not Available No t Available escitalopra m 10 mg tablet TAKE 1.5 TABLETS (15 MG) BY MOUTH DAILY* active Not Available Not Available No t Available coenzyme Q10 100 mg capsule TAKE 1 CAPSULE BY MOUTH DAILY* active Not Available Not Available No t Available Restasis 0.05 % eye drops in a dropperette instill one drop INTO EACH EYE TWICE DAILY active Not Available Not Available No t Available rosuvastati n 5 mg tablet TAKE ONE TABLET BY MOUTH IN THE EVENING* active Not Available Not Available No t Available bupropion HCl XL 150 mg 24 hr tablet, extended release Take 1 tablet by mouth every morning* active Not Available Not Available No t Available chlorhexidi ne gluconate 0.12 % mouthwash SWISH AND SPIT 1/2 OZ FOR 20-30 SECONDS THREE TIMES A DAY* active Not Available Not Available No t Available Symbicort 80 mcg-4.5 mcg/actuati on HFA aerosol inhaler 10/02 completed Not Available Not Available Not Available budesonide- formoterol HFA 160 mcg-4.5 mcg/actuati on aerosol inhaler active Not Available Not Available Not Available Prolia 60 mg/mL subcutaneou s syringe INJECT 60 MG SUBCUTANE OUSLY EVERY 6 MONTHS. 10/02 completed Not Available Not Available Not Available Breo Ellipta 100 mcg-25 mcg/dose powder for inhalation INHALE ONE PUFF BY MOUTH DAILY AT THE SAME TIME EACH DAY active Not Available Not Available No t Available Spiriva Respimat 2.5 mcg/actuati on solution for inhalation INHALE TWO PUFFS BY MOUTH DAILY at the same time each day active Not Available Not Available No t Available Incruse Ellipta 62.5 mcg/actuati on powder for inhalation INHALE 1 PUFF BY MOUTH EVERY 24 HOURS 10/02 completed Not Available Not Available Not Available Trelegy Ellipta 100 mcg-62.5 mcg-25 mcg powder for inhalation INHALE ONE PUFF BY MOUTH DAILY. DUE FOR APPOINTME NT. 10/02 completed Not Available Not Available Not Available Flowflex COVID-19 Antigen Home Test kit TEST 10/02 completed Not Available Not Available Not Available Vitals Date Recorded Body height Body mass index (BMI) Body weight Provider Name and Address Organization Details Last Updated DateTime 01/16/2024 170.18 cm 24.9 kg/m2 00898.19 g Yas Mathew [facility] 01/16/2024 12:54:00 Social History Question Answer Notes LastModified by Organizat ion Details LastModified Time Tobacco Smoking Status [facility] 11:31:58 What Is Your Level Of Alcohol Consumption? Occasional [email or web address] Information not available 02/05/2023 How Many Times Per Week Do You Consume Alcohol? Less Than 1 Time Per Week [email or web address] Information not available 02/05/2023 What Is Your Level Of Caffeine Consumption? Occasional [email or web address] Information not available 02/05/2023 When Did You Quit Smoking? 11-15yearssinc elastcigarette [email or web address] Information not available 02/05/2023 Marital Status Unknown [email or web address] Informati on not available 01/28/2020 What Was The Date Of Your Most Recent Tobacco Screening? 01/16/2024 Information not available 01/16/2024 Have You Ever Been Counseled For Unhealthy Alcohol Use? No Information not available 01/16/2024 Do You Use Any Illicit Or Recreational Drugs? No [email or web address] Information not available 02/05/2023 Has Tobacco Cessation Counseling Been Provided? No [email or web address] Information not available 02/05/2023 Do You Or Have You Ever Used Any Other Forms Of Tobacco Or Nicotine? No [email or web address] Information not available 02/05/2023 How Many Days In The Past Year Have You Consumed 4 Or More Drinks? 0 Information no t available 01/16/2024 Sex: Unknown Functional Status None recorded. Mental Status None recorded. Family History Relationship Description Onset Age of this Age Resolved Age Notes Mother Family history of ca rdiac disorder Father Family history of di abetes mellitus Father Malignant melanoma Medical History Condition Response Other N High Blood Pressure N Kidney Stones N Depression N Lung Disease N GERD/Acid Reflux Y Diabetes N Sexually Transmitted Infection N Bleeding Disorder N Cancer N High Cholesterol Y Heart Disease N Gynecological History Statement/Question Response Irregular periods N Leaking urine with intercourse N Hormone Therapy N Heavy periods N Pain with intercourse N Sexually Active? N Obstetrics History GPAL:G 2 P 0 0 0 0 Immunizations Vaccine Type Date Status Provider Name and Address Organization Details Recorded Time Influenza, high-dose, quadrivalent, PF 05/18/2022 [facility] 12:50:04 COVID-19, mRNA, LNP-S, PF, 30 mcg/0.3 mL dose, jami-sucrose 01/12/[address] [facility] 08/06/2023 12:50:04 COVID-19, mRNA, LNP-S, bivalent, PF, 30 mcg/0.3 mL dose 01/23/[address] [facility] 08/06/2023 12:50:04 COVID-19, mRNA, LNP-S, bivalent, PF, 30 mcg/0.3 mL dose 05/18/[address] [facility] 08/06/2023 12:50:04 Influenza, high-dose, quadrivalent, PF 05/24/2023 [facility] 01/16/[facility]24 12:54:12 Pneumococcal conjugate PCV20, polysaccharide FTZ190 conjugate, adjuvant, PF 07/02/2023 completed Yas Mathew null, [facility] 01/16/2024 12:54:12 COVID-19, mRNA, LNP-S, PF, jami-sucrose, 30 mcg/0.3 mL 05/24/2023 completed Yas Mathew null, [facility] 01/16/2024 12:54:12 Influenza, recombinant, quadrivalent, PF 05/22/2019 completed Roxy Broussard null, [facility] 05/17/2023 11:54:16 zoster recombinant 01/21/2019 completed Roxy Broussard null, [facility] 05/17/2023 11:54:16 Influenza, high-dose, quadrivalent, PF 06/10/2020 completed Roxy Broussard null, [facility] 05/17/2023 11:54:16 Influenza, high-dose, quadrivalent, PF 06/13/2021 completed Roxy Broussard null, [facility] 05/17/2023 11:54:16 COVID-19, mRNA, LNP-S, PF, 30 mcg/0.3 mL dose 09/24/2020 completed Roxy Broussard null, [facility] 05/17/2023 11:54:16 COVID-19, mRNA, LNP-S, PF, 30 mcg/0.3 mL dose 10/15/2020 completed Roxy Broussard null, [facility] 05/17/2023 11:54:16 COVID-19, mRNA, LNP-S, PF, 30 mcg/0.3 mL dose 05/19/2021 completed Roxy Broussard null, [facility] 05/17/2023 11:54:16 pneumococcal polysaccharide PPV23 05/19/2007 [facility] 11:54:16 influenza, unspecified formulation 06/30/2015 completed Roxy Broussard null, [facility] 05/17/2023 11:54:16 Tdap 02/02/2021 completed Roxy Broussard null, [facility] 05/17/2023 11:54:16 Tdap 05/19/2011 completed Roxy Broussard null, [facility] 05/17/2023 11:54:16 Pneumococcal conjugate PCV 13 09/01/2015 completed Roxy schmidt, [facility] 05/17/2023 11:54:16 zoster live 05/19/2010 [facility] 11:54:16 Influenza, high-dose, trivalent, PF 05/19/2013 completed Roxy schmidt, [facility] 05/17/2023 11:54:16 Influenza, high-dose, trivalent, PF 05/22/2016 completed Roxy schmdit, [facility] 05/17/2023 11:54:16 Influenza, high-dose, trivalent, PF 05/29/2018 completed Roxy schmidt, [facility] 05/17/2023 11:54:16 Influenza, high-dose, trivalent, PF 06/18/2017 [facility] 05/17/2023 11:54:16 Influenza, split virus, trivalent, PF 06/04/2012 [facility] 05/17/2023 11:54:16 Influenza, split virus, trivalent, PF 06/28/2011 [facility] 05/17/2023 11:54:16 pneumococcal polysaccharide PPV23 08/22/2015 [facility] 08/06/2023 12:50:04 Past Encounters Encounter ID Performer Location Encounter Start Date Encounter Closed Date Diagnosis/Indication Diagnosis SNOMED-CT Code Diagnosis ICD10 Code [id number] Jatin CASTILLO[facility] [address] [place] [address] 02/22/2020 11:13:42 02/22/2020 18:18:48 Chronic interstitial cystitis 190424963 N30.10 [id number] MD Igor Kevin [address] [place] [address] 03/21/2020 12:22:12 03/21/2020 15:43:01 Chronic interstitial cystitis 124422239 N30.10 [id number] MD Igor Kevin [address] [place] [address] 04/20/2020 11:53:12 04/20/2020 17:31:55 Chronic interstitial cystitis 575940473 N30.10 [id number] Lisandra Greer MD [facility] [address] [place] [address] 05/18/2020 11:49:40 05/18/2020 14:20:35 Chronic interstitial cystitis 227000409 N30.10 [id number] Lisandra Greer MD [facility] [address] [place] [address] 06/22/2020 09:53:46 06/23/2020 09:35:38 Chronic interstitial cystitis 507832799 N30.10 [id number] MD ANNA [facility] [address] [place] [address] 07/27/2020 10:51:21 07/27/2020 14:07:00 Chronic interstitial cystitis 397934935 N30.10 [id number] Lisandra Greer MD [facility] [address] [place] [address] 08/25/2020 13:42:43 08/25/2020 14:18:31 Chronic interstitial cystitis 091587654 N30.10 [id number] Lisandra Greer MD [facility] [address] [place] [address] 10/04/2020 11:42:59 10/05/2020 09:41:20 Chronic interstitial cystitis 043743919 N30.10 [id number] Lisandra Greer MD [facility] [address] [place] [address] 10/26/2020 10:15:56 10/28/2020 09:51:09 Chronic interstitial cystitis 845162680 N30.10 [id number] Lisandra Greer MD [facility] [address] [place] [address] 11/09/2020 11:16:28 11/11/2020 13:23:09 Chronic cystitis 55603910 N30.20 Chronic in terstitial cystitis 090437897 N30.10 [id number] Lisandra Greer MD [facility] [address] [place] [address] 12/07/2020 11:50:11 12/08/2020 13:52:33 Chronic interstitial cystitis 796544102 N30.10 [id number] Royal Linaresamud [facility] [address] [place] [address] 01/02/2021 11:23:12 01/04/2021 09:57:03 Chronic interstitial cystitis [id number] N30.10 [id number] Lisandra Greer MD [facility] [address] [place] [address] 02/02/2021 10:19:27 02/06/2021 11:43:10 Chronic interstitial cystitis 212441577 N30.10 [id number] Royal Linaresamud [facility] [address] [place] [address] 03/01/2021 10:36:35 03/02/2021 17:23:14 Chronic interstitial cystitis 502060474 N30.10 [id number] Stacy Jaimesera [facility] [address] [place] [address] 04/05/2021 10:48:03 04/07/2021 13:48:53 Chronic interstitial cystitis 587523683 N30.10 [id number] Stacy Jaimesera [facility] [address] [place] [address] 05/03/2021 10:52:55 05/04/2021 14:09:39 Chronic interstitial cystitis 467246215 N30.10 [id number] Stacy Jaimesera [facility] [address] [place] [address] 0 05/31/2021 11:19:22 06/02/2021 14:24:34 Chronic interstitial cystitis [id number] N30.10 [id number] Stacy Jaimesera [facility] [address] [place] [address] 07/03/2021 10:15:39 07/03/2021 16:45:11 Overactive urinary bladder [id number] N32.81 [id number] Sapna Teixeira [facility] [address] [place] [address] 08/03/2021 11:10:41 08/09/2021 14:16:51 Chronic interstitial cystitis [id number] N30.10 [id number] Lisandra Greer MD [facility] [address] [place] [address] 08/31/2021 10:25:57 09/01/2021 12:03:27 Chronic interstitial cystitis 166075334 N30.10 [id number] Lisandra Greer MD [facility] [address] [place] [address] 09/26/2021 16:25:19 10/05/2021 07:57:21 Chronic interstitial cystitis 048601249 N30.10 Prolapse o f female genital organs 38986392 N81.9 [id number] MD ANNA [facility] [address] [place] [address] 10/04/2021 11:15:48 10/09/2021 12:34:57 Chronic interstitial cystitis 146021891 N30.10 Prolapse o f female genital organs 08374273 N81.9 [id number] MD ANNA [facility] [address] [place] [address] 11/01/2021 10:35:18 11/03/2021 08:30:32 Chronic interstitial cystitis [id number] N30.10 [id number] MD ANNA [facility] [address] [place] [address] 11/29/2021 09:52:07 12/01/2021 10:30:06 Chronic interstitial cystitis 033221416 N30.10 [id number] MD ANNA [facility] [address] [place] [address] 01/03/2022 10:57:20 01/04/2022 15:38:14 Prolapse of female genital organs 92146548 N81.9 Chronic in terstitial cystitis [id number] N30.10 [id number] Lisandra Greer MD [facility] [address] [place] [address] 02/07/2022 10:10:44 02/08/2022 15:35:57 Prolapse of female genital organs 12409364 N81.9 [id number] Lisandra Greer MD [facility] [address] [place] [address] 03/07/2022 10:23:44 03/12/2022 09:19:42 Chronic interstitial cystitis 718075758 N30.10 Prolapse o f female genital organs 02610645 N81.9 [id number] Hanh Sanchez PA-C [facility] [address] [place] [address] 04/11/2022 11:52:00 04/13/2022 13:43:40 Chronic interstitial cystitis 469203304 N30.10 [id number] Lisandra Greer MD [facility] [address] [place] [address] 06/13/2022 10:09:18 06/15/2022 12:13:29 Chronic interstitial cystitis [id number] N30.10 [id number] Sapna Puneet [facility] [address] [place] [address] 07/18/2022 10:07:36 07/23/2022 09:14:19 Chronic interstitial cystitis 711081544 N30.10 Prolapse o f female genital organs 25234494 N81.9 [id number] Sapna Puneet [facility] [address] [place] [address] 08/24/2022 11:09:29 08/29/2022 08:13:53 Chronic interstitial cystitis 720474837 N30.10 Prolapse o f female genital organs 77811555 N81.9 [id number] Lisandra Greer MD [facility] [address] 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 [place] [address] 10/05/2022 11:13:31 10/10/2022 13:26:10 Chronic interstitial cystitis 566015540 N30.10 [id number] Sapna [facility] [address] [place] [address] 12/14/2022 10:45:01 12/17/2022 14:06:54 Chronic interstitial cystitis 939954772 N30.10 [id number] Lisandra Greer MD [facility] [address] [place] [address] 01/08/2023 09:06:17 01/11/2023 14:58:23 Female stress incontinence 02590157 N39.3 Urethral i ntrinsic sphincter deficiency 2468832307 9101 N36.42 Prolapse o f female genital organs 99558628 N81.9 [id number] [facility] [address] [place] [address] 01/18/2023 10:02:21 01/30/2023 10:14:14 Chronic interstitial cystitis 751741569 N30.10 Prolapse o f female genital organs 28832921 N81.9 [id number] [facility] [address] [place] [address] 02/05/2023 09:36:52 02/06/2023 15:05:55 Chronic interstitial cystitis 536768223 N30.10 Prolapse o f female genital organs 42217954 N81.9 Urethral i ntrinsic sphincter deficiency 2160765766 9101 N36.42 Urinary tr act infectious disease 97129771 N39.0 [id number] [facility] [address] [place] [address] 02/22/2023 10:01:42 02/27/2023 12:11:57 Chronic interstitial cystitis 657605747 N30.10 [id number] Sapna Puneet [facility] [address] [place] [address] 04/12/2023 09:53:23 04/15/2023 16:13:47 Chronic interstitial cystitis 209870934 N30.10 Prolapse o f female genital organs 54676612 N81.9 [id number] Roxy Broussard [facility] [address] [place] [address] 05/17/2023 11:13:04 05/22/2023 12:38:04 Chronic interstitial cystitis 178197957 N30.10 [id number] [facility] [address] [place] [address] 06/21/2023 11:12:13 06/24/2023 16:29:49 Urinary tract infectious disease 58991971 N39.0 Chronic in terstitial cystitis 138246995 N30.10 Prolapse o f female genital organs 14426162 N81.[id number] [address] [facility] [address] [place] [address] 07/26/2023 14:43:24 08/05/2023 11:36:04 Prolapse of female genital organs 26784498 N81.9 Chronic in terstitial cystitis 365944743 N30.10 [id number] Sapna Puneet [facility] [address] [place] [address] 08/09/2023 10:07:32 08/15/2023 12:23:35 Urinary tract infectious disease 91961274 N39.0 Prolapse o f female genital organs 64024286 N81.9 [id number] [facility] [address] [place] [address] 08/30/2023 10:40:02 09/02/2023 14:12:41 Chronic interstitial cystitis 761888574 N30.10 [id number] [facility] [address] [place] [address] 09/17/2023 10:41:23 09/25/2023 09:53:58 Chronic interstitial cystitis 136888280 N30.10 Recurrent urinary tract infection 833642600 N39.0 Prolapse o f female genital organs 85745134 N81.9 [id number] Sapna Teixeira [facility] [address] [place] [address] 10/11/2023 11:02:00 10/14/2023 12:08:30 Prolapse of female genital organs 53206441 N81.9 [id number] Sapna Teixeira [facility] [address] [place] [address] 11/22/2023 11:07:44 11/25/2023 13:40:51 Chronic interstitial cystitis 039784841 N30.10 Prolapse o f female genital organs 49200777 N81.9 [id number] Sapna Teixeira [facility] [address] [place] [address] 01/03/2024 11:07:35 01/06/2024 16:37:22 Urinary tract infectious disease 66642774 N39.0 [id number] Hanh Sanchez PA-C [facility] [address] [place] [address] 01/16/2024 11:47:20 01/23/2024 11:02:19 Prolapse of female genital organs 45106209 N81.9 Chronic in terstitial cystitis 186018373 N30.10 [id number] Sapna Teixeira [facility] [address] [place] [address] 02/28/2024 10:08:07 03/17/2024 12:35:06 Chronic interstitial cystitis 888536594 N30.10 [id number] Sapna Teixeira [facility] [address] [place] [address] 04/03/2024 10:38:59 04/06/2024 13:45:37 Chronic interstitial cystitis 849271586 N30.10 Health Concerns Section Related Observation LastModified by Organization Detai ls LastModified Time None Recorded Concern Status LastModified by Organization Details LastModified Time None Recorded Advance Directives Directive None Recorded Payers Encounter Date Sequence Insurance Name Policy Number Policy Tarango Covered Member ID Tarango Member ID Guarantor Name 11/22/2023 1 [place] [employer] [facility] Milla Pollard [id number] Milla Castorena Slanger 11/22/2023 2 [employer] (MEDICARE SUPPLEMENT) Milla Seniornger [id number] Milla Castorena Slanger 01/03/2024 1 MEDICARE [place]: [employer] Milla Seniornger [id number] Milla Castorena Slanger 01/03/2024 2 [employer] (MEDICARE SUPPLEMENT) Milla Castorena Slanger [id number] Milla aCstorena Slanger 01/16/2024 1 [place]: [employer] Milla Seniornger [id number] Milla Castorena Slanger 01/16/2024 2 [employer] (MEDICARE SUPPLEMENT) Milla Seniornger [id number] Milla Castorena Slanger 02/28/2024 1 [place]ARE [place]: [employer] Milla Seniornger [id number] Milla Castorena Slanger 02/28/2024 2 [employer] (MEDICARE SUPPLEMENT) Milla Seniornger [id number] Milla Castorena Slanger 04/03/2024 1 MEDICARE [place]: [employer] Milla Seniornger [id number] Milla Castorena Slanger 04/03/2024 2 [employer] (MEDICARE SUPPLEMENT) Milla Seniornger [id number] Milla Seniornger Notes Date Note Type Note Provider Name and Address Organization Details Recorded Time 11/22/2023 text/html HPI Notes: 82 YO F here for pessary cleaning and elmiron instillation [facility]/22/2023 13:36:46 01/03/2024 text/html HPI Notes: 83 YO F here for pessary check, elmiron. She is very concerned that elmiron instillations are causing UTI's. She wants cipro after each instillation. I told her cipro can cause side effects, and I offered her macrobid instead as it is excreted mainly via urine. She accepted this alternative. I also scheduled patient to see hanh in 2 weeks to assess erosion seen in posterior vaginal wall. Pessary was removed on 01/03/24 for holiday Sapna Teixeira roxana [facility] 01/03/2024 11:53:05 01/16/2024 text/html HPI Notes: 83 yo F pt with hx of chronic cystitis, David, POP here for f/u 1. UTIs/IC Was using 200 mg with each instillation, felt that this was causing issues. Most recently with 100 mg with instillation and notes that she had no problems with this. Notes that Elmiron installations have been very helpful for IC management. She denies dysuria, urinary urgency and frequency today. UCx: -08/30/23: E.Coli -08/09/23: E.Coli -07/26/23: E.Coli -06/21/23: E.Coli -02/22/23: E.Coli -02/05/23: E.Coli 2. POP -H/o of cystocele grade 3 and uterine prolapse grade 2 -Managed with #3 ring pessary -With erosion 2 weeks ago at routine pessary check was Sapna on 01/03/24. -Uses vaginal estrogen cream -Notes that she has not had bleeding or issues with removal, but hoping to have replaced today. 3. ISD -shanelle urethral injections 01/08/23 Cysto is normal, no ulcers seen on 09/17/23 PVR: 12 cc UA: Trace blood Pelvic: Pessary in place, removed and cleaned. No vaginal erosions. Hanh Sanchez PA-C [address] [place] [address],[address], [place], [address], [facility] 01/17/2024 14:20:02 02/28/2024 text/html HPI Notes: 83 YO F here for pessary check, elmiron. Sapna Teixeira roxana [facility] 02/28/2024 11:53:01 04/03/2024 text/html HPI Notes: Pt is due for pessary cleaning and elmiron instillation today Sapna Teixeira roxana [facility] 04/03/2024 11:06:54 OBGyn Episode No OBEpisode recorded.
--- OUTSIDE RECORDS SUMMARY | 2024-05-04 00:15 | XMS_ITS | Continuity of Care Document ---
Author Organization [facility], [facility] Address [address] [place] [address] Care Team Providers Care Senior Benefits Manager Name Role Phone [facility] Primary Care Provid er Assessment No assessment recorded. Plan of Treatment Reminders Order Date Submit Date Provider Last Modified By Organization Details Last Modified Time Details Appointments ESTABLISH ED 30 2023 01:30P M Not available Not available Not available Lab urinalysi s, dipstick 2023 024 [email or web address] [facility], [address], [place], [address], 04/03/2024 11:04:59 Referral None recorded. Procedures None recorded. Surgeries None recorded. Imaging None recorded. Medication Orders None recorded. Patient TargetsNo targets recorded. Patient InstructionsNo instructions recorded. Reason for Referral None Reported. Results Created Date Observation Date Name Description Value Unit Range Abnormal Flag Note LastModifiedBy Organization Detail LastModifiedTime 04/03/2004/03/2024 urina lysis , dipst ick BLOOD Negati ve Not Available [facility] [address], [place], [address], 04/03/2024 11:04:07 04/03/20 24 04/03/2024 urina lysis , dipst ick BILIRUBIN Negati ve Not Available [facility] [address], [place], [address], 04/03/2024 11:04:07 04/03/20 24 04/03/2024 urina lysis , dipst ick UROBILINOGEN 0.2 mg/dL (Norm) Not Available [facility] [address], [place], [address], 04/03/2024 11:04:07 04/03/20 24 04/03/2024 urina lysis , dipst ick KETONES Negati ve Not Available [facility] [address], [place], [address], 04/03/2024 11:04:07 04/03/20 24 04/03/2024 urina lysis , dipst ick PROTEIN Negati ve Not Available [facility] [address], [place], [address], 04/03/2024 11:04:07 04/03/20 24 04/03/2024 urina lysis , dipst ick NITRITES Negati ve Not Available [facility] [address], [place], [address], 04/03/2024 11:04:07 04/03/20 24 04/03/2024 urina lysis , dipst ick GLUCOSE Negati ve Not Available [facility] [address], [place], [address], 04/03/2024 11:04:07 04/03/20 24 04/03/2024 urina lysis , dipst ick p.H. 8.5 Not Available [facility] [address], [place], [address], 04/03/2024 11:04:07 04/03/20 24 04/03/2024 urina lysis , dipst ick S.G. (Specific [place]) <1.005 Not Available [facility] [address], [place], [address], 04/03/2024 11:04:07 04/03/20 04/03/2024 urina lysis , dipst ick LEUKOCYTES Negati ve Not Available [facility] [address], [place], [address], 04/03/2024 11:04:07 Result Notes None recorded. 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 Procedures Surgical History Date Name Laterality Status Provider Name and Address Organization Details Recorded Time 024 Pessary Cleaning completed Sapna Teixeira [facility] 04/03/2024 11:06:44 024 Elmiron Instillation completed [facility] 04/03/2024 10:42:11 024 Elmiron Instillation completed Sapna Teix[facility]ira [facility] 02/28/2024 11:49:21 024 Pessary Cleaning completed Yan Sanchez PA-C [address] [place] [address],[facility] [address], [place], [address], [facility] 01/17/2024 14:13:51 024 Bladder Scan completed Yas Mathew [facility] 01/16/2024 12:59:55 024 Pessary Cleaning completed Sapna Teixeira [facility] 01/03/2024 11:49:51 024 Elmiron Instillation completed Sapna Teix[facility]ira [facility] 01/03/2024 11:50:26 024 Pessary Cleaning completed Sapna Teixeira [facility] 11/22/2023 13:33:31 024 Elmiron Instillation completed S[facility]na [facility]ix[facility]ira [facility] 11/22/2023 13:34:09 024 Pessary Cleaning completed Sapna Teixeira [facility] 10/11/2023 11:53:41 024 Elmiron Instillation completed Sapna Teixeira [facility] 10/11/2023 11:53:37 024 Pessary Cleaning completed Yan Sanchez PA-C [address] [facility],[address], [place], [address], [facility] 09/17/2023 11:35:32 024 CystoscopyFemale completed Yan Sanchez PA-C [address] [facility],[address], [place], [address], [facility] 09/17/2023 11:39:23 024 Bladder Scan completed Brissa Fuller [facility] 09/17/2023 11:10:06 024 Elmiron Instillation completed Sapna Teixeira [facility] 08/30/2023 12:22:44 023 Pessary Cleaning completed Sapna Teixeira [facility] 08/09/2023 12:52:07 023 Pessary Cleaning completed Sapna Teixeira [facility] 07/26/2023 15:28:03 023 Elmiron Instillation completed S[facility]na [facility]ix[facility]ira [facility] 07/26/2023 15:30:03 023 Pessary Cleaning completed Sapna Teixeira [facility] 06/21/2023 12:41:32 023 Elmiron Instillation completed Sapna Teixeira [facility] 06/21/2023 12:41:02 023 Urinalysis completed Roxy Broussard [facility] 05/17/2023 11:58:32 023 Elmiron Instillation completed Roxy Broussard [facility] 05/17/2023 11:57:24 023 Pessary Cleaning completed Sapna Teixeira [facility] 04/12/2023 10:26:26 023 Elmiron Instillation completed Sapna Teixeira [facility] 04/12/2023 10:28:33 023 Elmiron Instillation completed Sapna Teixeira [facility] 02/22/2023 10:53:05 023 Pessary Cleaning completed Lisandra Greer MD [address] [facility],[address], [place], [address], [facility] 02/05/2023 10:02:06 023 Bladder Scan completed Hayley Byers [facility] 02/05/2023 09:53:16 023 Pessary Cleaning completed Sapna Teixeira [facility] 01/18/2023 17:07:44 023 Elmiron Instillation completed Sapna Teixeira [facility] 01/18/2023 16:59:42 023 Periurethral Coaptite Injection completed Sapna Teixeira [facility] 01/08/2023 10:09:14 023 Pessary Cleaning completed Sapna Teixeira [facility] 12/14/2022 11:37:53 023 Elmiron Instillation completed Sapna Teixeira [facility] 12/14/2022 11:40:01 023 Elmiron Instillation completed Sapna Teixeira [facility] 10/05/2022 13:36:49 023 Pessary Cleaning completed Yan Sanchez PA-C [address] [facility],[address], [place], [address], [facility] 10/02/2022 13:40:56 023 CystoscopyFemale completed Yan Sanchez PA-C [address] [facility],[address], [place], [address], [facility] 10/02/2022 13:38:50 023 Bladder Scan completed Roxy Morton [facility] 10/02/2022 11:47:46 023 Pessary Cleaning completed Sapna Teixeira [facility] 08/24/2022 11:54:16 023 Elmiron Instillation completed Sapna Teixeira [facility] 08/24/2022 11:53:10 022 Pessary Cleaning completed Sapna Teixeira [facility] 07/18/2022 10:29:37 022 Elmiron Instillation completed Sapna Puneet [facility] 07/18/2022 10:29:24 022 Pessary Cleaning completed Sapna Teixeira [facility] 06/13/2022 10:46:49 022 Elmiron Instillation completed Sapna Puneet [facility] 06/13/2022 10:47:23 022 Pessary Cleaning completed Sapna Teixeira [facility] 04/11/2022 12:18:36 022 Elmiron Instillation completed Sapna Teixeira [facility] 04/11/2022 12:19:18 022 Pessary Cleaning completed Sapna Teixeira [facility] 03/07/2022 10:57:32 022 Elmiron Instillation completed Sapna Puneet [facility] 03/07/2022 10:58:34 022 Pessary Cleaning completed Sapna Teixeira [facility] 02/07/2022 10:46:42 022 Elmiron Instillation completed Sapna Puneet [facility] 02/07/2022 10:46:32 022 Pessary Cleaning completed Sapna Teixeira [facility] 01/03/2022 11:42:03 022 Elmiron Instillation completed Sapna Teixeira [facility] 01/03/2022 11:42:43 022 Pessary Cleaning completed Sapna Teixeira [facility] 11/29/2021 10:19:11 022 Elmiron Instillation completed Sapna Teixeira [facility] 11/29/2021 10:16:17 022 Pessary Cleaning completed Sapna Teixeira [facility] 11/01/2021 11:25:09 022 Bladder Scan completed [facility] 11/01/2021 11:24:09 022 Elmiron Instillation completed Sapna Teixeira [facility] 11/01/2021 11:24:22 022 Pessary Cleaning completed Sapna Teixeira [facility] 10/04/2021 11:51:33 022 Elmiron Instillation completed Sapna Teixeira [facility] 10/04/2021 11:51:15 022 Pessary Insertion completed Lisandra Greer MD [address] [place] [address],[address], [place], [address], [facility] 10/04/2021 15:03:13 022 Bladder Scan completed Lisandra Greer MD [address] [place] [address],[address], [place], [address], [place] [facility] 09/26/2021 17:12:26 022 Elmiron Instillation completed Dana Asher [facility] 08/31/2021 11:32:26 021 Elmiron Instillation completed Sapna Teixeira [facility] 08/03/2021 11:35:49 021 Elmiron Instillation completed Stacy Fortune [facility] 07/03/2021 10:39:03 021 Elmiron Instillation completed Stacy Jaimesera [facility] 05/31/2021 11:48:55 021 Elmiron Instillation completed Stacy Pitera [facility] 05/03/2021 11:11:30 021 Elmiron Instillation completed Stacy Pitera [facility] 04/05/2021 10:53:18 021 Elmiron Instillation completed Royal Dietrich [facility] 03/01/2021 12:34:33 021 CystoscopyFemale completed Lisandra Greer MD [address] [facility],[address], [place], [address], [facility] 02/02/2021 11:18:02 021 Elmiron Instillation completed Abigail Jimenez [facility] 02/02/2021 11:08:07 021 Elmiron Instillation completed Royal Dietrich [facility] 01/02/2021 11:57:31 021 Elmiron Instillation completed Ledy King [facility] 12/07/2020 12:33:01 021 Elmiron Instillation completed Sapna Teixeira [facility] 11/09/2020 12:07:24 021 Elmiron Instillation completed Sapna Teixeira [facility] 10/26/2020 10:50:18 021 Elmiron Instillation completed Sapna Teixeira [facility] 10/04/2020 12:23:58 021 Elmiron Instillation completed Sapna Teixeira [facility] 08/25/2020 14:15:22 020 Elmiron Instillation completed Sapna Teixeira [facility] 07/27/2020 11:21:17 020 Elmiron Instillation completed Sapna Teixeira [facility] 06/22/2020 10:22:28 020 Elmiron Instillation completed Jatin Silva [facility] 05/18/2020 12:07:15 020 Elmiron Instillation completed Concepción Hitchcock [facility] 04/20/2020 14:22:27 020 Elmiron Instillation completed Concepción Hitchcock [facility] 03/21/2020 13:09:02 020 Elmiron Instillation completed Jatin Silva [facility] 02/22/2020 11:33:42 discectomy of spine completed Sheila Greer MD [address] [place] [address],[address], [place], [address], [facility] 09/26/2021 17:10:22 laparoscopy completed Lisandra Greer MD [address] [place] [address],[address], [place], [address], [facility] 09/26/2021 17:10:47 insertion of prosthesis for breast completed Lisandra Greer MD [address] [facility],[address], [place], [address], [facility] 09/26/2021 17:11:07 Appendectomy completed Lisandra Greer MD [address] [facility],[address], [place], [address], [facility] 09/26/2021 17:11:20 Imaging Results None recorded. Procedure Notes None recorded. Medical Equipment None Reported. Allergies Allergen ID Allergen Name Allergen Category Reaction Reaction Severity Criticality Documentation Date Start Date Code Code System Note Provider Name and Address Organization Details Recorded Time 203504 vancomyci n medicatio n Not available Not available Not available 02/04/20202011 75426 RxNorm Not Available [facility] 0 00:48:49 513338 Substance with sulfonami de structure and antibacte rial mechanism of action (substanc e) medicatio n Not available Not available Not available 04/11/2022 02763 8003 SNOMED [facility] 2 12:15:21 Medications Name Sig Start [...] Not Available Not Available Not Available Vitals None Recorded Social History Question Answer Notes LastModified by Organizat ion Details LastModified Time Tobacco Smoking Status Former Smoker Jatin Silva [facility] 02/22/2020 11:31:58 What Is Your Level Of Alcohol Consumption? Occasional [email or web address] Information not available 02/05/2023 How Many Times Per Week Do You Consume Alcohol? Less Than 1 Time Per Week [email or web address] Information not available 02/05/2023 What Is Your Level Of Caffeine Consumption? Occasional [email or web address] Information not available 02/05/2023 When Did You Quit Smoking? 11-15yearssinc elastcigarette [email or web address] Information not available 02/05/2023 Marital Status Unknown [email or web address] Informati on not available 01/28/2020 What Was The Date Of Your Most Recent Tobacco Screening? 01/16/2024 Information not available 01/16/2024 Have You Ever Been Counseled For Unhealthy Alcohol Use? No Information not available 01/16/2024 Do You Use Any Illicit Or Recreational Drugs? No [email or web address] Information not available 02/05/2023 Has Tobacco Cessation Counseling Been Provided? No [email or web address] Information not available 02/05/2023 Do You Or Have You Ever Used Any Other Forms Of Tobacco Or Nicotine? No [email or web address] Information not available 02/05/2023 How Many Days In The Past Year Have You Consumed 4 Or More Drinks? 0 Information no t available 01/16/2024 Sex: Unknown Functional Status None recorded. Mental Status None recorded. Family History Relationship Description Onset Age of this Age Resolved Age Notes LastModified by Organization Details LastModified Time Mother Family history of cardiac disorder [email or web address] Not available 09/26 17:09:44 Father Family history of diabetes mellitus [email or web address] Not available 09/26 17:09:50 Father Malignant melanoma [email or web address] Not available 09/26 17:09:57 Medical History Condition Response Other N High Blood Pressure N Kidney Stones N Lung Disease N Depression N GERD/Acid Reflux Y Diabetes N Sexually [...] Influenza, high-dose, quadrivalent, PF 05/18/2022 [facility]2023 12:50:04 COVID-19, mRNA, LNP-S, PF, 30 mcg/0.3 mL dose, jami-sucrose 01/12/2022 completed Alina Allar null, [facility] 08/06/2023 12:50:04 COVID-19, mRNA, LNP-S, bivalent, PF, 30 mcg/0.3 mL dose 01/23/2023 completed Alina Allar null, [facility] 08/06/2023 12:50:04 COVID-19, mRNA, LNP-S, bivalent, PF, 30 mcg/0.3 mL dose 05/18/2022 completed Alina Allar null, [facility] 08/06/2023 12:50:04 Influenza, high-dose, quadrivalent, PF 05/24/2023 completed Yas Mathew null, [facility] 01/16/2024 12:54:12 Pneumococcal conjugate PCV20, polysaccharide [id number] conjugate, adjuvant, PF 07/02/2023 completed Yas Mathew null, [facility] 01/16/2024 12:54:12 COVID-19, mRNA, LNP-S, PF, jami-sucrose, 30 mcg/0.3 mL 05/24/2023 completed Yas Mathew null, [facility] 01/16/2024 12:54:12 Influenza, recombinant, quadrivalent, PF 05/22/2019 completed Roxy Broussard null, [facility] 05/17/2023 11:54:16 zoster recombinant 01/21/2019 [facility] 11:54:16 Influenza, high-dose, quadrivalent, PF 06/10/2020 completed Roxy Broussard null, [facility] 05/17/2023 11:54:16 Influenza, high-dose, quadrivalent, PF 06/13/2021 completed Roxy Broussard null, [facility] 05/17/2023 11:54:16 COVID-19, mRNA, LNP-S, PF, 30 mcg/0.3 mL dose 09/24/2020 [facility] 11:54:16 COVID-19, mRNA, LNP-S, PF, 30 mcg/0.3 mL dose 10/15/2020 completed Roxy Broussard null, [facility] 05/17/2023 11:54:16 COVID-19, mRNA, LNP-S, PF, 30 mcg/0.3 mL dose 05/19/2021 completed Roxy Broussard null, [facility] 05/17/2023 11:54:16 pneumococcal polysaccharide PPV23 05/19/2007 [facility] 11:54:16 influenza, unspecified formulation 06/30/2015 [facility] 11:54:16 Tdap 02/02/2021 [facility] 11:54:16 Tdap 05/19/2011 [facility] 11:54:16 Pneumococcal conjugate PCV 13 09/01/2015 [facility] 11:54:16 zoster live 05/19/2010 [facility] 11:54:16 Influenza, high-dose, trivalent, PF 05/19/2013 [facility] 11:54:16 Influenza, high-dose, trivalent, PF 05/22/2016 [facility] 11:54:16 Influenza, high-dose, trivalent, PF 05/29/2018 [facility] 11:54:16 Influenza, high-dose, trivalent, PF 06/18/2017 [facility] 11:54:16 Influenza, split virus, trivalent, PF 06/04/2012 [facility] 11:54:16 Influenza, split virus, trivalent, PF 06/28/2011 [facility]23 11:54:16 pneumococcal polysaccharide PPV23 08/22/2015 [facility] 12:50:04 Past Encounters Encounter ID Performer Location Encounter Start Date Encounter Closed Date Diagnosis/Indication Diagnosis SNOMED-CT Code Diagnosis ICD10 Code [id number] Sapna Teixeira [facility] [address] [id number] 04/03/2024 10:38:59 04/06/2024 13:45:37 Chronic interstitial cystitis 295800906 N30.10 Health Concerns Section Related Observation LastModified by Organization Detai ls LastModified Time None Recorded Concern Status LastModified by Organization Details LastModified Time None Recorded Payers Encounter Date Sequence Insurance Name Policy Number Policy Tarango Covered Member ID Tarango Member ID Guarantor Name 04/03/2024 1 [place] Milla Pollard [id number] Milla Pollard 04/03/2024 2 [employer] (MEDICARE SUPPLEMENT) Milla Pollard [id number] Milla Pollard Notes Date Note Type Note Provider Name and Address Organization Details Recorded Time 04/03/2024 text/html HPI Notes: Pt is due for pessary cleaning and elmiron instillation today [facility] 04/03/2024 11:06:54 OBGyn Episode No OBEpisode recorded.
--- OUTSIDE RECORDS SUMMARY | 2024-05-04 00:16 | XMS_ITS | Clinical Summary ---
Author Organization [facility] Address [address] [place] [address] Care Team Providers Care Manager Nuclear Name Role Phone Ganesh Sifuentes MD Primary Care Provider [phone] Allergies Active Allergy Reactions Criticality Noted Date Comments Sulfa Antibiotics Hives 09/10/2012 Vancomycin Hives 09/11/2012 Honey Bee Venom Anaphylaxis High 06/16/2016 Medications Medication Sig Dispensed Refills Start Date End Date Status fluticasone (VERAMYST) 27.5 MCG/SPRAY nasal spray [place] 2 sprays into both nostrils daily. Active [...] ASSESSMENT 2006 MEDICARE ANNUAL WELLNESS VISIT 2006 RSV VACCINE (1 - 1-dose 75+ series) 2016 ZOSTER IMMUNIZATION (3 of 3) 03/18/2019 01/21/2019, 05/19/2010 LIPID 04/09/2021 04/09/2020 PHQ-2 (once per calendar year) 2023 COVID-19 Vaccine (2022- season) 2024 05/24/2023, 01/23/2023, 05/18/2022, Additional history exists INFLUENZA VACCINE (#1) 2024 , 05/18/2022, 06/13/2021, Additional history exists ADVANCE CARE PLANNING 04/22/2025 04/22/2020 , 04/22/2020, 07/23/2018, Additional history exists DTAP/TDAP/TD IMMUNIZATION (3 - Td or Tdap) 02/02/2031 02/02/2021, 05/19/2011 Pneumococcal Vaccine: 65+ Years Completed 07/02/2023, 09/01/2015, [...] 160 <200 mg/dL 04/09/2020 5:58 AM CDT [facility] Triglycerides 59 <150 mg/dL 04/09/2020 5:58 AM CDT [facility] HDL Cholesterol 81 >49 mg/dL 0 6:01 AM CDT [facility] LDL Cholesterol Calculated 67 <100 mg/dL 04/09/2020 6:01 AM T [facility] Comment:Desirable: <100 mg/d l Non HDL Cholesterol 79 <130 mg/dL 04/09/2020 6:01 AM T [facility] Blood specimen (specimen) 04/09/2020 5:21 AM CDT 04/09/2020 5:22 AM CDT Nia Jimenez PA-C LAB - BLOOD MAN [facility] [address] [address], [facility] [phone] from Last 3 Months or Most Recently Relevant to Health Maintenance Advance Directives For more information, please contact: [phone] Documents on File Type Date Recorded 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
--- OUTSIDE RECORDS SUMMARY | 2024-05-04 00:16 | XMS_ITS | Continuity of Care Document ---
Author Organization [facility], [facility] Address [address] [place] [address] Care Team Providers Care Commander Internal Affairs Name Role Phone [facility] Primary Care Provid er Assessment No assessment recorded. Plan of Treatment Reminders Order Date Submit Date Provider Last Modified By Organization Details Last Modified Time Details Appointments ESTABLISH ED 30 2023 01:30P M Not available Not available Not available Lab urinalysi s, dipstick 2023 024 [email or web address] [facility], [address], [place], [address], 02/28/2024 11:47:12 Referral None recorded. Procedures None recorded. Surgeries None recorded. Imaging None recorded. Medication Orders None recorded. Patient TargetsNo targets recorded. Patient InstructionsNo instructions recorded. Reason for Referral None Reported. Results Created Date Observation Date Name Description Value Unit Range Abnormal Flag Note LastModifiedBy Organization Detail LastModifiedTime 02/28/2002/28/2024 urina lysis , dipst ick BLOOD Negati ve Not Available [facility] [address], [place], [address], 02/28/2024 11:42:58 02/28/20 24 02/28/2024 urina lysis , dipst ick BILIRUBIN Negati ve Not Available [facility] [address], [place], [address], 02/28/2024 11:42:58 02/28/20 24 02/28/2024 urina lysis , dipst ick UROBILINOGEN 0.2 mg/dL (Norm) Not Available [facility] [address], [place], [address], 02/28/2024 11:42:58 02/28/20 24 02/28/2024 urina lysis , dipst ick KETONES Negati ve Not Available [facility] [address], [place], [address], 02/28/2024 11:42:58 02/28/20 24 02/28/2024 urina lysis , dipst ick PROTEIN Negati ve Not Available [facility] [address], [place], [address], 02/28/2024 11:42:58 02/28/20 24 02/28/2024 urina lysis , dipst ick NITRITES Negati ve Not Available [facility] [address], [place], [address], 02/28/2024 11:42:58 02/28/20 24 02/28/2024 urina lysis , dipst ick GLUCOSE Negati ve Not Available [facility] [address], [place], [address], 02/28/2024 11:42:58 02/28/20 24 02/28/2024 urina lysis , dipst ick p.H. 7.5 Not Available [facility] [address], [place], [address], 02/28/2024 11:42:58 02/28/20 24 02/28/2024 urina lysis , dipst ick S.G. ([place]) <1.005 Not Available [facility] [address], [place], [address], 02/28/2024 11:42:58 02/28/2011 0302/28/2024 urina lysis , dipst ick LEUKOCYTES Negati ve Not Available [facility] [address], [place], [address], 02/28/2024 11:42:58 Result Notes None recorded. 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 Procedures Surgical History Date Name Laterality Status Provider Name and Address Organization Details Recorded Time 024 Pessary Cleaning completed Sapna schmidt [facility] 04/03/2024 11:06:44 024 [place] Instillation completed Sapna schmidt, [facility] 04/03/2024 10:42:11 024 [place] Instillation completed Sapna schmidt, [facility] 02/28/2024 11:49:21 024 Pessary Cleaning completed Yan Sanchez PA-C [address] [place] [address],[address], [place], [address], [facility] 01/17/2024 14:13:51 024 Bladder Scan completed Yas Mathew null, [facility] 01/16/2024 12:59:55 024 Pessary Cleaning completed Sapna schmidt, [facility] 01/03/2024 11:49:51 024 [place] Instillation completed Sapna schmidt, [facility] 01/03/2024 11:50:26 024 Pessary Cleaning completed Sapna schmidt, [facility] 11/22/2023 13:33:31 024 [place] Instillation completed Sapna schmidt, [facility] 11/22/2023 13:34:09 024 Pessary Cleaning completed Sapna Teixeira null, [facility] 10/11/2023 11:53:41 024 [place] Instillation completed Sapna Teixeira null, [facility] 10/11/2023 11:53:37 024 Pessary Cleaning completed Yan Sanchez PA-C [address] [facility],[address], [place], [address], [facility] 09/17/2023 11:35:32 024 CystoscopyFemale completed Yan Sanchez PA-C [address] [facility],[address], [place], [address], [facility] 09/17/2023 11:39:23 024 Bladder Scan completed Brissa Fuller null, [facility] 09/17/2023 11:10:06 024 [place] Instillation completed Sapna Teixeira null, [facility] 08/30/2023 12:22:44 023 Pessary Cleaning completed Sapna Teixeira null, [facility] 08/09/2023 12:52:07 023 Pessary Cleaning completed Sapna Teixeira null, [facility] 07/26/2023 15:28:03 023 [place] Instillation completed Sapna Teixeira null, [facility] 07/26/2023 15:30:03 023 Pessary Cleaning completed Sapna Teixeira null, [facility] 06/21/2023 12:41:32 023 [place] Instillation completed Sapna Teixeira null, [facility] 06/21/2023 12:41:02 023 Urinalysis completed Roxy Broussard null, [facility] 05/17/2023 11:58:32 023 [place] Instillation completed Roxy Broussard null, [facility] 05/17/2023 11:57:24 023 Pessary Cleaning completed Sapna Teixeira null, [facility] 04/12/2023 10:26:26 023 [place] Instillation completed Sapna Teixeira null, [facility] 04/12/2023 10:28:33 023 [place] Instillation completed Sapna Teixeira null, [facility] 02/22/2023 10:53:05 023 Pessary Cleaning completed Lisandra Greer MD [address] [facility],[address], [place], [address], [facility] 02/05/2023 10:02:06 023 Bladder Scan completed Hayley Byers null, [facility] 02/05/2023 09:53:16 023 Pessary Cleaning completed Sapna Teixeira null, [facility] 01/18/2023 17:07:44 023 [place] Instillation completed Sapna Teixeira null, [facility] 01/18/2023 16:59:42 023 Periurethral Coaptite Injection completed Sapna Teixeira null, [facility] 01/08/2023 10:09:14 023 Pessary Cleaning completed Sapna Teixeira null, [facility] 12/14/2022 11:37:53 023 [place] Instillation completed Sapna Teixeira null, [facility] 12/14/2022 11:40:01 023 [place] Instillation completed Sapna Teixeira null, [facility] 10/05/2022 13:36:49 023 Pessary Cleaning completed Yan Sanchez PA-C [address] [facility],[address], [place], [address], [place] [facility] 10/02/2022 13:40:56 023 CystoscopyFemale completed Yan Sanchez PA-C [address] [facility],[address], [place], [address], [place] [facility] 10/02/2022 13:38:50 023 Bladder Scan completed Roxy Morton null, [facility] 10/02/2022 11:47:46 023 Pessary Cleaning completed Sapna Puneet null, [facility] 08/24/2022 11:54:16 023 [place] Instillation completed Sapna Puneet null, [facility] 08/24/2022 11:53:10 022 Pessary Cleaning completed Sapna Puneet null, [facility] 07/18/2022 10:29:37 022 [place] Instillation completed Sapna Puneet null, [facility] 07/18/2022 10:29:24 022 Pessary Cleaning completed Sapna Puneet null, [facility] 06/13/2022 10:46:49 022 [place] Instillation completed Sapna Puneet null, [facility] 06/13/2022 10:47:23 022 Pessary Cleaning completed Sapna Puneet null, [facility] 04/11/2022 12:18:36 022 [place] Instillation completed Sapna Puneet null, [facility] 04/11/2022 12:19:18 022 Pessary Cleaning completed Sapna Puneet null, [facility] 03/07/2022 10:57:32 022 [place] Instillation completed Sapna Puneet null, [facility] 03/07/2022 10:58:34 022 Pessary Cleaning completed Sapna Puneet null, [facility] 02/07/2022 10:46:42 022 [place] Instillation completed Sapna Puneet null, [facility] 02/07/2022 10:46:32 022 Pessary Cleaning completed Sapna Puneet null, [facility] 01/03/2022 11:42:03 022 [place] Instillation completed Sapna Puneet null, [facility] 01/03/2022 11:42:43 022 Pessary Cleaning completed Sapna Puneet null, [facility] 11/29/2021 10:19:11 022 [place] Instillation completed Sapna Puneet null, [facility] 11/29/2021 10:16:17 022 Pessary Cleaning completed Sapna Teixeira null, [facility] 11/01/2021 11:25:09 022 Bladder Scan completed Sapna Teixeira null, [facility] 11/01/2021 11:24:09 022 [place] Instillation completed Sapna Teixeira null, [facility] 11/01/2021 11:24:22 022 Pessary Cleaning completed Sapna Teixeira null, [facility] 10/04/2021 11:51:33 022 [place] Instillation completed Sapna Teixeira null, [facility] 10/04/2021 11:51:15 Pessary Insertion completed Lisandra Greer MD [address] [place] [address],[address], [place], [address], [facility] 10/04/2021 15:03:13 022 Bladder Scan completed Lisandra Greer MD [address] [place] [address],[address], [place], [address], [facility] 09/26/2021 17:12:26 022 [place] Instillation completed Dana Asher null, [facility] 08/31/2021 11:32:26 021 [place] Instillation completed Sapna Teixeira null, [facility] 08/03/2021 11:35:49 021 [place] Instillation completed Stacy Pitera null, [facility] 07/03/2021 10:39:03 021 [place] Instillation completed Stacy Pitera null, [facility] 05/31/2021 11:48:55 021 [place] Instillation completed Stacy Pitera null, [facility] 05/03/2021 11:11:30 021 [place] Instillation completed Stacy Pitera null, [facility] 04/05/2021 10:53:18 021 [place] Instillation completed Eunicea Karlo null, [facility] 03/01/2021 12:34:33 021 CystoscopyFemale completed Lisandra Greer MD [address] [facility],[address], [place], [address], [facility] 02/02/2021 11:18:02 021 [place] Instillation completed Abigail Jimenez null, [facility] 02/02/2021 11:08:07 021 [place] Instillation completed Modestapatricia Karlo null, [facility] 01/02/2021 11:57:31 021 [place] Instillation completed Ledy King null, [facility] 12/07/2020 12:33:01 021 [place] Instillation completed Sapna Teixeira null, [facility] 11/09/2020 12:07:24 021 [place] Instillation completed Sapna Teixeira null, [facility] 10/26/2020 10:50:18 021 [place] Instillation completed Sapna Teixeira null, [facility] 10/04/2020 12:23:58 021 [place] Instillation completed Sapna Teixeira null, [facility] 08/25/2020 14:15:22 020 [place] Instillation completed Sapna Teixeira null, [facility] 07/27/2020 11:21:17 020 [place] Instillation completed Sapna Teixeira null, [facility] 06/22/2020 10:22:28 020 [place] Instillation completed Jatin Silva null, [facility] 05/18/2020 12:07:15 020 [place] Instillation completed Concepción Hitchcock null, [facility] 04/20/2020 14:22:27 020 [place] Instillation completed Concepción Hitchcock null, [facility] 03/21/2020 13:09:02 020 [place] Instillation completed Jatin Silva null, [facility] 02/22/2020 11:33:42 discectomy of spine completed Sheila Greer MD [address] [place] [address],[address] [place] [address], [address] [place] [address], [facility] 09/26/2021 17:10:22 laparoscopy completed Lisandra Greer MD [address] [place] [address],[address], [place], [address] [place] [address], [facility] 09/26/2021 17:10:47 insertion of prosthesis for breast completed Lisandra Greer MD [address] [place] [address],[address], [place], [address] [place] [address], [facility] 09/26/2021 17:11:07 Appendectomy completed Lisandra Greer MD [address] [place] [address],[address], [place], [address] [place] [address], [facility] 09/26/2021 17:11:20 Imaging Results None recorded. Procedure Notes None recorded. Medical Equipment None Reported. Allergies Allergen ID Allergen Name Allergen Category Reaction Reaction Severity Criticality Documentation Date Start Date Code Code System Note Provider Name and Address Organization Details Recorded Time 579835 vancomyci n medicatio n Not available Not available Not available 02/04/20202011 93931 RxNorm Not Available [facility] 0 00:48:49 746712 Substance with sulfonami de structure and antibacte rial mechanism of action (substanc e) medicatio n Not available Not available Not available 04/11/2022 14215 8003 [facility]ED [facility] 12:15:21 Medications Name Sig Start Date [...] MOUTH 3 TIMES A DAY UNTIL GONE* 06/20 /2023 completed Not Available Not Available Not Available [...] Tobacco Smoking Status Former Smoker Jatin Silva [place], [place] - [facility] 02/22/2020 11:31:58 What Is Your Level Of Alcohol Consumption? Occasional [email or web address] Information not available 02/05/2023 How Many Times Per Week Do You Consume Alcohol? Less Than 1 Time Per Week [email or web address] Information not available 02/05/2023 What Is Your Level Of Caffeine Consumption? Occasional [email or web address] Information not available 02/05/2023 When Did You Quit Smoking? 11-15yearssinc elastcigarette [email or web address] Information not available 02/05/2023 Marital Status Unknown [email or web address] Informati on not available 01/28/2020 What Was The Date Of Your Most Recent Tobacco Screening? 01/16/2024 Information not available 01/16/2024 Have You Ever Been Counseled For Unhealthy Alcohol Use? No Information not available 01/16/2024 Do You Use Any Illicit Or Recreational Drugs? No [email or web address] Information not available 02/05/2023 Has Tobacco Cessation Counseling Been Provided? No [email or web address] Information not available 02/05/2023 Do You Or Have You Ever Used Any Other Forms Of Tobacco Or Nicotine? No [email or web address] Information not available 02/05/2023 How Many Days [...] Influenza, high-dose, quadrivalent, PF 05/18/2022 completed Alina schmidt [facility] 08/06/2023 12:50:04 COVID-19, mRNA, LNP-S, PF, 30 mcg/0.3 mL dose, jami-sucrose 01/12/2022 completed Alina schmidt [facility] 08/06/2023 12:50:04 COVID-19, mRNA, LNP-S, bivalent, PF, 30 mcg/0.3 mL dose 01/23/2023 completed Alina Gomes null, [facility] 08/06/2023 12:50:04 COVID-19, mRNA, LNP-S, bivalent, PF, 30 mcg/0.3 mL dose 05/18/2022 completed Alina Gomes null, [facility] 08/06/2023 12:50:04 Influenza, high-dose, quadrivalent, PF 05/24/2023 completed Yas Mathew null, [facility] 01/16/2024 12:54:12 Pneumococcal conjugate PCV20, polysaccharide [id number] conjugate, adjuvant, PF 07/02/2023 completed Yas Mathew null, [facility] 01/16/2024 12:54:12 COVID-19, mRNA, LNP-S, PF, jami-sucrose, 30 mcg/0.3 mL 05/24/2023 completed Yas Mathew null, [facility] 01/16/2024 12:54:12 Influenza, recombinant, quadrivalent, PF 05/22/2019 completed Roxy Broussard null, [facility] 05/17/2023 11:54:16 zoster recombinant 01/21/2019 completed Roxy Brousasrd null, [facility] 05/17/2023 11:54:16 Influenza, high-dose, quadrivalent, PF 06/10/2020 completed Roxy Broussard null, [facility] 05/17/2023 11:54:16 Influenza, high-dose, quadrivalent, PF 06/13/2021 completed Roxy Broussard null, [facility] 05/17/2023 11:54:16 COVID-19, mRNA, LNP-S, PF, 30 mcg/0.3 mL dose 09/24/2020 completed Roxy Broussard null, [facility] 05/17/2023 11:54:16 COVID-19, mRNA, LNP-S, PF, 30 mcg/0.3 mL dose 10/15/2020 completed Roxy Broussard null, [facility] 05/17/2023 11:54:16 COVID-19, mRNA, LNP-S, PF, 30 mcg/0.3 mL dose 05/19/2021 completed Roxy schmidt, [facility] 05/17/2023 11:54:16 pneumococcal polysaccharide PPV23 05/19/2007 completed Roxy schmidt, [facility] 05/17/2023 11:54:16 influenza, unspecified formulation 06/30/2015 completed Roxy schmidt, [facility] 05/17/2023 11:54:16 Tdap 02/02/2021 completed Roxy schmidt, [facility] 05/17/2023 11:54:16 Tdap 05/19/2011 completed Roxy schmidt, [facility] 05/17/2023 11:54:16 Pneumococcal conjugate PCV 13 09/01/2015 completed Roxy schmidt, [facility] 05/17/2023 11:54:16 zoster live 05/19/2010 [facility] 11:54:16 Influenza, high-dose, trivalent, PF 05/19/2013 completed Roxy schmidt, [facility] 05/17/2023 11:54:16 Influenza, high-dose, trivalent, PF 05/22/2016 completed Roxy schmidt, [facility] 05/17/2023 11:54:16 Influenza, high-dose, trivalent, PF 05/29/2018 completed Roxy schmidt, [facility] 05/17/2023 11:54:16 Influenza, high-dose, trivalent, PF 06/18/2017 completed Roxy schmidt, [facility] 05/17/2023 11:54:16 Influenza, split virus, trivalent, PF 06/04/2012 completed Roxy schmidt, [facility] 05/17/2023 11:54:16 Influenza, split virus, trivalent, PF 06/28/2011 completed Roxy schmidt, [facility] 05/17/2023 11:54:16 pneumococcal polysaccharide PPV23 08/22/2015 [facility] 12:50:04 Past Encounters Encounter ID Performer Location Encounter Start Date Encounter Closed Date Diagnosis/Indication Diagnosis SNOMED-CT Code Diagnosis ICD10 Code [id number] Sapna Teixeira [facility] [address] [place] [address] 02/28/2024 10:08:07 03/17/2024 12:35:06 Chronic interstitial cystitis 964489323 N30.10 Health Concerns Section Related Observation LastModified by Organization Detai ls LastModified Time None Recorded Concern Status LastModified by Organization Details LastModified Time None Recorded Payers Encounter Date Sequence Insurance Name Policy Number Policy Tarango Covered Member ID Tarango Member ID Guarantor Name 02/28/2024 1 [place] [employer] Milla Pollard [id number] Milla Pollard 02/28/2024 2 [employer] (MEDICARE SUPPLEMENT) Milla Pollard [id number] Milla Pollard Notes Date Note Type Note Provider Name and Address Organization Details Recorded Time 02/28/2024 text/html HPI Notes: 83 YOF here for pessary check, [place]. [place] - [facility] 02/28/2024 11:53:01 OBGyn Episode No OBEpisode recorded.
--- OUTSIDE RECORDS SUMMARY | 2024-05-04 00:16 | XMS_ITS | Referral Summary ---
Author Organization [facility] Address [address] [place] [address] Care Team Providers Care Frit Mixer And Burner Name Role Phone Ganesh Sifuentes MD Primary Care Provider [phone] Allergies Active Allergy Reactions Criticality Noted Date Comments Sulfa Antibiotics Hives 09/10/2012 Vancomycin Hives 09/11/2012 Honey Bee Venom Anaphylaxis High 06/16/2016 Medications Medication Sig Dispensed Refills Start Date End Date Status fluticasone (VERAMYST) 27.5 MCG/SPRAY nasal spray [place] 2 sprays into both nostrils daily. Active [...] 160 <200 mg/dL 04/09/2020 5:58 AM CDT [facility] Triglycerides 59 <150 mg/dL 04/09/2020 5:58 AM CDT [facility] HDL Cholesterol 81 >49 mg/dL 0 6:01 AM CDT [facility] LDL Cholesterol Calculated 67 <100 mg/dL 04/09/2020 6:01 AM CDT [facility] Comment:Desirable: <100 mg/d l Non HDL Cholesterol 79 <130 mg/dL 04/09/2020 6:01 AM CDT [facility] Blood specimen (specimen) 04/09/2020 5:21 AM CDT 04/09/2020 5:22 AM CDT Nia Jimenez PA-C LAB - BLOOD MAN [facility] [address] [place] [id number], [facility] [phone] from Last 3 Months or Most Recently Relevant to Health Maintenance Advance Directives For more information, please contact: [phone] Documents on File Type Date Recorded Patient Program Review Director Expl anation Advance Directives and Living Will [...] Comments Code status determined by: Discussion with boris nt/ legal decision maker * Full Code Date Activated Date Inactivated Comments 04/08/2020 3:40 PM 04/08/2020 5:39 PM All basic an d advanced life-sustaining interventions are performed as appropriate Question Answer Comments Code status determined by: Discussion with boris nt/ legal decision maker Healthcare Agents on File Name Relationship Healthcare Agent Relationship Communication Tao Pollard Spouse Health Care Agent Concepción Barber Daughter First Alternate Health Care Agent Care Teams Frit Mixer And Burner Relationship Specialty Start Date End Date Ganesh Sifuentes MD PCP - General Family Practice 05/15/19
== END 2024-04-27 08:17 | disposition home or self-care (01) ==
LOC: NFLDREF 05-04 00:12
PROVIDERS: PCP Family Medicine; Referring Provider Family Medicine; Visit Provider Family Medicine
DX: R30.0 Dysuria (principal)
CPT/HCPCS: 87086

== ENCOUNTER 2024-05-25 11:56 | Outpatient (CLI) | payer MEDICARE, OTHER, SELFPAY ==
--- OUTSIDE RECORDS SUMMARY | 2024-05-25 11:58 | XMS_ITS | Clinical Summary ---
Author Organization [facility] Address [place], [place] [address] Care Team Providers Care Scientific Affairs Manager Name Role Phone Nayan Tomasnda RENNY Primary Care Provider [phone] Allergies Active Allergy Reactions Criticality Noted Date [...] (FLONASE) 50 mcg/Actuation nasal spray Inhale 1 [place] into both nostrils once daily. 1 Bottle [...] Active azelastine 137 mcg/actuation (ASTELIN) nasal spray [place] 1 spray each nostril daily 1 Bottle [...] 65+ (1 of 1 - PCV) 2006 RSV vaccine for adults or (1 - 1-dose 75+ series) 2016 BMI (ht and wt on same day) for age 18+ 12/24/2017 12/24/2016, 01/02/2016 COVID-19 vaccine series (2023- season) 2024 01/23/2023, 05/18/2022, 01/12/2022, Additional history exists Influenza for age 65+ 04/19/2024 Care Teams Scientific Affairs Manager Relationship Specialty Start Date End Date Jennie Tomas NP PCP - General Nurse Practitioner 02/17/16
--- OUTSIDE RECORDS SUMMARY | 2024-05-25 11:59 | XMS_ITS | Continuity of Care Document ---
Author Organization [facility], [facility] Address [address] [place] [address] Care Team Providers Care Aircraft Landing Gear Inspector Name Role Phone [facility] Primary Care Provid er Assessment No assessment recorded. Plan of Treatment Reminders Order Date Submit Date Provider Last Modified By Organization Details Last Modified Time Details Appointments ESTABLISH ED 30 2023 02:00P M FEMALE_UR OLOGY_NUR SE_CLINIC Not available Not available Not available Lab urinalysi s, dipstick 2023 024 [id number] [facility], [address], [place], [address], 02/28/2024 11:47:12 Referral None recorded. Procedures None [...] Not Available [facility] [address], [place], [address], 02/28/2024 11:42:58 02/28/20 24 02/28/2024 urina lysis , dipst ick BILIRUBIN Negati ve Not Available [facility] [address], [place], [address], 02/28/2024 11:42:58 02/28/20 24 02/28/2024 urina lysis , dipst ick UROBILINOGEN 0.2 mg/dL (Norm) Not Available [facility] [address], [place], [address], 02/28/2024 11:42:58 02/28/20 24 02/28/2024 urina lysis , dipst ick KETONES Negati ve Not Available [facility] [address], [place], [address], 02/28/2024 11:42:58 02/28/20 24 02/28/2024 urina lysis , dipst ick PROTEIN Negati ve Not Available [facility] [address], [place], [address], 02/28/2024 11:42:58 02/28/20 24 02/28/2024 urina lysis , dipst ick NITRITES Negati ve Not Available [facility] [address], [place], [address], 02/28/2024 11:42:58 02/28/20 24 02/28/2024 urina lysis , dipst ick GLUCOSE Negati ve Not Available [facility] [address], [place], [address], 02/28/2024 11:42:58 02/28/20 24 02/28/2024 urina lysis , dipst ick p.H. 7.5 Not Available [facility] [address], [place], [address], 02/28/2024 11:42:58 02/28/20 24 02/28/2024 urina lysis , dipst ick S.G. (Specific [place]) <1.005 Not Available [facility] [address], [place], [address], 02/28/2024 11:42:58 02/28/20 24 02/28/2024 urina lysis , dipst ick LEUKOCYTES Negati ve Not Available [facility] [address], [place], [address], 02/28/2024 11:42:58 Result Notes None recorded. 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 Procedures Surgical History Date Name Laterality Status Provider Name and Address Organization Details Recorded Time 024 [place] Instillation completed Sapna Teixeira [facility] 05/22/2024 16:15:23 024 Pessary Cleaning completed Sapna Te[facility]ira [facility] 04/03/2024 11:06:44 024 Elmiron Instillation completed Sapna Teixeira [facility] 04/03/2024 10:42:11 024 [place] Instillation completed Sapna Teixeira [facility] 02/28/2024 11:49:21 024 Pessary Cleaning completed Yan Sanchez PA-C [address] [place] [address],[address], [place], [address], [facility] 01/17/2024 14:13:51 024 Bladder Scan completed Yas Mathew [facility] 01/16/2024 12:59:55 024 Pessary Cleaning completed Sapna Teixeira [facility] 01/03/2024 11:49:51 024 Elmiron Instillation completed Sapna Teixeira [facility] 01/03/2024 11:50:26 024 Pessary Cleaning completed Sapna Teixeira [facility] 11/22/2023 13:33:31 024 Elmiron Instillation completed Sapna Teixeira [facility] 11/22/2023 13:34:09 024 Pessary Cleaning completed Sapna Teixeira [facility] 10/11/2023 11:53:41 024 Elmiron Instillation completed Sapna Teixeira [facility] 10/11/2023 11:53:37 024 Pessary Cleaning completed Yan Sanchez PA-C [address] [facility],[address], [place], [address], [place] [facility] 09/17/2023 11:35:32 024 CystoscopyFemale completed Yan Sanchez PA-C [address] [facility],[address], [place], [address], [place] [facility] 09/17/2023 11:39:23 024 Bladder Scan completed Brissa Fuller [facility] 09/17/2023 11:10:06 024 Elmiron Instillation completed Sapna Teixeira [facility] 08/30/2023 12:22:44 023 Pessary Cleaning completed Sapna Teixeira [facility] 08/09/2023 12:52:07 023 Pessary Cleaning completed Sapna Teixeira [facility] 07/26/2023 15:28:03 023 Elmiron Instillation completed Sapna Teixeira [facility] 07/26/2023 15:30:03 023 Pessary Cleaning completed Sapna Teixeira [facility] 06/21/2023 12:41:32 023 Elmiron Instillation completed Sapna Teixeira [facility] 06/21/2023 12:41:02 023 Urinalysis completed Roxy Broussard [facility] 05/17/2023 11:58:32 023 Elmiron Instillation completed Roxy Broussard [facility] 05/17/2023 11:57:24 023 Pessary Cleaning completed Sapna Teixeira [facility] 04/12/2023 10:26:26 023 Elmiron Instillation completed Sapna Teixeira [facility] 04/12/2023 10:28:33 023 Elmiron Instillation completed Sapna Teixeira [facility] 02/22/2023 10:53:05 023 Pessary Cleaning completed Lisandra Greer MD [address] [facility] [address],[address], [place], [address], [facility] 02/05/2023 10:02:06 023 Bladder Scan completed Hayley Byers [facility] 02/05/2023 09:53:16 023 Pessary Cleaning completed Sapna Teixeira [facility] 01/18/2023 17:07:44 023 Elmiron Instillation completed Sapna Teixeira [facility] 01/18/2023 16:59:42 023 Periurethral Coaptite Injection completed Sapna Teixeira [facility] 01/08/2023 10:09:14 023 Pessary Cleaning completed Sapna Teixeira [facility] 12/14/2022 11:37:53 023 Elmiron Instillation completed Sapna Teixeira [facility] 12/14/2022 11:40:01 023 Elmiron Instillation completed Sapna Teixeira [facility] 10/05/2022 13:36:49 023 Pessary Cleaning completed Yan Sanchez PA-C [address] [facility],[address], [place], [address], [place] [facility] 10/02/2022 13:40:56 023 CystoscopyFemale completed Yan Sanchez PA-C [address] [facility],[address], [place], [address], [place] [facility] 10/02/2022 13:38:50 023 Bladder Scan completed Roxy Morton [facility] 10/02/2022 11:47:46 023 Pessary Cleaning completed Sapna Teixeira [facility] 08/24/2022 11:54:16 023 Elmiron Instillation completed Sapna Teixeira [facility] 08/24/2022 11:53:10 022 Pessary Cleaning completed Sapna Teixeira [facility] 07/18/2022 10:29:37 022 Elmiron Instillation completed Sapna Teixeira [facility] 07/18/2022 10:29:24 022 Pessary Cleaning completed Sapna Teixeira [facility] 06/13/2022 10:46:49 022 Elmiron Instillation completed Sapna Teixeira [facility] 06/13/2022 10:47:23 022 Pessary Cleaning completed Sapna Teixeira [facility] 04/11/2022 12:18:36 022 Elmiron Instillation completed Sapna Teixeira [facility] 04/11/2022 12:19:18 022 Pessary Cleaning completed Sapna Teixeira [facility] 03/07/2022 10:57:32 022 Elmiron Instillation completed Sapna Teixeira [facility] 03/07/2022 10:58:34 022 Pessary Cleaning completed Sapna Teixeira [facility] 02/07/2022 10:46:42 022 Elmiron Instillation completed Sapna Teixeira [facility] 02/07/2022 10:46:32 022 Pessary Cleaning completed Sapna Teixeira [facility] 01/03/2022 11:42:03 022 Elmiron Instillation completed Sapna Teixeira [facility] 01/03/2022 11:42:43 022 Pessary Cleaning completed Sapna Teixeira [facility] 11/29/2021 10:19:11 022 Elmiron Instillation completed Sapna Teixeira [facility] 11/29/2021 10:16:17 022 Pessary Cleaning completed Sapna Teixeira [facility] 11/01/2021 11:25:09 022 Bladder Scan completed Sapna Teixeira [facility] 11/01/2021 11:24:09 022 Elmiron Instillation completed Sapna Teixeira [facility] 11/01/2021 11:24:22 022 Pessary Cleaning completed Sapna Teixeira [facility] 10/04/2021 11:51:33 022 [place] Instillation completed Sapna Teixeira [facility] 10/04/2021 11:51:15 022 Pessary Insertion completed Lisandra Greer MD [address] [place] [address], [address], [facility] 10/04/2021 15:03:13 022 Bladder Scan completed Lisandra Greer MD [address] [place] [address], [address], [facility] 09/26/2021 17:12:26 022 Elm[place] Instillation completed Dana Asher [facility] 08/31/2021 11:32:26 021 Elm[place] Instillation completed Sapna Teixeira [facility] 08/03/2021 11:35:49 021 Elm[place] Instillation completed Stacy Fortune [facility] 07/03/2021 10:39:03 021 Elmiron Instillation completed Stacy Jaimesera [facility] 05/31/2021 11:48:55 021 Elm[place] Instillation completed Stacy Jaimesera [facility] 05/03/2021 11:11:30 021 Elm[place] Instillation completed Stacy Jaimesera [facility] 04/05/2021 10:53:18 021 Elmiron Instillation completed Royal Dietrich [facility] 03/01/2021 12:34:33 021 CystoscopyFemale completed Lisandra Greer MD [address] [place] [address] [address], [place], [address], [facility] 02/02/2021 11:18:02 021 Elmiron Instillation completed Abigail Hernandeso [facility] 02/02/2021 11:08:07 021 Elmiron Instillation completed Royal Dietrich [facility] 01/02/2021 11:57:31 021 Elmiron Instillation completed Leyd Fernando [facility] 12/07/2020 12:33:01 021 Elmiron Instillation completed Sapna Teixeira [facility] 11/09/2020 12:07:24 021 Elmiron Instillation completed Sapna Teixeira [facility] 10/26/2020 10:50:18 021 Elmiron Instillation completed Sapna Teixeira [facility] 10/04/2020 12:23:58 021 Elmiron Instillation completed Sapna Teixeira [facility] 08/25/2020 14:15:22 020 Elmiron Instillation completed Sapna Teixeira [facility] 07/27/2020 11:21:17 020 Elmiron Instillation completed Sapna Teixeira [facility] 06/22/2020 10:22:28 020 Elm[place] Instillation completed Jatin Silva [facility] 05/18/2020 12:07:15 020 Elmiron Instillation completed Concepción Hitchcock [facility] 04/20/2020 14:22:27 020 Elmiron Instillation completed Concepción Hitchcock [facility] 03/21/2020 13:09:02 020 Elmiron Instillation completed Jatin Silva [facility] 02/22/2020 11:33:42 discectomy of spine completed Sheila Greer MD [address] [place] [address],[address], [place], [address], [facility] 09/26/2021 17:10:22 laparoscopy completed Lisandra Greer MD [address] [place] [address],[address], [place], [address], [facility] 09/26/2021 17:10:47 insertion of prosthesis for breast completed Lisandra Greer MD [address] [place] [address],[address], [place], [address], [facility] 09/26/2021 17:11:07 Appendectomy completed Lisandra Greer MD [address] [place] [address],[facility] [address], [place], [address], [facility] 09/26/2021 17:11:20 Imaging Results None recorded. Procedure Notes None recorded. Medical Equipment None Reported. Allergies Allergen ID Allergen Name Allergen Category Reaction Reaction Severity Criticality Documentation Date Start Date Code Code System Note Provider Name and Address Organization Details Recorded Time 904089 vancomyci n medicatio n Not available Not available Not available 02/04/20202011 57464 RxNorm Not Available [facility] 0 00:48:49 878124 Substance with sulfonami de structure and antibacte rial mechanism of action (substanc e) medicatio n Not available Not available Not available 04/11/2022 94387 8003 SNOMED [facility] 12:15:21 Medications Name Sig Start Date [...] No t Available cephalexin 500 mg capsule TAKE 1 CAPSULE BY MOUTH TWICE DAILY FOR 7 DAYS* active Not Available Not Available No t [...] 150 mg 24 hr tablet, extended release TAKE ONE TABLET BY MOUTH DAILY IN THE MORNING.* active Not Available Not Available No t Available chlorhexidi ne gluconate 0.12 % mouthwash SWISH AND SPIT 1/2 OZ FOR 20-30 SECONDS THREE TIMES A DAY* active Not Available Not Available No t Available Symbicort 80 mcg-4.5 mcg/actuati on HFA aerosol inhaler 10/02 completed Not Available Not Available Not Available budesonide- formoterol HFA 160 mcg-4.5 mcg/actuati on aerosol inhaler INAHLE 2 PUFFS BY MOUTH TWO TIMES DAILY* active Not Available Not Available No t Available Prolia 60 mg/mL subcutaneou s syringe [...] Tobacco Smoking Status Former Smoker Jatin Silva [place], [place] - [facility] 02/22/2020 11:31:58 What Is Your Level Of Alcohol Consumption? Occasional [email or web address] Information not available 02/05/2023 How Many Times Per Week Do You Consume Alcohol? Less Than 1 Time Per Week [email or web address] Information not available 02/05/2023 What Is Your Level Of Caffeine Consumption? Occasional [email or web address] Information not available 02/05/2023 When Did You Quit Smoking? 11-15yearssinc elastcigarette [email or web address] Information not available 02/05/2023 Marital Status Unknown [email or web address] Informati on not available 01/28/2020 What Was The Date Of Your Most Recent Tobacco Screening? 01/16/2024 Information not available 01/16/2024 Have You Ever Been Counseled For Unhealthy Alcohol Use? No Information not available 01/16/2024 Do You Use Any Illicit Or Recreational Drugs? No [email or web address] Information not available 02/05/2023 Has Tobacco Cessation Counseling Been Provided? No [email or web address] Information not available 02/05/2023 Do You Or Have You Ever Used Any Other Forms Of Tobacco Or Nicotine? No [email or web address] Information not available 02/05/2023 How Many Days [...] 17:09:44 Father Family history of diabetes mellitus [email or web address] Not available 09/26 17:09:50 Father Malignant melanoma [email or web address] Not available 09/26 17:09:57 Medical History Condition Response Sexually Transmitted Infection N Diabetes N Other N Bleeding Disorder N High Blood Pressure N Kidney Stones N High Cholesterol Y GERD/Acid Reflux Y Heart Disease N Cancer N Depression N Lung Disease N Gynecological History Statement/Question Response Irregular periods N Leaking urine with intercourse N Hormone Therapy N Heavy periods N Pain with intercourse N Sexually Active? N Obstetrics History GPAL:G 2 P 0 0 0 0 Immunizations Vaccine Type Date Status Provider Name and Address Organization Details Recorded Time Influenza, high-dose, quadrivalent, PF 05/18/2022 completed Alina schmidt, [facility] 08/06/2023 12:50:04 COVID-19, mRNA, LNP-S, PF, 30 mcg/0.3 mL dose, jami-sucrose 01/12/2022 completed Alina schmidt, [facility] 08/06/2023 12:50:04 COVID-19, mRNA, LNP-S, bivalent, PF, 30 mcg/0.3 mL dose 01/23/2023 completed Alina schmidt, [facility] 08/06/2023 12:50:04 COVID-19, mRNA, LNP-S, bivalent, PF, 30 mcg/0.3 mL dose 05/18/2022 completed Alina Gomes null, [facility] 08/06/2023 12:50:04 Influenza, high-dose, quadrivalent, PF 05/24/2023 completed Yas Mathew null, [facility] 01/16/2024 12:54:12 Pneumococcal conjugate PCV20, polysaccharide [id number] conjugate, adjuvant, PF 07/02/2023 completed Yas Mathew null, [facility] 01/16/2024 12:54:12 COVID-19, mRNA, LNP-S, PF, jami-sucrose, 30 mcg/0.3 mL 05/24/2023 completed Yas Mathew null, [facility] 01/16/2024 12:54:12 Influenza, recombinant, quadrivalent, PF 05/22/2019 completed Roxy Broussard null, [facility] 05/17/2023 11:54:16 zoster recombinant 01/21/2019 completed Roxy Broussard null, [facility] 05/17/2023 11:54:16 Influenza, high-dose, quadrivalent, PF 06/10/2020 completed Roxy Broussard null, [facility] 05/17/2023 11:54:16 Influenza, high-dose, quadrivalent, PF 06/13/2021 completed Roxy Broussard null, [facility] 05/17/2023 11:54:16 COVID-19, mRNA, LNP-S, PF, 30 mcg/0.3 mL dose 09/24/2020 completed Roxy Broussard null, [facility] 05/17/2023 11:54:16 COVID-19, mRNA, LNP-S, PF, 30 mcg/0.3 mL dose 10/15/2020 completed Roxy Broussard null, [facility] 05/17/2023 11:54:16 COVID-19, mRNA, LNP-S, PF, 30 mcg/0.3 mL dose 05/19/2021 completed Roxy Broussard null, [facility] 05/17/2023 11:54:16 pneumococcal polysaccharide PPV23 05/19/2007 completed Roxy schmidt, [facility] 05/17/2023 11:54:16 influenza, unspecified formulation 06/30/2015 completed Roxy schmidt, [facility] 05/17/2023 11:54:16 Tdap 02/02/2021 completed Roxy schmidt, [facility] 05/17/2023 11:54:16 Tdap 05/19/2011 completed Roxy schmidt, [facility] 05/17/2023 11:54:16 Pneumococcal conjugate PCV 13 09/01/2015 completed Roxy schmidt, [facility] 05/17/2023 11:54:16 zoster live 05/19/2010 completed Roxy schmidt, [facility] 05/17/2023 11:54:16 Influenza, high-dose, trivalent, PF 05/19/2013 completed Roxy schmidt, [facility] 05/17/2023 11:54:16 Influenza, high-dose, trivalent, PF 05/22/2016 completed Roxy schmidt, [facility] 05/17/2023 11:54:16 Influenza, high-dose, trivalent, PF 05/29/2018 completed Roxy schmidt, [facility] 05/17/2023 11:54:16 Influenza, high-dose, trivalent, PF 06/18/2017 completed Roxy schmidt, [facility] 05/17/2023 11:54:16 Influenza, split virus, trivalent, PF 06/04/2012 completed Roxy schmidt, [facility] 05/17/2023 11:54:16 Influenza, split virus, trivalent, PF 06/28/2011 completed Roxy schmidt, [facility] 05/17/2023 11:54:16 pneumococcal polysaccharide PPV23 08/22/2015 completed Alina schmidt, [facility] 08/06/2023 12:50:04 Past Encounters Encounter ID Performer Location Encounter Start Date Encounter Closed Date Diagnosis/Indication Diagnosis SNOMED-CT Code Diagnosis ICD10 Code [id number] Sapna CASTILLO_Chel [address] [place] [address] 02/28/2024 10:08:07 03/17/2024 12:35:06 Chronic interstitial cystitis 917542523 N30.10 Health Concerns Section Related Observation LastModified by Organization Detai ls LastModified Time None Recorded Concern Status LastModified by Organization Details LastModified Time None Recorded Payers Encounter Date Sequence Insurance Name Policy Number Policy Tarango Covered Member ID Tarango Member ID Guarantor Name 02/28/2024 1 [place] [employer] Milla Pollard [id number] Milla Pollard 02/28/2024 2 [employer] (MEDICARE SUPPLEMENT) Milla Pollard [id number] Milla Pollard Notes Date Note Type Note Provider Name and Address Organization Details Recorded Time 02/28/2024 text/html HPI Notes: 83 YOF here for pessary check, elmiron. [place] - [facility] 02/28/2024 11:53:01 OBGyn Episode No OBEpisode recorded.
--- OUTSIDE RECORDS SUMMARY | 2024-05-25 11:59 | XMS_ITS | Referral Summary ---
Author Organization [place] Address [address] [place] [address] Care Team Providers Care Embosser Operator Name Role Phone Ganesh Sifuentes MD Primary Care Provider [phone] Allergies Active Allergy Reactions Criticality Noted Date Comments Sulfa Antibiotics Hives 09/10/2012 Vancomycin Hives 09/11/2012 Honey Bee Venom Anaphylaxis High 06/16/2016 Medications Medication Sig Dispensed Refills Start Date End Date Status fluticasone (VERAMYST) 27.5 MCG/SPRAY nasal spray [place] 2 sprays into both nostrils daily. Active [...] 160 <200 mg/dL 04/09/2020 5:58 AM CDT [facility] Triglycerides 59 <150 mg/dL 04/09/2020 5:58 AM CDT [facility] HDL Cholesterol 81 >49 mg/dL 0 6:01 AM CDT [facility] LDL Cholesterol Calculated 67 <100 mg/dL 04/09/2020 6:01 AM CDT [facility] Comment:Desirable: <100 mg/d l Non HDL Cholesterol 79 <130 mg/dL 04/09/2020 6:01 AM CDT [facility] Blood specimen (specimen) 04/09/2020 5:21 AM CDT 04/09/2020 5:22 AM CDT Nia Jimenez PA-C LAB - BLOOD MAN [place] [address] [place] [id number], [facility] [phone] from Last 3 Months or Most Recently Relevant to Health Maintenance Advance Directives For more information, please contact: [phone] Documents on File Type Date Recorded Patient Control Center Operator Expl anation Advance Directives and Living Will [...] Comments Code status determined by: Discussion with paticonstantino nt/ legal decision maker * Full Code Date Activated Date Inactivated Comments 04/08/2020 3:40 PM 04/08/2020 5:39 PM All basic an d advanced life-sustaining interventions are performed as appropriate Question Answer Comments Code status determined by: Discussion with paticonstantino nt/ legal decision maker Healthcare Agents on File Name Relationship Healthcare Agent Relationship Communication Tao Pollard Spouse Health Care Agent Concepción Barber Daughter First Alternate Health Care Agent Care Teams Embosser Operator Relationship Specialty Start Date End Date Ganesh Sifuentes MD [facility] [address] [place] [address] PCP - General Family Practice 05/15/19
--- OUTSIDE RECORDS SUMMARY | 2024-05-25 11:59 | XMS_ITS | Clinical Summary ---
Author Organization [facility] Address [address] [place] [id number] Care Team Providers Care Packaging Engineer Name Role Phone Ganesh Sifuentes MD Primary Care Provider Allergies Active Allergy Reactions Criticality Noted Date Comments Sulfa Antibiotics Hives 09/10/2012 Vancomycin Hives 09/11/2012 Honey Bee Venom Anaphylaxis High 06/16/2016 Medications Medication Sig Dispensed Refills Start Date End Date Status fluticasone (VERAMYST) 27.5 MCG/SPRAY nasal spray [place] 2 sprays into both nostrils daily. Active [...] (once per calendar year) 2023 COVID-19 Vaccine (2023- season) 2024 05/24/2023, 01/23/2023, 05/18/2022, Additional history [...] 160 <200 mg/dL 04/09/2020 5:58 AM CDT [facility] Triglycerides 59 <150 mg/dL 04/09/2020 5:58 AM CDT [facility] HDL Cholesterol 81 >49 mg/dL 0 6:01 AM CDT [facility] LDL Cholesterol Calculated 67 <100 mg/dL 04/09/2020 6:01 AM T [facility] Comment:Desirable: <100 mg/d l Non HDL Cholesterol 79 <130 mg/dL 04/09/2020 6:01 AM T [facility] Blood specimen (specimen) 04/09/2020 5:21 AM CDT 04/09/2020 5:22 AM CDT Nia Jimenez PA-C LAB - BLOOD MAN [facility] [address] [place] [address], [facility] [phone] from Last 3 Months or Most Recently Relevant to Health Maintenance Advance Directives For more information, please contact: [phone] Documents on File Type Date Recorded Patient Ice House Supervisor Expl anation Advance Directives and Living Will [...] First Alternate Health Care Agent Care Teams Packaging Engineer Relationship Specialty Start Date End Date Ganesh Sifuentes MD [facility] [id number] [place] [address] PCP - General Family Practice 05/15/19
== END 2024-05-25 11:57 | disposition home or self-care (01) ==
LOC: LKVREF 11:57
PROVIDERS: PCP Family Medicine; Visit Provider Family Medicine
DX: N39.0 Urinary tract infection, site not specified (principal); R31.9 Hematuria, unspecified; B96.20 Unspecified Escherichia coli [E. coli] as the cause of diseases classified elsewhere
CPT/HCPCS: 87086; 87186

== ENCOUNTER 2024-07-14 08:33 | Outpatient (CLI) | payer MEDICARE, OTHER, SELFPAY ==
--- OUTSIDE RECORDS SUMMARY | 2024-07-16 09:51 | XMS_ITS | Clinical Summary ---
Author Organization [facility] Address [place], [place] [address] Care Team Providers Care Match Marker Name Role Phone TomasNayanJennie RENNY Primary Care Provider [phone] Allergies Active Allergy Reactions Criticality Noted Date [...] (FLONASE) 50 mcg/Actuation nasal spray Inhale 1 Connelly into both nostrils once daily. 1 Bottle [...] Active azelastine 137 mcg/actuation (ASTELIN) nasal spray [place] 1 spray each nostril daily 1 Bottle [...] 68 12/23/2017 9:47 AM CDT Temperature 36.7 C (98 F) 12/24/2016 11:29 AM CDT Respiratory Rate - [...] 01/02/2016 COVID-19 vaccine series (2023- season) 2024 05/24/2023, 01/23/2023, 05/18/2022, Additional history exists Influenza for age 65+ 04/19/2024 Care Teams Match Marker Relationship Specialty Start Date End Date Jennie Tomas NP PCP - General Nurse Practitioner 02/17/16
--- OUTSIDE RECORDS SUMMARY | 2024-07-16 09:52 | XMS_ITS | Data Portability ---
Author Organization [facility], [facility] Address 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 Plan of Treatment Reminders Order Date Submit Date Provider Last Modified By Organization Details Last Modified Time Details Appointments ESTABLISH ED 30 2023 03:00P M FEMALE_UR OLOGY_NUR SE_CLINIC Not available Not available Not available Lab urinalysi s, dipstick 2023 024 [email or web address] [facility], [address], [place], [address], 01/17/2024 14:14:31 urinalysi s, dipstick 2023 024 [email or web address] [facility], [address], [place], [address], 02/28/2024 11:47:12 urinalysi s, dipstick 2023 024 [email or web address] [facility], [address], [place], [address], 04/03/2024 11:04:59 urinalysi s, dipstick 2023 024 [email or web address] [facility], [address], [place], [address], 05/22/2024 16:20:29 urinalysi s, dipstick 2023 024 [facility], [address], [place], [address], 06/19/2024 11:53:28 Referral None recorded. Procedures None recorded. Surgeries None recorded. Imaging None recorded. Medication Orders None recorded. Patient TargetsNo targets recorded. Patient InstructionsNo instructions recorded. Reason for Referral None Reported. Results Created Date Observation Date Name Description Value Unit Range Abnormal Flag Note LastModifiedBy Organization Detail LastModifiedTime 01/03/20 24 01/03/2024 urina lysis , dipst ick BLOOD Negati ve Not Available [facility] [address], [place], [address], 01/03/2024 11:52:05 01/03/20 24 01/03/2024 urina lysis , dipst ick BILIRUBIN Negati ve Not Available [facility] [address], [place], [address], 01/03/2024 11:52:05 01/03/20 24 01/03/2024 urina lysis , dipst ick UROBILINOGEN 0.2 mg/dL (Norm) Not Available [facility] [address], [place], [address], 01/03/2024 11:52:05 01/03/20 24 01/03/2024 urina lysis , dipst ick KETONES Negati ve Not Available [facility] [address], [place], [address], 01/03/2024 11:52:05 01/03/20 24 01/03/2024 urina lysis , dipst ick PROTEIN Negati ve Not Available [facility] [address], [place], [address], 01/03/2024 11:52:05 01/03/20 24 01/03/2024 urina lysis , dipst ick NITRITES Negati ve Not Available [facility] [address], [place], [address], 01/03/2024 11:52:05 01/03/20 24 01/03/2024 urina lysis , dipst ick GLUCOSE Negati ve Not Available [facility] [address], [place], [address], 01/03/2024 11:52:05 01/03/20 24 01/03/2024 urina lysis , dipst ick p.H. 8.0 Not Available [facility] [address], [place], [address], 01/03/2024 11:52:05 01/03/20 24 01/03/2024 urina lysis , dipst ick S.G. (Specific Jones) <1.005 Not Available [facility] [address], [place], [address], 01/03/2024 11:52:05 01/03/20 24 01/03/2024 urina lysis , dipst ick LEUKOCYTES Small (25 WBC/uL ) Not Available [facility] [address], [place], [address], 01/03/2024 11:52:05 01/16/20 24 01/16/2024 urina lysis , dipst ick BLOOD Small (10 RBC/uL ) Not Available [facility] [address], [place], [address], 01/16/2024 12:55:06 01/16/20 24 01/16/2024 urina lysis , dipst ick BILIRUBIN Negati ve Not Available [facility] [address], [place], [address], 01/16/2024 12:55:06 01/16/20 24 01/16/2024 urina lysis , dipst ick UROBILINOGEN 0.2 mg/dL (Norm) Not Available [facility] [address], [place], [address], 01/16/2024 12:55:06 01/16/20 24 01/16/2024 urina lysis , dipst ick KETONES Negati ve Not Available [facility] [address], [place], [address], 01/16/2024 12:55:06 01/16/20 24 01/16/2024 urina lysis , dipst ick PROTEIN Trace (10 mg/dL) Not Available [facility] [address], [place], [address], 01/16/2024 12:55:06 01/16/20 24 01/16/2024 urina lysis , dipst ick NITRITES Negati ve Not Available [facility] [address], [place], [address], 01/16/2024 12:55:06 01/16/20 24 01/16/2024 urina lysis , dipst ick GLUCOSE Negati ve Not Available [facility] [address], [place], [address], 01/16/2024 12:55:06 01/16/20 24 01/16/2024 urina lysis , dipst ick p.H. 8.0 Not Available [facility] [address], [place], [address], 01/16/2024 12:55:06 01/16/20 24 01/16/2024 urina lysis , dipst ick S.G. (Specific Jones) 1.010 Not Available [facility] [address], [place], [address], 01/16/2024 12:55:06 01/16/20 24 01/16/2024 urina lysis , dipst ick LEUKOCYTES Negati ve Not Available [facility] [address], [place], [address], 01/16/2024 12:55:06 02/28/20 24 02/28/2024 urina lysis , dipst ick BLOOD Negati ve Not Available [facility] [address], [place], [address], 02/28/2024 11:42:58 02/28/20 24 02/28/2024 urina lysis , dipst ick BILIRUBIN Negati ve Not Available [facility] [address], [place], [address], 02/28/2024 11:42:58 02/28/20 24 02/28/2024 urina lysis , dipst ick UROBILINOGEN 0.2 mg/dL (Norm) Not Available [facility] [address], [place], [address], 02/28/2024 11:42:58 02/28/20 24 02/28/2024 urina lysis , dipst ick KETONES Negati ve Not Available [facility] [address], [place], [address], 02/28/2024 11:42:58 02/28/20 24 02/28/2024 urina lysis , dipst ick PROTEIN Negati ve Not Available [facility] [address], [place], [address], 02/28/2024 11:42:58 02/28/20 24 02/28/2024 urina lysis , dipst ick NITRITES Negati ve Not Available [facility] [address], [place], [address], 02/28/2024 11:42:58 02/28/20 24 02/28/2024 urina lysis , dipst ick GLUCOSE Negati ve Not Available [facility] [address], [place], [address], 02/28/2024 11:42:58 02/28/20 24 02/28/2024 urina lysis , dipst ick p.H. 7.5 Not Available [facility] [address], [place], [address], 02/28/2024 11:42:58 02/28/20 24 02/28/2024 urina lysis , dipst ick S.G. (Specific Jones) <1.005 Not Available [facility] [address], [place], [address], 02/28/2024 11:42:58 02/28/20 24 02/28/2024 urina lysis , dipst ick LEUKOCYTES Negati ve Not Available [facility] [address], [place], [address], 02/28/2024 11:42:58 04/03/20 24 04/03/2024 urina lysis , dipst ick BLOOD Negati ve Not Available [facility] [address], [place], [address], 04/03/2024 11:04:07 04/03/20 24 04/03/2024 urina lysis , dipst ick BILIRUBIN Negati ve Not Available [facility] [address], [place], [address], 04/03/2024 11:04:07 04/03/20 24 04/03/2024 urina lysis , dipst ick UROBILINOGEN 0.2 mg/dL (Norm) Not Available [facility] [address], [place], [address], 04/03/2024 11:04:07 04/03/20 24 04/03/2024 urina lysis , dipst ick KETONES Negati ve Not Available [facility] [address], [place], [address], 04/03/2024 11:04:07 04/03/20 24 04/03/2024 urina lysis , dipst ick PROTEIN Negati ve Not Available [facility] [address], [place], [address], 04/03/2024 11:04:07 04/03/20 24 04/03/2024 urina lysis , dipst ick NITRITES Negati ve Not Available [facility] [address], [place], [address], 04/03/2024 11:04:07 04/03/20 24 04/03/2024 urina lysis , dipst ick GLUCOSE Negati ve Not Available [facility] [address], [place], [address], 04/03/2024 11:04:07 04/03/20 24 04/03/2024 urina lysis , dipst ick p.H. 8.5 Not Available [facility] [address], [place], [address], 04/03/2024 11:04:07 04/03/20 24 04/03/2024 urina lysis , dipst ick S.G. (Specific Jones) <1.005 Not Available [facility] [address], [place], [address], 04/03/2024 11:04:07 04/03/20 24 04/03/2024 urina lysis , dipst ick LEUKOCYTES Negati ve Not Available [facility] [address], [place], [address], 04/03/2024 11:04:07 05/22/2005/22/2024 urina lysis , dipst ick BLOOD Trace (5 RBC/uL ) Not Available [facility] [address], [place], [address], 05/22/2024 16:16:29 05/22/20 24 05/22/2024 urina lysis , dipst ick BILIRUBIN Negati ve Not Available [facility] [address], [place], [address], 05/22/2024 16:16:29 05/22/2005/22/2024 urina lysis , dipst ick UROBILINOGEN 0.2 mg/dL (Norm) Not Available [facility] [address], [place], [address], 05/22/2024 16:16:29 05/22/20 24 05/22/2024 urina lysis , dipst ick KETONES Negati ve Not Available [facility] [address], [place], [address], 05/22/2024 16:16:29 05/22/20 24 05/22/2024 urina lysis , dipst ick PROTEIN Negati ve Not Available [facility] [address], [place], [address], 05/22/2024 16:16:29 05/22/2005/22/2024 urina lysis , dipst ick NITRITES Negati ve Not Available [facility] [address], [place], [address], 05/22/2024 16:16:29 05/22/2005/22/2024 urina lysis , dipst ick GLUCOSE Negati ve Not Available [facility] [address], [place], [address], 05/22/2024 16:16:29 05/22/20 24 05/22/2024 urina lysis , dipst ick p.H. 6.5 Not Available [facility] [address], [place], [address], 05/22/2024 16:16:29 05/22/20 24 05/22/2024 urina lysis , dipst ick S.G. (Specific Jones) 1.015 Not Available [facility] [address], [place], [address], 05/22/2024 16:16:29 05/22/20 24 05/22/2024 urina lysis , dipst ick LEUKOCYTES Large (500 WBC/uL ) Not Available [facility] [address], [place], [address], 05/22/2024 16:16:29 06/19/20 24 06/19/2024 urina lysis , dipst ick BLOOD Negati ve Not Available [facility] [address], [place], [address], 06/18/2024 20:27:21 06/19/20 24 06/19/2024 urina lysis , dipst ick BILIRUBIN Negati ve Not Available [facility] [address], [place], [address], 06/18/2024 20:27:21 06/19/20 24 06/19/2024 urina lysis , dipst ick UROBILINOGEN 0.2 mg/dL (Norm) Not Available [facility] [address], [place], [address], 06/18/2024 20:27:21 06/19/20 24 06/19/2024 urina lysis , dipst ick KETONES Negati ve Not Available [facility] [address], [place], [address], 06/18/2024 20:27:21 06/19/20 24 06/19/2024 urina lysis , dipst ick PROTEIN Negati ve Not Available [facility] [address], [place], [address], 06/18/2024 20:27:21 06/19/20 24 06/19/2024 urina lysis , dipst ick NITRITES Negati ve Not Available [facility] [address], [place], [address], 06/18/2024 20:27:21 06/19/20 24 06/19/2024 urina lysis , dipst ick GLUCOSE Negati ve Not Available [facility] [address], [place], [address], 06/18/2024 20:27:21 06/19/20 24 06/19/2024 urina lysis , dipst ick p.H. 8.0 Not Available [facility] [address], [place], [address], 06/18/2024 20:27:21 06/19/20 24 06/19/2024 urina lysis , dipst ick S.G. (Specific Jones) <1.005 Not Available [facility] [address], [place], [address], 06/18/2024 20:27:21 06/19/20 24 06/19/2024 urina lysis , dipst ick LEUKOCYTES Negati ve Not Available [facility] [address], [place], [address], 06/18/2024 20:27:21 Result Notes None recorded. 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 Procedures Surgical History Date Name Laterality Status Provider Name and Address Organization Details Recorded Time 024 COMPLEX VISIT completed REINIER DAWSON [address] [address], [place], [address], [facility] 06/19/2024 12:15:42 024 [facility]inalysis [facility] 11:42:56 024 Bladder Scan completed Cory Engel [facility] 06/19/2024 12:01:09 024 [place] Instillation completed Sapna Teixeira [facility] 05/22/2024 16:15:23 024 Pessary Cleaning completed Spana [facility] 04/03/2024 11:06:44 024 [place] Instillation completed Sapna Teixeira [facility] 04/03/2024 10:42:11 024 [place] Instillation completed [facility] 02/28/2024 11:49:21 024 Pessary Cleaning completed Yan Sanchez PA-C [address], [address], [facility] 01/17/2024 14:13:51 024 Bladder Scan completed Yas Mathew [facility] 01/16/2024 12:59:55 024 Pessary Cleaning completed [facility] 01/03/2024 11:49:51 024 [place] Instillation completed Sapna Teixeira [facility] 01/03/2024 11:50:26 024 Pessary Cleaning completed Sapna Teix[facility]ira [facility] 11/22/2023 13:33:31 024 [place] Instillation completed Sapna Teixeira [facility] 11/22/2023 13:34:09 024 Pessary Cleaning completed Sapna Teixeira [facility] 10/11/2023 11:53:41 024 [place] Instillation completed Sapna Teixeira [facility] 10/11/2023 11:53:37 024 Pessary Cleaning completed Yan Sanchez PA-C [address], [place], [address], [facility] 09/17/2023 11:35:32 024 CystoscopyFemale completed Yan Sanchez PA-C [address], [place], [address], [facility] 09/17/2023 11:39:23 024 Bladder Scan completed Brissa Fuller [facility] 09/17/2023 11:10:06 024 Elmiron Instillation completed Sapna Teixeira [facility] 08/30/2023 12:22:44 023 Pessary Cleaning completed Sapna Teixeira [facility] 08/09/2023 12:52:07 023 Pessary Cleaning completed Sapna Teixeira [facility] 07/26/2023 15:28:03 023 Elmiron Instillation completed Sapna Teixeira [facility] 07/26/2023 15:30:03 023 Pessary Cleaning completed Sapna Teixeira [facility] 06/21/2023 12:41:32 023 [place] Instillation completed Sapna Teixeira [facility] 06/21/2023 12:41:02 023 Urinalysis completed Roxy Broussard [facility] 05/17/2023 11:58:32 023 [place] Instillation completed Roxy Broussard [facility] 05/17/2023 11:57:24 023 Pessary Cleaning completed Sapna Teixeira [facility] 04/12/2023 10:26:26 023 [place] Instillation completed Sapna Teixeira [facility] 04/12/2023 10:28:33 023 [place] Instillation completed Sapna Teixeira [facility] 02/22/2023 10:53:05 023 Pessary Cleaning completed Lisandra Greer MD [address], [place], [address], [facility] 02/05/2023 10:02:06 023 Bladder Scan completed Hayley Byers [facility] 02/05/2023 09:53:16 023 Pessary Cleaning completed Sapna Teixeira [facility] 01/18/2023 17:07:44 023 [place] Instillation completed Sapna Teixeira [facility] 01/18/2023 16:59:42 023 Periurethral Coaptite Injection completed Sapna Teixeira [facility] 01/08/2023 10:09:14 023 Pessary Cleaning completed Sapna Teixeira [facility] 12/14/2022 11:37:53 023 [place] Instillation completed Sapna Teixeira [facility] 12/14/2022 11:40:01 023 [place] Instillation completed Sapna Teixeira [facility] 10/05/2022 13:36:49 023 Pessary Cleaning completed Yan Sanchez PA-C [address], [place], [address], [facility] 10/02/2022 13:40:56 023 CystoscopyFemale completed Yan Sanchez PA-C [address], [place], [address], [facility] 10/02/2022 13:38:50 023 Bladder Scan completed Roxy Morton [facility] 10/02/2022 11:47:46 023 Pessary Cleaning completed Sapna Teixeira [facility] 08/24/2022 11:54:16 023 Elm[place] Instillation completed Sapnamati De La Rosaen [facility] 08/24/2022 11:53:10 022 Pessary Cleaning completed Sapnamati De La Rosaen [facility] 07/18/2022 10:29:37 022 [place] Instillation completed Sapnamati De La Rosaen [facility] 07/18/2022 10:29:24 022 Pessary Cleaning completed Sapna Puneet [facility] 06/13/2022 10:46:49 022 [place] Instillation completed Sapna De La Rosaen [facility] 06/13/2022 10:47:23 022 Pessary Cleaning completed Sapna Puneet [facility] 04/11/2022 12:18:36 022 [place] Instillation completed Sapna Puneet [facility] 04/11/2022 12:19:18 022 Pessary Cleaning completed Sapna Puneet [facility] 03/07/2022 10:57:32 022 [place] Instillation completed Sapnamati De La Rosaen [facility] 03/07/2022 10:58:34 022 Pessary Cleaning completed Sapna Puneet [facility] 02/07/2022 10:46:42 022 [place] Instillation completed Sapna Puneet [facility] 02/07/2022 10:46:32 022 Pessary Cleaning completed Sapna Puneet [facility] 01/03/2022 11:42:03 022 [place] Instillation completed Sapna Puneet [facility] 01/03/2022 11:42:43 022 Pessary Cleaning completed Sapna Upneet [facility] 11/29/2021 10:19:11 022 [place] Instillation completed Sapna Puneet [facility] 11/29/2021 10:16:17 022 Pessary Cleaning completed Sapna Teixeira [facility] 11/01/2021 11:25:09 022 Bladder Scan completed [facility] 11/01/2021 11:24:09 022 [place] Instillation completed Sapna Teixeira [facility] 11/01/2021 11:24:22 022 Pessary Cleaning completed Sapna Teixeira [facility] 10/04/2021 11:51:33 022 [place] Instillation completed Sapna Teixeira [facility] 10/04/2021 11:51:15 022 Pessary Insertion completed Lisandra Greer MD [address], [place], [address], [facility] 10/04/2021 15:03:13 022 Bladder Scan completed Lisandra Greer MD [address], [place], [address], [facility] 09/26/2021 17:12:26 022 [place] Instillation completed Dana Asher [facility] 08/31/2021 11:32:26 021 [place] Instillation completed Sapna Teixeira [facility] 08/03/2021 11:35:49 021 [place] Instillation completed Stacy Fortune [facility] 07/03/2021 10:39:03 021 [place] Instillation completed Stacy Pitera [facility] 05/31/2021 11:48:55 021 [place] Instillation completed Stacy Pitera [facility] 05/03/2021 11:11:30 021 [place] Instillation completed Stacy Pitera [facility] 04/05/2021 10:53:18 021 [place] Instillation completed Royal Dietrich [facility] 03/01/2021 12:34:33 021 CystoscopyFemale completed Lisandra Greer MD [address], [place], [address], [facility] 02/02/2021 11:18:02 021 [place] Instillation completed Abigail Jimenez [facility] 02/02/2021 11:08:07 021 [place] Instillation completed Royal Dietrich [facility] 01/02/2021 11:57:31 021 [place] Instillation completed Ledy King [facility] 12/07/2020 12:33:01 021 Elm[place] Instillation completed Sapna Teixeira [facility] 11/09/2020 12:07:24 021 [place] Instillation completed Sapna Teixeira [facility] 10/26/2020 10:50:18 021 [place] Instillation completed Sapna Teixeira [facility] 10/04/2020 12:23:58 021 [place] Instillation completed Sapna Teixeira [facility] 08/25/2020 14:15:22 020 [place] Instillation completed Sapna Teixeira [facility] 07/27/2020 11:21:17 020 [place] Instillation completed Sapna Teixeira [facility] 06/22/2020 10:22:28 020 [place] Instillation completed Jatin Silva [facility] 05/18/2020 12:07:15 020 [place] Instillation completed Concepción Hitchcock [facility] 04/20/2020 14:22:27 020 [place] Instillation completed Concepción Hitchcock [facility] 03/21/2020 13:09:02 020 [place] Instillation completed Jatin Silva [facility] 02/22/2020 11:33:42 discectomy of spine completed Sheila Greer MD [address] [place] [address],[address], [address], [facility] 09/26/2021 17:10:22 laparoscopy completed Lisandra Greer MD [address] [place] [address],[address], [place], [address], [facility] 09/26/2021 17:10:47 insertion of prosthesis for breast completed Lisandra Greer MD [address], [place], [address], [facility] 09/26/2021 17:11:07 Appendectomy completed Lisandra Greer MD [address] [place] [address],[address], [place], [address], [facility] 09/26/2021 17:11:20 Imaging Results None recorded. Procedure Notes None recorded. Medical Equipment None Reported. Allergies Allergen ID Allergen Name Allergen Category Reaction Reaction Severity Criticality Documentation Date Start Date Code Code System Note Provider Name and Address Organization Details Recorded Time 605794 vancomyci n medicatio n Not available Not available Not available 02/04/20202011 09559 RxNorm Not Available [facility] 0 00:48:49 769123 Substance with sulfonami de structure and antibacte rial mechanism of action (substanc e) medicatio n Not available Not available Not available 04/11/2022 57979 8003 SNOMED [facility] 12:15:21 239972 Cipro medicatio n headache Not available Not available 06/19/2024 67246 3 RxNorm Cory Engel [facility] 4 11:56:11 Medications Name Sig Start Date Stop Date [...] release TAKE 1 TABLET BY MOUTH DAILY 06/19 completed Not Available Not Available Not Available amoxicillin 500 mg capsule TAKE 1 CAPSULE BY MOUTH 3 TIMES A DAY UNTIL GONE* 02/05 completed Not Available Not Available Not Available fluconazole 100 mg tablet TAKE ONE TABLET BY MOUTH DAILY for 7 days* 06/19 completed Not Available Not Available Not Available clotrimazol e 10 mg devin TAKE 1 TABLET BY MOUTH 5 TIMES DAILY. 10/02 completed Not Available Not Available Not Available bupropion HCl SR 150 mg tablet,12 hr sustained-r elease TAKE ONE TABLET BY MOUTH TWICE DAILY* 06/19 completed Not Available Not Available Not Available fluticasone 250 mcg-salmete rol 50 mcg/dose [...] Not Available trazodone 50 mg tablet take 1/2-1 tablet (25-50 mg) by mouth every evening* active Not Available Not Available No t Available azithromyci n 250 mg tablet TAKE 2 TABLETS BY MOUTH ON DAY 1, THEN TAKE 1 TABLET ONCE DAILY ON DAYS 2 THROUGH 5 09/26 completed Not Available Not Available Not Available benzonatate 200 mg capsule take 1 capsule by mouth 3 times every day as needed 06/19 completed Not Available Not Available Not Available sucralfate 1 gram tablet active Not Available Not Available Not Available famotidine 40 mg tablet take 1 tablet by mouth every day at bedtime* active Not Available Not Available No t Available prednisone 20 mg tablet TAKE 1 TABLET BY MOUTH TWICE DAILY FOR 7 DAYS 06/19 completed Not Available Not Available Not Available alendronate 70 mg tablet 10/02 completed [...] mouth twice a day for 5 days* 06/19 completed Not Available Not Available Not Available trimethopri m 100 mg tablet TAKE 1 TABLET BY MOUTH DAILY* 06/19 completed Not Available Not Available Not Available ciprofloxac in 500 mg tablet TAKE 1 TABLET BY MOUTH 2 TIMES A DAY* 06/19 completed Not Available Not Available Not Available [...] BY MOUTH TWICE DAILY FOR 7 DAYS* 06/19 completed Not Available Not Available Not Available esomeprazol e magnesium 40 mg capsule,del [...] 1-2 capsules by oral route every day 06/19 completed Not Available Not Available Not Available raloxifene 60 mg tablet TAKE ONE TABLET BY MOUTH DAILY active Not Available Not Available No t Available montelukast 10 mg tablet take 1 tablet by oral route every day in the evening* active Not Available Not Available No t Available mupirocin 2 % topical ointment apply topically to biopsy sites 1-2 times daily until well healed* active Not Available Not Available No t Available lidocaine HCl 20 mg/mL (2 %) [...] m 10 mg tablet TAKE 1.5 TABLETS BY MOUTH DAILY* active Not Available Not [...] extended release TAKE ONE TABLET BY MOUTH IN THE MORNING* active Not Available Not Available No t [...] Updated DateTime 01/16/2024 170.18 cm 24.9 kg/m2 24930.19 g Yas Mathew [facility] 01/16/2024 12:54:00 Date Recorded Body height Body mass index (BMI) Body weight Provider Name and Address Organization Details Last Updated DateTime 06/19/2024 170.18 cm 22.4 kg/m2 22284.71 g Cory Smithch [facility] 06/19/2024 11:57:18 Social History Question Answer Notes LastModified by Organizat ion Details LastModified Time Tobacco Smoking Status Former Smoker Jatin schmidt [facility] 02/22/2020 11:31:58 What Is Your Level Of Alcohol Consumption? Occasional [email or web address] Information not available 02/05/2023 How Many Times Per Week Do You Consume Alcohol? Less Than 1 Time Per Week [email or web address] Information not available 02/05/2023 What Is Your Level Of Caffeine Consumption? Occasional [email or web address] Information not available 02/05/2023 When Did You Quit Smoking? 11-15yearssinc elastcigarette [email or web address] Information not available 02/05/2023 Marital Status Unknown [email or web address] Informati on not available 01/28/2020 What Was The Date Of Your Most Recent Tobacco Screening? 06/19/2024 Information not available 06/19/2024 Have You Ever Been Counseled For Unhealthy Alcohol Use? No Information not available 01/16/2024 Do You Use Any Illicit Or Recreational Drugs? No [email or web address] Information not available 02/05/2023 Has Tobacco Cessation Counseling Been Provided? No [email or web address] Information not available 02/05/2023 Do You Or Have You Ever Used Any Other Forms Of Tobacco Or Nicotine? No [email or web address] Information not available 02/05/2023 How Many Days In The Past Year Have You Consumed 4 Or More Drinks? 0 Information no t available 01/16/2024 Sex: Unknown Functional Status None recorded. Mental Status None recorded. Family History Relationship Description Onset Age of this Age Resolved Age Notes LastModified by Organization Details LastModified Time Mother Family history of cardiac disorder [email or web address] Not available 09/26 17:09:44 Father Family history of diabetes mellitus [email or web address] Not available 09/26 17:09:50 Father Malignant melanoma [email or web address] Not available 09/26 17:09:57 Medical History Condition Response Sexually Transmitted Infection N Diabetes N Other N Bleeding Disorder N High Blood Pressure N Kidney Stones N High Cholesterol Y GERD/Acid Reflux Y Heart Disease N Cancer N Lung Disease N Depression N Gynecological History Statement/Question Response Irregular periods N Leaking urine with intercourse N Hormone Therapy N Heavy periods N Pain with intercourse N Sexually Active? N Obstetrics History GPAL:G 2 P 0 0 0 0 Immunizations Vaccine Type Date Status Provider Name and Address Organization Details Recorded Time Influenza, high-dose, quadrivalent, PF 05/18/2022 completed Alina Gomes null, [facility] 08/06/2023 12:50:04 COVID-19, mRNA, LNP-S, PF, 30 mcg/0.3 mL dose, jami-sucrose 01/12[facility]2022 [facility] 12:50:04 COVID-19, mRNA, LNP-S, bivalent, PF, 30 mcg/0.3 mL dose 01/23/2023 [facility] 12:50:04 COVID-19, mRNA, LNP-S, bivalent, PF, 30 mcg/0.3 mL dose 05/18/2022 [facility] 12:50:04 Influenza, high-dose, quadrivalent, PF 05/24/2023 [facility] 12:54:12 Pneumococcal conjugate PCV20, polysaccharide [id number] conjugate, adjuvant, PF 07[facility]02[facility]2023 [facility] 12:54:12 COVID-19, mRNA, LNP-S, PF, jami-sucrose, 30 mcg/0.3 mL 05/24/2023 [facility]/16/[facility]24 12:54:12 Influenza, recombinant, quadrivalent, PF 05/22/2019 completed Roxy schmidt, [facility] 05/17/2023 11:54:16 zoster recombinant 01/21/2019 [facility] 11:54:16 Influenza, high-dose, quadrivalent, PF 06/10/2020 [facility] 11:54:16 Influenza, high-dose, quadrivalent, PF 06/13/2021 completed Roxy Broussard null, [facility] 05/17/2023 11:54:16 COVID-19, mRNA, LNP-S, PF, 30 mcg/0.3 mL dose 09/24/2020 completed Roxy Broussard null, [facility] 05/17/2023 11:54:16 COVID-19, mRNA, LNP-S, PF, 30 mcg/0.3 mL dose 10/15/2020 completed Roxy Broussard null, [facility] 05/17/2023 11:54:16 COVID-19, mRNA, LNP-S, PF, 30 mcg/0.3 mL dose 05/19/2021 [facility] 11:54:16 pneumococcal polysaccharide PPV23 05/19/2007 [facility] 11:54:16 influenza, unspecified formulation 06/30/2015 [facility] 11:54:16 Tdap 02/02/2021 [facility] 11:54:16 Tdap 05/19/2011 [facility] 11:54:16 Pneumococcal conjugate PCV 13 09/01/2015 [facility] 11:54:16 zoster live 05/19/2010 completed Roxy schmidt, [facility] 05/17/2023 11:54:16 Influenza, high-dose, trivalent, PF 05/19/2013 [facility] 11:54:16 Influenza, high-dose, trivalent, PF 05/22/2016 [facility] 11:54:16 Influenza, high-dose, trivalent, PF 05/29/2018 [facility] 11:54:16 Influenza, high-dose, trivalent, PF 06/18/2017 completed Roxy Broussard null, [facility] 05/17/2023 11:54:16 Influenza, split virus, trivalent, PF 06/04/2012 completed Roxy Broussard null, [facility] 05/17/2023 11:54:16 Influenza, split virus, trivalent, PF 06/28/2011 completed Roxy Broussard null, [facility] 05/17/2023 11:54:16 pneumococcal polysaccharide PPV23 08/22/2015 completed Alina Gomes null, [facility] 08/06/2023 12:50:04 Past Encounters Encounter ID Performer Location Encounter Start Date Encounter Closed Date Diagnosis/Indication Diagnosis SNOMED-CT Code Diagnosis ICD10 Code [id number] Jtain Silva [facility] [address] [place] [address] 02/22/2020 11:13:42 02/22/2020 18:18:48 Chronic interstitial cystitis 199836608 N30.10 [id number] Lisandra Greer [facility] [address] [place] [address] 03/21/2020 12:22:12 03/21/2020 15:43:01 Chronic interstitial cystitis 090169127 N30.10 [id number] Lisandra Greer MD [facility] [address] [place] [address] 0 04/20/2020 11:53:12 04/20/2020 17:31:55 Chronic interstitial cystitis 180180727 N30.10 [id number] Lisandra Greer MD [facility] [address] [place] [address] 05/18/2020 11:49:40 05/18/2020 14:20:35 Chronic interstitial cystitis 184718324 N30.10 [id number] Lisandra Greer MD [facility] [address] [place] [address] 06/22/2020 09:53:46 06/23/2020 09:35:38 Chronic interstitial cystitis 803773764 N30.10 [id number] MD ANNA [facility] [address] [place] [address] 07/27/2020 10:51:21 07/27/2020 14:07:00 Chronic interstitial cystitis 457978314 N30.10 [id number] Lisandra Greer MD [facility] [address] [place] [address] 08/25/2020 13:42:43 08/25/2020 14:18:31 Chronic interstitial cystitis 993009632 N30.10 [id number] MD ANNA [facility] [address] [place] [address] 10/04/2020 11:42:59 10/05/2020 09:41:20 Chronic interstitial cystitis 620014122 N30.10 [id number] Lisandra Greer MD [facility] [address] [place] [address] 10/26/2020 10:15:56 10/28/2020 09:51:09 Chronic interstitial cystitis 461512789 N30.10 [id number] Lisandra Greer MD [facility] [address] [place] [address] 11/09/2020 11:16:28 11/11/2020 13:23:09 Chronic cystitis 00685557 N30.20 Chronic in terstitial cystitis 544881122 N30.10 [id number] Lisandra Greer MD [facility] [address] [place] [address] 12/07/2020 11:50:11 12/08/2020 13:52:33 Chronic interstitial cystitis 804771431 N30.10 [id number] Royal Corbinud [facility] [address] [place] [address] 01/02/2021 11:23:12 01/04/2021 09:57:03 Chronic interstitial cystitis 634262296 N30.10 [id number] MD ANNA [facility] [address] [place] [address] 02/02/2021 10:19:27 02/06/2021 11:43:10 Chronic interstitial cystitis 467316876 N30.10 [id number] Royal Dietrich [facility] [address] [place] [address] 03/01/2021 10:36:35 03/02/2021 17:23:14 Chronic interstitial cystitis 026561074 N30.10 [id number] Stacy Fortune [facility] [address] [place] [address] 04/05/2021 10:48:03 04/07/2021 13:48:53 Chronic interstitial cystitis 282452184 N30.10 [id number] Stacy Fortune [facility] [address] [place] [address] 05/03/2021 10:52:55 05/04/2021 14:09:39 Chronic interstitial cystitis 073560119 N30.10 [id number] Stacy Fortune [facility] [address] [place] [address] 0 05/31/2021 11:19:22 06/02/2021 14:24:34 Chronic interstitial cystitis 820235712 N30.10 [id number] Stacy Fortune [facility] [address] [place] [address] 07/03/2021 10:15:39 07/03/2021 16:45:11 Overactive urinary bladder 824338768 N32.81 [id number] Sapna Teixeira [facility] [address] [place] [address] 08/03/2021 11:10:41 08/09/2021 14:16:51 Chronic interstitial cystitis 573788420 N30.10 [id number] Lisandra Greer MD [facility] [address] [place] [address] 08/31/2021 10:25:57 09/01/2021 12:03:27 Chronic interstitial cystitis 049825491 N30.10 [id number] Lisandra Greer MD [facility] [address] [place] [address] 09/26/2021 16:25:19 10/05/2021 07:57:21 Chronic interstitial cystitis 225775444 N30.10 Prolapse o f female genital organs 67831192 N81.9 [id number] MD ANNA [facility] [address] [place] [address] 10/04/2021 11:15:48 10/09/2021 12:34:57 Chronic interstitial cystitis 323361569 N30.10 Prolapse o f female genital organs 29428312 N81.9 [id number] MD ANNA [facility] [address] [place] [address] 11/01/2021 10:35:18 11/03/2021 08:30:32 Chronic interstitial cystitis N30.10 [id number] MD ANNA [facility] [address] [place] [address] 0 11/29/2021 09:52:07 12/01/2021 10:30:06 Chronic interstitial cystitis 718107159 N30.10 [id number] MD ANNA [facility] [address] [place] [address] 01/03/2022 10:57:20 01/04/2022 15:38:14 Prolapse of female genital organs 86275796 N81.9 Chronic in terstitial cystitis 541289433 N30.10 [id number] MD ANNA [facility] [address] [place] [address] 02/07/2022 10:10:44 02/08/2022 15:35:57 Prolapse of female genital organs 38131114 N81.9 [id number] MD ANNA [facility] [address] [place] [address] 0 03/07/2022 10:23:44 03/12/2022 09:19:42 Chronic interstitial cystitis 709669916 N30.10 Prolapse o f female genital organs 77638286 N81.9 [id number] Yan Sanchez PA-C [facility] [address] [place] [address] 04/11/2022 11:52:00 04/13/2022 13:43:40 Chronic interstitial cystitis N30.10 [id number] Lisandra Greer MD [facility] [address] [place] [address] 06/13/2022 10:09:18 06/15/2022 12:13:29 Chronic interstitial cystitis 359055718 N30.10 [id number] [facility] [address] [place] [address] 07/18/2022 10:07:36 07/23/2022 09:14:19 Chronic interstitial cystitis N30.10 Prolapse o f female genital organs 96786121 N81.9 [id number] [facility] [address] [place] [address] 0 08/24/2022 11:09:29 08/29/2022 08:13:53 Chronic interstitial cystitis N30.10 Prolapse o f female genital organs 62080387 N81.9 [id number] Lisandra Greer MD [facility] [address] [place] [address] 10/02/2022 11:17:51 10/08/2022 11:34:29 Chronic interstitial cystitis 425401942 N30.10 Prolapse o f female genital organs 18175013 N81.9 Urethral i ntrinsic sphincter deficiency 1907639619 9101 N36.42 [id number] [facility] [address] [place] [address] 10/05/2022 11:13:31 10/10/2022 13:26:10 Chronic interstitial cystitis 138004467 N30.10 [id number] [facility] [address] [place] [address] 0 12/14/2022 10:45:01 12/17/2022 14:06:54 Chronic interstitial cystitis 517177111 N30.10 [id number] [facility] [address] [place] [address] 01/08/2023 09:06:17 01/11/2023 14:58:23 Female stress incontinence 45257077 N39.3 Urethral i ntrinsic sphincter deficiency 3128588599 9101 N36.42 Prolapse o f female genital organs 72276477 N81.9 [id number] [facility] [address] [place] [address] 0 01/18/2023 10:02:21 01/30/2023 10:14:14 Chronic interstitial cystitis 388817464 N30.10 Prolapse o f female genital organs 86671827 N81.9 [id number] [facility] [address] [place] [address] 0 02/05/2023 09:36:52 02/06/2023 15:05:55 Chronic interstitial cystitis 885035248 N30.10 Prolapse o f female genital organs 07429756 N81.9 Urethral i ntrinsic sphincter deficiency 1101171991 9101 N36.42 Urinary tr act infectious disease 32949513 N39.0 [id number] [facility] [address] [place] [address] 0 02/22/2023 10:01:42 02/27/2023 12:11:57 Chronic interstitial cystitis 902970473 N30.10 [id number] [facility] [address] [place] [address] 0 04/12/2023 09:53:23 04/15/2023 16:13:47 Chronic interstitial cystitis 969565357 N30.10 Prolapse o f female genital organs 62918676 N81.9 [id number] Roxy Broussard [facility] [address] [place] [address] 0 05/17/2023 11:13:04 05/22/2023 12:38:04 Chronic interstitial cystitis 158885249 N30.10 [id number] [facility] [address] [place] [address] 0 06/21/2023 11:12:13 06/24/2023 16:29:49 Urinary tract infectious disease 68147608 N39.0 Chronic in terstitial cystitis 739245571 N30.10 Prolapse o f female genital organs 09491893 N81.9 [id number] [facility] [address] [place] [address] 0 07/26/2023 14:43:24 08/05/2023 11:36:04 Prolapse of female genital organs 15237922 N81.9 Chronic in terstitial cystitis 219671854 N30.10 [id number] [facility] [address] [place] [address] 0 08/09/2023 10:07:32 08/15/2023 12:23:35 Urinary tract infectious disease 66093358 N39.0 Prolapse o f female genital organs 21941298 N81.9 [id number] [facility] [address] [place] [address] 08/30/2023 10:40:02 09/02/2023 14:12:41 Chronic interstitial cystitis 674290763 N30.10 [id number] Lisandra Greer MD [facility] [address] [place] [address] 09/17/2023 10:41:23 09/25/2023 09:53:58 Chronic interstitial cystitis 839204500 N30.10 Recurrent urinary tract infection 958787092 N39.0 Prolapse o f female genital organs 57263505 N81.9 [id number] [facility] [address] [place] [address] 10/11/2023 11:02:00 10/14/2023 12:08:30 Prolapse of female genital organs 93286247 N81.9 [id number] [facility] [address] [place] [address] 11/22/2023 11:07:44 11/25/2023 13:40:51 Chronic interstitial cystitis 124719410 N30.10 Prolapse o f female genital organs 74803626 N81.9 [id number] [facility] [address] [place] [address] 01/03/2024 11:07:35 01/06/2024 16:37:22 Urinary tract infectious disease 10336216 N39.0 [id number] Yan Sanchez PA-C [facility] [address] [place] [address] 01/16/2024 11:47:20 01/23/2024 11:02:19 Prolapse of female genital organs 33686889 N81.9 Chronic in terstitial cystitis 690874313 N30.10 [id number] Sapna Teixeira [facility] [address] [place] [address] 02/28/2024 10:08:07 03/17/2024 12:35:06 Chronic interstitial cystitis 446661312 N30.10 [id number] Sapna Teixeira [facility] [address] [place] [address] 0 04/03/2024 10:38:59 04/06/2024 13:45:37 Chronic interstitial cystitis 481015734 N30.10 [id number] Sapna Teixeira [facility] [address] [place] [address] 0 05/22/2024 13:58:11 05/25/2024 15:30:32 Chronic interstitial cystitis 622460464 N30.10 [id number] REINIER DAWSON [facility] [address] [place] [address] 06/19/2024 11:33:50 06/22/2024 14:38:37 Prolapse of female genital organs 52036150 N81.9 Chronic in terstitial cystitis 283736003 N30.10 Recurrent urinary tract infection 863323186 N39.0 Health Concerns Section Related Observation LastModified by Organization Detai ls LastModified Time None Recorded Concern Status LastModified by Organization Details LastModified Time None Recorded Advance Directives Directive None Recorded Payers Encounter Date Sequence Insurance Name Policy Number Policy Tarango Covered Member ID Tarango Member ID Guarantor Name 01/16/2024 1 [place]: [employer] Milla Pollard [id number] Milla Pollard 01/16/2024 2 [employer] (MEDICARE SUPPLEMENT) Milla Pollard [id number] Milla Seniornger 02/28/2024 1 MEDICARE [place]: [facility] [employer] Milla Quinoneser [id number] Milla Quinoneser 02/28/2024 2 [employer] (MEDICARE SUPPLEMENT) Milla Seniornger [id number] [employer] Seniornger 04/03/2024 1 MEDICARE [place]: [facility] [employer] Milla Quinoneser [id number] Milla Seniornger 04/03/2024 2 [employer] (MEDICARE SUPPLEMENT) Milla Seniorleaher [id number] Milla Seniornger 05/22/2024 1 MEDICARE [place]: [facility] [employer] [facility] Milla Quinoneser [id number] Milla Seniornger 05/22/2024 2 [employer] (MEDICARE SUPPLEMENT) Milla Seniorleaher [id number] Milla Seniornger 06/19/2024 1 MEDICARE [place]: [facility] [employer] [facility] Milla Quinoneser [id number] Milla Seniornger 06/19/2024 2 [employer] (MEDICARE SUPPLEMENT) Milla Seniormarti [id number] Milla Pollard Notes Date Note Type Note Provider Name and Address Organization Details Recorded Time 01/16/2024 text/html 83 yo F pt with hx of chronic cystitis, David, POP here for f/u 1. UTIs/ICWas using 200 mg with each instillation, felt that this was causing issues. Most recently with 100 mg with instillation and notes that she had no problems with this. Notes that [employer] installations have been very helpful for IC management. She denies dysuria, urinary urgency and frequency today. UCx:-08/30/23: E.Coli-08/09/23: E.Coli-07/26/23: E.Coli-06/21/23: E.Coli-02/22/23: E.Coli-02/05/23: E.Coli 2. POP-H/o of cystocele grade 3 and uterine prolapse grade 2-Managed with #3 ring pessary-With erosion 2 weeks ago at routine pessary check was Sapna on 01/03/24.-Uses vaginal estrogen cream-Notes that she has not had bleeding or issues with removal, but hoping to have replaced today. 3. ISD-shanelle urethral injections 01/08/23 Cysto is normal, no ulcers seen on 09/17/23 PVR: 12 ccUA: Trace bloodPelvic: Pessary in place, removed and cleaned. No vaginal erosions. Yan Sanchez PA-C [address] [place] [address],[address] [place] [address], [phone], [facility] 01/17/2024 14:20:02 02/28/2024 text/html 83 YOF here for pessary check, elmiron. Sapna Teixeira roxana [facility] 02/28/2024 11:53:01 04/03/2024 text/html Pt is due for pessary cleaning and elmiron instillation today Sapna Teixeira roxana [facility] 04/03/2024 11:06:54 05/22/2024 text/html 83 yo F pt here for routine elmiron instillation Performed without issue. Patient was able to self manage her pessary Sapna Teixeira roxana [facility] 05/22/2024 16:20:32 06/19/2024 text/html 83F, prior pt of Yan Sanchez PA-C, with hx of interstitial cystitis, David, POP. Comes in for monthly elmiron bladder instillations, last one was about 1mo ago. Hx of Ecoli UTIs, positive culture x5 in 2022. She was treated for another Ecoli UTI by her PCP on 05/25. Now feeling better. Reported sx of shaking chills and fevers as well as flank pain. POP- cystocele grade 3 and grade 2 uterine prolapse, managed with size 3 ring pessary. Uses vaginal estrogen cream routinely. Had an erosion earlier this year, improved on last exam. Hx of periurethral injections with Dr. Greer 01/08/23.Normal cysto 09/17/23CT abd/pelvis 09/23/23- reviewed by Dr. Greer, neg for urologic pathology UA negPVR 0cc REINIER DAWSON [address] [facility], [place], [address], [place] [facility] 06/19/2024 12:16:12 OBGyn Episode No OBEpisode recorded.
--- OUTSIDE RECORDS SUMMARY | 2024-07-16 09:52 | XMS_ITS | Continuity of Care Document ---
Author Organization [facility], [facility] Address [address] [place] [place] [address] Care Team Providers Care Sped Teacher Name Role Phone [facility] Primary Care Provid er Assessment No assessment recorded. Plan of Treatment Reminders Order Date Submit Date Provider Last Modified By Organization Details Last Modified Time Details Appointments ESTABLISH ED 30 2023 03:00P M FEMALE_UR OLOGY_NUR SE_[facility] Not available Not available Not available Lab urinalysi s, dipstick 2023 024 [email or web address] [facility], [address], [place], [address], 06/19/2024 11:53:28 Referral None recorded. Procedures None recorded. Surgeries None recorded. Imaging None recorded. Medication Orders None recorded. Patient TargetsNo targets recorded. Patient InstructionsNo instructions recorded. Reason for Referral None Reported. Results Created Date Observation Date Name Description Value Unit Range Abnormal Flag Note LastModifiedBy Organization Detail LastModifiedTime 06/19/2006/19/2024 urina lysis , dipst ick BLOOD Negati ve Not Available [facility] [address], [place], [address], 06/18/2024 20:27:21 06/19/20 24 06/19/2024 urina lysis , dipst ick BILIRUBIN Negati ve Not Available [facility] [address], [place], [address], 06/18/2024 20:27:21 06/19/20 24 06/19/2024 urina lysis , dipst ick UROBILINOGEN 0.2 mg/dL (Norm) Not Available [facility] [address], [place], [address], 06/18/2024 20:27:21 06/19/20 24 06/19/2024 urina lysis , dipst ick KETONES Negati ve Not Available [facility] [address], [place], [address], 06/18/2024 20:27:21 06/19/20 24 06/19/2024 urina lysis , dipst ick PROTEIN Negati ve Not Available [facility] [address], [place], [address], 06/18/2024 20:27:21 06/19/20 24 06/19/2024 urina lysis , dipst ick NITRITES Negati ve Not Available [facility] [address], [place], [address], 06/18/2024 20:27:21 06/19/20 24 06/19/2024 urina lysis , dipst ick GLUCOSE Negati ve Not Available [facility] [address], [place], [address], 06/18/2024 20:27:21 06/19/20 24 06/19/2024 urina lysis , dipst ick p.H. 8.0 Not Available [facility] [address], [place], [address], 06/18/2024 20:27:21 06/19/20 24 06/19/2024 urina lysis , dipst ick S.G. (Specific [place]) <1.005 Not Available [facility] [address], [place], [address], 06/18/2024 20:27:21 06/19/20 24 06/19/2024 urina lysis , dipst ick LEUKOCYTES Negati ve Not Available [facility] [address], [place], [address], 06/18/2024 20:27:21 Result Notes None recorded. 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 Procedures Surgical History Date Name Laterality Status Provider Name and Address Organization Details Recorded Time COMPLEX VISIT completed REINIER DAWSON [address] [place] [address],[address], [address], [facility] 06/19/2024 12:15:42 024 Urinalysis completed [facility] 06/19/2024 11:42:56 024 Bladder Scan completed Cory Engel [facility] 06/19/2024 12:01:09 024 [place] Instillation completed Sapna Teixeira [facility] 05/22/2024 16:15:23 024 Pessary Cleaning completed Sapna Teixeira [facility] 04/03/2024 11:06:44 024 [place] Instillation completed Sapna Teixeira [facility] 04/03/2024 10:42:11 024 [place] Instillation completed Sapna Teixeira [facility] 02/28/2024 11:49:21 024 Pessary Cleaning completed Yan Sanchez PA-C [address] [facility],[address] [place] [address], [address], [facility] 01/17/2024 14:13:51 024 Bladder Scan completed Yas Mathew [facility] 01/16/2024 12:59:55 024 Pessary Cleaning completed Sapna Teixeira [facility] 01/03/2024 11:49:51 024 [place] Instillation completed Sapna Teixeira [facility] 01/03/2024 11:50:26 024 Pessary Cleaning completed Sapna Teixeira [facility] 11/22/2023 13:33:31 024 [place] Instillation completed Sapna [facility]ix[facility]ira [facility] 11/22/2023 13:34:09 024 Pessary Cleaning completed [facility] 10/11/2023 11:53:41 024 [place] Instillation completed Sapna [facility]ix[facility]ira [facility] 10/11/2023 11:53:37 024 Pessary Cleaning completed Yan Sanchez PA-C [address] [place] [address], [address], [facility] 09/17/2023 11:35:32 024 CystoscopyFemale completed Yan Sanchez PA-C [address] [place] [address], [address], [facility] 09/17/2023 11:39:23 024 Bladder Scan completed Brissa Fuller [facility] 09/17/2023 11:10:06 024 [place] Instillation completed Sapna Teixeira [facility] 08/30/2023 12:22:44 023 Pessary Cleaning completed Sapna Teixeira [facility] 08/09/2023 12:52:07 023 Pessary Cleaning completed Sapna Teixeira [facility] 07/26/2023 15:28:03 023 [place] Instillation completed Sapna Teixeira [facility] 07/26/2023 15:30:03 023 Pessary Cleaning completed Sapna Teixeira [facility] 06/21/2023 12:41:32 023 [place] Instillation completed Sapna Puneet [facility] 06/21/2023 12:41:02 023 Urinalysis completed Roxysaritha Broussard [facility] 05/17/2023 11:58:32 023 [place] Instillation completed Roxy Aarti [facility] 05/17/2023 11:57:24 023 Pessary Cleaning completed Sapna Teixeira [facility] 04/12/2023 10:26:26 023 [place] Instillation completed S[facility]na [facility]ix[facility]ira [facility] 04/12/2023 10:28:33 023 [place] Instillation completed Sapna Teixeira [facility] 02/22/2023 10:53:05 023 Pessary Cleaning completed Lisandra Greer [facility] [address], [place], [address] 02/05/2023 10:02:06 023 Bladder Scan completed Hayley Byers [facility] 02/05/2023 09:53:16 023 Pessary Cleaning completed Sapna Teixeira [facility] 01/18/2023 17:07:44 023 [place] Instillation completed Sapna Teixeira [facility] 01/18/2023 16:59:42 023 Periurethral Coaptite Injection completed Sapna Teixeira [facility] 01/08/2023 10:09:14 023 Pessary Cleaning completed Sapna Teixeira [facility] 12/14/2022 11:37:53 023 [place] Instillation completed Sapna Teixeira [facility] 12/14/2022 11:40:01 023 [place] Instillation completed Sapna Teixeira [facility] 10/05/2022 13:36:49 023 Pessary Cleaning completed Yan Sanchez PA-C [address] [facility],[address], [place], [address], [facility] 10/02/2022 13:40:56 023 CystoscopyFemale completed Yan Sanchez PA-C [address] [facility],[address], [place], [address], [facility] 10/02/2022 13:38:50 023 Bladder Scan completed Roxy Morton [facility] 10/02/2022 11:47:46 023 Pessary Cleaning completed Sapna Teixeira [facility] 08/24/2022 11:54:16 023 [place] Instillation completed Sapna Teixeira [facility] 08/24/2022 11:53:10 022 Pessary Cleaning completed Sapna Teixeira [facility] 07/18/2022 10:29:37 022 [place] Instillation completed Sapna Teixeira [facility] 07/18/2022 10:29:24 022 Pessary Cleaning completed Sapna Teixeira [facility] 06/13/2022 10:46:49 022 [place] Instillation completed Sapna Teixeira [facility] 06/13/2022 10:47:23 022 Pessary Cleaning completed Sapna Teixeira [facility] 04/11/2022 12:18:36 022 [place] Instillation completed Sapna Teixeira [facility] 04/11/2022 12:19:18 022 Pessary Cleaning completed Sapna Teixeira [facility] 03/07/2022 10:57:32 022 [place] Instillation completed Sapna Teixeira [facility] 03/07/2022 10:58:34 022 Pessary Cleaning completed Sapna Teixeira [facility] 02/07/2022 10:46:42 022 [place] Instillation completed Sapna Teixeira [facility] 02/07/2022 10:46:32 022 Pessary Cleaning completed Sapna Teixeira [facility] 01/03/2022 11:42:03 022 [place] Instillation completed Sapna Teixeira [facility] 01/03/2022 11:42:43 022 Pessary Cleaning completed Sapna Teixeira [facility] 11/29/2021 10:19:11 022 [place] Instillation completed Sapna Teixeira [facility] 11/29/2021 10:16:17 022 Pessary Cleaning completed Sapna Teixeira [facility] 11/01/2021 11:25:09 022 Bladder Scan completed Sapna Teixeira [facility] 11/01/2021 11:24:09 022 [place] Instillation completed Sapna Teixeira [facility] 11/01/2021 11:24:22 022 Pessary Cleaning completed Sapna Teixeira [facility] 10/04/2021 11:51:33 022 [place] Instillation completed Sapna Teixeira [facility] 10/04/2021 11:51:15 022 Pessary Insertion completed Lisandra Greer MD [address] [place] [address], [address], [facility] 10/04/2021 15:03:13 022 Bladder Scan completed Lisandra Greer MD [address] [place] [address], [address], [facility] 09/[facility] 17:12:26 022 [place] Instillation completed Dana Asher [facility] 08/31/2021 11:32:26 021 [place] Instillation completed Sapna Teixeira [facility] 08/03/2021 11:35:49 021 [place] Instillation completed [facility] 07/03/2021 10:39:03 021 [place] Instillation completed Stacy Fortune [facility] 05/31/2021 11:48:55 021 [place] Instillation completed Stacy Jaimeskarey [facility] 05/03/2021 11:11:30 021 [place] Instillation completed Stacy Fortune [facility] 04/05/2021 10:53:18 021 [place] Instillation completed Royal Dietrich [facility] 03/01/2021 12:34:33 021 CystoscopyFemale completed Lisandra Greer MD [address] [place] [address],[address], [place], [address], [facility] 02/02/2021 11:18:02 021 [place] Instillation completed Abigail Jimenez [facility] 02/02/2021 11:08:07 021 [place] Instillation completed Royal Corbinud [facility] 01/02/2021 11:57:31 021 [place] Instillation completed Ledy King [facility] 12/07/2020 12:33:01 021 [place] Instillation completed Sapna Puneet [facility] 11/09/2020 12:07:24 021 [place] Instillation completed Sapna Teixeira [facility] 10/26/2020 10:50:18 021 [place] Instillation completed Sapna Puneet [facility] 10/04/2020 12:23:58 021 [place] Instillation completed Sapna Teixeira [facility] 08/25/2020 14:15:22 020 [place] Instillation completed Sapna Teixeira [facility] 07/27/2020 11:21:17 020 [place] Instillation completed Sapna Teixeira [facility] 06/22/2020 10:22:28 020 [place] Instillation completed Jatin Silva [facility] 05/18/2020 12:07:15 020 [place] Instillation completed Concepción Hitchcock [facility] 04/20/2020 14:22:27 020 [place] Instillation completed Concepción Hitchcock [facility] 03/21/2020 13:09:02 020 [place] Instillation completed Jatin Silva [facility] 02/22/2020 11:33:42 discectomy of spine completed Sheila Greer MD [address] [place] [address],[address], [place], [place], [address] [place] [address], [facility] 09/26/2021 17:10:22 laparoscopy completed Lisandra Greer MD [address] [place] [address],[address], [place], [address] [place] [address], [facility] 09/26/2021 17:10:47 insertion of prosthesis for breast completed Lisandra Greer MD [address] [place] [address],[address], [place], [address] [place] [address], [facility] 09/26/2021 17:11:07 Appendectomy completed Lisandra Greer MD [address] [place] [address],[address], [place], [address] [place] [address], [facility] 09/26/2021 17:11:20 Imaging Results None recorded. Procedure Notes None recorded. Medical Equipment None Reported. Allergies Allergen ID Allergen Name Allergen Category Reaction Reaction Severity Criticality Documentation Date Start Date Code Code System Note Provider Name and Address Organization Details Recorded Time 165037 vancomyci n medicatio n Not available Not available Not available 02/04/20202011 53382 RxNorm Not Available [facility] 00:48:49 617747 Substance with sulfonami de structure and antibacte rial mechanism of action (substanc e) medicatio n Not available Not available Not available 04/11/2022 27870 8003 SNOMED Maymuna Karlo roxana [facility] 2 12:15:21 776477 Cipro medicatio n headache Not available Not available 06/19/202441177 3 [facility]Norm [facility] 11:56:11 Medications Name Sig [...] Updated DateTime 06/19/2024 170.18 cm 22.4 kg/m2 [address]642[address] [facility] 06/19/2024 11:57:18 Social History Question Answer Notes LastModified by Organizat ion Details LastModified Time Tobacco Smoking Status [facility] 02/22/2020 11:31:58 What Is Your Level Of Alcohol Consumption? Occasional [email or web address] Information not available 02/05/2023 How Many Times Per Week Do You Consume Alcohol? Less Than 1 Time Per Week [email or web address] Information not available 02/05/2023 What Is Your Level Of Caffeine Consumption? Occasional [email or web address] Information not available 02/05/2023 When Did You Quit Smoking? 11-15yearssinc elastcigarette [email or web address] Information not available 02/05/2023 Marital Status Unknown [email or web address] Informati on not available 01/28/2020 What Was The Date Of Your Most Recent Tobacco Screening? 06/19/2024 [email or web address] Information not available 06/19/2024 Have You Ever Been Counseled For Unhealthy Alcohol Use? No Information not available 01/16/2024 Do You Use Any Illicit Or Recreational Drugs? No [email or web address] Information not available 02/05/2023 Has Tobacco Cessation Counseling Been Provided? No [email or web address] Information not available 02/05/2023 Do You Or Have You Ever Used Any Other Forms Of Tobacco Or Nicotine? No [email or web address] Information not available 02/05/2023 How Many Days [...] available 09/26 17:09:57 Medical History Condition Response Diabetes N Sexually Transmitted Infection N Bleeding Disorder N Other N High Blood Pressure N Kidney Stones N Cancer N Lung Disease N Depression N High Cholesterol Y GERD/Acid Reflux Y Heart Disease N Gynecological History Statement/Question Response Irregular periods N Leaking urine with intercourse N Hormone Therapy N Heavy periods N Pain with intercourse N Sexually Active? N Obstetrics History GPAL:G 2 P 0 0 0 0 Immunizations Vaccine Type Date Status Provider Name and Address Organization Details Recorded Time Influenza, high-dose, quadrivalent, PF 05/18/2022 [facility] 12:50:04 COVID-19, mRNA, LNP-S, PF, 30 mcg/0.3 mL dose, jami-sucrose 01/12/2022 [facility]23 12:50:04 COVID-19, mRNA, LNP-S, bivalent, PF, 30 mcg/0.3 mL dose 01/23/2023 [facility]23 12:50:04 COVID-19, mRNA, LNP-S, bivalent, PF, 30 mcg/0.3 mL dose 05/18/2022 [facility]23 12:50:04 Influenza, high-dose, quadrivalent, PF 05/24/2023 completed Yas schmidt, [facility] 01/16/2024 12:54:12 Pneumococcal conjugate PCV20, polysaccharide [id number] conjugate, adjuvant, PF 07/02/2023 [facility] 01/16/2024 12:54:12 COVID-19, mRNA, LNP-S, PF, jami-sucrose, 30 mcg/0.3 mL 05/24/2023 [facility] 01/16/2024 12:54:12 Influenza, recombinant, quadrivalent, PF 05/22/2019 [facility] 05/17/2023 11:54:16 zoster recombinant 01/21/2019 completed Roxy Broussard null, [facility] 05/17/2023 11:54:16 Influenza, high-dose, quadrivalent, PF 06/10/2020 completed Roxy Broussard null, [facility] 05/17/2023 11:54:16 Influenza, high-dose, quadrivalent, PF 06/13/2021 completed Roxy Broussard null, [facility] 05/17/2023 11:54:16 COVID-19, mRNA, LNP-S, PF, 30 mcg/0.3 mL dose 09/24/2020 completed Roxy Broussard null, [facility] 05/17/2023 11:54:16 COVID-19, mRNA, LNP-S, PF, 30 mcg/0.3 mL dose 10/15/2020 [facility]23 11:54:16 COVID-19, mRNA, LNP-S, PF, 30 mcg/0.3 mL dose 05/19/2021 completed Roxy schmidt, [facility] 05/17/2023 11:54:16 pneumococcal polysaccharide PPV23 05/19/2007 [facility] 11:54:16 influenza, unspecified formulation 06/30/2015 [facility] 05/17/2023 11:54:16 Tdap 02/02/2021 completed Roxy schmidt, [facility] 05/17/2023 11:54:16 Tdap 05/19/2011 completed Roxy Broussard null, [facility] 05/17/2023 11:54:16 Pneumococcal conjugate PCV 13 09/01/2015 [facility] 11:54:16 zoster live 05/19/2010 completed Roxy Broussard null, [facility] 05/17/2023 11:54:16 Influenza, high-dose, trivalent, PF 05/19/2013 [facility] 11:54:16 Influenza, high-dose, trivalent, PF 05/22/2016 completed Roxy schmidt, [facility] 05/17/2023 11:54:16 Influenza, high-dose, trivalent, PF 05/29/2018 completed Roxy schmidt, [facility] 05/17/2023 11:54:16 Influenza, high-dose, trivalent, PF 06/18/2017 completed Roxy schmidt, [facility] 05/17/2023 11:54:16 Influenza, split virus, trivalent, PF 06/04/2012 completed Roxy Broussard roxana, [facility] 05/17/2023 11:54:16 Influenza, split virus, trivalent, PF 06/28/2011 completed Roxy schmidt, [facility] 05/17/2023 11:54:16 pneumococcal polysaccharide PPV23 08/22/2015 [facility] 12:50:04 Past Encounters Encounter ID Performer Location Encounter Start Date Encounter Closed Date Diagnosis/Indication Diagnosis SNOMED-CT Code Diagnosis ICD10 Code [id number] Sapna Teixeira [facility] [address] [place] [address] 05/22/2024 13:58:11 05/25/2024 15:30:32 Chronic interstitial cystitis 117502096 N30.10 [id number] REINIER DAWSON [facility] [address] [place] [address] 06/19/2024 11:33:50 06/22/2024 14:38:37 Prolapse of female genital organs 49173099 N81.9 Chronic in terstitial cystitis 666552403 N30.10 Recurrent urinary tract infection 067864769 N39.0 Health Concerns Section Related Observation LastModified by Organization Detai ls LastModified Time None Recorded Concern Status LastModified by Organization Details LastModified Time None Recorded Payers Encounter Date Sequence Insurance Name Policy Number Policy Tarango Covered Member ID Tarango Member ID Guarantor Name 06/19/2024 1 [place] Milla Pollard [id number] Milla Pollard 06/19/2024 2 [employer] (MEDICARE SUPPLEMENT) Milla M Latrice [id number] Milla Pollard Notes Date Note Type Note Provider Name and Address Organization Details Recorded Time 06/19/2024 text/html 83F, prior pt of Yan [...] urologic pathology UA negPVR 0cc REINIER DAWSON [address] [place] [address],[address], [place], [address], [facility] 06/19/2024 12:16:12 OBGyn Episode No OBEpisode recorded.
--- OUTSIDE RECORDS SUMMARY | 2024-07-16 09:53 | XMS_ITS | Referral Summary ---
Author Organization [facility] Address [address] [place] [id number] Care Team Providers Care Structural Iron Erector Name Role Phone Ganesh Sifuentes MD Primary Care Provider [phone] Allergies Active Allergy Reactions Criticality Noted Date Comments Sulfa Antibiotics Hives 09/10/2012 Vancomycin Hives 09/11/2012 Honey Bee Venom Anaphylaxis High 06/16/2016 Medications fluticasone (VERAMYST) 27.5 MCG/SPRAY nasal spray [place] 2 sprays into both nostrils daily. Active [...] tablets by mouth daily Active Vitamin D (Cholecalciferol ) 25 MCG (1000 UT) TABS Take 1,000 Units by mouth daily Active Multiple Vitamins-Mineral s (MULTIVITAMIN ADULT PO) Take 1 tablet by mouth daily Active albuterol (PROAIR HFA/PROVENTIL HFA/VENTOLIN HFA) 108 (90 Base) MCG/ACT inhaler Inhale 2 puffs into the lungs every 6 hours as needed Active escitalopram (LEXAPRO) 10 MG tablet Take 10 mg by mouth daily Active RESTASIS 0.05 % ophthalmic emulsion Place 1 drop into both eyes 2 times daily 0 Active ADVAIR DISKUS 250-50 MCG/DOSE inhaler Inhale 1 puff into the lungs 2 times daily 0 Active raloxifene (EVISTA) 60 MG tablet Take 1 tablet by mouth daily 0 Active rosuvastatin (CRESTOR) 5 MG tablet Take 5 mg by mouth At Bedtime 0 Active INCRUSE ELLIPTA 62.5 MCG/INH Inhaler Inhale 1 puff into the lungs daily 0 Active verapamil ER (CALAN-SR) 120 MG CR tablet Take 120 mg by mouth daily 0 Active sodium bicarbonate 8.4 % injection DRAW UP 3 ML, FOR USE IN HOME BLADDER INSTILLATIONS. 0 Active lidocaine 2 % injection Draw up 10mL of LidoCANE 2% AND mix with 3mL of Sodium Bicarb. Put in sterile cup for bladder instillation. 0 Active famotidine (PEPCID) 20 MG tabletIndication s:Gastroesophage al reflux disease without esophagitis Take 1 tablet (20 mg) by mouth every morning 30 tablet 0 Active sucralfate (CARAFATE) 1 GM tabletIndication s:Gastroesophage al reflux disease without esophagitis Take 1 tablet (1 g) by mouth 3 times daily as needed for nausea (reflux) 60 tablet 0 Active Resolved Problems Problem Noted Date Diagnosed Date Resolved Date Advance care planning 09/18/20162019 Overview (09/18/2016): Advance Care Planning 09/18/2016: Receipt of ACP [...] School Help Needed Not on file 05/10 Comments No Sex and Gender Information Value Date Recorded Sex Assigned at Not on file 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 Gender Identity Not on file Sexual Orientation Not on file Last Filed Vital Signs Vital Sign Reading Time Taken Comments Blood Pressure 122/53 04/09/2020 10:32 AM CDT Pulse 76 04/09/2020 10:32 AM CDT Temperature 36.2 C (97.1 F) 04/09/2020 10:32 AM CDT Respiratory Rate 18 [...] 160 <200 mg/dL 04/09/2020 5:58 AM CDT [facility] Triglycerides 59 <150 mg/dL 04/09/2020 5:58 AM T [facility] HDL Cholesterol 81 >49 mg/dL 0 6:01 AM CDT [facility] LDL Cholesterol Calculated 67 <100 mg/dL 04/09/2020 6:01 AM T [facility] Comment:Desirable: <100 mg/d l Non HDL Cholesterol 79 <130 mg/dL 04/09/2020 6:01 AM T [facility] Blood specimen (specimen) 04/09/2020 5:21 AM CDT 04/09/2020 5:22 AM CDT us Nia Jimenez PA-C LAB - BLOOD ORDERABLES F inal Result [facility] [address] [place] [address], [facility] [phone] from Last 3 Months or Most Recently Relevant to Health Maintenance Insurance MEDICARE [employer] MEDICARE [employer] Advance Directives For more information, please contact: [phone] Documents on File Type Date Recorded 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 Advance Directives and Living Will 04/22/2020 2:29 PM Health Care Directiv e 10/18/2019 * No CPR- Do NOT Intubate (Latest Code Status on File) Date Activated Date Inactivated Comments 04/09/2020 10:20 AM Advanced Dire ctive obtained and copies made Question Answer Comments Code status determined by: Discussion with micheale nt/ legal decision maker * No CPR- [...] Communication Tao Pollard Spouse Health Care Agent [place] Daughter First Alternate Health Care Agent Care Teams Structural Iron Erector Relationship Specialty Start Date End Date Ganesh Sifuentes MD PCP - General Family Practice 05/15/19
--- OUTSIDE RECORDS SUMMARY | 2024-07-16 09:53 | XMS_ITS | Clinical Summary ---
Author Organization [facility] Address [address] [place] [address] Care Team Providers Care Rn Gyn Name Role Phone Ganesh Sifuentes MD Primary Care Provider [phone] Allergies Active Allergy Reactions Criticality Noted Date Comments Sulfa Antibiotics Hives 09/10/2012 Vancomycin Hives 09/11/2012 Honey Bee Venom Anaphylaxis High 06/16/2016 Medications fluticasone (VERAMYST) 27.5 MCG/SPRAY nasal spray [place] 2 sprays into both nostrils daily. 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 Gender Identity Not on file Sexual Orientation [...] (once per calendar year) 2023 COVID-19 Vaccine ( season) 2024 05/24/2023, 01/23/2023, 05/18/2022, Additional history [...] 160 <200 mg/dL 04/09/2020 5:58 AM CDT [facility] Triglycerides 59 <150 mg/dL 04/09/2020 5:58 AM CDT [facility] HDL Cholesterol 81 >49 mg/dL 0 6:01 AM T [facility] LDL Cholesterol Calculated 67 <100 mg/dL 04/09/2020 6:01 AM T [facility] Comment:Desirable: <100 mg/d l Non HDL Cholesterol 79 <130 mg/dL 04/09/2020 6:01 AM CDT [facility] Blood specimen (specimen) 04/09/2020 5:21 AM CDT 04/09/2020 5:22 AM CDT Nia Jimenez PA-C LAB - BLOOD ORDERABLES F inal Result [facility] [address] [place] [id number], [facility] [phone] from Last 3 Months or Most Recently Relevant to Health Maintenance Insurance MEDICARE [employer] MEDICARE [employer] Advance Directives For more information, please contact: [phone] Documents on File Type Date Recorded 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
--- OUTSIDE RECORDS SUMMARY | 2024-07-16 09:53 | XMS_ITS | Continuity of Care Document ---
Author Organization [facility] Address [address] 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 Plan of Treatment Reminders Order Date Submit Date Provider Last Modified By Organization Details Last Modified Time Details Appointments ESTABLISH ED 30 2023 03:00P M FEMALE_UR OLOGY_NUR [facility] Not available Not available Not available Lab urinalysi s, dipstick 2023 024 [email or web address] [facility], [address], [place], [address], 05/22/2024 16:20:29 Referral None recorded. Procedures None recorded. Surgeries None recorded. Imaging None recorded. Medication Orders None recorded. Patient TargetsNo targets recorded. Patient InstructionsNo instructions recorded. Reason for Referral None Reported. Results Created Date Observation Date Name Description Value Unit Range Abnormal Flag Note LastModifiedBy Organization Detail LastModifiedTime 05/22/2005/22/2024 urina lysis , dipst ick BLOOD Trace (5 RBC/uL ) Not Available [facility] [address], [place], [address], 05/22/2024 16:16:29 05/22/2005/22/2024 urina lysis , dipst ick BILIRUBIN Negati ve Not Available [facility] [address], [place], [address], 05/22/2024 16:16:29 05/22/20 24 05/22/2024 urina lysis , dipst ick UROBILINOGEN 0.2 mg/dL (Norm) Not Available [facility] [address], [place], [address], 05/22/2024 16:16:29 05/22/20 24 05/22/2024 urina lysis , dipst ick KETONES Negati ve Not Available [facility] [address], [place], [address], 05/22/2024 16:16:29 05/22/2005/22/2024 urina lysis , dipst ick PROTEIN Negati ve Not Available [facility] [address], [place], [address], 05/22/2024 16:16:29 05/22/2005/22/2024 urina lysis , dipst ick NITRITES Negati ve Not Available [facility] [address], [place], [address], 05/22/2024 16:16:29 05/22/20 24 05/22/2024 urina lysis , dipst ick GLUCOSE Negati ve Not Available [facility] [address], [place], [address], 05/22/2024 16:16:29 05/22/2005/22/2024 urina lysis , dipst ick p.H. 6.5 Not Available [facility] [address], [place], [address], 05/22/2024 16:16:29 05/22/2005/22/2024 urina lysis , dipst ick S.G. (Specific [place]) 1.015 Not Available [facility] [address], [place], [address], 05/22/2024 16:16:29 05/22/20 24 05/22/2024 urina lysis , dipst ick LEUKOCYTES Large (500 WBC/uL ) Not Available [facility] [address], [place], [address], 05/22/2024 16:16:29 Result Notes None recorded. 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 Procedures Surgical History Date Name Laterality Status Provider Name and Address Organization Details Recorded Time 024 COMPLEX VISIT completed REINIER DAWSON [address] [facility],[address], [place], [address], [facility] 06/19/2024 12:15:42 024 Urinalysis completed [facility]el [facility] 06/19/2024 11:42:56 024 Bladder Scan completed Cory Engel [facility] 06/19/2024 12:01:09 024 Elmiron Instillation completed Sapna Teixeira [facility] 05/22/2024 16:15:23 024 Pessary Cleaning completed Sapna Teixeira [facility] 04/03/2024 11:06:44 024 Elmiron Instillation completed Sapna Teixeira [facility] 04/03/2024 10:42:11 024 Elmiron Instillation completed Sapna Teixeira [facility] 02/28/2024 11:49:21 024 Pessary Cleaning completed Yan Sanchez PA-C [address] [facility],[address], [place], [address], [facility] 01/17/2024 14:13:51 05/30/2 024 Bladder Scan completed Yas Mathew [facility] 01/16/2024 12:59:55 024 Pessary Cleaning [facility] 01/03/[facility]24 11:49:51 024 Elmiron Instillation completed Sapna Teixeira [facility] 01/03/2024 11:50:26 024 Pessary Cleaning completed Sapna Teixeira [facility] 11/22/2023 13:33:31 024 Elmiron Instillation completed Sapna Teixeira [facility] 11/22/2023 13:34:09 024 Pessary Cleaning completed Sapna Teixeira [facility] 10/11/2023 11:53:41 024 Elmiron Instillation completed Sapna Teixeira [facility] 10/11/2023 11:53:37 024 Pessary Cleaning completed Yan Sanchez PA-C [address] [facility] [address], [place], [address], [facility] 09/17/2023 11:35:32 024 CystoscopyFemale completed Yan Sanchez PA-C [address] [facility] [address], [place], [address], [facility] 09/17/2023 11:39:23 024 Bladder Scan completed Brissa Fuller [facility] 09/17/2023 11:10:06 024 Elmiron Instillation completed Sapna Teixeira [facility] 08/30/2023 12:22:44 023 Pessary Cleaning completed [facility] 08/09/2023 12:52:07 023 Pessary Cleaning completed Sapna Teixeira [facility] 07/26/2023 15:28:03 023 Elmiron Instillation completed Sapna Teixeira [facility] 07/26/2023 15:30:03 023 Pessary Cleaning completed Sapna Teixeira [facility] 06/21/2023 12:41:32 023 Elmiron Instillation completed Sapnamati De La Rosaen [facility] 06/21/2023 12:41:02 023 Urinalysis completed Roxy Broussard [facility] 05/17/2023 11:58:32 023 Elmiron Instillation completed Roxy Aarti [facility] 05/17/2023 11:57:24 023 Pessary Cleaning completed Sapnamati De La Rosaen [facility] 04/12/2023 10:26:26 023 Elmiron Instillation completed Sapna Puneet [facility] 04/12/2023 10:28:33 023 Elmiron Instillation completed Sapna De La Rosaen [facility] 02/22/2023 10:53:05 023 Pessary Cleaning completed Lisandra [facility]er [facility] [address] [facility], [place], [address] 02/05/2023 10:02:06 023 Bladder Scan completed Hayley Byers [facility] 02/05/2023 09:53:16 023 Pessary Cleaning completed Sapna Puneet [facility] 01/18/2023 17:07:44 023 Elmiron Instillation completed Sapna Puneet [facility] 01/18/2023 16:59:42 023 Periurethral Coaptite Injection completed Sapna Puneet [facility] 01/08/2023 10:09:14 023 Pessary Cleaning completed Sapna Teixeira [facility] 12/14/2022 11:37:53 023 Elmiron Instillation completed Sapna Teixeira [facility] 12/14/2022 11:40:01 023 Elmiron Instillation completed Sapna Teixeira [facility] 10/05/2022 13:36:49 023 Pessary Cleaning completed Yan Sanchez PA-C [address], [place], [address], [place] [facility] 10/02/2022 13:40:56 023 CystoscopyFemale completed Yan Sanchez PA-C [address] [facility],[address], [place], [address], [place] [facility] 10/02/2022 13:38:50 023 Bladder Scan completed Roxy Morton [facility] 10/02/2022 11:47:46 023 Pessary Cleaning completed Sapna Teixeira [facility] 08/24/2022 11:54:16 023 Elmiron Instillation completed Sapna Teixeira [facility] 08/24/2022 11:53:10 022 Pessary Cleaning completed Sapna Teixeira [facility] 07/18/2022 10:29:37 022 Elmiron Instillation completed Sapna Teixeira [facility] 07/18/2022 10:29:24 022 Pessary Cleaning completed Sapna Teixeira [facility] 06/13/2022 10:46:49 022 Elmiron Instillation completed Sapna Teixeira [facility] 06/13/2022 10:47:23 022 Pessary Cleaning completed Sapna Teixeira [facility] 04/11/2022 12:18:36 022 Elmiron Instillation completed Sapna Teixeira [facility] 04/11/2022 12:19:18 022 Pessary Cleaning completed Sapna Teixeira [facility] 03/07/2022 10:57:32 022 Elmiron Instillation completed Sapna Teixeira [facility] 03/07/2022 10:58:34 022 Pessary Cleaning completed Sapna Teixeira [facility] 02/07/2022 10:46:42 022 Elmiron Instillation completed Sapna Teixeira [facility] 02/07/2022 10:46:32 022 Pessary Cleaning completed Sapna Teixeira [facility] 01/03/2022 11:42:03 022 Elmiron Instillation completed Sapna Teixeira [facility] 01/03/2022 11:42:43 022 Pessary Cleaning completed Sapna Teixeira [facility] 11/29/2021 10:19:11 022 Elmiron Instillation completed Sapna Teixeira [facility] 11/29/2021 10:16:17 022 Pessary Cleaning completed Sapna Teixeira [facility] 11/01/2021 11:25:09 022 Bladder Scan completed Sapna Teixeira [facility] 11/01/2021 11:24:09 022 Elmiron Instillation completed Sapna [facility] 11/01/2021 11:24:22 022 Pessary Cleaning completed Sapna De La Rosaen [facility] 10/04/2021 11:51:33 022 Elmiron Instillation completed Sapna Teixeira [facility] 10/04/2021 11:51:15 022 Pessary Insertion completed Lisandra Greer MD [address] [place] [address], [address], [facility] 10/04/2021 15:03:13 022 Bladder Scan completed Lisandra Greer MD [address] [place] [address], [address], [facility] 09/26/2021 17:12:26 022 Elmiron Instillation completed Dana Asher [facility] 08/31/2021 11:32:26 021 Elmiron Instillation completed Sapnamati De La Rosaen [facility] 08/03/2021 11:35:49 021 Elmiron Instillation completed Stacy Fortune [facility] 07/03/2021 10:39:03 021 Elmiron Instillation completed Stacy Fortune [facility] 05/31/2021 11:48:55 021 Elmiron Instillation completed Stacy Jaimeskarey [facility] 05/03/2021 11:11:30 021 Elmiron Instillation completed Stacy Jaimeskarey [facility] 04/05/2021 10:53:18 021 Elmiron Instillation completed Royal Dietrich [facility] 03/01/2021 12:34:33 021 CystoscopyFemale completed Lisandra Greer MD [address] [facility],[address], [place], [address], [facility] 02/02/2021 11:18:02 021 Elmiron Instillation completed Abigail Jimenez [facility] 02/02/2021 11:08:07 021 Elmiron Instillation completed Royal Corbinud [facility] 01/02/2021 11:57:31 021 Elmiron Instillation completed Ledy King [facility] 12/07/2020 12:33:01 021 Elmiron Instillation completed Sapna Puneet [facility] 11/09/2020 12:07:24 021 Elmiron Instillation completed Sapna Teixeira [facility] 10/26/2020 10:50:18 021 Elmiron Instillation completed Sapna Puneet [facility] 10/04/2020 12:23:58 021 Elmiron Instillation completed Sapna Teixeira [facility] 08/25/2020 14:15:22 020 Elmiron Instillation completed aSpna Teixeira [facility] 07/27/2020 11:21:17 020 Elmiron Instillation completed Sapna Teixeira [facility] 06/22/2020 10:22:28 020 Elmiron Instillation completed Jatin Silva [facility] 05/18/2020 12:07:15 020 Elmiron Instillation completed Concepción Hitchcock [facility] 04/20/2020 14:22:27 020 Elmiron Instillation completed Concepción Hitchcock [facility] 03/21/2020 13:09:02 020 Elmiron Instillation completed Jatin Silva [facility] 02/22/2020 11:33:42 discectomy of spine completed Sheila Greer MD [address] [place] [address],[address] [place] [address], [address] [place] [address], [facility] 09/26/2021 17:10:22 laparoscopy completed Lisandra Greer MD [address] [place] [address],[address], [place], [place], [address] [place] [address], [facility] 09/26/2021 17:10:47 insertion of prosthesis for breast completed Lisandra Greer MD [address] [place] [address],[address] [place] [address], [address] [place] [address], [facility] 09/26/2021 17:11:07 Appendectomy completed Lisandra Greer MD [address] [place] [address],[address] [place] [address], [address] [place] [address], [facility] 09/26/2021 17:11:20 Imaging Results None recorded. Procedure Notes None recorded. Medical Equipment None Reported. Allergies Allergen ID Allergen Name Allergen Category Reaction Reaction Severity Criticality Documentation Date Start Date Code Code System Note Provider Name and Address Organization Details Recorded Time 184961 vancomyci n medicatio n Not available Not available Not available 02/04/20202011 98158 RxNorm Not Available [facility] 0 00:48:49 281529 Substance with sulfonami de structure and antibacte rial mechanism of action (substanc e) medicatio n Not available Not available Not available 04/11/2022 06947 8003 SNOMED [facility] 12:15:21 530667 Cipro medicatio n headache Not available Not available 06/19/202463309 3 RxNorm [facility] 4 11:56:11 Medications Name Sig Start [...] Tobacco Smoking Status Former Smoker Jatin Silva [facility] 02/22/2020 11:31:58 What Is Your Level Of Alcohol Consumption? Occasional [email or web address] Information not available 02/05/2023 How Many Times Per Week Do You Consume Alcohol? Less Than 1 Time Per Week [email or web address] Information not available 02/05/2023 What Is Your Level Of Caffeine Consumption? Occasional [email or web address] Information not available 02/05/2023 When Did You Quit Smoking? 11-15yearssinc elastcigarette [email or web address] Information not available 02/05/2023 Marital Status Unknown [email or web address] Informati on not available 01/28/2020 What Was The Date Of Your Most Recent Tobacco Screening? 06/19/2024 [email or web address] Information not available 06/19/2024 Have You Ever Been Counseled For Unhealthy Alcohol Use? No Information not available 01/16/2024 Do You Use Any Illicit Or Recreational Drugs? No [email or web address] Information not available 02/05/2023 Has Tobacco Cessation Counseling Been Provided? No [email or web address] Information not available 02/05/2023 Do You Or Have You Ever Used Any Other Forms Of Tobacco Or Nicotine? No [email or web address] Information not available 02/05/2023 How Many Days [...] high-dose, quadrivalent, PF 05/18/2022 completed Alina schmidt, [facility] 08/06/2023 12:50:04 COVID-19, mRNA, LNP-S, PF, 30 mcg/0.3 mL dose, jami-sucrose 01/12/2022 [facility] 12:50:04 COVID-19, mRNA, LNP-S, bivalent, PF, 30 mcg/0.3 mL dose 01/23/2023 [facility]23 12:50:04 COVID-19, mRNA, LNP-S, bivalent, PF, 30 mcg/0.3 mL dose 05/18/2022 [facility]23 12:50:04 Influenza, high-dose, quadrivalent, PF 05/24/2023 [facility] 01/16/2024 12:54:12 Pneumococcal conjugate PCV20, polysaccharide [id number] conjugate, adjuvant, PF 07/02/2023 [facility]/16/2024 12:54:12 COVID-19, mRNA, LNP-S, PF, jami-sucrose, 30 mcg/0.3 mL 05/24/2023 [facility]/16/2024 12:54:12 Influenza, recombinant, quadrivalent, PF 05/22/2019 completed Roxy schmidt, [facility] 05/17/2023 11:54:16 zoster recombinant 01/21/2019 [facility]23 11:54:16 Influenza, high-dose, quadrivalent, PF 06/10/2020 completed Roxy schmidt, [facility] 05/17/2023 11:54:16 Influenza, high-dose, quadrivalent, PF 06/13/2021 completed Roxy Broussard null, [facility] 05/17/2023 11:54:16 COVID-19, mRNA, LNP-S, PF, 30 mcg/0.3 mL dose 09/24/2020 completed Roxy Broussard null, [facility] 05/17/2023 11:54:16 COVID-19, mRNA, LNP-S, PF, 30 mcg/0.3 mL dose 10/15/2020 completed Roxy Broussard null, [facility] 05/17/2023 11:54:16 COVID-19, mRNA, LNP-S, PF, 30 mcg/0.3 mL dose 05/19/2021 [facility]23 11:54:16 pneumococcal polysaccharide PPV23 05/19/2007 [facility]/2023 11:54:16 influenza, unspecified formulation 06/30/2015 [facility]/2023 11:54:16 Tdap 02/02/2021 completed Roxy schmidt, [facility] 05/17/2023 11:54:16 Tdap 05/19/2011 [facility]23 11:54:16 Pneumococcal conjugate PCV 13 09/01/2015 completed Roxy schmidt, [facility] 05/17/2023 11:54:16 zoster live 05/19/2010 completed Roxy schmidt, [facility] 05/17/2023 11:54:16 Influenza, high-dose, trivalent, PF 05/19/2013 completed Roxy schmidt, [facility] 05/17/2023 11:54:16 Influenza, high-dose, trivalent, PF 05/22/2016 completed Roxy schmidt, [facility] 05/17/2023 11:54:16 Influenza, high-dose, trivalent, PF 05/29/2018 completed Roxy schmidt, [facility] 05/17/2023 11:54:16 Influenza, high-dose, trivalent, PF 06/18/2017 completed Roxy schmidt [facility] 05/17/2023 11:54:16 Influenza, split virus, trivalent, PF 06/04/2012 completed Roxysaritha schmidt, [facility] 05/17/2023 11:54:16 Influenza, split virus, trivalent, PF 06/28/2011 completed Roxysaritha schmidt [facility] 05/17/2023 11:54:16 pneumococcal polysaccharide PPV23 08/22/2015 [facility]2023 12:50:04 Past Encounters Encounter ID Performer Location Encounter Start Date Encounter Closed Date Diagnosis/Indication Diagnosis SNOMED-CT Code Diagnosis ICD10 Code [id number] Sapna Teixeira [facility] [address] [place] [address] 05/22/2024 13:58:11 05/25/2024 15:30:32 Chronic interstitial cystitis 856812530 N30.10 Health Concerns Section Related Observation LastModified by Organization Detai ls LastModified Time None Recorded Concern Status LastModified by Organization Details LastModified Time None Recorded Payers Encounter Date Sequence Insurance Name Policy Number Policy Tarango Covered Member ID Tarango Member ID Guarantor Name 05/22/2024 1 MEDICARE B-[place]: [employer] Milla Pollard [id number] Milla Pollard 05/22/2024 2 [employer] (MEDICARE SUPPLEMENT) Milla Pollard [id number] Milla Pollard Notes Date Note Type Note Provider Name and Address Organization Details Recorded Time 05/22/2024 text/html 83 yo F pt here for routine elmiron instillation Performed without issue. Patient was able to self manage her pessary Sapna schmidt [facility] 05/22/2024 16:20:32 OBGyn Episode No OBEpisode recorded.
== END 2024-07-14 08:34 | disposition home or self-care (01) ==
LOC: NFLDREF 07-16 09:50
PROVIDERS: PCP Family Medicine; Referring Provider Family Medicine; Visit Provider Family Medicine
DX: E78.00 Pure hypercholesterolemia, unspecified (principal); M81.0 Age-related osteoporosis without current pathological fracture; N30.10 Interstitial cystitis (chronic) without hematuria; F32.A Depression, unspecified; Z79.899 Other long term (current) drug therapy
CPT/HCPCS: 80053; 80061; 84100

== ENCOUNTER 2024-07-17 08:33 | Outpatient (CLI) | payer MEDICARE, SELFPAY ==
--- OUTSIDE RECORDS SUMMARY | 2024-07-18 13:19 | XMS_ITS | Clinical Summary ---
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 1 Bottle [...] Active azelastine 137 mcg/actuation (ASTELIN) nasal spray [place] 1 spray each nostril daily 1 Bottle [...] Influenza for age 65+ 04/19/2024 Care Teams Senior Gl Accountant Relationship Specialty Start Date End Date Jennie Tomas NP PCP - General Nurse Practitioner 02/17/16
--- OUTSIDE RECORDS SUMMARY | 2024-07-18 13:20 | XMS_ITS | Data Portability ---
Author Organization [facility], [facility] Address [address] [place] [address] Care Team Providers Care Cell Stripper Final Name Role Phone [facility] Primary Care Provid er Assessment No assessment recorded. Plan of Treatment Reminders Order Date Submit Date Provider Last Modified By Organization Details Last Modified Time Details Appointments ESTABLISH ED 30 2023 03:00P M FEMALE_UR OLOGY_NUR [facility]_CLINIC Not available Not available Not available Lab urinalysi s, dipstick 2023 024 [email or web address] [facility], [address], [place], [address], 01/17/2024 14:14:31 urinalysi s, dipstick 2023 024 [email or web address] [facility], [address], [place], [address], 02/28/2024 11:47:12 urinalysi s, dipstick 2023 024 [email or web address] [facility], [address], [place], [address], 04/03/2024 11:04:59 urinalysi s, dipstick 2023 024 [email or web address] [facility], [address], [place], [address], 05/22/2024 16:20:29 urinalysi s, dipstick 2023 024 [facility], [address], [place], [address], 06/19/2024 11:53:28 Referral None recorded. Procedures None [...] Not Available [facility] [address], [place], [address], 01/03/2024 11:52:05 01/03/20 24 01/03/2024 urina lysis , dipst ick BILIRUBIN Negati ve Not Available [facility] [address], [place], [address], 01/03/2024 11:52:05 01/03/20 24 01/03/2024 urina lysis , dipst ick UROBILINOGEN 0.2 mg/dL (Norm) Not Available [facility] [address], [place], [address], 01/03/2024 11:52:05 01/03/20 24 01/03/2024 urina lysis , dipst ick KETONES Negati ve Not Available [facility] [address], [place], [address], 01/03/2024 11:52:05 01/03/20 24 01/03/2024 urina lysis , dipst ick PROTEIN Negati ve Not Available [facility] [address], [place], [address], 01/03/2024 11:52:05 01/03/20 24 01/03/2024 urina lysis , dipst ick NITRITES Negati ve Not Available [facility] [address], [place], [address], 01/03/2024 11:52:05 01/03/20 24 01/03/2024 urina lysis , dipst ick GLUCOSE Negati ve Not Available [facility] [address], [place], [address], 01/03/2024 11:52:05 01/03/20 24 01/03/2024 urina lysis , dipst ick p.H. 8.0 Not Available [facility] [address], [place], [address], 01/03/2024 11:52:05 01/03/20 24 01/03/2024 urina lysis , dipst ick S.G. (Specific [place]) <1.005 Not Available [facility] [address], [place], [address], 01/03/2024 11:52:05 01/03/20 24 01/03/2024 urina lysis , dipst ick LEUKOCYTES Small (25 WBC/uL ) Not Available [facility] [address], [place], [address], 01/03/2024 11:52:05 01/16/20 24 01/16/2024 urina lysis , dipst ick BLOOD Small (10 RBC/uL ) Not Available [facility] [address], [place], [address], 01/16/2024 12:55:06 01/16/20 24 01/16/2024 urina lysis , dipst ick BILIRUBIN Negati ve Not Available [facility] [address], [place], [address], 01/16/2024 12:55:06 01/16/20 24 01/16/2024 urina lysis , dipst ick UROBILINOGEN 0.2 mg/dL (Norm) Not Available [facility] [address], [place], [address], 01/16/2024 12:55:06 01/16/20 24 01/16/2024 urina lysis , dipst ick KETONES Negati ve Not Available [facility] [address], [place], [address], 01/16/2024 12:55:06 01/16/20 24 01/16/2024 urina lysis , dipst ick PROTEIN Trace (10 mg/dL) Not Available [facility] [address], [place], [address], 01/16/2024 12:55:06 01/16/20 24 01/16/2024 urina lysis , dipst ick NITRITES Negati ve Not Available [facility] [address], [place], [address], 01/16/2024 12:55:06 01/16/20 24 01/16/2024 urina lysis , dipst ick GLUCOSE Negati ve Not Available [facility] [address], [place], [address], 01/16/2024 12:55:06 01/16/20 24 01/16/2024 urina lysis , dipst ick p.H. 8.0 Not Available [facility] [address], [place], [address], 01/16/2024 12:55:06 01/16/20 24 01/16/2024 urina lysis , dipst ick S.G. (Specific [place]) 1.010 Not Available [facility] [address], [place], [address], 01/16/2024 12:55:06 01/16/20 24 01/16/2024 urina lysis , dipst ick LEUKOCYTES Negati ve Not Available [facility] [address], [place], [address], 01/16/2024 12:55:06 02/28/20 24 02/28/2024 urina lysis , dipst ick BLOOD Negati ve Not Available [facility] [address], [place], [address], 02/28/2024 11:42:58 02/28/20 24 02/28/2024 urina lysis , dipst ick BILIRUBIN Negati ve Not Available [facility] [address], [place], [address], 02/28/2024 11:42:58 02/28/20 24 02/28/2024 urina lysis , dipst ick UROBILINOGEN 0.2 mg/dL (Norm) Not Available [facility] [address], [place], [address], 02/28/2024 11:42:58 02/28/20 24 02/28/2024 urina lysis , dipst ick KETONES Negati ve Not Available [facility] [address], [place], [address], 02/28/2024 11:42:58 02/28/20 24 02/28/2024 urina lysis , dipst ick PROTEIN Negati ve Not Available [facility] [address], [place], [address], 02/28/2024 11:42:58 02/28/20 24 02/28/2024 urina lysis , dipst ick NITRITES Negati ve Not Available [facility] [address], [place], [address], 02/28/2024 11:42:58 02/28/20 24 02/28/2024 urina lysis , dipst ick GLUCOSE Negati ve Not Available [facility] [address], [place], [address], 02/28/2024 11:42:58 02/28/20 24 02/28/2024 urina lysis , dipst ick p.H. 7.5 Not Available [facility] [address], [place], [address], 02/28/2024 11:42:58 02/28/20 24 02/28/2024 urina lysis , dipst ick S.G. (Specific [place]) <1.005 Not Available [facility] [address], [place], [address], 02/28/2024 11:42:58 02/28/20 24 02/28/2024 urina lysis , dipst ick LEUKOCYTES Negati ve Not Available [facility] [address], [place], [address], 02/28/2024 11:42:58 04/03/20 24 04/03/2024 urina lysis , dipst ick BLOOD Negati ve Not Available [facility] [address], [place], [address], 04/03/2024 11:04:07 04/03/20 24 04/03/2024 urina lysis , dipst ick BILIRUBIN Negati ve Not Available [facility] [address], [place], [address], 04/03/2024 11:04:07 04/03/20 24 04/03/2024 urina lysis , dipst ick UROBILINOGEN 0.2 mg/dL (Norm) Not Available [facility] [address], [place], [address], 04/03/2024 11:04:07 04/03/20 24 04/03/2024 urina lysis , dipst ick KETONES Negati ve Not Available [facility] [address], [place], [address], 04/03/2024 11:04:07 04/03/20 24 04/03/2024 urina lysis , dipst ick PROTEIN Negati ve Not Available [facility] [address], [place], [address], 04/03/2024 11:04:07 04/03/20 24 04/03/2024 urina lysis , dipst ick NITRITES Negati ve Not Available [facility] [address], [place], [address], 04/03/2024 11:04:07 04/03/20 24 04/03/2024 urina lysis , dipst ick GLUCOSE Negati ve Not Available [facility] [address], [place], [address], 04/03/2024 11:04:07 04/03/20 24 04/03/2024 urina lysis , dipst ick p.H. 8.5 Not Available [facility] [address], [place], [address], 04/03/2024 11:04:07 04/03/20 24 04/03/2024 urina lysis , dipst ick S.G. (Specific [place]) <1.005 Not Available [facility] [address], [place], [address], 04/03/2024 11:04:07 04/03/20 24 04/03/2024 urina lysis , dipst ick LEUKOCYTES Negati ve Not Available [facility] [address], [place], [address], 04/03/2024 11:04:07 05/22/2005/22/2024 urina lysis , dipst ick BLOOD Trace (5 RBC/uL ) Not Available [facility] [address], [place], [address], 05/22/2024 16:16:29 05/22/20 24 05/22/2024 urina lysis , dipst ick BILIRUBIN Negati ve Not Available [facility] [address], [place], [address], 05/22/2024 16:16:29 05/22/2005/22/2024 urina lysis , dipst ick UROBILINOGEN 0.2 mg/dL (Norm) Not Available [facility] [address], [place], [address], 05/22/2024 16:16:29 05/22/20 24 05/22/2024 urina lysis , dipst ick KETONES Negati ve Not Available [facility] [address], [place], [address], 05/22/2024 16:16:29 05/22/20 24 05/22/2024 urina lysis , dipst ick PROTEIN Negati ve Not Available [facility] [address], [place], [address], 05/22/2024 16:16:29 05/22/2005/22/2024 urina lysis , dipst ick NITRITES Negati ve Not Available [facility] [address], [place], [address], 05/22/2024 16:16:29 05/22/2005/22/2024 urina lysis , dipst ick GLUCOSE Negati ve Not Available [facility] [address], [place], [address], 05/22/2024 16:16:29 05/22/20 24 05/22/2024 urina lysis , dipst ick p.H. 6.5 Not Available [facility] [address], [place], [address], 05/22/2024 16:16:29 05/22/20 24 05/22/2024 urina lysis , dipst ick S.G. (Specific [place]) 1.015 Not Available [facility] [address], [place], [address], 05/22/2024 16:16:29 05/22/20 24 05/22/2024 urina lysis , dipst ick LEUKOCYTES Large (500 WBC/uL ) Not Available [facility] [address], [place], [address], 05/22/2024 16:16:29 06/19/20 24 06/19/2024 urina lysis , dipst ick BLOOD Negati ve Not Available [facility] [address], [place], [address], 06/18/2024 20:27:21 06/19/20 24 06/19/2024 urina lysis , dipst ick BILIRUBIN Negati ve Not Available [facility] [address], [place], [address], 06/18/2024 20:27:21 06/19/20 24 06/19/2024 urina lysis , dipst ick UROBILINOGEN 0.2 mg/dL (Norm) Not Available [facility] [address], [place], [address], 06/18/2024 20:27:21 06/19/20 24 06/19/2024 urina lysis , dipst ick KETONES Negati ve Not Available [facility] [address], [place], [address], 06/18/2024 20:27:21 06/19/20 24 06/19/2024 urina lysis , dipst ick PROTEIN Negati ve Not Available [facility] [address], [place], [address], 06/18/2024 20:27:21 06/19/20 24 06/19/2024 urina lysis , dipst ick NITRITES Negati ve Not Available [facility] [address], [place], [address], 06/18/2024 20:27:21 06/19/20 24 06/19/2024 urina lysis , dipst ick GLUCOSE Negati ve Not Available [facility] [address], [place], [address], 06/18/2024 20:27:21 06/19/20 24 06/19/2024 urina lysis , dipst ick p.H. 8.0 Not Available [facility] [address], [place], [address], 06/18/2024 20:27:21 06/19/20 24 06/19/2024 urina lysis , dipst ick S.G. (Specific [place]) <1.005 Not Available [facility] [address], [place], [address], 06/18/2024 20:27:21 06/19/20 24 06/19/2024 urina lysis , dipst ick LEUKOCYTES Negati ve Not Available [facility] [address], [place], [address], 06/18/2024 20:27:21 Result Notes None recorded. Problems Name Problem SNOMED Code Status Onset Date Resolution Date Notes Provider Name and Address Organization Details Recorded Time Chronic interstit ial cystitis 846670430 Active 2011 N30.11 : Interstiti al cystitis (chronic) with hematuria Not Available [facility] 0 02:03:10 Prolapse of female genital organs 11956028 Active 2021 Sapna schmidt [facility] 11:45:39 Problem Notes None recorded. Procedures Surgical History Date Name Laterality Status Provider Name and Address Organization Details Recorded Time 024 COMPLEX VISIT completed REINIER DAWSON [address], [place], [address], [facility] 06/19/2024 12:15:42 024 Urinalysis completed [facility] 06/19/20[facility] 11:42:56 024 Bladder Scan completed Cory Engel [facility] 06/19/2024 12:01:09 024 [place] Instillation completed Sapna Teixeira [facility] 05/22/2024 16:15:23 024 Pessary Cleaning completed [facility] 04/03/2024 11:06:44 024 [place] Instillation completed Sapna Teixeira [facility] 04/03/2024 10:42:11 024 [place] Instillation completed Sapna Teix[facility]ira [facility] 02/28/2024 11:49:21 024 Pessary Cleaning completed Yan Sanchez PA-C [address], [address], [facility] 01/17/2024 14:13:51 024 Bladder Scan completed Yas Mathew [facility] 01/16/2024 12:59:55 024 Pessary Cleaning completed Sapna Teix[facility]ira [facility] 01/03/2024 11:49:51 024 [place] Instillation completed Sapna Teixeira [facility] 01/03/2024 11:50:26 024 Pessary Cleaning completed Sapna Teixeira [facility] 11/22/2023 13:33:31 024 [place] Instillation completed Sapna Teixeira [facility] 11/22/2023 13:34:09 024 Pessary Cleaning completed Sapna Teixeira [facility] 10/11/2023 11:53:41 024 [place] Instillation completed Sapna Teixeira [facility] 10/11/2023 11:53:37 024 Pessary Cleaning completed Yan Sanchez PA-C [address], [place], [address], [facility] 09/17/2023 11:35:32 024 CystoscopyFemale completed Yan Sanchez PA-C [address], [place], [address], [facility] 09/17/2023 11:39:23 024 Bladder Scan completed Brissa Fuller [facility] 09/17/2023 11:10:06 024 [place] Instillation completed Sapna Teixeira [facility] 08/30/2023 12:22:44 023 Pessary Cleaning completed Sapna eTixeira [facility] 08/09/2023 12:52:07 023 Pessary Cleaning completed Sapna Teixeira [facility] 07/26/2023 15:28:03 023 [place] Instillation completed Sapna Teixeira [facility] 07/26/2023 15:30:03 023 Pessary Cleaning completed Sapna Teixeira [facility] 06/21/2023 12:41:32 023 [place] Instillation completed Sapna Teixeira [facility] 06/21/2023 12:41:02 023 Urinalysis completed Roxy Broussard [facility] 05/17/2023 11:58:32 023 [place] Instillation completed Roxy Broussard [facility] 05/17/2023 11:57:24 023 Pessary Cleaning completed Sapna Teixeira [facility] 04/12/2023 10:26:26 023 [place] Instillation completed Sapna Teixeira [facility] 04/12/2023 10:28:33 023 [place] Instillation completed Sapna Teixeira [facility] 02/22/2023 10:53:05 023 Pessary Cleaning completed Lisandra Greer MD [address], [place], [address], [facility] 02/05/2023 10:02:06 023 Bladder Scan completed Hayley Byers [facility] 02/05/2023 09:53:16 023 Pessary Cleaning completed Sapna Teixeira [facility] 01/18/2023 17:07:44 023 [place] Instillation completed Sapna Teixeira [facility] 01/18/2023 16:59:42 023 Periurethral Coaptite Injection completed Sapna Teixeira [facility] 01/08/2023 10:09:14 023 Pessary Cleaning completed Sapna Teixeira [facility] 12/14/2022 11:37:53 023 [place] Instillation completed Sapna Teixeira [facility] 12/14/2022 11:40:01 023 [place] Instillation completed Sapna Teixeira [facility] 10/05/2022 13:36:49 023 Pessary Cleaning completed Yan Sanchez PA-C [address], [place], [address], [facility] 10/02/2022 13:40:56 023 CystoscopyFemale completed Yan Sanchez PA-C [address], [address], [facility] 10/02/2022 13:38:50 023 Bladder Scan completed Roxy Morton [facility] 10/02/2022 11:47:46 023 Pessary Cleaning completed Sapna Teixeira [facility] 08/24/2022 11:54:16 023 [place] Instillation completed Sapnamati De La Rosaen [facility] 08/24/2022 11:53:10 022 Pessary Cleaning completed Sapnamati De La Rosaen [facility] 07/18/2022 10:29:37 022 [place] Instillation completed Sapnamati De La Rosaen [facility] 07/18/2022 10:29:24 022 Pessary Cleaning completed Sapna Puneet [facility] 06/13/2022 10:46:49 022 [place] Instillation completed Sapna De La Rosaen [facility] 06/13/2022 10:47:23 022 Pessary Cleaning completed Sapna Puneet [facility] 04/11/2022 12:18:36 022 [place] Instillation completed Sapna Puneet [facility] 04/11/2022 12:19:18 022 Pessary Cleaning completed Sapna Puneet [facility] 03/07/2022 10:57:32 022 [place] Instillation completed Sapnamati De La Rosaen [facility] 03/07/2022 10:58:34 022 Pessary Cleaning completed Sapna Puneet [facility] 02/07/2022 10:46:42 022 [place] Instillation completed Sapna Puneet [facility] 02/07/2022 10:46:32 022 Pessary Cleaning completed Sapna Puneet [facility] 01/03/2022 11:42:03 022 [place] Instillation completed Sapna Puneet [facility] 01/03/2022 11:42:43 022 Pessary Cleaning completed Sapna Puneet [facility] 11/29/2021 10:19:11 022 [place] Instillation completed Sapna Puneet [facility] 11/29/2021 10:16:17 022 Pessary Cleaning completed Sapna Teixeira [facility] 11/01/2021 11:25:09 022 Bladder Scan completed Sapna Teixeira [facility] 11/01/2021 11:24:09 022 [place] Instillation completed Sapna Teixeira [facility] 11/01/2021 11:24:22 022 Pessary Cleaning completed Sapna Teixeira [facility] 10/04/2021 11:51:33 022 [place] Instillation completed Sapna Teixeira [facility] 10/04/2021 11:51:15 022 Pessary Insertion completed Lisandra Greer MD [address] [facility] [address], [place], [address], [facility] 10/04/2021 15:03:13 022 Bladder Scan completed Lisandra Greer MD [address] [facility] [address], [place], [address], [facility] 09/26/2021 17:12:26 022 [place] Instillation completed Dana Asher [facility] 08/31/2021 11:32:26 021 [place] Instillation completed Sapna Teixeira [facility] 08/03/2021 11:35:49 021 [place] Instillation completed Stacy Fortune [facility] 07/03/2021 10:39:03 021 [place] Instillation completed Stacy Pitera [facility] 05/31/2021 11:48:55 021 [place] Instillation completed Stacy Pitera [facility] 05/03/2021 11:11:30 021 [place] Instillation completed Stacy Pitera [facility] 04/05/2021 10:53:18 021 [place] Instillation completed Royal Dietrich [facility] 03/01/2021 12:34:33 021 CystoscopyFemale completed Lisandra Greer MD [address], [place], [address], [facility] 02/02/2021 11:18:02 021 [place] Instillation completed Abigail Jimenez [facility] 02/02/2021 11:08:07 021 [place] Instillation completed Royal Dietrich [facility] 01/02/2021 11:57:31 021 [place] Instillation completed Ledy King [facility] 12/07/2020 12:33:01 021 [place] Instillation completed Sapna Teixeira [facility] 11/09/2020 12:07:24 021 [place] Instillation completed Sapna Teixeira [facility] 10/26/2020 10:50:18 021 [place] Instillation completed Sapna Teixeira [facility] 10/04/2020 12:23:58 021 [place] Instillation completed Sapna Teixeira [facility] 08/25/2020 14:15:22 020 [place] Instillation completed Sapna Teixeira [facility] 07/27/2020 11:21:17 020 [place] Instillation completed Sapna Teixeira [facility] 06/22/2020 10:22:28 020 [place] Instillation completed Jatin Silva [facility] 05/18/2020 12:07:15 020 [place] Instillation completed Concepción Hitchcock [facility] 04/20/2020 14:22:27 020 [place] Instillation completed Concepción Hitchcock [facility] 03/21/2020 13:09:02 020 [place] Instillation completed Jatin Silva [facility] 02/22/2020 11:33:42 discectomy of spine completed Sheila Greer MD [address] [place] [address],[address], [address], [facility] 09/26/2021 17:10:22 laparoscopy completed Lisandra Greer MD [address] [place] [address],[address], [address], [facility] 09/26/2021 17:10:47 insertion of prosthesis for breast completed Lisandra Greer MD [address] [facility], [address], [facility] 09/26/2021 17:11:07 Appendectomy completed Lisandra Greer MD [address] [place] [address],[address], [place], [address], [facility] 09/26/2021 17:11:20 Imaging Results None recorded. Procedure Notes None recorded. Medical Equipment None Reported. Allergies Allergen ID Allergen Name Allergen Category Reaction Reaction Severity Criticality Documentation Date Start Date Code Code System Note Provider Name and Address Organization Details Recorded Time 207172 vancomyci n medicatio n Not available Not available Not available 02/04/20202011 06940 RxNorm Not Available [facility] 0 00:48:49 130054 Substance with sulfonami de structure and antibacte rial mechanism of action (substanc e) medicatio n Not available Not available Not available 04/11/2022 70479 8003 [facility]ED [facility] 12:15:21 661632 Cipro medicatio n headache Not available Not available 06/19/2024 40153 3 RxNorm Cory Engel [facility] 4 11:56:11 Medications Name Sig Start [...] Updated DateTime 01/16/2024 170.18 cm 24.9 kg/m2 81512.19 g Yas Mathew [facility] 01/16/2024 12:54:00 Date Recorded Body height Body mass index (BMI) Body weight Provider Name and Address Organization Details Last Updated DateTime 06/19/2024 170.18 cm 22.4 kg/m2 93049.71 g Cory Smithch [facility] 06/19/2024 11:57:18 Social History Question Answer Notes LastModified by Organizat ion Details LastModified Time Tobacco Smoking Status Former Smoker Jatin schmidt [facility] 02/22/2020 11:31:58 What Is Your Level Of Alcohol Consumption? Occasional [email or web address] Information not available 02/05/2023 How Many Times Per Week Do You Consume Alcohol? Less Than 1 Time Per Week [email or web address] Information not available 02/05/2023 What Is Your Level Of Caffeine Consumption? Occasional [email or web address] Information not available 02/05/2023 When Did You Quit Smoking? 11-15yearssinc elastcigarette [email or web address] Information not available 02/05/2023 Marital Status Unknown [email or web address] Informati on not available 01/28/2020 What Was The Date Of Your Most Recent Tobacco Screening? 06/19/2024 [email or web address] Information not available 06/19/2024 Have You Ever Been Counseled For Unhealthy Alcohol Use? No Information not available 01/16/2024 Do You Use Any Illicit Or Recreational Drugs? No [email or web address] Information not available 02/05/2023 Has Tobacco Cessation Counseling Been Provided? No [email or web address] Information not available 02/05/2023 Do You Or Have You Ever Used Any Other Forms Of Tobacco Or Nicotine? No [email or web address] Information not available 02/05/2023 How Many Days [...] Disease N Depression N GERD/Acid Reflux Y Sexually Transmitted Infection N Diabetes N Bleeding Disorder N Cancer N High [...] quadrivalent, PF 05/18/2022 completed Alina Gomes null, [facility] 08/06/2023 12:50:04 COVID-19, mRNA, LNP-S, PF, 30 mcg/0.3 mL dose, jami-sucrose 01[facility]12[facility]20[facility]:04 COVID-19, mRNA, LNP-S, bivalent, PF, 30 mcg/0.3 mL dose 01/23/2023 [facility] 12:50:04 COVID-19, mRNA, LNP-S, bivalent, PF, 30 mcg/0.3 mL dose 05/18/2022 [facility] 12:50:04 Influenza, high-dose, quadrivalent, PF 05[facility]24[facility]20[facility] 12:54:12 Pneumococcal conjugate PCV20, polysaccharide [id number] conjugate, adjuvant, PF 07[facility]02[facility]20[facility] 12:54:12 COVID-19, mRNA, LNP-S, PF, jami-sucrose, 30 mcg/0.3 mL 05/24/2023 [facility] [facility] 01/16/2024 12:54:12 Influenza, recombinant, quadrivalent, PF 05/22/2019 completed Roxy schmidt, [facility] 05/17/2023 11:54:16 [facility] 11:54:16 Influenza, high-dose, quadrivalent, PF [facility]10[facility] 11:54:16 Influenza, high-dose, quadrivalent, PF 06/13/2021 completed Roxy Broussard null, [facility] 05/17/2023 11:54:16 COVID-19, mRNA, LNP-S, PF, 30 mcg/0.3 mL dose 09/24/2020 completed Roxy Broussard null, [facility] 05/17/2023 11:54:16 COVID-19, mRNA, LNP-S, PF, 30 mcg/0.3 mL dose 10/15/2020 completed Roxy Broussard null, [facility] 05/17/2023 11:54:16 COVID-19, mRNA, LNP-S, PF, 30 mcg/0.3 mL dose 05/19/20[facility] 11:54:16 pneumococcal polysaccharide PPV23 05/19/2007 [facility] 11:54:16 influenza, unspecified formulation 06/30/2015 [facility] 11:54:16 Tdap 02/02/2021 [facility] 11:54:16 Tdap 05/19/2011 [facility] 11:54:16 Pneumococcal conjugate PCV 13 09/01/2015 [facility] 11:54:16 zoster live 05/19/2010 completed Roxy schmidt, [facility] 05/17/2023 11:54:16 Influenza, high-dose, trivalent, PF 05/19/2013 [facility] 11:54:16 Influenza, high-dose, trivalent, PF 05/22/2016 [facility] 11:54:16 Influenza, high-dose, trivalent, PF 05/29/2018 [facility] 11:54:16 Influenza, high-dose, trivalent, PF 06/18/2017 completed Roxy Broussard null, [facility] 05/17/2023 11:54:16 Influenza, split virus, trivalent, PF 06/04/2012 completed Roxy Broussard null, [facility] 05/17/2023 11:54:16 Influenza, split virus, trivalent, PF 06/28/2011 completed Roxy Broussard null, [facility] 05/17/2023 11:54:16 pneumococcal polysaccharide PPV23 08/22/2015 completed Alina Gomes null, [facility] 08/06/2023 12:50:04 Past Encounters Encounter ID Performer Location Encounter Start Date Encounter Closed Date Diagnosis/Indication Diagnosis SNOMED-CT Code Diagnosis ICD10 Code [id number] Jatin Silva [facility] [address] [place] [address] 02/22/2020 11:13:42 02/22/2020 18:18:48 Chronic interstitial cystitis 158469502 N30.10 [id number] Lisandra Greer [facility] [address] [place] [address] 03/21/2020 12:22:12 03/21/2020 15:43:01 Chronic interstitial cystitis 390275939 N30.10 [id number] Lisandra Greer MD [facility] [address] [place] [address] 04/20/2020 11:53:12 04/20/2020 17:31:55 Chronic interstitial cystitis 353136433 N30.10 [id number] Lisandra Greer MD [facility] [address] [place] [address] 05/18/2020 11:49:40 05/18/2020 14:20:35 Chronic interstitial cystitis 475400847 N30.10 [id number] Lisandra Greer MD [facility] [address] [place] [address] 0 06/22/2020 09:53:46 06/23/2020 09:35:38 Chronic interstitial cystitis 064194234 N30.10 [id number] MD ANNA [facility] [address] [place] [address] 07/27/2020 10:51:21 07/27/2020 14:07:00 Chronic interstitial cystitis 350998237 N30.10 [id number] Lisandra Greer MD [facility] [address] [place] [address] 08/25/2020 13:42:43 08/25/2020 14:18:31 Chronic interstitial cystitis 084339459 N30.10 [id number] MD ANNA [facility] [address] [place] [address] 10/04/2020 11:42:59 10/05/2020 09:41:20 Chronic interstitial cystitis 894903866 N30.10 [id number] Lisandra Greer MD [facility] [address] [place] [address] 0 10/26/2020 10:15:56 10/28/2020 09:51:09 Chronic interstitial cystitis 490014180 N30.10 [id number] Lisandra Greer MD [facility] [address] [place] [address] 0 11/09/2020 11:16:28 11/11/2020 13:23:09 Chronic cystitis 00207193 N30.20 Chronic in terstitial cystitis 655060178 N30.10 [id number] Lisandra Greer MD [facility] [address] [place] [address] 12/07/2020 11:50:11 12/08/2020 13:52:33 Chronic interstitial cystitis 521098533 N30.10 [id number] Royal Corbinud [facility] [address] [place] [address] 01/02/2021 11:23:12 01/04/2021 09:57:03 Chronic interstitial cystitis 539375065 N30.10 [id number] MD ANNA [facility] [address] [place] [address] 02/02/2021 10:19:27 02/06/2021 11:43:10 Chronic interstitial cystitis 589564256 N30.10 [id number] Royal Dietrich [facility] [address] [place] [address] 03/01/2021 10:36:35 03/02/2021 17:23:14 Chronic interstitial cystitis 112055971 N30.10 [id number] Stacy Fortune [facility] [address] [place] [address] 04/05/2021 10:48:03 04/07/2021 13:48:53 Chronic interstitial cystitis 109943713 N30.10 [id number] Stacy Fortune [facility] [address] [place] [address] 05/03/2021 10:52:55 05/04/2021 14:09:39 Chronic interstitial cystitis 978802219 N30.10 [id number] Stacy Fortuen [facility] [address] [place] [address] 0 05/31/2021 11:19:22 06/02/2021 14:24:34 Chronic interstitial cystitis 603799986 N30.10 [id number] Stacy Fortune [facility] [address] [place] [address] 07/03/2021 10:15:39 07/03/2021 16:45:11 Overactive urinary bladder 519215750 N32.81 [id number] Sapna Teixeira [facility] [address] [place] [address] 08/03/2021 11:10:41 08/09/2021 14:16:51 Chronic interstitial cystitis 530122786 N30.10 [id number] Lisandra Greer MD [facility] [address] [place] [address] 0 08/31/2021 10:25:57 09/01/2021 12:03:27 Chronic interstitial cystitis 601421756 N30.10 [id number] Lisandra Greer MD [facility] [address] 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 [place] [address] 11/01/2021 10:35:18 11/03/2021 08:30:32 Chronic interstitial cystitis N30.10 [id number] MD ANNA [facility] [address] [place] [address] 0 11/29/2021 09:52:07 12/01/2021 10:30:06 Chronic interstitial cystitis 583815590 N30.10 [id number] MD ANNA [facility] [address] [place] [address] 01/03/2022 10:57:20 01/04/2022 15:38:14 Prolapse of female genital organs 03239883 N81.9 Chronic in terstitial cystitis 317718500 N30.10 [id number] MD ANNA [facility] [address] [place] [address] 02/07/2022 10:10:44 02/08/2022 15:35:57 Prolapse of female genital organs 68105965 N81.9 [id number] MD ANNA [facility] [address] 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 [place] [address] 04/11/2022 11:52:00 04/13/2022 13:43:40 Chronic interstitial cystitis N30.10 [id number] Lisandra Greer MD [facility] [address] [place] [address] 06/13/2022 10:09:18 06/15/2022 12:13:29 Chronic interstitial cystitis 749941856 N30.10 [id number] [facility] [address] 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 [place] [address] 10/05/2022 11:13:31 10/10/2022 13:26:10 Chronic interstitial cystitis 603248489 N30.10 [id number] [facility] [address] [place] [address] 12/14/2022 10:45:01 12/17/2022 14:06:54 Chronic interstitial cystitis 644222318 N30.10 [id number] [facility] [address] [place] [address] 01/08/2023 09:06:17 01/11/2023 14:58:23 Female stress incontinence 56212800 N39.3 Urethral i ntrinsic sphincter deficiency 6396908817 9101 N36.42 Prolapse o f female genital organs 23053890 N81.9 [id number] [facility] 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 [place] [address] 02/22/2023 10:01:42 02/27/2023 12:11:57 Chronic interstitial cystitis 234642522 N30.10 [id number] [facility] 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 [place] [address] 05/17/2023 11:13:04 05/22/2023 12:38:04 Chronic interstitial cystitis 508936612 N30.10 [id number] [facility] 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 [place] [address] 0 07/26/2023 14:43:24 08/05/2023 11:36:04 Prolapse of female genital organs 22566389 N81.9 Chronic in terstitial cystitis 064554954 N30.10 [id number] [facility] 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 [address] 08/30/2023 10:40:02 09/02/2023 14:12:41 Chronic interstitial cystitis 913212717 N30.10 [id number] Lisandra Greer MD [facility] [address] 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 [address] 10/11/2023 11:02:00 10/14/2023 12:08:30 Prolapse of female genital organs 84620675 N81.9 [id number] [facility] [address] 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 [address] 01/03/2024 11:07:35 01/06/2024 16:37:22 Urinary tract infectious disease 13093031 N39.0 [id number] Yan Sanchez PA-C [facility] [address] [place] [address] 01/16/2024 11:47:20 01/23/2024 11:02:19 Prolapse of female genital organs 27707194 N81.9 Chronic in terstitial cystitis 922627806 N30.10 [id number] Sapna Teixeira [facility] [address] [place] [address] 02/28/2024 10:08:07 03/17/2024 12:35:06 Chronic interstitial cystitis 147729075 N30.10 [id number] Sapna Teixeira [facility] [address] [place] [address] 04/03/2024 10:38:59 04/06/2024 13:45:37 Chronic interstitial cystitis 631023707 N30.10 [id number] Sapna Teixeira [facility] [address] [place] [address] 05/22/2024 13:58:11 05/25/2024 15:30:32 Chronic interstitial cystitis 291259088 N30.10 [id number] REINIER DAWSON [facility] [address] [place] [address] 06/19/2024 11:33:50 06/22/2024 14:38:37 Prolapse of female genital organs 42102486 N81.9 Chronic in terstitial cystitis 179724334 N30.10 Recurrent urinary tract infection 326461049 N39.0 Health Concerns Section Related Observation LastModified by Organization Detai ls LastModified Time None Recorded Concern Status LastModified by Organization Details LastModified Time None Recorded Advance Directives Directive None Recorded Payers Encounter Date Sequence Insurance Name Policy Number Policy Tarango Covered Member ID Tarango Member ID Guarantor Name 01/16/2024 1 [place]: [employer] Milla Pollard [id number] Milla Pollard 01/16/2024 2 [employer] (MEDICARE SUPPLEMENT) Milla Pollard [id number] Milla Seniornger 02/28/2024 1 MEDICARE [place]: [facility] [employer] Milla Quinoneser [id number] Milla Quinoneser 02/28/2024 2 [employer] (MEDICARE SUPPLEMENT) Milla Seniornger [id number] Milla Seniornger 04/03/2024 1 MEDICARE B-[place]: [facility] [employer] Milla Quinoneser [id number] Milla Seniornger 04/03/2024 2 [employer] (MEDICARE SUPPLEMENT) Milla Seniorleaher [id number] Milla Seniornger 05/22/2024 1 MEDICARE [place]: [facility] [employer] [facility] Milla Quinoneser [id number] Milla Seniornger 05/22/2024 2 [employer] (MEDICARE SUPPLEMENT) Milla Seniorleaher [id number] Milla Seniornger 06/19/2024 1 MEDICARE [place]: [facility] [employer] [facility] Milla Quinoneser [id number] Milla Seniornger 06/19/2024 2 [employer] (MEDICARE SUPPLEMENT) Milla Seniormarti [id number] Milla Pollard Notes Date Note Type Note [...] cleaned. No vaginal erosions. Yan Sanchez PA-C [address] [place] [address],[address] [place] [address], [phone], [facility] 01/17/2024 14:20:02 02/28/2024 text/html 83 YOF here for pessary check, elmiron. Sapna Teixeira [facility] 02/28/2024 11:53:01 04/03/2024 text/html Pt is due for pessary cleaning and elmiron instillation today Sapna Teixeira [facility] 04/03/2024 11:06:54 05/22/2024 text/html 83 yo F pt here for routine elmiron instillation Performed without issue. Patient was able to self manage her pessary Sapna Teixeira [facility] 05/22/2024 16:20:32 06/19/2024 text/html 83F, [...] pathology UA negPVR 0cc REINIER DAWSON [address] [facility],[address], [place], [address], [place] [facility] 06/19/2024 12:16:12 OBGyn Episode No OBEpisode recorded.
--- OUTSIDE RECORDS SUMMARY | 2024-07-18 13:20 | XMS_ITS | Continuity of Care Document ---
Author Organization [facility], [facility] Address [address] [place] [address] Care Team Providers Care Yarn Twister Name Role Phone [facility] Primary Care Provid er Assessment No assessment recorded. Plan of Treatment Reminders Order Date Submit Date Provider Last Modified By Organization Details Last Modified Time Details Appointments ESTABLISH ED 30 2023 03:00P M FEMALE_UR OLOGY_NUR SE_CLINIC Not available Not available Not available Lab urinalysi s, dipstick 2023 024 [email or web address] [facility], [address], [place], [address], 06/19/2024 11:53:28 Referral None recorded. Procedures None [...] Not Available [facility] [address], [place], [address], 06/18/2024 20:27:21 06/19/20 24 06/19/2024 urina lysis , dipst ick BILIRUBIN Negati ve Not Available [facility] [address], [place], [address], 06/18/2024 20:27:21 06/19/20 24 06/19/2024 urina lysis , dipst ick UROBILINOGEN 0.2 mg/dL (Norm) Not Available [facility] [address], [place], [address], 06/18/2024 20:27:21 06/19/20 24 06/19/2024 urina lysis , dipst ick KETONES Negati ve Not Available [facility] [address], [place], [address], 06/18/2024 20:27:21 06/19/20 24 06/19/2024 urina lysis , dipst ick PROTEIN Negati ve Not Available [facility] [address], [place], [address], 06/18/2024 20:27:21 06/19/20 24 06/19/2024 urina lysis , dipst ick NITRITES Negati ve Not Available [facility] [address], [place], [address], 06/18/2024 20:27:21 06/19/20 24 06/19/2024 urina lysis , dipst ick GLUCOSE Negati ve Not Available [facility] [address], [place], [address], 06/18/2024 20:27:21 06/19/20 24 06/19/2024 urina lysis , dipst ick p.H. 8.0 Not Available [facility] [address], [place], [address], 06/18/2024 20:27:21 06/19/20 24 06/19/2024 urina lysis , dipst ick S.G. (Specific [place]) <1.005 Not Available [facility] [address], [place], [address], 06/18/2024 20:27:21 06/19/20 24 06/19/2024 urina lysis , dipst ick LEUKOCYTES Negati ve Not Available [facility] [address], [place], [address], 06/18/2024 20:27:21 Result Notes None recorded. Problems Name Problem SNOMED Code Status Onset Date Resolution Date Notes Provider Name and Address Organization Details Recorded Time Chronic interstit ial cystitis 957186008 Active 2011 N30.11 : Interstiti al cystitis (chronic) with hematuria Not Available [facility] 0 02:03:10 Prolapse of female genital organs 90828298 Active 2021 Sapna schmidt [facility] 11:45:39 Problem Notes None recorded. Procedures Surgical History Date Name Laterality Status Provider Name and Address Organization Details Recorded Time COMPLEX VISIT completed REINIER DAWSON [address] [place] [address],[address], [address], [facility] 06/19/2024 12:15:42 024 Urinalysis completed [facility]el [facility] 06/19/2024 11:42:56 024 Bladder Scan completed Cory Engel [facility] 06/19/2024 12:01:09 024 [place] Instillation completed Sapna Teixeira [facility] 05/22/2024 16:15:23 024 Pessary Cleaning completed Sapna Teixeira [facility] 04/03/2024 11:06:44 024 [place] Instillation completed Sapna Teixeira [facility] 04/03/2024 10:42:11 024 [place] Instillation completed Sapna Teixeira [facility] 02/28/2024 11:49:21 024 Pessary Cleaning completed Yan Sanchez PA-C [address] [facility],[address] [place] [address], [address], [facility] 01/17/2024 14:13:51 024 Bladder Scan completed Yas Mathew [facility] 01/16/2024 12:59:55 024 Pessary Cleaning completed Sapna Teixeira [facility] 01/03/2024 11:49:51 024 [place] Instillation completed Sapna Teixeira [facility] 01/03/2024 11:50:26 024 Pessary Cleaning completed Sapna Teixeira [facility] 11/22/2023 13:33:31 024 [place] Instillation completed Sapna Teixeira [facility] 11/22/2023 13:34:09 024 Pessary Cleaning completed [facility] 10/11/2023 11:53:41 024 [place] Instillation completed Sapna Teixeira [facility] 10/11/2023 11:53:37 024 Pessary Cleaning completed Yan Sanchez PA-C [address] [place] [address], [address], [facility] 09/17/2023 11:35:32 024 CystoscopyFemale completed Yan Sanchez PA-C [address] [place] [address], [address], [facility] 09/17/2023 11:39:23 024 Bladder Scan completed Brissa Fuller [facility] 09/17/2023 11:10:06 024 [place] Instillation completed Sapna Teixeira [facility] 08/30/2023 12:22:44 023 Pessary Cleaning completed Sapna Teixeira [facility] 08/09/2023 12:52:07 023 Pessary Cleaning completed Sapna Teixeira [facility] 07/26/2023 15:28:03 023 [place] Instillation completed Sapna Teixeira [facility] 07/26/2023 15:30:03 023 Pessary Cleaning completed Sapna Teixeira [facility] 06/21/2023 12:41:32 023 [place] Instillation completed Sapna Puneet [facility] 06/21/2023 12:41:02 023 Urinalysis completed Roxysaritha Broussard [facility] 05/17/2023 11:58:32 023 [place] Instillation completed Roxy Aarti [facility] 05/17/2023 11:57:24 023 Pessary Cleaning completed Sapna Teixeira [facility] 04/12/2023 10:26:26 023 [place] Instillation completed Sapna Teixeira [facility] 04/12/2023 10:28:33 023 [place] Instillation completed Sapna Teixeira [facility] 02/22/2023 10:53:05 023 Pessary Cleaning completed Lisandra Greer MD [address] [facility] [address] [place], [address] 02/05/2023 10:02:06 023 Bladder Scan completed Hayley Byers [facility] 02/05/2023 09:53:16 023 Pessary Cleaning completed Sapna Teixeira [facility] 01/18/2023 17:07:44 023 [place] Instillation completed Sapna Teixeira [facility] 01/18/2023 16:59:42 023 Periurethral Coaptite Injection completed Sapna Teixeira [facility] 01/08/2023 10:09:14 023 Pessary Cleaning completed Sapna Teixeira [facility] 12/14/2022 11:37:53 023 [place] Instillation completed Sapna Teixeira [facility] 12/14/2022 11:40:01 023 [place] Instillation completed Sapna Teixeira [facility] 10/05/2022 13:36:49 023 Pessary Cleaning completed Yan Sanchez PA-C [address] [facility],[address], [place], [address], [facility] 10/02/2022 13:40:56 023 CystoscopyFemale completed Yan Sanchez PA-C [address] [facility],[address], [place], [address], [facility] 10/02/2022 13:38:50 023 Bladder Scan completed Roxy Morton [facility] 10/02/2022 11:47:46 023 Pessary Cleaning completed Sapna Teixeira [facility] 08/24/2022 11:54:16 023 [place] Instillation completed Sapna Teixeira [facility] 08/24/2022 11:53:10 022 Pessary Cleaning completed Sapna Teixeira [facility] 07/18/2022 10:29:37 022 [place] Instillation completed Sapna Teixeira [facility] 07/18/2022 10:29:24 022 Pessary Cleaning completed Sapna Teixeira [facility] 06/13/2022 10:46:49 022 [place] Instillation completed Sapna Teixeira [facility] 06/13/2022 10:47:23 022 Pessary Cleaning completed Sapna Teixeira [facility] 04/11/2022 12:18:36 022 [place] Instillation completed Sapna Teixeira [facility] 04/11/2022 12:19:18 022 Pessary Cleaning completed Sapna Teixeira [facility] 03/07/2022 10:57:32 022 [place] Instillation completed Sapna Teixeira [facility] 03/07/2022 10:58:34 022 Pessary Cleaning completed Sapna Teixeira [facility] 02/07/2022 10:46:42 022 [place] Instillation completed Sapna Teixeira [facility] 02/07/2022 10:46:32 022 Pessary Cleaning completed Sapna Teixeira [facility] 01/03/2022 11:42:03 022 [place] Instillation completed Sapna Teixeira [facility] 01/03/2022 11:42:43 022 Pessary Cleaning completed Sapna Teixeira [facility] 11/29/2021 10:19:11 022 [place] Instillation completed Sapna Teixeira [facility] 11/29/2021 10:16:17 022 Pessary Cleaning completed Sapna Teixeira [facility] 11/01/2021 11:25:09 022 Bladder Scan completed Sapna Teixeira [facility] 11/01/2021 11:24:09 022 [place] Instillation completed Sapna Teixeira [facility] 11/01/2021 11:24:22 022 Pessary Cleaning completed Sapna Teixeira [facility] 10/04/2021 11:51:33 022 [place] Instillation completed Sapna Teixeira [facility] 10/04/2021 11:51:15 022 Pessary Insertion completed Lisandra Greer MD [address] [place] [address], [address], [facility] 10/04/2021 15:03:13 022 Bladder Scan completed Lisandra Greer MD [address] [place] [address], [address], [facility] 09/26/2021 17:12:26 022 [place] Instillation completed Dana Asher [facility] 08/31/2021 11:32:26 021 [place] Instillation completed Sapna Teixeira [facility] 08/03/2021 11:35:49 021 [place] Instillation completed Stacy Fortune [facility] 07/03/2021 10:39:03 021 [place] Instillation completed Stacy Fortune [facility] 05/31/2021 11:48:55 021 [place] Instillation completed Stacy Jaimeskarey [facility] 05/03/2021 11:11:30 021 [place] Instillation completed Stacy Fortune [facility] 04/05/2021 10:53:18 021 [place] Instillation completed Royal Dietrich [facility] 03/01/2021 12:34:33 021 CystoscopyFemale completed Lisandra Greer MD [address] [place] [address],[address], [place], [address], [facility] 02/02/2021 11:18:02 021 [place] Instillation completed Abigail Jimenez [facility] 02/02/2021 11:08:07 021 [place] Instillation completed Royal Corbinud [facility] 01/02/2021 11:57:31 021 [place] Instillation completed Ledy King [facility] 12/07/2020 12:33:01 021 [place] Instillation completed Sapna Puneet [facility] 11/09/2020 12:07:24 021 [place] Instillation completed Sapna Teixeira [facility] 10/26/2020 10:50:18 021 [place] Instillation completed Sapna Puneet [facility] 10/04/2020 12:23:58 021 [place] Instillation completed Sapna Teixeira [facility] 08/25/2020 14:15:22 020 [place] Instillation completed Sapna Teixeira [facility] 07/27/2020 11:21:17 020 [place] Instillation completed Sapna Teixeira [facility] 06/22/2020 10:22:28 020 [place] Instillation completed Jatin Silva [facility] 05/18/2020 12:07:15 020 [place] Instillation completed Concepción Hitchcock [facility] 04/20/2020 14:22:27 020 [place] Instillation completed Concepción Hitchcock [facility] 03/21/2020 13:09:02 020 [place] Instillation completed Jatin Silva [facility] 02/22/2020 11:33:42 discectomy of spine completed Sheila Greer MD [address] [place] [address],[address], [place], [place], [address] [place] [address], [facility] 09/26/2021 17:10:22 laparoscopy completed Lisandra Greer MD [address] [place] [address],[address], [place], [address] [place] [address], [facility] 09/26/2021 17:10:47 insertion of prosthesis for breast completed Lisandra Greer MD [address] [place] [address],[address], [place], [address] [place] [address], [facility] 09/26/2021 17:11:07 Appendectomy completed Lisandra Greer MD [address] [place] [address],[address], [place], [address] [place] [address], [facility] 09/26/2021 17:11:20 Imaging Results None recorded. Procedure Notes None recorded. Medical Equipment None Reported. Allergies Allergen ID Allergen Name Allergen Category Reaction Reaction Severity Criticality Documentation Date Start Date Code Code System Note Provider Name and Address Organization Details Recorded Time 266116 vancomyci n medicatio n Not available Not available Not available 02/04/20202011 80634 RxNorm Not Available [facility] 0 00:48:49 846465 Substance with sulfonami de structure and antibacte rial mechanism of action (substanc e) medicatio n Not available Not available Not available 04/11/2022 41104 8003 SNOMED Maymuna Karlo roxana [facility] 2 12:15:21 703428 Cipro medicatio n headache Not available Not available 06/19/202476776 3 [facility] [...] Updated DateTime 06/19/2024 170.18 cm 22.4 kg/m2 [address]2503[address] [facility] 06/19/2024 11:57:18 Social History Question Answer Notes LastModified by Organizat ion Details LastModified Time Tobacco Smoking Status [facility] 02/22/2020 11:31:58 What Is Your Level Of Alcohol Consumption? Occasional [email or web address] Information not available 02/05/2023 How Many Times Per Week Do You Consume Alcohol? Less Than 1 Time Per Week [email or web address] Information not available 02/05/2023 What Is Your Level Of Caffeine Consumption? Occasional [email or web address] Information not available 02/05/2023 When Did You Quit Smoking? 11-15yearssinc elastcigarette [email or web address] Information not available 02/05/2023 Marital Status Unknown [email or web address] Informati on not available 01/28/2020 What Was The Date Of Your Most Recent Tobacco Screening? 06/19/2024 [email or web address] Information not available 06/19/2024 Have You Ever Been Counseled For Unhealthy Alcohol Use? No Information not available 01/16/2024 Do You Use Any Illicit Or Recreational Drugs? No [email or web address] Information not available 02/05/2023 Has Tobacco Cessation Counseling Been Provided? No [email or web address] Information not available 02/05/2023 Do You Or Have You Ever Used Any Other Forms Of Tobacco Or Nicotine? No [email or web address] Information not available 02/05/2023 How Many Days [...] Influenza, high-dose, quadrivalent, PF 05/18/20[facility] 12:50:04 COVID-19, mRNA, LNP-S, PF, 30 mcg/0.3 mL dose, jami-sucrose 01/12/2022 [facility] 12:50:04 COVID-19, mRNA, LNP-S, bivalent, PF, 30 mcg/0.3 mL dose 01/23/2023 [facility] 12:50:04 COVID-19, mRNA, LNP-S, bivalent, PF, 30 mcg/0.3 mL dose 05/18/2022 [facility] 12:50:04 Influenza, high-dose, quadrivalent, PF 05/24/2023 completed Yas schmidt, [facility] 01/16/2024 12:54:12 Pneumococcal conjugate PCV20, polysaccharide [id number] conjugate, adjuvant, PF 07/02/2023 [facility] 12:54:12 COVID-19, mRNA, LNP-S, PF, jami-sucrose, 30 mcg/0.3 mL 05/24/2023 [facility]24 12:54:12 Influenza, recombinant, quadrivalent, PF 05/22/2019 [facility] 05/17[facility] 11:54:16 zoster recombinant 01/21/2019 completed Roxy Broussard null, [facility] 05/17/2023 11:54:16 Influenza, high-dose, quadrivalent, PF 06/10/2020 completed Roxy Broussard null, [facility] 05/17/2023 11:54:16 Influenza, high-dose, quadrivalent, PF 06/13/2021 completed Roxy Broussard null, [facility] 05/17/2023 11:54:16 COVID-19, mRNA, LNP-S, PF, 30 mcg/0.3 mL dose 09/24/2020 completed Roxy Broussard null, [facility] 05/17/2023 11:54:16 COVID-19, mRNA, LNP-S, PF, 30 mcg/0.3 mL dose 10/15/2020 [facility] 11:54:16 COVID-19, mRNA, LNP-S, PF, 30 mcg/0.3 mL dose 05/19/2021 completed Roxy schmidt, [facility] 05/17/2023 11:54:16 pneumococcal polysaccharide PPV23 05/19/2007 [facility] 11:54:16 influenza, unspecified formulation 06/30/2015 [facility] 11:54:16 Tdap 02/02/2021 completed Roxy schmidt, [facility] 05/17/2023 11:54:16 Tdap 05/19/2011 completed Roxy Broussard null, [facility] 05/17/2023 11:54:16 Pneumococcal conjugate PCV 13 09/01/2015 [facility] 11:54:16 zoster live 05/19/2010 completed Roxy Broussard null, [facility] 05/17/2023 11:54:16 Influenza, high-dose, trivalent, PF 05/19/2013 [facility] 11:54:16 Influenza, high-dose, trivalent, PF 05/22/2016 completed Roxy schmidt, [facility] 05/17/2023 11:54:16 Influenza, high-dose, trivalent, PF 05/29/2018 completed Roxy schmidt, [facility] 05/17/2023 11:54:16 Influenza, high-dose, trivalent, PF 06/18/2017 completed Roxy schmidt, [facility] 05/17/2023 11:54:16 Influenza, split virus, trivalent, PF 06/04/2012 completed Roxy Broussard roxana, [facility] 05/17/2023 11:54:16 Influenza, split virus, trivalent, PF 06/28/2011 completed Roxy schmidt, [facility] 05/17/2023 11:54:16 pneumococcal polysaccharide PPV23 08/22/2015 [facility]23 12:50:04 Past Encounters Encounter ID Performer Location Encounter Start Date Encounter Closed Date Diagnosis/Indication Diagnosis SNOMED-CT Code Diagnosis ICD10 Code [id number] Sapna Teixeira [facility] [address] [place] [address] 05/22/2024 13:58:11 05/25/2024 15:30:32 Chronic interstitial cystitis 273370393 N30.10 [id number] REINIER DAWSON [facility] [address] [place] [address] 06/19/2024 11:33:50 06/22/2024 14:38:37 Prolapse of female genital organs 73828066 N81.9 Chronic in terstitial cystitis 691220990 N30.10 Recurrent urinary tract infection 490521957 N39.0 Health Concerns Section Related Observation LastModified by Organization Detai ls LastModified Time None Recorded Concern Status LastModified by Organization Details LastModified Time None Recorded Payers Encounter Date Sequence Insurance Name Policy Number Policy Tarango Covered Member ID Tarango Member ID Guarantor Name 06/19/2024 1 [place] [employer] Milla Pollard [id number] Milla Pollard 06/19/2024 2 [email or web address] (MEDICARE SUPPLEMENT) Milla M Latrice [id number] Milla Pollard Notes Date Note Type Note [...] urologic pathology UA negPVR 0cc REINIER DAWSON [address] [place] [address],[address], [place], [address], [facility] [place] [facility] 06/19/2024 12:16:12 OBGyn Episode No OBEpisode recorded.
--- OUTSIDE RECORDS SUMMARY | 2024-07-18 13:21 | XMS_ITS | Referral Summary ---
Author Organization [facility] Address [address] [place] [address] Care Team Providers Care Dowel Pin Worker Name Role Phone Ganesh Sifuentes MD Primary Care Provider [phone] Allergies Active Allergy Reactions Criticality Noted Date Comments Sulfa Antibiotics Hives 09/10/2012 Vancomycin Hives 09/11/2012 Honey Bee Venom Anaphylaxis High 06/16/2016 Medications fluticasone (VERAMYST) 27.5 MCG/SPRAY nasal spray [place] 2 sprays into both nostrils daily. 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 Gender Identity Not on file Sexual Orientation [...] 160 <200 mg/dL 04/09/2020 5:58 AM CDT [facility] Triglycerides 59 <150 mg/dL 04/09/2020 5:58 AM T [facility] HDL Cholesterol 81 >49 mg/dL 0 6:01 AM CDT [facility] LDL Cholesterol Calculated 67 <100 mg/dL 04/09/2020 6:01 AM T [facility] Comment:Desirable: <100 mg/d l Non HDL Cholesterol 79 <130 mg/dL 04/09/2020 6:01 AM T [facility] Blood specimen (specimen) 04/09/2020 5:21 AM CDT 04/09/2020 5:22 AM CDT us Nia Jimenez PA-C LAB - BLOOD ORDERABLES F inal Result [facility] [address] [place] [address], [facility] [phone] from Last 3 Months or Most Recently Relevant to Health Maintenance Insurance MEDICARE [employer] MEDICARE [employer] Advance Directives For more information, please contact: [phone] Documents on File Type Date Recorded 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
--- OUTSIDE RECORDS SUMMARY | 2024-07-18 13:21 | XMS_ITS | Continuity of Care Document ---
Author Organization [facility], [facility] Address [address] [place] [address] Care Team Providers Care Switchboard Manager Name Role Phone [facility] Primary Care Provid er Assessment No assessment recorded. Plan of Treatment Reminders Order Date Submit Date Provider Last Modified By Organization Details Last Modified Time Details Appointments ESTABLISH ED 30 2023 03:00P M FEMALE_UR OLOGY_NUR [facility]_CLINIC Not available Not available Not available Lab urinalysi s, dipstick 2023 024 [email or web address] [facility], [address], [place], [address], 05/22/2024 16:20:29 Referral None recorded. Procedures None [...] Not Available [facility] [address], [place], [address], 05/22/2024 16:16:29 05/22/2005/22/2024 urina lysis , dipst ick BILIRUBIN Negati ve Not Available [facility] [address], [place], [address], 05/22/2024 16:16:29 05/22/20 24 05/22/2024 urina lysis , dipst ick UROBILINOGEN 0.2 mg/dL (Norm) Not Available [facility] [address], [place], [address], 05/22/2024 16:16:29 05/22/20 24 05/22/2024 urina lysis , dipst ick KETONES Negati ve Not Available [facility] [address], [place], [address], 05/22/2024 16:16:29 05/22/2005/22/2024 urina lysis , dipst ick PROTEIN Negati ve Not Available [facility] [address], [place], [address], 05/22/2024 16:16:29 05/22/2005/22/2024 urina lysis , dipst ick NITRITES Negati ve Not Available [facility] [address], [place], [address], 05/22/2024 16:16:29 05/22/20 24 05/22/2024 urina lysis , dipst ick GLUCOSE Negati ve Not Available [facility] [address], [place], [address], 05/22/2024 16:16:29 05/22/2005/22/2024 urina lysis , dipst ick p.H. 6.5 Not Available [facility] [address], [place], [address], 05/22/2024 16:16:29 05/22/2005/22/2024 urina lysis , dipst ick S.G. (Specific [place]) 1.015 Not Available [facility] [address], [place], [address], 05/22/2024 16:16:29 05/22/20 24 05/22/2024 urina lysis , dipst ick LEUKOCYTES Large (500 WBC/uL ) Not Available [facility] [address], [place], [address], 05/22/2024 16:16:29 Result Notes None recorded. 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 11:45:39 Problem Notes None recorded. Procedures Surgical History Date Name Laterality Status Provider Name and Address Organization Details Recorded Time 024 COMPLEX VISIT completed REINIER DAWSON [address] [facility], [place], [address], [facility] 06/19/2024 12:15:42 024 Urinalysis completed [facility] 06/19/2024 11:42:56 024 Bladder Scan completed [facility] 06/19/2024 12:01:09 024 Elmiron Instillation completed Sapna Teixeira [facility] 05/22/2024 16:15:23 024 Pessary Cleaning completed Sapna Teixeira [facility] 04/03/2024 11:06:44 024 Elmiron Instillation completed Sapna Teixeira [facility] 04/03/2024 10:42:11 024 Elmiron Instillation completed [facility] 02/28/2024 11:49:21 024 Pessary Cleaning completed Yan Sanchez PA-C [address], [place], [address], [facility] 01/17/2024 14:13:51 05/30/2 024 Bladder Scan completed Yas Mathew [facility] 01/16/2024 12:59:55 024 Pessary Cleaning [facility] 01/03/2024 11:49:51 024 Elmiron Instillation completed Sapna Teix[facility]ira [facility] 01/03/2024 11:50:26 024 Pessary Cleaning completed Sapna Teixeira [facility] 11/22/2023 13:33:31 024 Elmiron Instillation completed Sapna [facility]ix[facility]ira [facility] 11/22/2023 13:34:09 024 Pessary Cleaning completed Sapna Teixeira [facility] 10/11/2023 11:53:41 024 Elmiron Instillation completed S[facility]na [facility] 10/11/2023 11:53:37 024 Pessary Cleaning completed Yan Sanchez PA-C [address],[facility] [address], [place], [address], [facility] 09/17/2023 11:35:32 024 CystoscopyFemale completed Yan Sanchez PA-C [address],[facility] [address], [place], [address], [facility] 09/17/2023 11:39:23 024 Bladder Scan completed Brissa Fuller [facility] 09/17/2023 11:10:06 024 Elmiron Instillation completed Sapna Teixeira [facility] 08/30/2023 12:22:44 023 Pessary Cleaning completed [facility] 08/09/2023 12:52:07 023 Pessary Cleaning completed Sapna Teixeira [facility] 07/26/2023 15:28:03 023 Elmiron Instillation completed Sapna [facility]ix[facility]ira [facility] 07/26/2023 15:30:03 023 Pessary Cleaning completed Sapna Teixeira [facility] 06/21/2023 12:41:32 023 Elmiron Instillation completed Sapnamati De La Rosaen [facility] 06/21/2023 12:41:02 023 Urinalysis completed Roxy Broussard [facility] 05/17/2023 11:58:32 023 Elmiron Instillation completed Roxy Aarti [facility] 05/17/2023 11:57:24 023 Pessary Cleaning completed Sapnamati De La Rosaen [facility] 04/12/2023 10:26:26 023 Elmiron Instillation completed Sapna Puneet [facility] 04/12/2023 10:28:33 023 Elmiron Instillation completed Sapna De La Rosaen [facility] 02/22/2023 10:53:05 023 Pessary Cleaning completed Lisandra Greer MD [address] [facility] [address], [place], [address] 02/05/2023 10:02:06 023 Bladder Scan completed Hayley Byers [facility] 02/05/2023 09:53:16 023 Pessary Cleaning completed Sapna Puneet [facility] 01/18/2023 17:07:44 023 Elmiron Instillation completed Sapna Puneet [facility] 01/18/2023 16:59:42 023 Periurethral Coaptite Injection completed Sapna Puneet [facility] 01/08/2023 10:09:14 023 Pessary Cleaning completed Sapna Teixeira [facility] 12/14/2022 11:37:53 023 Elmiron Instillation completed Sapna Teixeira [facility] 12/14/2022 11:40:01 023 Elmiron Instillation completed Sapna Teixeira [facility] 10/05/2022 13:36:49 023 Pessary Cleaning completed Yan Sanchez PA-C [address], [place], [address], [place] [facility] 10/02/2022 13:40:56 023 CystoscopyFemale completed Yan Sanchez PA-C [address] [facility], [place], [address], [place] [facility] 10/02/2022 13:38:50 023 Bladder Scan completed Roxy Morton [facility] 10/02/2022 11:47:46 023 Pessary Cleaning completed Sapna Teixeira [facility] 08/24/2022 11:54:16 023 Elmiron Instillation completed Sapna Teixeira [facility] 08/24/2022 11:53:10 022 Pessary Cleaning completed Sapna Teixeira [facility] 07/18/2022 10:29:37 022 Elmiron Instillation completed Sapna Teixeira [facility] 07/18/2022 10:29:24 022 Pessary Cleaning completed Sapna Teixeira [facility] 06/13/2022 10:46:49 022 Elmiron Instillation completed Sapna Teixeira [facility] 06/13/2022 10:47:23 022 Pessary Cleaning completed Sapna Teixeira [facility] 04/11/2022 12:18:36 022 Elmiron Instillation completed Sapna Teixeira [facility] 04/11/2022 12:19:18 022 Pessary Cleaning completed Sapna Teixeira [facility] 03/07/2022 10:57:32 022 Elmiron Instillation completed Sapna Teixeira [facility] 03/07/2022 10:58:34 022 Pessary Cleaning completed Sapna Teixeira [facility] 02/07/2022 10:46:42 022 Elmiron Instillation completed Sapna Teixeira [facility] 02/07/2022 10:46:32 022 Pessary Cleaning completed Sapna Teixeira [facility] 01/03/2022 11:42:03 022 Elmiron Instillation completed Sapna Teixeira [facility] 01/03/2022 11:42:43 022 Pessary Cleaning completed Sapna Teixeira [facility] 11/29/2021 10:19:11 022 Elmiron Instillation completed Sapna Teixeira [facility] 11/29/2021 10:16:17 022 Pessary Cleaning completed Sapna Teixeira [facility] 11/01/2021 11:25:09 022 Bladder Scan completed Sapna Teixeira [facility] 11/01/2021 11:24:09 022 Elmiron Instillation completed [facility] 11/01/2021 11:24:22 022 Pessary Cleaning completed Sapna De La Rosaen [facility] 10/04/2021 11:51:33 022 Elmiron Instillation completed S[facility]na [facility]ix[facility]ira [facility] 10/04/2021 11:51:15 022 Pessary Insertion completed Lisandra Greer MD [address] [place] [address], [address], [facility] 10/04/2021 15:03:13 022 Bladder Scan completed Lisandra Greer MD [address] [place] [address], [address], [facility] 09/26/2021 17:12:26 022 Elmiron Instillation completed Dana Asher [facility] 08/31/2021 11:32:26 021 Elmiron Instillation completed Sapnamati De La Rosaen [facility] 08/03/2021 11:35:49 021 Elmiron Instillation completed Stacy [facility] 07/03/2021 10:39:03 021 Elmiron Instillation completed Stacy Fortune [facility] 05/31/2021 11:48:55 021 Elmiron Instillation completed Stacy Jaimeskarey [facility] 05/03/2021 11:11:30 021 Elmiron Instillation completed Stacy Jaimeskarey [facility] 04/05/2021 10:53:18 021 Elmiron Instillation completed Royal Dietrich [facility] 03/01/2021 12:34:33 021 CystoscopyFemale completed Lisandra Greer MD [address], [place], [address], [facility] 02/02/2021 11:18:02 021 Elmiron Instillation completed Abigail Jimenez [facility] 02/02/2021 11:08:07 021 Elmiron Instillation completed Royal Corbinud [facility] 01/02/2021 11:57:31 021 Elmiron Instillation completed Ledy King [facility] 12/07/2020 12:33:01 021 Elmiron Instillation completed Sapna Puneet [facility] 11/09/2020 12:07:24 021 Elmiron Instillation completed Sapna Teixeira [facility] 10/26/2020 10:50:18 021 Elmiron Instillation completed Sapna Puneet [facility] 10/04/2020 12:23:58 021 Elmiron Instillation completed Sapna Teixeira [facility] 08/25/2020 14:15:22 020 Elmiron Instillation completed Sapna Teixeira [facility] 07/27/2020 11:21:17 020 Elmiron Instillation completed Sapna Teixeira [facility] 06/22/2020 10:22:28 020 Elmiron Instillation completed Jatin Silva [facility] 05/18/2020 12:07:15 020 Elmiron Instillation completed Concepción Hitchcock [facility] 04/20/2020 14:22:27 020 Elmiron Instillation completed Concepción Hitchcock [facility] 03/21/2020 13:09:02 020 Elmiron Instillation completed Jatin Silva [facility] 02/22/2020 11:33:42 discectomy of spine completed Sheila Greer MD [address] [place] [address],[address] [place] [address], [address] [place] [address], [facility] 09/26/2021 17:10:22 laparoscopy completed Lisandra Greer MD [address] [place] [address],[address], [place], [place], [address] [place] [address], [facility] 09/26/2021 17:10:47 insertion of prosthesis for breast completed Lisandra Greer MD [address] [place] [address],[address] [place] [address], [address] [place] [address], [facility] 09/26/2021 17:11:07 Appendectomy completed Lisandra Greer MD [address] [place] [address],[address] [place] [address], [address] [place] [address], [facility] 09/26/2021 17:11:20 Imaging Results None recorded. Procedure Notes None recorded. Medical Equipment None Reported. Allergies Allergen ID Allergen Name Allergen Category Reaction Reaction Severity Criticality Documentation Date Start Date Code Code System Note Provider Name and Address Organization Details Recorded Time 105455 vancomyci n medicatio n Not available Not available Not available 02/04/20202011 79216 RxNorm Not Available [facility] 0 00:48:49 201407 Substance with sulfonami de structure and antibacte rial mechanism of action (substanc e) medicatio n Not available Not available Not available 04/11/2022 26719 8003 SNOMED [facility] 2 12:15:21 343715 Cipro medicatio n headache Not available Not available 06/19/202451288 3 RxNorm [facility] 4 11:56:11 Medications Name Sig [...] Tobacco Smoking Status Former Smoker Jatin Silva [facility] 02/22/2020 11:31:58 What Is Your Level Of Alcohol Consumption? Occasional [email or web address] Information not available 02/05/2023 How Many Times Per Week Do You Consume Alcohol? Less Than 1 Time Per Week [email or web address] Information not available 02/05/2023 What Is Your Level Of Caffeine Consumption? Occasional [email or web address] Information not available 02/05/2023 When Did You Quit Smoking? 11-15yearssinc elastcigarette [email or web address] Information not available 02/05/2023 Marital Status Unknown [email or web address] Informati on not available 01/28/2020 What Was The Date Of Your Most Recent Tobacco Screening? 06/19/2024 [email or web address] Information not available 06/19/2024 Have You Ever Been Counseled For Unhealthy Alcohol Use? No Information not available 01/16/2024 Do You Use Any Illicit Or Recreational Drugs? No [email or web address] Information not available 02/05/2023 Has Tobacco Cessation Counseling Been Provided? No [email or web address] Information not available 02/05/2023 Do You Or Have You Ever Used Any Other Forms Of Tobacco Or Nicotine? No [email or web address] Information not available 02/05/2023 How Many Days [...] high-dose, quadrivalent, PF 05/18/2022 completed Alina schmidt, [facility] 08/06/2023 12:50:04 COVID-19, mRNA, LNP-S, PF, 30 mcg/0.3 mL dose, jami-sucrose 01/12/2022 [facility] 12:50:04 COVID-19, mRNA, LNP-S, bivalent, PF, 30 mcg/0.3 mL dose 01/23/2023 [facility]2023 12:50:04 COVID-19, mRNA, LNP-S, bivalent, PF, 30 mcg/0.3 mL dose 05/18/2022 [facility]/06/2023 12:50:04 Influenza, high-dose, quadrivalent, PF 05/24/2023 [facility] 01/16/2024 12:54:12 Pneumococcal conjugate PCV20, polysaccharide [id number] conjugate, adjuvant, PF 07/02/2023 [facility] 01/16/2024 12:54:12 COVID-19, mRNA, LNP-S, PF, jami-sucrose, 30 mcg/0.3 mL 05/24/2023 [facility] 01/16/2024 12:54:12 Influenza, recombinant, quadrivalent, PF 05/22/2019 completed Roxy schmidt, [facility] 05/17/2023 11:54:16 zoster recombinant 01/21/2019 [facility]/2023 11:54:16 Influenza, high-dose, quadrivalent, PF 06/10/2020 completed Roxy schmidt, [facility] 05/17/2023 11:54:16 Influenza, high-dose, quadrivalent, PF 06/13/2021 completed Roxy Broussard null, [facility] 05/17/2023 11:54:16 COVID-19, mRNA, LNP-S, PF, 30 mcg/0.3 mL dose 09/24/2020 completed Roxy Broussard null, [facility] 05/17/2023 11:54:16 COVID-19, mRNA, LNP-S, PF, 30 mcg/0.3 mL dose 10/15/2020 completed Roxy Broussard null, [facility] 05/17/2023 11:54:16 COVID-19, mRNA, LNP-S, PF, 30 mcg/0.3 mL dose 05/19/2021 [facility]2023 11:54:16 pneumococcal polysaccharide PPV23 05/19/2007 [facility] 05/17/2023 11:54:16 influenza, unspecified formulation 06/30/2015 [facility] 05/17/2023 11:54:16 Tdap 02/02/2021 completed Roxy schmidt, [facility] 05/17/2023 11:54:16 Tdap 05/19/2011 [facility]/2023 11:54:16 Pneumococcal conjugate PCV 13 09/01/2015 completed Roxy schmidt, [facility] 05/17/2023 11:54:16 zoster live 05/19/2010 completed Roxy schmidt, [facility] 05/17/2023 11:54:16 Influenza, high-dose, trivalent, PF 05/19/2013 completed Roxy schmidt, [facility] 05/17/2023 11:54:16 Influenza, high-dose, trivalent, PF 05/22/2016 completed Roxy schmidt, [facility] 05/17/2023 11:54:16 Influenza, high-dose, trivalent, PF 05/29/2018 completed Roxy schmidt, [facility] 05/17/2023 11:54:16 Influenza, high-dose, trivalent, PF 06/18/[address] [facility] 05/17/2023 11:54:16 Influenza, split virus, trivalent, PF 06/04/2012 completed Roxysaritha schmidt, [facility] 05/17/2023 11:54:16 Influenza, split virus, trivalent, PF 06/28/[address] [facility] 05/17/2023 11:54:16 pneumococcal polysaccharide PPV23 08/22/2015 completed [facility] 08/06/2023 12:50:04 Past Encounters Encounter ID Performer Location Encounter Start Date Encounter Closed Date Diagnosis/Indication Diagnosis SNOMED-CT Code Diagnosis ICD10 Code [id number] Sapna Teixeira [facility] [address] [place] [address] 05/22/2024 13:58:11 05/25/2024 15:30:32 Chronic interstitial cystitis 821841640 N30.10 Health Concerns Section Related Observation LastModified by Organization Detai ls LastModified Time None Recorded Concern Status LastModified by Organization Details LastModified Time None Recorded Payers Encounter Date Sequence Insurance Name Policy Number Policy Tarango Covered Member ID Tarango Member ID Guarantor Name 05/22/2024 1 MEDICARE B-PA: [employer] Milla Pollard [id number] Milla Pollard 05/22/2024 2 [email or web address] (MEDICARE SUPPLEMENT) Milla Pollard [id number] Milla Pollard Notes Date Note Type Note Provider Name and Address Organization Details Recorded Time 05/22/2024 text/html 83 yo F pt here for routine elmiron instillation Performed without issue. Patient was able to self manage her pessary Sapna schmidt [facility] 05/22/2024 16:20:32 OBGyn Episode No OBEpisode recorded.
--- OUTSIDE RECORDS SUMMARY | 2024-07-18 13:21 | XMS_ITS | Clinical Summary ---
Author Organization [facility] Address [address] [place] [address] Care Team Providers Care Instructional Technology Specialist Name Role Phone Ganesh Sifuentes MD Primary Care Provider [phone] Allergies Active Allergy Reactions Criticality Noted Date Comments Sulfa Antibiotics Hives 09/10/2012 Vancomycin Hives 09/11/2012 Honey Bee Venom Anaphylaxis High 06/16/2016 Medications fluticasone (VERAMYST) 27.5 MCG/SPRAY nasal spray [place] 2 sprays into both nostrils daily. 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 Gender Identity Not on file Sexual Orientation [...] 160 <200 mg/dL 04/09/2020 5:58 AM CDT [facility] Triglycerides 59 <150 mg/dL 04/09/2020 5:58 AM CDT [facility] HDL Cholesterol 81 >49 mg/dL 0 6:01 AM T [facility] LDL Cholesterol Calculated 67 <100 mg/dL 04/09/2020 6:01 AM T [facility] Comment:Desirable: <100 mg/d l Non HDL Cholesterol 79 <130 mg/dL 04/09/2020 6:01 AM CDT [facility] Blood specimen (specimen) 04/09/2020 5:21 AM CDT 04/09/2020 5:22 AM CDT Nia Jimenez PA-C LAB - BLOOD ORDERABLES F inal Result [facility] [address] [place] [id number], [facility] [phone] from Last 3 Months or Most Recently Relevant to Health Maintenance Insurance MEDICARE [employer] Advance Directives For more information, please contact: [phone] Documents on File Type Date Recorded Patient Line Manager Expl anation Advance Directives and Living Will [...] First Alternate Health Care Agent Care Teams Instructional Technology Specialist Relationship Specialty Start Date End Date Ganesh Sifuentes MD PCP - General Family Practice 05/15/19
== END 2024-07-17 08:34 | disposition home or self-care (01) ==
LOC: NFLDREF 07-18 13:18
PROVIDERS: PCP Family Medicine; Referring Provider Family Medicine; Visit Provider Family Medicine
DX: M81.0 Age-related osteoporosis without current pathological fracture (principal); N30.10 Interstitial cystitis (chronic) without hematuria; E78.00 Pure hypercholesterolemia, unspecified; Z79.899 Other long term (current) drug therapy
CPT/HCPCS: 84443

== ENCOUNTER 2024-08-21 14:27 | Outpatient (CLI) | payer MEDICARE, SELFPAY ==
--- NOTE | 2024-08-21 14:40 | CRLHL7_ITS ---
For Patients: As a result of the Century Cures Act, medical imaging exams and procedure reports are released immediately into your electronic medical record. You may view this report before your referring provider. If you have questions, please contact your health care provider. BILATERAL SCREENING MAMMOGRAM WITH COMPUTER-AIDED DETECTION AND TOMOSYNTHESIS TECHNIQUE: CC, MLO and Implant displaced views were obtained. These mammographic images have been obtained using full-field digital technique. These mammographic images were interpreted with the benefit of computer-aided detection. Breast Tomosynthesis was used in this interpretation. COMPARISON FILM: 05/23/23, 03/01/21, 09/21/19. FINDINGS: There are scattered areas of fibroglandular density. IMPRESSION: There is no radiographic evidence for malignancy. ASSESSMENT: BI-RADS Category 2: Benign RECOMMENDATION: Routine screening mammogram in 1 year. A lay language report of this examination will be provided to the patient. Yao Vega M.D. Diagnostic Radiologist [email or web address] SP/Dictated by: Yao Vega MD @ 08/24/2024 11:04:00 AM (Electronically Signed)
== END 2024-08-21 14:28 | disposition home or self-care (01) ==
LOC: MAMMO 14:28
PROVIDERS: PCP Family Medicine; Visit Provider Family Medicine
DX: Z12.31 Encounter for screening mammogram for malignant neoplasm of breast (principal)
CPT/HCPCS: 77063; 77067

== ENCOUNTER 2024-09-08 13:33 | Outpatient (CLI) | payer MEDICARE, OTHER, SELFPAY | END 2024-09-08 13:34 | disposition home or self-care (01) | LOC: NFLDREF 09-09 00:45 | PROVIDERS: PCP Family Medicine; Referring Provider Family Medicine; Visit Provider Family Medicine | DX: M81.0 Age-related osteoporosis without current pathological fracture (principal) | CPT/HCPCS: 82310; 82565; 82575; 82607; 83735; 84100 ==

== ENCOUNTER 2024-09-28 09:33 | Outpatient (CLI) | payer MEDICARE, OTHER, SELFPAY | END 2024-09-28 09:34 | disposition home or self-care (01) | LOC: RAD 09:35 | PROVIDERS: PCP Family Medicine; Visit Provider Family Medicine | DX: I35.1 Nonrheumatic aortic (valve) insufficiency (principal); I34.0 Nonrheumatic mitral (valve) insufficiency | CPT/HCPCS: 93306 ==

== ENCOUNTER 2025-02-09 15:52 | Outpatient (CLI) | payer MEDICARE, OTHER, SELFPAY | END 2025-02-09 15:53 | disposition home or self-care (01) | LOC: NFLDREF 02-12 14:32 | PROVIDERS: PCP Family Medicine; Referring Provider Family Medicine; Visit Provider Family Medicine | DX: M81.0 Age-related osteoporosis without current pathological fracture (principal) | CPT/HCPCS: 82310; 83735; 84100 ==

== ENCOUNTER 2025-06-10 15:20 | Outpatient (CLI) | payer MEDICARE, OTHER, SELFPAY | END 2025-06-10 15:21 | disposition home or self-care (01) | LOC: NFLDREF 06-12 19:25 | PROVIDERS: PCP Family Medicine; Referring Provider Family Medicine; Visit Provider Family Medicine | DX: R31.9 Hematuria, unspecified (principal) | CPT/HCPCS: 87086 ==

== ENCOUNTER 2025-06-17 07:47 | Emergency (ER) | payer MEDICARE, OTHER, SELFPAY ==
[2025-06-17] VITALS (21 sets, daily range): BP systolic 129–162; BP diastolic 71–84; PULSE 69–104; RESP 18; TEMP 36.6; O2SAT 91–97; BMI 26.6
--- OUTSIDE RECORDS SUMMARY | 2025-06-17 07:51 | XMS_ITS | Clinical Summary ---
Author Organization [facility] Address [address] [place] [address] Care Team Providers Care Apprenticeship Consultant Name Role Phone Ganesh Sifuentes MD Primary Care Provider [phone] Allergies Active Allergy Reactions Criticality Noted Date Comments Sulfa (Sulfonamide Antibiotics) Hives 10/28/2010 Vancomycin Hives 10/28/2010 Venom-Yellow Jacket Other - Describe In Comment Field 07/04/2015 Throat felt like it was going to close Medications omeprazole (PRILOSEC) 40 mg capsule Take 1 capsule by mouth once daily. 0 1 Active alendronate (FOSAMAX) 70 mg tablet Take 1 tablet by mouth once a week in the morning. Take on empty stomach with full glass of water. Do not lie down for 1 hr. 0 1 Active fluticasone, 50 mcg per actuation, nasal (FLONASE) 50 mcg/Actuation nasal spray Inhale 1 [place]illiard into both nostrils once daily. 1 Bottle 0 1 Active fluticasone (FLOVENT HFA) 110 mcg/Actuation inhaler Inhale 1 Puff by mouth 2 times daily. 0 1 Active benzonatate (TESSALON) 200 mg capsule Take 200 mg by mouth 3 times daily if needed. 5 Active SYMBICORT 80-4.5 mcg/actuation (80-4.5 mcg each actuation) inhaler Inhale 80 mcg by mouth 2 times daily. 2 puffs 5 Active traZODone (DESYREL) 50 mg tablet Take 50 mg by mouth at bedtime. 5 Active albuterol HFA (PRO-AIR,VENTOL IN,PROVENTIL) 90 mcg/actuation inhaler Inhale 2 Puffs by mouth 4 times daily if needed. 0 5 Active simvastatin (ZOCOR) 5 mg tablet Take 5 mg by mouth at bedtime. 5 Active multivitamin capsule Take 1 capsule by mouth once daily. 0 5 Active azelastine 137 mcg/actuation (ASTELIN) nasal spray Hilliard 1 spray each nostril daily 1 Bottle 0 5 Active cholecalciferol (VITAMIN D) 1,000 unit tablet Take 1 tablet by mouth once daily. 0 5 Active Calcium carbonate (OYSTERSHELL CALCIUM) 500 mg tablet Takes 2 tablets daily 0 5 Active cetirizine (ZYRTEC) 10 mg tablet Take 1 tablet by mouth once daily. 0 6 Active escitalopram oxalate (LEXAPRO) 5 mg tablet Take 1 tablet by mouth once daily. 0 7 Active pentosan polysulfate (ELMIRON) 100 mg capsule Take 1 capsule by mouth twice daily. 0 7 Active EPINEPHrine (EPIPEN) 0.3 mg/0.3 mL injectionIndica tions:Bee allergy status Inject 0.3 mg intramuscular one time if needed for Allergic Reaction for up to 1 dose. 2 Each 2 7 Active EPINEPHrine (EPIPEN) 0.3 mg/0.3 mL injectionIndica tions:Bee sting allergy Use as directed 2 Each 1 8 Active verapamil SR (CALAN SR) 120 mg Sustained-Relea se tablet Take 1 tablet by mouth once daily with a meal. 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 Gender Identity Not on file Sexual Orientation [...] Health Maintenance Due Date Last Done Comments Tetanus booster 1952 Depression screening for age 12+ 1953 Pneumococcal series for age 50+ (1 of 1 - PCV) 12/23/1991 Zoster (shingles) series for age 50+ (1 of 2) 12/23/1991 DEXA/DXA scan for age 65+ 2006 RSV vaccine for adults or (1 - 1-dose 75+ series) 2016 BMI (ht and wt on same day) for age 18+ 12/24/2017 12/24/2016, 01/02/2016 Influenza Vaccine (#1) 2025 Hepatitis B series for 19+ Aged Out N o longer eligible based on patient's age to complete this topic Insurance MEDICARE PB ONLY COMMERCIAL MEDICARE PART A HB ONLY MEDICARE PART B HB ONLY Care Teams Apprenticeship Consultant Relationship Specialty Start Date End Date Ganesh Sifuentes MD [address] [place] [address] PCP - General Family Practice 09/28/24
--- OUTSIDE RECORDS SUMMARY | 2025-06-17 07:52 | XMS_ITS | Encounter Summary ---
Author Organization [facility] Address [address] [place] [address] Care Team Providers Care Miller First Name Role Phone Ganesh Sifuentes MD Primary Care Provider [phone] Encounter Details Date Type Department Care Team (Late st Contact Info) Description 09/21/[address] 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 recommendations Lab Result Lab test for 2019-nCoV customer trainer-PCR or SARS-COV-2 PCR Oropharyngeal AND/OR nasopharyngeal swabs were POSITIVE for 2019-nCoV RNA [OR] SARS-COV-2 RNA (COVID-19) RNA We have been unable to reach patient by phone at this time to notify of their Positive COVID-19 result. Left voicemail message requesting a call back to [phone] [facility] for results. A Positive COVID-19 letter will be sent via [employer] or the mail. Dolly Tomas PTA GENCY DEPARTMENT MANAGER documented in this encounter Plan of Treatment Not on file documented as of this encounter Visit Diagnoses Not on filedocumented in this encounter Additional Health Concerns Infection Onset Date Last Indicated Resolved Time Rule Out COVID-19 09/19/2024 09/19/2024 09/21/2024 12:03 PM EMERGENCY DEPARTMENT MANAGER COVID-19 09/19/2024 09/19/2024 09/30/2024 11:3 9 PM EMERGENCY DEPARTMENT MANAGER documented as of this encounter Care Teams Miller First Relationship Specialty Start Date End Date Ganesh Sifuentes MD PCP - General Family Practice 05/15/19 documented as of this encounter
--- OUTSIDE RECORDS SUMMARY | 2025-06-17 07:52 | XMS_ITS | Clinical Summary ---
Author Organization [facility] Address [address] [place] [address] Care Team Providers Care On Site Coordinator Name Role Phone Ganesh Sifuentes MD Primary Care Provider [phone] Allergies Active Allergy Reactions Criticality Noted Date Comments Sulfa Antibiotics Hives 09/10/2012 Vancomycin Hives 09/11/2012 Honey Bee Venom Anaphylaxis High 06/16/2016 Medications fluticasone (VERAMYST) 27.5 MCG/SPRAY nasal spray [place] 2 sprays into both nostrils daily. Active [...] for nausea (reflux) 60 tablet 0 Active guaiFENesin-code ine (ROBITUSSIN AC) 100-10 MG/5ML solutionIndicati ons:Acute cough Take 5 mLs by mouth nightly as needed for cough. 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 Gender Identity Not on file Sexual Orientation Not on file Last Filed Vital Signs Vital Sign Reading Time Taken Comments Blood Pressure 122/73 09/19/2024 2:42 PM RECYCLING ATTENDANT Pulse 90 09/19/2024 2:42 PM RECYCLING ATTENDANT Temperature 37.6 C (99.6 F) 09/19/2024 2:42 PM RECYCLING ATTENDANT Respiratory Rate 17 09/19/2024 2:42 PM RECYCLING ATTENDANT Oxygen Saturation 96% 09/19/2024 2:42 PM RECYCLING ATTENDANT Inhaled Oxygen Concentration - - Weight 66.7 kg (147 lb) 09/19/2024 2:42 PM RECYCLING ATTENDANT Height 170.2 cm (5' 7) 04/08/2020 3:40 PM CDT Body Mass Index 23.02 04/08/2020 3:40 PM CDT Plan of Treatment Health Maintenance Due Date Last Done Comments ANNUAL REVIEW OF HM ORDERS 1941 DEXA 1941 FALL RISK ASSESSMENT 2006 MEDICARE ANNUAL WELLNESS VISIT 2006 RSV VACCINE (1 - 1-dose 75+ series) 2016 ZOSTER VACCINE (3 of 3) 03/18/2019 01/21/2019, 05/19 LIPID 04/09/2021 04/09/2020 PHQ-2 (once per calendar year) 2024 COVID-19 VACCINE ( season) 2025 05/09/2024, 05/24/2023, 01/23/2023, Additional history exists INFLUENZA VACCINE (#1) 2025 , 05/24/2023, 05/18/2022, Additional history exists ADVANCE CARE PLANNING 04/22/2025 04/22/2020, 020 DTAP/TDAP/TD VACCINE (3 - Td or Tdap) 02/02/2031 02/02/2021, 05/19/2011 PNEUMOCOCCAL VACCINE 50+ YEARS Completed 07/02/2023, 09/01/2015, 08/22/2015, Additional history exists HPV VACCINE (No Doses Required) Completed MENINGITIS VACCINE Aged Out No longer eligible based on patient's age to complete this topic Procedures Procedure Name Priority Date/Time Associated Diagnosis Comments LIPID REFLEX TO DIRECT LDL PANEL Routine 04/09/2020 5:21 AM CDT Chest pain from Last 3 Months or Most Recently Relevant to Health Maintenance Results * Lipid panel reflex to direct LDL (04/09/2020 5:21 AM CDT) Cholesterol 160 <200 mg/dL 04/09/2020 5:58 AM CDT [facility] Triglycerides 59 <150 mg/dL 04/09/2020 5:58 AM CDT [facility] HDL Cholesterol 81 >49 mg/dL 0 6:01 AM T [facility] LDL Cholesterol Calculated 67 <100 mg/dL 04/09/2020 6:01 AM T [facility] Comment:Desirable: <100 mg/d l Non HDL Cholesterol 79 <130 mg/dL 04/09/2020 6:01 AM T [facility] Blood specimen (specimen) 04/09/2020 5:21 AM CDT 04/09/2020 5:22 AM CDT Nia Jimenez PA-C LAB - BLOOD ORDERABLES F inal Result [facility] [address] [place] [address], [facility] [phone] from Last 3 Months or Most Recently Relevant to Health Maintenance Insurance MEDICARE COMMERCIAL MEDICARE [facility] Address: [id number] [place] [id number] Advance Directives For more information, please contact: [phone] Documents on File Type Date 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
--- NOTE | 2025-06-17 08:08 | CRLHL7_ITS ---
For Patients: As a result of the Century Cures Act, medical imaging exams and procedure reports are released immediately into your electronic medical record. You may view this report before your referring provider. If you have questions, please contact your health care provider. INDICATION: Sudden onset severe left-sided headache. COMPARISON: None. TECHNIQUE: CT of the brain / head without intravenous contrast. Multiplanar axial, coronal, and sagittal reformats were reconstructed. FINDINGS: No intracranial hemorrhage. Parenchymal volume is well preserved for age. No acute or subacute cortically based infarct. Mild scattered white matter hypodensities may be related to chronic microvascular ischemia. No mass or mass effect. Normal ventricles. No skull fractures. No worrisome focal bone lesion. The mastoids and middle ears are clear. The included paranasal sinuses are clear. IMPRESSION: Normal head CT. Discussed with Dr. Lutz at 8:30 a.m. on 06/17/2025. Please note that all CT scans at this facility use dose modulation, iterative reconstruction, and/or weight-based dosing when appropriate to reduce radiation dose to as low as reasonably achievable. Dictated by Chary Garcia MD @ 06/17/2025 8:31:14 AM (Electronically Signed)
--- NOTE | 2025-06-17 08:15 | ED.HA ---
HPI - Headache General Chief Complaint: Headache/Migraine Stated Complaint: headache Time Seen by Provider: 06/17/25 08:07 History of Present Illness HPI Narrative: This 84-year-old female comes in with her reporting a headache that began at about 530 this morning. She states that it was 7/10 in severity initially and now it is at 5/10. She does not report any injury event. She is not on any anticoagulants. She has not had any speech change or unilateral symptoms. She does not normally get headaches. A stroke code was initiated prior to arrival or upon arrival simply because of the onset of a headache. There were no other complaints typical of stroke. Related Data Home Medications ?Medication ?Instructions ?Recorded ?Confirmed clotrimazole 10 mg devin 10 mg mucous membrane .5XD 03/14/22 06/15/25 magnesium oxide 400 mg PO QDAY 03/14/22 06/15/25 nitroglycerin 0.4 mg sublingual 0.4 mg sublingual Q5M PRN 03/14/22 06/15/25 tablet Joint therapy PO 11/13/22 06/15/25 azelastine 137 mcg (0.1 %) nasal 1 intranasal DAILY 11/13/22 06/15/25 spray calcium carbonate 1,000 mg PO DAILY 11/13/22 06/15/25 cholecalciferol (vitamin D3) 25 1,000 unit PO DAILY 11/13/22 06/15/25 mcg (1,000 unit) tablet ibuprofen 200 mg capsule mg PO .Daily as needed PRN 11/13/22 06/15/25 chlorhexidine gluconate 0.12 % 15 ml PO BID 03/04/23 06/15/25 mouthwash estradiol 0.01% (0.1 mg/gram) 1 g vaginal 2XW 03/04/23 06/15/25 vaginal cream pentosan polysulfate sodium 100 mg 100 mg PO ONCE 03/04/23 06/15/25 capsule (Elmiron) denosumab 60 mg/mL subcutaneous 60 mg subcut [id number] 05/24/23 06/15/25 syringe (Prolia) omeprazole 40 mg capsule,delayed 40 mg PO BID 07/30/23 06/15/25 release esomeprazole magnesium 40 mg 40 mg PO 06/10/25 06/15/25 capsule,delayed release Previous Rx's ?Medication ?Instructions ?Recorded budesonide-formoterol HFA 160 2 puff inhalation BID #10.2 grams 04/09/24 mcg-4.5 mcg/actuation aerosol inhaler (Symbicort) albuterol sulfate 90 mcg/actuation 1 - 2 puff inhalation Q4-6H PRN 07/17/24 aerosol inhaler shortness of breath or wheezing #6.7 grams bupropion HCl 150 mg 24 hr tablet, 150 mg PO QAM #90 tabs 07/17/24 extended release (Wellbutrin XL) epinephrine 0.3 mg/0.3 mL 0.3 mg (0.3 mL) IM ONCE #2 ea 07/17/24 injection, auto-injector (EpiPen 2-Navid) gabapentin 100 mg capsule 100 mg PO BID #180 caps 07/17/24 trazodone 50 mg tablet 25 - 50 mg (0.5 - 1 x 50 mg) PO 07/17/24 QPM #90 tabs verapamil 120 mg 24 hr 120 mg PO QDAY #90 caps 07/17/24 capsule,extended release diclofenac sodium 1 % topical gel 4 g topical QID #100 grams 09/11/24 (Arthritis Pain (diclofenac)) coenzyme Q10 100 mg capsule 100 mg PO QDAY #90 caps 09/15/24 escitalopram oxalate 20 mg tablet 20 mg PO QDAY #90 tabs 03/19/25 (Lexapro) rosuvastatin 5 mg tablet 5 mg PO QPM #90 tabs 03/30/25 benzonatate 200 mg capsule 200 mg PO BID-TID PRN cough #30 04/27/25 caps codeine 10 mg-guaifenesin 100 mg/5 5 ml PO Q4-6H PRN cough #120 mL 04/30/25 mL oral liquid umeclidinium 62.5 mcg-vilanterol 1 inh inhalation QDAY PRN copd #60 04/30/25 25 mcg/actuation powdr for ea inhalation nystatin 100,000 unit/mL oral 4 ml PO TID 10 days #120 mL 06/10/25 suspension bupropion HCl 300 mg 24 hr tablet, 300 mg PO QAM #90 tabs 06/15/25 extended release (Wellbutrin XL) methylprednisolone 4 mg tablets in See Rx Instructions PO PER PKG DIR 06/15/25 a dose pack (Medrol (Navid)) #21 ea prednisone 20 mg tablet 20 mg PO .COMPLEX #20 tabs 06/15/25 Allergies Allergy/AdvReac Type Severity Reaction Status Date / Time vancomycin Allergy Intermediate rash and Verified 06/15/25 10:59 intense itching ragweed pollen Allergy Mild Congested Verified 06/15/25 10:59 Common paper wasp venom Allergy Severe Anaphylaxis Uncoded 06/15/25 10:59 protein Sulfa drugs Allergy Intermediate Hives Uncoded 06/15/25 10:59 Dust Allergy Mild Congested Uncoded 06/15/25 10:59 black mold Allergy cough Uncoded 06/15/25 10:59 Review of Systems Status of ROS: Reports: 10 or more systems reviewed and unremarkable except as noted in History and below Narrative: Constitutional: No fevers, no weight gain or loss. Eyes: No discharge. No vision changes. HENT: No congestion, no sore throat, no ear pain. Cardiovascular: No chest pain, no palpitations. Respiratory: No shortness of breath, no wheezes, no cough. Gastrointestinal: No abdominal pain, no vomiting, no diarrhea. Genitourinary: No dysuria, no hematuria. Musculoskeletal: Normal range of motion. She has had some neck pain in the past few weeks. Skin: No rashes, no pruritis. Neurological: No dizziness, weakness, sensory change, speech change. Endo/Heme/Allergies: No bruising or bleeding. No polydipsia. Pysch: no suicidality, no anxiety, no insomnia. All other systems reviewed and are negative. [facility] Medical History (Updated 06/17/25 @ 10:14 by Blair Lutz MD) Thrush ?B37.0 - Candidal stomatitis (ICD-10) Wound infection ?T14.8XXA - Other injury of unspecified body region, initial encounter (ICD-10) ?L08.9 - Local infection of the skin and subcutaneous tissue, unspecified (ICD-10) Tick bite ?W57.XXXA - Bitten or stung by nonvenomous insect and other nonvenomous arthropods, initial encounter (ICD-10) Knee pain, bilateral ?M25.561 - Pain in right knee (ICD-10) ?M25.562 - Pain in left knee (ICD-10) Memory loss ?R41.3 - Other amnesia (ICD-10) Depression ?F32.A - Depression, unspecified (ICD-10) Temporary low platelet count ?D69.6 - Thrombocytopenia, unspecified (ICD-10) Surgical History Status post cystoscopy ?Z98.890 - Other specified postprocedural states (ICD-10) History of colonoscopy with polypectomy ?Z98.890 - Other specified postprocedural states (ICD-10) ?Z86.010 - Personal history of colonic polyps (ICD-10) History of cervical discectomy ?Z98.890 - Other specified postprocedural states (ICD-10) History of breast implant ?Z98.82 - Breast implant status (ICD-10) History of bilateral ligation of fallopian tubes ?Z98.51 - Tubal ligation status (ICD-10) History of appendectomy ?Z90.49 - Acquired absence of other specified parts of digestive tract (ICD-10) Family History Mother Coronary artery disease High blood pressure Father Diabetes High blood pressure Melanoma Social History Narrative: does not use illicit drugs former smoker- quit 1972 nonsmoker occasional alcohol consumption Smoking Status: Former smoker Exam Narrative: Exam Narrative: Constitutional: Well-developed, well-nourished, no acute distress. HEENT: Normocephalic, atraumatic. Neck: Normal range of motion. Nontender. Supple. Heart: Regular. No murmurs. Normal rate. Intact distal pulses. Lungs: Clear to auscultation. No chest discomfort. No wheezes, rhonchi, or rales. Abdomen: Normal bowel sounds. Nontender. No rebound tenderness. Genitalia: Deferred. Back: No midline tenderness. Normal range of motion. Extremities: Normal range of motion. No injury. Skin: Intact. No rash. Warm. No erythema or pallor. Neurologic: No altered sensation. No weakness. Alert and oriented. No facial asymmetry. Tongue is midline. [id number] is normal. No pronator drift. Cabin Crew strength is equal bilaterally. Able to raise each leg from the bed. Psychiatric: No suicidality. No anxiety or depression. No insomnia. Nursing notes and vitals signs are reviewed. Const: Vital Signs, click to edit/add: Vital Signs - 24 hr 06/17/25 07:59 06/17/25 08:30 06/17/25 08:31 Temperature 97.8 F Pulse Rate 69 71 Pulse Rate [Left P ulse Oximeter] 73 Respiratory Rate 18 Blood Pressure 143/80 H Blood Pressure [Le ft Upper Arm] 147/83 H Pulse Oximetry 94 95 95 Oxygen Delivery Me thod Room Air 06/17/25 08:35 06/17/25 08:46 06/17/25 08:47 Temperature Pulse Rate 76 81 76 Pulse Rate [Left P ulse Oximeter] Respiratory Rate Blood Pressure 148/81 H 137/76 Blood Pressure [Le ft Upper Arm] Pulse Oximetry 94 95 94 Oxygen Delivery Me thod 06/17/25 08:50 06/17/25 08:51 06/17/25 08:57 Temperature Pulse Rate 79 79 79 Pulse Rate [Left P ulse Oximeter] Respiratory Rate Blood Pressure 145/84 H 162/81 H Blood Pressure [Le ft Upper Arm] Pulse Oximetry 93 94 94 Oxygen Delivery Me thod 06/17/25 09:00 06/17/25 09:01 06/17/25 09:06 Temperature Pulse Rate 77 77 104 H Pulse Rate [Left P ulse Oximeter] Respiratory Rate Blood Pressure 139/79 149/82 H Blood Pressure [Le ft Upper Arm] Pulse Oximetry 94 93 97 Oxygen Delivery Me thod 06/17/25 09:11 06/17/25 09:22 06/17/25 09:23 Temperature Pulse Rate 79 83 80 Pulse Rate [Left P ulse Oximeter] Respiratory Rate Blood Pressure 137/72 149/82 H Blood Pressure [Le ft Upper Arm] Pulse Oximetry 95 93 94 Oxygen Delivery Me thod 06/17/25 09:24 06/17/25 09:30 06/17/25 09:45 Temperature Pulse Rate 79 75 72 Pulse Rate [Left P ulse Oximeter] Respiratory Rate Blood Pressure Blood Pressure [Le ft Upper Arm] Pulse Oximetry 93 93 91 Oxygen Delivery Me thod 06/17/25 09:53 Temperature Pulse Rate 71 Pulse Rate [Left P ulse Oximeter] Respiratory Rate Blood Pressure 129/71 Blood Pressure [Le ft Upper Arm] Pulse Oximetry 92 Oxygen Delivery Me thod Course Vital Signs Vital signs: Initial Vital Signs Temperature 97.8 F 06/17/25 07:59 Temperature Source Temporal Artery Scan 06/17/25 07:59 Pulse Rate 73 06/17/25 07:59 Pulse Rhythm Regular 06/17/25 07:59 Pulse Strength 3+ Normal 06/17/25 07:59 Respiratory Rate 18 06/17/25 07:59 Blood Pressure 147/83 H 06/17/25 07:59 Blood Pressure Mean 104 06/17/25 07:59 Pulse Oximetry 94 06/17/25 07:59 Oxygen Delivery Method Room Air 06/17/25 07:59 Vital Signs Temperature 97.8 F 06/17/25 07:59 Pulse Rate 73 06/17/25 07:59 Respiratory Rate 18 06/17/25 07:59 Blood Pressure 147/83 H 06/17/25 07:59 Pulse Oximetry 94 06/17/25 07:59 Oxygen Delivery Method Room Air 06/17/25 07:59 Temperature 97.8 F 06/17/25 07:59 Pulse Rate 71 06/17/25 09:53 Respiratory Rate 18 06/17/25 07:59 Blood Pressure 129/71 06/17/25 09:53 Pulse Oximetry 92 06/17/25 09:53 Oxygen Delivery Method Room Air 06/17/25 07:59 Medications Administered Medications: Discontinued Medications Generic Name Dose Route Start Last Admin Trade Name Alexxq PRN Reason Stop Dose Admin Hydromorphone HCl 0.3 mg 06/17/25 08:52 06/17/25 09:18 Hydromorphone 0.5 Mg/0.5 Ml Inj IVP 06/17/25 08:53 0.3 mg ONCE ONE Administration Ondansetron HCl 4 mg 06/17/25 08:53 06/17/25 09:20 Ondansetron 2 Mg/Ml Inj IVP 06/17/25 08:54 4 mg ONCE ONE Administration MDM - Headache MDM Narrative Medical decision making narrative: This patient comes in reporting headache that began early this morning. A nurse did initiate a stroke code based on the headache alone. Her neurologic exam is completely normal. She states that her headache is at 5/10 in severity. After examining her she did go to CT scan and I discontinued the stroke code. CT imaging shows no acute findings. An IV was established and labs are acquired. These returned with normal results except for her sed rate is elevated at 51. The patient states that her previous sed rate was 46 and prior to that some time ago it was at 5. She is seeing a neurologist and states that she did have a lidocaine injection in the area of the occipital nerves in her posterior neck. This did not help her at all. She states that the pain seems to come along the left side of her neck and up to the left side of her head. She does not have any visual changes. I did consider possibility of temporal arteritis however her platelet levels are normal. The patient states that she has taken a steroid in the past which brought great relief to her symptoms. She has also taken oxycodone which did not help at all. It does seem that this is some kind of inflammatory condition and perhaps with an autoimmune component. The patient did receive an IV dose of methylprednisolone 125 mg here. She states that she has a prescription for Medrol Dosepak. I encouraged her to use that as directed and to follow-up with her primary physician for further workup of these findings. Lab Data Labs: Lab Results 06/17/25 06/17/25 Range/Units 08:40 09:15 WBC 6.67 (4.50-11.00) K/uL RBC 3.93 L (4.00-5.20) m/uL Hgb 12.6 (12.0-16.0) gm/dL Hct 38.1 (33.0-51.0) % MCV 97 (80-100) fL MCH 32 (26-34) pg MCHC 33 (32-36) gm/dL RDW Coeff of Mary 13.0 (11.5-15.5) % Plt Count 205 (140-440) K/uL Neut % (Auto) 71.7 (42.0-72.0) % Lymph % (Auto) 21.7 (20-44) % [place] % (Auto) 5.5 (0.0-11.0) % Eos % (Auto) 0.0 (0.0-7.0) % Baso % (Auto) 0.1 (0.0-3.0) % Neut # (Auto) 4.77 (1.7-7.0) K/uL Lymph # (Auto) 1.40 (0.90-2.90) K/uL [place] # (Auto) 0.40 (0.00-0.90) K/UL Eos # (Auto) 0.00 (0.00-0.50) K/uL Baso # (Auto) 0.01 (0.00-0.30) K/uL Abs Immat Gran (auto) 0.07 (0.00-0.30) K/uL Imm/Tot Granulo (auto) 1.0 % ESR 51 H (2-20) mm/hr Sodium 139 (135-149) mmol/L Potassium 4.2 (3.6-5.1) mmol/L Chloride 98 (96-114) mmol/L Carbon Dioxide 27 (20-32) mmol/L Anion Gap 14 (7-15) mEq/L BUN 13 (7-30) mg/dL Creatinine 0.7 (0.5-1.5) mg/dL Estimated Creat Clear 39.90 Estimated GFR 86 ml/min Glucose 122 H (60-115) mg/dL Calcium 9.9 (8.4-10.6) mg/dL Urine Color Yellow (Yellow) Urine Appearance Clear (Clear) Urine pH 7.0 (5.0-8.5) Ur Specific [place] 1.015 (1.000-1.030) Urine Protein Negative (Negative) Urine Glucose (UA) Negative (Negative) Urine Ketones Negative (Negative) Urine Blood Trace-intact A (Negative) Urine Nitrite Negative (Negative) Urine Bilirubin Negative (Negative) Urine Urobilinogen 0.2 (0.2-1.0) Ur Leukocyte Esterase Negative (Negative) Urine RBC 0-2 (0-2) Urine WBC 2-5 (0-5) Ur Squamous Epith Cells Few (None-Few) Urine Bacteria Few A (None) Imaging Data CT scan - head: Radiologist's impression: FINDINGS: No intracranial hemorrhage. Parenchymal volume is well preserved for age. No acute or subacute cortically based infarct. Mild scattered white matter hypodensities may be related to chronic microvascular ischemia. No mass or mass effect. Normal ventricles. No skull fractures. No worrisome focal bone lesion. The mastoids and middle ears are clear. The included paranasal sinuses are clear. IMPRESSION: Normal head CT. ECG Data Attestation: I personally reviewed and interpreted this ECG as follows: Interpretation: Normal sinus rhythm. Rate is 71 beats per minute. There are no ST or T-wave abnormalities. Discharge Plan Discharge Clinical Impression: Headache Patient Disposition: Home w/ Parent or Adult Condition: Improved Additional Instructions: Take medication as prescribed. Follow-up with primary physician for ongoing diagnosis and management. Return if worsening. Prescriptions: No Action ibuprofen 200 mg capsule PO .Daily as needed PRN calcium carbonate 500 mg calcium (1,250 mg) tablet 1,000 mg PO DAILY azelastine 137 mcg (0.1 %) aerosol,spray 1 intranasal DAILY cholecalciferol (vitamin D3) 25 mcg (1,000 unit) tablet 1,000 unit PO DAILY Joint therapy PO omeprazole 40 mg capsule,delayed release(DR/EC) 40 mg PO BID trazodone 50 mg tablet 25 - 50 mg PO QPM Qty: 90 3RF bupropion HCl [Wellbutrin XL] 150 mg tablet extended release 24 hr 150 mg PO QAM Qty: 90 3RF epinephrine [EpiPen 2-Navid] 0.3 mg/0.3 mL auto-injector 0.3 mg IM ONCE Qty: 2 0RF Rx Instructions: as a single dose; may repeat once gabapentin 100 mg capsule 100 mg PO BID Qty: 180 3RF albuterol sulfate 90 mcg/actuation HFA aerosol inhaler 1 - 2 puff inhalation Q4-6H PRN (Reason: shortness of breath or wheezing) Qty: 6.7 6RF verapamil 120 mg capsule,ext rel. pellets 24 hr 120 mg PO QDAY Qty: 90 3RF diclofenac sodium [Arthritis Pain (diclofenac)] 1 % gel 4 g topical QID Qty: 100 1RF Rx Instructions: apply to single knee, ankle, foot; for foot includes sole/toes/top of foot estradiol 0.01 % (0.1 mg/gram) cream 1 g vaginal 2XW Elmiron 100 mg capsule 100 mg PO ONCE Rx Instructions: placed vaginally by urology every 5 weeks. chlorhexidine gluconate 0.12 % mouthwash 15 ml PO BID benzonatate 200 mg capsule 200 mg PO BID-TID PRN (Reason: cough) Qty: 30 0RF umeclidinium-vilanterol 62.5-25 mcg/actuation blister with device 1 inh inhalation QDAY PRN (Reason: copd) Qty: 60 2RF codeine-guaifenesin 10-100 mg/5 mL liquid 5 ml PO Q4-6H PRN (Reason: cough) Qty: 120 0RF esomeprazole magnesium 40 mg capsule,delayed release(DR/EC) 40 mg PO nystatin 100,000 unit/mL suspension 4 ml PO TID 10 Days Qty: 120 0RF Rx Instructions: swish and swallow bupropion HCl [Wellbutrin XL] 300 mg tablet extended release 24 hr 300 mg PO QAM Qty: 90 3RF prednisone 20 mg tablet 20 mg PO .COMPLEX Qty: 20 0RF Rx Instructions: 20 mg orally; 60 MG PO DAYS 1 -3, 40 MG DAYS 4-6, 20 MG DAYS 7-9 methylprednisolone [Medrol (Navid)] 4 mg tablets,dose pack See Rx Instructions PO PER PKG DIR Qty: 21 0RF Rx Instructions: PO PER PKG DIR clotrimazole 10 mg devin 10 mg mucous membrane .5XD nitroglycerin 0.4 mg tablet, sublingual 0.4 mg sublingual Q5M PRN Rx Instructions: do not exceed 3 doses per episode magnesium oxide 400 mg magnesium capsule 400 mg PO QDAY Prolia 60 mg/mL syringe 60 mg subcut [id number] budesonide-formoterol [Symbicort] 160-4.5 mcg/actuation HFA aerosol inhaler 2 puff inhalation BID Qty: 10.2 12RF coenzyme Q10 100 mg capsule 100 mg PO QDAY Qty: 90 3RF escitalopram oxalate [Lexapro] 20 mg tablet 20 mg PO QDAY Qty: 90 1RF rosuvastatin 5 mg tablet 5 mg PO QPM Qty: 90 0RF Rx Instructions: Appt needed prior to next refill. Follow Up/Referrals: Ganesh Sifuentes MD [Primary Care Provider, Family Practice] Stand Alone Forms: [facility] Info Instructions
[2025-06-17 08:50] LABS: Sodium* 139 mmol/L (135-149)
[2025-06-17 08:51] LABS: Hematocrit* 38.1 % (33.0-51.0); Hemoglobin* 12.6 gm/dL (12.0-16.0); Immature Granulocytes Abs Auto 0.07 K/uL (0.00-0.30); Immature Granulocytes Pct Auto 1.0 %; Mean Corpuscular HGB Conc 33 gm/dL (32-36); Mean Corpuscular Hemoglobin 32 pg (26-34); Mean Corpuscular Volume 97 fL (80-100); RDW Coefficient of Variation % 13.0 % (11.5-15.5); Red Blood Count* 3.93 m/uL (4.00-5.20); White Blood Count* 6.67 K/uL (4.50-11.00)
[2025-06-17 08:55] LABS: Slide Review Reflex Yes
[2025-06-17 09:15] LABS: Chloride* 98 mmol/L (96-114); Potassium* 4.2 mmol/L (3.6-5.1)
[2025-06-17 09:18] LABS: Anion Gap 14 mEq/L (7-15); Blood Urea Nitrogen* 13 mg/dL (7-30); Carbon Dioxide* 27 mmol/L (20-32); Creatinine* 0.7 mg/dL (0.5-1.5); Est. Creatinine Clearance* 39.90; Estimated Glomerular Filt Rate 86 ml/min
[2025-06-17 09:19] LABS: Calcium* 9.9 mg/dL (8.4-10.6); Glucose* 122 mg/dL (60-115)
[2025-06-17] MEDS: ONDANSETRON 2 MG/ML inj 4 MG IVP (09:20)
[2025-06-17 09:21] LABS: Lymphocytes Absolute Auto 1.40 K/uL (0.90-2.90)
[2025-06-17 09:49] LABS: Erythrocyte SedimentationRate* 51 mm/hr (2-20)
[2025-06-17 09:51] LABS: Appearance Urine Clear (Clear)
[2025-06-17] MEDS: METHYLPREDNISOLONE SOD SUCC 62.5 MG/ML (125) 125 MG IVP (10:17)
[2025-06-17 13:12] LABS: Slide Review Acceptable Review (Acceptable)
== END 2025-06-17 10:27 | disposition home or self-care (01) ==
PROVIDERS: Emergency Provider Emergency Medicine Emergency Medical Services; PCP Family Medicine
DX: R51.9 Headache, unspecified (principal)
CPT/HCPCS: 36415; 70450; 80048; 81001; 85025; 85651; 87086; 93005; 96374; 96375; 99284; J1171; J2405; J2919

== ENCOUNTER 2025-07-12 17:27 | Outpatient (CLI) | payer MEDICARE, OTHER, SELFPAY | END 2025-07-12 17:28 | disposition home or self-care (01) | LOC: NFLDREF 07-17 18:09 | PROVIDERS: PCP Family Medicine; Referring Provider Family Medicine; Visit Provider Nurse Practitioner Family | DX: R30.0 Dysuria (principal) | CPT/HCPCS: 87086 ==

== ENCOUNTER 2025-07-20 10:36 | Outpatient (CLI) | payer MEDICARE, OTHER, SELFPAY | END 2025-07-20 10:37 | disposition home or self-care (01) | PROVIDERS: PCP Family Medicine; Visit Provider Family Medicine | DX: E78.00 Pure hypercholesterolemia, unspecified (principal); F32.A Depression, unspecified; M81.0 Age-related osteoporosis without current pathological fracture; Z00.00 Encounter for general adult medical examination without abnormal findings; Z79.899 Other long term (current) drug therapy; E10.9 Type 1 diabetes mellitus without complications; Z12.39 Encounter for other screening for malignant neoplasm of breast | CPT/HCPCS: 80053; 80061; 82306; 83735; 84100 ==

== ENCOUNTER 2025-08-16 14:16 | Outpatient (CLI) | payer MEDICARE, OTHER, SELFPAY | END 2025-08-16 14:17 | disposition home or self-care (01) | LOC: LKVREF 14:16 | PROVIDERS: PCP Family Medicine; Visit Provider Family Medicine | DX: R53.83 Other fatigue (principal) | CPT/HCPCS: 84443 ==